=== PATIENT | female | born 1975 | race Caucasian/White ===

== ENCOUNTER 2023-06-07 07:53 | Outpatient (OUT) | payer BC, SELFPAY ==
[2023-06-07 09:03] LABS: Basophils Percent Auto 0.3 % (0.2-2.0); Eosinophils Absolute Auto 0.1 10^3/uL (0.0-0.7); Eosinophils Percent Auto 1.2 % (0.9-7.0); Estimated Average Glucose 117 mg/dL; Glycohemoglobin A1C 5.7 % (4.5-6.2); Hematocrit 39.1 % (36.0-48.0); Hemoglobin 12.9 g/dL (12.0-16.0); Immature Granulocytes Abs Auto 0.02 10^3/uL (0.00-0.03); Immature Granulocytes Pct Auto 0.3 % (0.0-0.5); Lymphocytes Absolute Auto 1.9 10^3/uL (1.2-3.8); Lymphocytes Percent Auto 31.5 % (20.5-60.0); Mean Corpuscular Hemoglobin 29.7 pg (26.7-34.0); Mean Corpuscular Volume 90.1 fL (81.0-99.0); Mean Platelet Volume 9.7 fL (9.5-13.5); Monocytes Absolute Auto 0.5 10^3/uL (0.3-0.8); Monocytes Percent Auto 8.1 % (1.7-12.0); Neutrophils Absolute Auto 3.5 10^3/uL (1.4-6.5); Neutrophils Percent Auto 58.6 % (43.0-75.0); Platelet Count 267 10^3/uL (150-450); Red Blood Count 4.34 10^6/uL (4.20-5.40); Red Cell Distribution Width 12.5 % (11.0-15.0); White Blood Count 5.9 10^3/uL (4.0-11.0)
[2023-06-07 09:26] LABS: Alanine Aminotransferase 32 U/L (14-59); Albumin Level 3.4 g/dL (3.4-5.0); Alkaline Phosphatase 75 U/L (46-116); Aspartate Amino Transferase 21 U/L (15-37); Bilirubin Direct 0.1 mg/dL (0.0-0.2); Bilirubin Total 0.3 mg/dL (0.2-1.0); Calcium 8.2 mg/dL (8.5-10.1); Chloride 106 mmol/L (98-107); Chol HDL Ratio 3.2; Cholesterol 196 mg/dL (<=200); Estimated GFR (African America >60 (>=60); Estimated GFR (Non-African Ame >60 (>=60); Free T3 2.36 pg/mL (2.18-3.98); Globulin 3.4 g/dL; Glucose 89 mg/dL (74-106); HDL Cholesterol 62 mg/dL (40-60); Sodium 142 mmol/L (136-145); Thyroid Stimulating Hormone 0.147 uIU/mL (0.358-3.740); Total Protein 6.8 g/dL (6.4-8.2); Triglycerides 163 mg/dL (<=150); VLDL CHOLESTEROL 32.6 mg/dL
[2023-06-07 09:51] LABS: Free T4 0.83 ng/dL (0.76-1.46)
== END 2023-06-07 07:54 | disposition home or self-care (01) ==
LOC: LAB 08:00
PROVIDERS: PCP Family Medicine; Visit Provider Family Medicine
DX: Z00.00 Encounter for general adult medical examination without abnormal findings (principal); E55.9 Vitamin D deficiency, unspecified; E03.9 Hypothyroidism, unspecified
CPT/HCPCS: 36415; 80048; 80061; 80076; 82306; 83036; 84439; 84443; 84481; 85025

== ENCOUNTER 2023-07-12 20:38 | Outpatient (REF) | payer BC, SELFPAY ==
--- OUTSIDE RECORDS SUMMARY | 2023-07-12 20:43 | XMS_ITS | CCD ---
Author Name Unknown Address [address] [place] [address] Organization [facility] Care Team Providers Care Head Greenskeeper Name Role Phone Unavailable, Family Physician Unavailable Un available Unavailable, Family Physician Unavailable Un available Diab, Kelsea Unavailable Unavailable [place], KEN Unavailable Unavailable [place], KEN Unavailable Unavailable NADERER, SRIDHAR ANTONIA Unavailable Unavailabl e ABEBA, NICHOLE Unavailable Unavailable MASSMELISSA RAFLUL Unavailable Unavailable NADERER, SRIDHAR ANTONIA Unavailable Unavailabl e NADERER, SRIDHAR ANTONIA Unavailable Unavailabl e NADERER, SRIDHAR ANTONIA Unavailable Unavailabl e NADERER, SRIDHAR ANTONIA Unavailable Unavailabl e NADERER, SRIDHAR ANTONIA Unavailable Unavailabl e NADERER, SRIDHAR ANTONIA Unavailable Unavailabl e NADERER, SRIDHAR ANTONIA Unavailable Unavailabl e NADERER, SRIDHAR ANTONIA Unavailable Unavailabl e NADERER, SRIDHAR ANTONIA Unavailable Unavailabl e NADERER, SRIDHAR ANTONIA Unavailable Unavailabl e NADERER, SRIDHAR ANTONIA Unavailable Unavailabl e NADERER, SRIDHAR ANTONIA Unavailable Unavailabl e NADERER, SRIDHAR ANTONIA Unavailable Unavailabl e NADERER, SRIDHAR ANTONIA Unavailable Unavailabl e NADERER, SRIDHAR ANTONIA Unavailable Unavailabl e NADERER, SRIDHAR ANTONIA Unavailable Unavailabl e NADERER, SRIDHAR ANTONIA Unavailable Unavailabl e NADERER, SRIDHAR ANTONIA Unavailable Unavailabl e NADERER, SRIDHAR ANTONIA Unavailable Unavailabl e NADERER, SRIDHAR ANTONIA Unavailable Unavailabl e NADERER, SRIDHAR ANTONIA Unavailable Unavailabl e NADERER, SRIDHAR ANTONIA Unavailable Unavailabl e NADERER, SRIDHAR ANTONIA Unavailable Unavailabl e NADERER, SRIDHAR ANTONIA Unavailable Unavailabl e NADERER, SRIDHAR ANTONIA Unavailable Unavailabl e NADERER, SRIDHAR ANTONIA Unavailable Unavailabl e NADERER, SRIDHAR ANTONIA Unavailable Unavailabl e NADERER, SRIDHAR ANTONIA Unavailable Unavailabl e NADERER, SRIDHAR ANTONIA Unavailable Unavailabl e NADERER, SRIDHAR ANTONIA Unavailable Unavailabl e NADERER, SRIDHAR ANTONIA Unavailable Unavailabl e NADERER, SRIDHAR ANTONIA Unavailable Unavailabl e NADERER, SRIDHAR ANTONIA Unavailable Unavailabl e NADERER, SRIDHAR ANTONIA Unavailable Unavailabl e NADERER, SRIDHAR ANTONIA Unavailable Unavailabl e NADERER, SRIDHAR ATNONIA Unavailable Unavailabl e NADERER, SRIDHAR ANTONIA Unavailable Unavailabl e NADERER, SRIDHAR ANTONIA Unavailable Unavailabl e NADERER, SRIDHAR ANTONIA Unavailable Unavailabl e NADERER, SRIDHAR ANTONIA Unavailable Unavailabl e NADERER, SRIDHAR ANTONIA Unavailable Unavailabl e NADERER, SRIDHAR ANTONIA Unavailable Unavailabl e NADERER, SRIDHAR ANTONIA Unavailable Unavailabl e NADERER, SRIDHAR ANTONIA Unavailable Unavailabl e NADERER, SRIDHAR ANTONIA Unavailable Unavailabl e NADERER, SRIDHAR ANTONIA Unavailable Unavailabl e [place], KEN Unavailable Unavailable EDIE, LORENZO Unavailable Unavailable NADERER, SRIDHAR ANTONIA Unavailable Unavailabl e EDIE, LORENZO Unavailable Unavailable NADERER, SRIDHAR ANTONIA Unavailable Unavailabl e EDIE, LORENZO Unavailable Unavailable NADERER, SRIDHAR ANTONIA Unavailable Unavailabl e EDIE, LORENZO Unavailable Unavailable NADERER, SRIDHAR ANTONIA Unavailable Unavailabl e EDIE, LORENZO Unavailable Unavailable NADERER, SRIDHAR ANTONIA Unavailable Unavailabl e EDIE, LORENZO Unavailable Unavailable NADERER, SRIDHAR ANTONIA Unavailable Unavailabl e Green, Domenic Unavailable Unavailable Green, Domenic Marko A Unavailable Unavailab Kenisha Gan Unavailable NADERER, DR SRIDHAR Choudhary Primary Care Unavailable JENIFER ONEIL Consulting Unavailable NADERER, DR SRIDHAR Choudhary Attending Unavailable NADERER, DR SRIDHAR Choudhary Admitting Unavailable NADERER, DR SRIDHAR Choudhary Consulting Unavailable NADERER, DR SRIDHAR Choudhary Primary Care Unavailable NADERER, DR SRIDHAR Choudhary Attending Unavailable NADERER, DR SRIDHAR Choudhary Admitting Unavailable ALEXX ., DR PINEDO Admitting Unavailable NADERER, DR SRIDHAR Choudhary Primary Care Unavailable ALEXX ., DR PINEDO Consulting Unavailable ALEXX ., DR PINEDO Attending Unavailable NADERER, DR SRIDHAR Choudhary Primary Care Unavailable NADERER, DR SRIDHAR Choudhary Consulting Unavailable NADERER, DR SRIDHAR Choudhary Attending Unavailable TERESITA, DR SRIDHAR Choudhary Admitting Unavailable NADFLORENTINO, DR SRIDHAR Choudhary Admitting Unavailable NADFLORENTINO, DR SRIDHAR Choudhary Primary Care Unavailable TERESITA, DR SRIDHAR Choudhary Consulting Unavailable TERESITA, DR SRIDHAR Choudhary Attending Unavailable ALEXX ., DR PINEDO Admitting Unavailable ALEXX ., DR PINEDO Consulting Unavailable TERESITA, DR SRIDHAR Choudhary Primary Care Unavailable ALEXX ., DR PINEDO Attending Unavailable All Starks Attending Unavailab le All Starks Admitting Unavailab le Sridhar Lo Primary Care Unavailable Allergies Allergy Classification Reported Allergen(s) Allergy Type Date of Onset Reaction(s) Facility (3 sources) cefdinir; Translations: [cefdinir] Drug Allergy 08-28-19 mood changes [facility] Repository (3 sources) Promethazine; Translations: [Phenergan] Drug Allergy [facility] Repository (2 sources) risperiDONE Drug Allergy [facility] Work Phone: (2 sources) Sulfamethoxazole / Trimethoprim; Translations: [Bactrim] Drug Allergy [facility] Repository (1 source) Ciprofloxacin Drug Allergy hives [facility] Other (2 sources) Prochlorperazine; Translations: [Compazine] Drug Allergy 03-01-20 17 dizziness [facility] Repository (1 source) Promethazine Drug Allergy nausea [facility] Other (1 source) Sulfamethoxazole / Trimethoprim Drug Allergy dizziness [facility] Other (1 source) Triamcinolone Drug Allergy anxiety [facility] Other (1 source) vortioxetine Drug Allergy nausea [facility] Other (1 source) Ciprofloxacin Drug Allergy [facility] Repository (1 source) Corticosteroids Drug allergy (disorder) 08-28-19 20 [facility] (1 source) risperiDONE Drug Allergy [facility] Repository (1 source) vortioxetine Drug Allergy 08-28-19 20 [facility] Repository Medications Current Medications Medication Drug Class(es) Dates Sig (Normalized) Sig (Original) Ascorbic Acid (2 sources) Vitamin C Vitamin C Active Vitamin C Not-Ta xi clonazePAM 0.5 mg oral table t (2 sources) Benzodiazepine clonazePAM 0.5 M G Oral for 30 Active take 0.5 tablet by m outh three times daily KlonoPIN 1 MG Oral Tablet TAKE 0.5 TABLE T 3 TIMES DAILY Refills: 0 Active famotidine 20 mg oral tablet (1 source) Histamine-2 Receptor Antagonist Famotidine 20 MG Ora l for 90 Active levothyroxine sodium 0.088 mg oral tablet (1 source) l-Thyroxine Levothyroxine So dium 88 MCG Oral for 90 Active nortriptyline 25 mg oral capsule (3 sources) Tricyclic Antidepressant Nortrip tyline HCl 25 MG Oral for 90 Active Pamelor 75 MG Or al Capsule Refills: 0 Active sertraline 25 mg oral tablet (1 source) Serotonin Reuptake Inhibitor Sertraline HCl 25 MG Oral for 30 Active Womens One Daily (1 source) Womens One Daily Active Completed/Discontinued Medications Medication Drug Class(es) Dates Sig (Normalized) Sig (Original) Cetirizine (1 source) Histamine-1 Receptor Antagonist ZyrTEC Allergy Not-Taking ergocalciferol 37373 unt oral capsule (2 sources) Provitamin D2 Compound Start: 09-22-2017 take 1 capsule by mouth every week at lunch Vitamin D (Ergocalciferol) 03412 UNIT Oral Capsule take 1 capsule by mouth every week ON MONDAY WITH LUNCH AND FULL GLASS OF WATER Quantity: 13 Refills: 0 Domenic Green Start : 22-Sep-2017 Active Vitamin D (Ergoc alciferol) 1.25 MG (80390 UT) Oral for 84 Active hydrOXYzine pamoate 25 mg oral capsule (1 source) Antihistamine hydrOXYzine Pamo ate 25 MG Oral Capsule Refills: 0 Active pantoprazole 40 mg delayed release oral tablet (1 source) Proton Pump Inhibitor take 1 tablet by mouth once daily Protonix 40 MG Oral Tablet Delayed Release TAKE 1 TABLET DAILY. Quantity: 90 Refills: 1 Active raNITIdine 150 mg oral tablet (1 source) Histamine-2 Receptor Antagonist Start: 08-10-19 18 take 1 tablet by mouth twice daily raNITIdine HCl - 150 MG Oral Tablet take 1 tablet by mouth twice a day Quantity: 60 Refills: 0 Domenic Green Start : 10-Aug-2017 Active Triamcinolone (1 source) Corticosteroid Start: 11-24-19 17 KENALOG - 10 mg October, 60 mg venlafaxine (1 source) Serotonin and Norepinephrine Reuptake Inhibitor Effexor Not-Taking Vitamin D (1 source) Vitamin D Not-Taking Problems Active Problems Problem Classification Problem Date Documented Date Episodic/Chronic Anxiety disorders (5 sources) Panic disorder; Translations: [Panic disorder [episodic paroxysmal anxiety]] Onset: 07-25-2017 Chronic Disorders of lipid metabolism (1 source) Hyperlipidemia, unspecified; Translations: [HYPERLIPIDEMIA UNSPECIFIED] Onset: 01-09-2022 Chronic Esophageal disorders (1 source) Gastroesophageal reflux disease; Translations: [GERD (gastroesophageal reflux disease)] Chronic Mood disorders (4 sources) Major depressive disorder, single episode, severe without psychotic features; Translations: [Major depressive disorder] Onset: 07-25-2017 Chronic Mood disorders (1 source) Mood disorders Onset: 12-06-2017 Nervous system congenital anomalies (1 source) Chiari malformation; Translations: [History of Arnold-Chiari syndrome] Chronic Nutritional deficiencies (2 sources) Vitamin D deficiency; Translations: [Vitamin D deficiency, unspecified] Onset: 01-09-2022 Chronic Other endocrine disorders (4 sources) Polycystic ovarian syndrome; Translations: [POLYCYSTIC OVARIAN SYNDROME] Onset: 07-06-2022 Chronic Other upper respiratory disease (1 source) Allergic rhinitis; Translations: [Allergic rhinitis, unspecified] Chronic Thyroid disorders (5 sources) Iodine-deficiency related diffuse (endemic) goiter; Translations: [Hypothyroidism, unspecified] Onset: 01-09-2022 Chronic Unclassified (1 source) 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() Onset: 01-22-2018 Unclassified (1 source) mdd recurrent severe / mdd recurrent severe() Onset: 11-21-2017 Unclassified (1 source) mdd recurrent severe,BRIAN, panic disorder / mdd recurrent severe,BRIAN, panic disorder() Onset: 01-15-2018 Unclassified (1 source) panic disorder / panic disorder() Onset: 01-22-2018 Past or Other Problems Problem Classification Problem Date Documented Da te Episodic/Chronic Conditions associated with dizziness or vertigo (1 source) Vertigo; Translations: [Vertigo] Episodic Immunizations and screening for infectious disease (2 sources) Contact with and (suspected) exposure to other viral communicable diseases; Translations: [Encounter for screening for human papillomavirus (HPV)] Onset: 07-01-2022 Episodic Malaise and fatigue (2 sources) Asthenia; Translations: [Fatigue] Episodic Other aftercare (4 sources) Other intermediate manager (current) drug therapy; Translations: [OTH [facility] CURRENT DRUG THERAPY] Onset: 04-13-2022 Episodic Other ear and sense organ disorders (1 source) Otalgia; Translations: [Right ear pain] Episodic Other gastrointestinal disorders (1 source) Swallowing painful; Translations: [Odynophagia] Episodic Other gastrointestinal disorders (1 source) Personal history of other diseases of the digestive system; Translations: [History of irritable bowel syndrome] Episodic Other lower respiratory disease (1 source) H/O: respiratory disease; Translations: [History of sinusitis] Episodic Other lower respiratory disease (1 source) Shortness of breath; Translations: [SHORTNESS OF BREATH] Onset: 05-01-2022 Episodic Other screening for suspected conditions (not mental disorders or infectious disease) (4 sources) Encounter for screening for malignant neoplasm of cervix; Translations: [ENC SCREENING MALIG NEOPLASM CERV] Onset: 06-29-2022 Episodic Screening and history of mental health and substance abuse codes (1 source) H/O: depression; Translations: [History of depression] Episodic Spondylosis; intervertebral disc disorders; other back problems (1 source) Low back pain; Translations: [Low back pain, unspecified back pain laterality, unspecified chronicity, with sciatica presence unspecified] Episodic Unclassified (1 source) MDD severe recurrent; Translations: [MDD severe recurrent] Onset: 01-22-2018 Unclassified (1 source) mdd recurrent severe,BRIAN, panic disorder; Translations: [mdd recurrent severe,BRIAN, panic disorder] Onset: 01-15-2018 Unclassified (1 source) mdd recurrent severe; Translations: [mdd recurrent severe] Onset: 11-21-2017 Unclassified (2 sources) Patient encounter status; Translations: [Screening for diabetes mellitus] Viral infection (1 source) COVID-19 NEGATED: Highlighted row has not occurred!Residual codes; unclassified (2 sources) Disease Episodic Results Test Name Value Interpretation Reference Range Facility DHEA SERUMon 07-09-2022 Dehydroepiandrosterone (DHEA) 145 ng/dL Normal 31-701 [facility] Comment on above: Result Comment: Age 1 - 5 years 0 - 67 6 - 7 years 0 - 110 8 - 10 years 0 - 185 11 - 12 years 0 - 201 13 - 14 years 0 - 318 15 - 16 years 39 - 481 17 - 19 years 40 - 491 >19 years 31 - 701 Performed By: #### C BC #### [facility] [address] [place], [place] [address] Dr. June Mayorga DHEA-SULFATEon 07-07-2022 DHEA-Sulfate 82.1 ug/dL Normal 41.2-243.7 [facility] Comment on above: Performed By: #### C BC #### [facility] [address] [place] [address] [address] June Mayorga FSHon 07-07-2022 FSH 6.4 mIU/mL Normal [facility] Comment on above: Result Comment: Adul t Female: Follicular phase 3.5 - 12.5 Ovulation phase 4.7 - 21.5 Luteal phase 1.7 - 7.7 Postmenopausal 25.8 - 134.8 Performed By: #### C BC #### [facility] [address] [place] [address] Dr. June Mayorga LUTEINIZING HORMONE (LH)on 0 07-07-2022 LH 7.4 mIU/mL Normal [facility] Comment on above: Result Comment: Adul t Female: Follicular phase 2.4 - 12.6 Ovulation phase 14.0 - 95.6 Luteal phase 1.0 - 11.4 Postmenopausal 7.7 - 58.5 Performed By: #### L BCL #### [facility] [address] [place] [address] Dr. June Mayorga PAP ACOG PANEL 2: 30 to 65on 07-07-2022 . . Normal [facility] Comment on above: Result Comment: Perf ormed at: BA Performed By: #### C BC #### [facility] [address] [place], [place] [id number] Dr. June Mayorga Age Gdln ACOG Testing 30-65 Normal [facility] Comment on above: Performed By: #### C BC #### [facility] [address] [place] [address] Dr. June Mayorga DIAGNOSIS: Comment Normal [facility] Comment on above: Result Comment: NEGA TIVE FOR INTRAEPITHELIAL LESION OR MALIGNANCY. Performed at: BA Performed By: #### C BC #### [facility] [address] [place] [address] Dr. June Mayorga HPV Aptima Negative Normal Negative [facility] Comment on above: Result Comment: This nucleic acid amplification test detects fourteen high-risk HPV types (16,18,31,33,35,39,45,51,52,56,58,59,66,68) without differentiation. Performed at: =G Performed By: #### C BC #### [facility] [address] [place] [address] Dr. June Mayorga HPV Genotype Reflex Comment Normal [facility] Comment on above: Result Comment: Crit eria not met, HPV Genotype not performed. Performed at: BA Performed By: #### C BC #### [facility] [address] [place] [address] Dr. June Mayorga Methodology: Comment Normal [facility] Comment on above: Result Comment: This liquid based ThinPrep(R) pap test was screened with the use of an image guided system. Performed at: WB Performed By: #### C BC #### [facility] [address] [place] [address] Dr. June Mayorga Note: Comment Normal [facility] Comment on above: Result Comment: The Pap smear is a screening test designed to aid in the detection of premalignant and malignant conditions of the uterine cervix. It is not a diagnostic procedure and should not be used as the sole means of detecting cervical cancer. Both false-positive and false-negative reports do occur. . Performed at: WB Performed By: #### C BC #### [facility] [address] [place] [address] Dr. June Mayorga Performed by: Comment Normal [facility] Comment on above: Result Comment: Julianne Rubio, Gameplay Engineer (ASCP) Performed at: BA Performed By: #### C BC #### [facility] [address] [place] [address] Dr. June Mayorga Specimen adequacy: Comment Normal [facility] Comment on above: Result Comment: Sati sfactory for evaluation. Endocervical and/or squamous metaplastic cells (endocervical component) are present. Performed at: BA Performed By: #### C BC #### [facility] [address] [place] [address] Dr. June Mayorga CBC AUTO DIFFon 07-06-2022 BASO # 0.0 103/ul Normal 0.0-0.1 [facility] Comment on above: Performed By: #### C BC #### [facility] [address] [place] [address] Dr. June Mayorga Basophils/100 WBC (Bld) 0.4 % Normal 0.2-2.0 [facility] Comment on above: Performed By: #### C BC #### [facility] [address] [place] [address] Dr. June Mayorga EO # 0.1 103/ul Normal 0.0-0.7 [facility] Comment on above: Performed By: #### C BC #### [facility] [address] [place] [address] Dr. June Mayorga Eosinophils/100 WBC (Bld) 1.5 % Normal 0.9-7.0 [facility] Comment on above: Performed By: #### C BC #### [facility] [address] [place] [address] Dr. June Mayorga Erythrocyte distribution width (RBC) [Ratio] 13.3 % Normal 11.0-15.0 [facility] Comment on above: Performed By: #### C BC #### [facility] [address] [place] [address] Dr. June Mayorga Hematocrit (Bld) [Volume fraction] 38.6 % Normal 36.0-48.0 [facility] Comment on above: Performed By: #### C BC #### [facility] [address] [place] [address] Dr. June Mayorga Hemoglobin (Bld) [Mass/Vol] 12.9 g/dL Normal 12.0-16.0 [facility] Comment on above: Performed By: #### C BC #### [facility] [address] [place] [address] Dr. June Mayorga IG # 0.02 10e3/ul Normal 0.00-0.03 [facility] Comment on above: Performed By: #### C BC #### [facility] [address] [place] [address] Dr. June Mayorga IG % 0.2 % Normal 0.0-0.5 [facility] Comment on above: Performed By: #### C BC #### [facility] [address] [place] [address] Dr. June Mayorga LYMPH # 3.0 103/ul Normal 1.2-3.8 [facility] Comment on above: Performed By: #### C BC #### [facility] [address] [place] [address] Dr. June Mayorga Lymphocytes/100 WBC (Bld) 37.3 % Normal 20.5-60.0 [facility] Comment on above: Performed By: #### C BC #### [facility] [address] [place] [address] Dr. June Mayorga MANUAL DIFF REQ NO Normal [facility] Comment on above: Performed By: #### C BC #### [facility] [address] [place] [address] Dr. June Mayorga MCH (RBC) [Entitic mass] 29.8 pg Normal 26.7-34.0 [facility] Comment on above: Performed By: #### C BC #### [facility] [address] [place] [address] Dr. June Mayorga MCHC (RBC) [Mass/Vol] 33.4 g/dL Normal 29.9-35.2 [facility] Comment on above: Performed By: #### C BC #### [facility] [address] [place] [address] Dr. June Mayorga MCV (RBC) [Entitic vol] 89.1 fL Normal 81.0-99.0 [facility] Comment on above: Performed By: #### C BC #### [facility] [address] [place] [address] Dr. June Mayorga MONO # 0.7 103/ul Normal 0.3-0.8 [facility] Comment on above: Performed By: #### C BC #### [facility] [address] [place] [address] Dr. June Mayorga Monocytes/100 WBC (Bld) 8.5 % Normal 1.7-12.0 [facility] Comment on above: Performed By: #### C BC #### [facility] [address] [place] [address] Dr. June Mayorga NEUT # 4.2 103/ul Normal 1.4-6.5 [facility] Comment on above: Performed By: #### C BC #### [facility] [address] [place] [address] Dr. June Mayorga Neutrophils/100 WBC (Bld) 52.1 % Normal 43.0-75.0 [facility] Comment on above: Performed By: #### C BC #### [facility] [address] [place] [address] Dr. June Mayorga Platelet mean volume (Bld) [Entitic vol] 9.2 fL Critically low 9.5-13.5 [facility] Comment on above: Performed By: #### C BC #### [facility] [address] [place] [address] Dr. June Mayorga PLT 257 103/ul Normal 150-450 [facility] Comment on above: Performed By: #### C BC #### [facility] [address] [place] [address] Dr. June Mayorga RBC 4.33 106/ul Normal 4.20-5.40 [facility] Comment on above: Performed By: #### C BC #### [facility] [address] [place] [address] Dr. June Mayorga WBC 8.1 103/ul Normal 4.0-11.0 [facility] Comment on above: Performed By: #### C BC #### [facility] [address] [place] [address] Dr. June Mayorga FREE T4on 07-06-2022 Free T4 [Mass/Vol] 0.84 ng/dL Normal 0.76-1.46 [facility] Comment on above: Performed By: #### F T4 #### [facility] [address] [place] [address] Dr. June Mayorga GLYCOHEMOGLOBIN A1Con 2022 ADA RECOMMENDATION SEE BELOW Normal [facility] Comment on above: Result Comment: ADA RECOMMENDED LIMIT 4.0 - 6.0 ADA THERAPEUTIC TARGET < 7.0 ACTION SUGGESTED > 7.0 Performed By: #### A 1C #### [facility] [address] [place] [address] Dr. June Mayorga Glucose [Mass/Vol] 105 mg/dL Normal [facility] Comment on above: Performed By: #### A 1C #### [facility] [address] [place] [address] Dr. June Mayorga HbA1c (Bld) [Mass fraction] 5.3 % Normal 4.5-6.2 [facility] Comment on above: Performed By: #### A 1C #### [facility] [address] [place] [address] Dr. June Mayorga TSHon 07-06-2022 TSH 0.631 uIU/mL Normal 0.358-3.74 0 [facility] Comment on above: Performed By: #### T SH #### [facility] [address] [place] [address] Dr. June Mayorga US THYROIDon 04-28-2022 US THYROID EXAMINATION: US THYR OID HISTORY: Diffuse endemic goiter COMPARISON: No relevant comparison available. TECHNIQUE: Sonographic images of the thyroid gland were obtained. FINDINGS: The right thyroid lobe is normal in size, contour and echotexture measuring 4.6 x 0.9 x 1.0 cm. No focal nodule The thyroid isthmus measures 2 mm, no focal nodule The left thyroid lobe is normal in size, contour and echotexture measuring 3.8 x 0.7 x 1.1 cm. No focal nodule IMPRESSION: Normal exam Electronically authenticated by: JENIFER ONEIL Date: 2022-04-28 19:27 Normal [facility] MAGNESIUMon 04-13-2022 Magnesium [Mass/Vol] 2.1 mg/dL Normal 1.8-2.4 [facility] Comment on above: Performed By: #### M G #### [facility] [address] [place] [address] Dr. uJne Mayorga COVID Quick Testingon 2021 Result Positive [employer] Other CBC AUTO DIFFon 01-05-2022 BASO # 0.0 103/ul Normal 0.0-0.1 [facility] Comment on above: Performed By: #### C BC #### [facility] [address] [place] [address] Dr. June Mayorga Basophils/100 WBC (Bld) 0.5 % Normal 0.2-2.0 [facility] Comment on above: Performed By: #### C BC #### [facility] [address] [place] [address] Dr. June Mayorga EO # 0.1 103/ul Normal 0.0-0.7 [facility] Comment on above: Performed By: #### C BC #### [facility] [address] [place] [address] Dr. June Mayorga Eosinophils/100 WBC (Bld) 1.6 % Normal 0.9-7.0 [facility] Comment on above: Performed By: #### C BC #### [facility] [address] [place] [address] Dr. June Mayorga Erythrocyte distribution width (RBC) [Ratio] 12.9 % Normal 11.0-15.0 [facility] Comment on above: Performed By: #### C BC #### [facility] [address] [place] [address] Dr. June Mayorga Hematocrit (Bld) [Volume fraction] 38.8 % Normal 36.0-48.0 [facility] Comment on above: Performed By: #### C BC #### [facility] [address] [place] [address] Dr. June Mayorga Hemoglobin (Bld) [Mass/Vol] 12.7 g/dL Normal 12.0-16.0 [facility] Comment on above: Performed By: #### C BC #### [facility] [address] [place] [address] Dr. June Mayorga IG # 0.01 10e3/ul Normal 0.00-0.03 [facility] Comment on above: Performed By: #### C BC #### [facility] [address] [place] [address] Dr. June Mayorga IG % 0.2 % Normal 0.0-0.5 [facility] Comment on above: Performed By: #### C BC #### [facility] [address] [place] [address] Dr. June Mayorga LYMPH # 2.3 103/ul Normal 1.2-3.8 [facility] Comment on above: Performed By: #### C BC #### [facility] [address] [place] [address] Dr. June Mayogra Lymphocytes/100 WBC (Bld) 36.6 % Normal 20.5-60.0 [facility] Comment on above: Performed By: #### C BC #### [facility] [address] [place] [address] Dr. June Mayorga MANUAL DIFF REQ NO Normal [facility] Comment on above: Performed By: #### C BC #### [facility] [address] [place] [address] Dr. June Mayorga MCH (RBC) [Entitic mass] 30.1 pg Normal 26.7-34.0 [facility] Comment on above: Performed By: #### C BC #### [facility] [address] [place] [address] Dr. June Mayorga MCHC (RBC) [Mass/Vol] 32.7 g/dL Normal 29.9-35.2 [facility] Comment on above: Performed By: #### C BC #### [facility] [address] [place] [address] Dr. June Mayorga MCV (RBC) [Entitic vol] 91.9 fL Normal 81.0-99.0 [facility] Comment on above: Performed By: #### C BC #### [facility] [address] [place] [address] Dr. June Mayorga MONO # 0.6 103/ul Normal 0.3-0.8 [facility] Comment on above: Performed By: #### C BC #### [facility] [address] [place] [address] Dr. June Mayorga Monocytes/100 WBC (Bld) 9.2 % Normal 1.7-12.0 [facility] Comment on above: Performed By: #### C BC #### [facility] [address] [place] [address] Dr. June Mayorga NEUT # 3.2 103/ul Normal 1.4-6.5 [facility] Comment on above: Performed By: #### C BC #### [facility] [address] [place] [address] Dr. June Mayorga Neutrophils/100 WBC (Bld) 51.9 % Normal 43.0-75.0 [facility] Comment on above: Performed By: #### C BC #### [facility] [address] [place] [address] Dr. June Mayorga Platelet mean volume (Bld) [Entitic vol] 10.2 fL Normal 9.5-13.5 [facility] Comment on above: Performed By: #### C BC #### [facility] [address] [place] [address] Dr. June Mayorga PLT 293 103/ul Normal 150-450 [facility] Comment on above: Performed By: #### C BC #### [facility] [address] [place] [address] Dr. June Mayorga RBC 4.22 106/ul Normal 4.20-5.40 [facility] Comment on above: Performed By: #### C BC #### [facility] [address] [place] [address] Dr. June Mayorga WBC 6.2 103/ul Normal 4.0-11.0 [facility] Comment on above: Performed By: #### C BC #### [facility] [address] [place], [place] [id number] Dr. June Mayorga FREE T3on 01-05-2022 FREE T3 2.79 pg/mlL Normal 2.18-3.98 [facility] Comment on above: Performed By: #### C BC #### [facility] [address] [place] [address] Dr. June Mayorga FREE T4on 01-05-2022 Free T4 [Mass/Vol] 0.94 ng/dL Normal 0.76-1.46 [facility] Comment on above: Performed By: #### C BC #### [facility] [address] [place] [address] Dr. June Mayorga GLYCOHEMOGLOBIN A1Con 2021 ADA RECOMMENDATION SEE BELOW Normal [facility] Comment on above: Result Comment: ADA RECOMMENDED LIMIT 4.0 - 6.0 ADA THERAPEUTIC TARGET < 7.0 ACTION SUGGESTED > 7.0 Performed By: #### A 1C #### [facility] [address] [place] [address] Dr. June Mayorga Glucose [Mass/Vol] 123 mg/dL Normal [facility] Comment on above: Performed By: #### A 1C #### [facility] [address] [place] [address] Dr. June Mayorga HbA1c (Bld) [Mass fraction] 5.9 % Normal 4.5-6.2 [facility] Comment on above: Performed By: #### A 1C #### [facility] [address] [place] [address] Dr. June Mayorga LIPID PROFILEon 01-05-2022 CHOL-HDL RATIO NORM SEE BELOW Normal [facility] Comment on above: Result Comment: 3.3 - 4.4 LOW RISK 4.4 - 7.1 AVERAGE RISK 7.1 - 11.0 MODERATE RISK >11.0 HIGH RISK Performed By: #### L IPID, TSH, BMP, FT3, LIVER #### [facility] [address] [place] [address] Dr. June Mayorga Cholesterol [Mass/Vol] 169 mg/dL Normal <=200 [facility] Comment on above: Performed By: #### L IPID, TSH, BMP, FT3, LIVER #### [facility] [address] [address] [address] June Mayorga Cholesterol in HDL [Mass/Vol] 44 mg/dL Normal 40-60 [facility] Comment on above: Performed By: #### L IPID, TSH, BMP, FT3, LIVER #### [facility] [address] [address] [address] June Mayorga Cholesterol in LDL [Mass/Vol] 89.6 mg/dL Normal [facility] Comment on above: Performed By: #### L IPID, TSH, BMP, FT3, LIVER #### [facility] [address] [address] [address] June Mayorga Cholesterol.total/Choles terol in HDL [Mass ratio] 3.8 {ratio} Normal [facility] Comment on above: Performed By: #### L IPID, TSH, BMP, FT3, LIVER #### [facility] [address] [address] [address] June Mayorga HDL NORMAL > or = 60 mg/dl - LO W CARDIOVASCULAR RISK <40 mg/dl - HIGH CARDIOVASCULAR RISK Normal [facility] Comment on above: Performed By: #### L IPID, TSH, BMP, FT3, LIVER #### [facility] [address] [address] [address] June Mayorga LDL CALC NORMAL SEE BELOW Normal [facility] Comment on above: Result Comment: <100 mg/dl OPTIMAL 100 - 129 mg/dl NEAR OR ABOVE OPTIMAL 130 - 159 mg/dl BORDERLINE HIGH 160 - 189 mg/dl HIGH >190 mg/dl VERY HIGH Performed By: #### L IPID, TSH, BMP, FT3, LIVER #### [facility] [address] [address] [address] June Mayorga Triglyceride [Mass/Vol] 177 mg/dL Critically high <=150 [facility] Comment on above: Performed By: #### L IPID, TSH, BMP, FT3, LIVER #### [facility] [address] [address] [address] June Mayorga VLDL CALC 35.4 mg/dL Normal [facility] Comment on above: Performed By: #### L IPID, TSH, BMP, FT3, LIVER #### [facility] [address] [place] [address] Dr. June Mayorga LIVER PROFILEon 01-05-2022 Albumin [Mass/Vol] 3.5 g/dL Normal 3.4-5.0 [facility] Comment on above: Performed By: #### C BC #### [facility] [address] [place] [address] Dr. June Mayorga Albumin/Globulin [Mass ratio] 1.1 {ratio} Normal [facility] Comment on above: Performed By: #### C BC #### [facility] [address] [place] [address] Dr. June Mayorga ALP [Catalytic activity/Vol] 71 U/L Normal 46-116 [facility] Comment on above: Performed By: #### C BC #### [facility] [address] [place] [address] Dr. June Mayorga ALT [Catalytic activity/Vol] 43 U/L Normal 14-59 [facility] Comment on above: Performed By: #### C BC #### [facility] [address] [place] [address] Dr. June Mayorga AST [Catalytic activity/Vol] 27 U/L Normal 15-37 [facility] Comment on above: Performed By: #### C BC #### [facility] [address] [place] [address] Dr. June Mayorga BILI, CONJUGATED 0.1 mg/dL Normal 0.0-0.2 [facility] Comment on above: Performed By: #### C BC #### [facility] [address] [place] [address] Dr. June Mayorga Bilirubin [Mass/Vol] 0.3 mg/dL Normal 0.2-1.0 [facility] Comment on above: Performed By: #### C BC #### [facility] [address] [place] [address] Dr. June Mayorga Globulin (S) [Mass/Vol] 3.3 g/dL Normal [facility] Comment on above: Performed By: #### C BC #### [facility] [address] [address] [address] June Mayorga Protein [Mass/Vol] 6.8 g/dL Normal 6.4-8.2 [facility] Comment on above: Performed By: #### C BC #### [facility] [address] [address] [address] June Mayorga PROF CHEM 8 (BAS METB)on Anion gap [Moles/Vol] 11.0 mmol/L Normal [facility] Comment on above: Performed By: #### L IPID, TSH, BMP, FT3, LIVER #### [facility] [address] [place] [address] Dr. June Mayorga Calcium [Mass/Vol] 8.6 mg/dL Normal 8.5-10.1 [facility] Comment on above: Performed By: #### L IPID, TSH, BMP, FT3, LIVER #### [facility] [address] [place] [address] Dr. June Mayorga Chloride [Moles/Vol] 108 mmol/L Critically high 98-107 [facility] Comment on above: Performed By: #### L IPID, TSH, BMP, FT3, LIVER #### [facility] [address] [place] [address] Dr. June Mayorga CO2 [Moles/Vol] 26.3 mmol/L Normal 21.0-32.0 [facility] Comment on above: Performed By: #### L IPID, TSH, BMP, FT3, LIVER #### [facility] [address] [place] [address] Dr. June Mayorga Creatinine [Mass/Vol] 0.90 mg/dL Normal 0.55-1.02 [facility] Comment on above: Performed By: #### L IPID, TSH, BMP, FT3, LIVER #### [facility] [address] [place] [address] Dr. June Mayorga EGFR-AF ALBANIAN >60 Normal >=60 [facility] Comment on above: Performed By: #### L IPID, TSH, BMP, FT3, LIVER #### [facility] [address] [place] [address] Dr. June Mayorga EGFR-NON AF ALBANIAN >60 Normal >=60 [facility] Comment on above: Performed By: #### L IPID, TSH, BMP, FT3, LIVER #### [facility] [address] [place] [address] Dr. June Mayorga Glucose [Mass/Vol] 97 mg/dL Normal 74-106 [facility] Comment on above: Performed By: #### L IPID, TSH, BMP, FT3, LIVER #### [facility] [address] [place] [address] Dr. June Mayorga Potassium [Moles/Vol] 4.3 mmol/L Normal 3.5-5.1 [facility] Comment on above: Performed By: #### L IPID, TSH, BMP, FT3, LIVER #### [facility] [address] [address] [address] June Mayorga Sodium [Moles/Vol] 141 mmol/L Normal 136-145 [facility] Comment on above: Performed By: #### L IPID, TSH, BMP, FT3, LIVER #### [facility] [address] [place] [address] Dr. June Mayorga Urea nitrogen [Mass/Vol] 15.0 mg/dL Normal 7.0-18.0 [facility] Comment on above: Performed By: #### L IPID, TSH, BMP, FT3, LIVER #### [facility] [address] [place] [address] Dr. June Mayorga Urea nitrogen/Creatinine [Mass ratio] 16.7 mg/mg Normal [facility] Comment on above: Performed By: #### L IPID, TSH, BMP, FT3, LIVER #### [facility] [address] [place] [address] Dr. June Mayorga TSHon 01-05-2022 TSH 0.118 uIU/mL Critically low 0.358-3.74 0 [facility] Comment on above: Performed By: #### L IPID, TSH, BMP, FT3, LIVER #### [facility] [address] [place], [place] [address] Dr. June Mayorga VITAMIN D 25 OHon 01-05-2022 VIT D 25-OH 39.7 ng/mL Normal [facility] Comment on above: Performed By: #### C BC #### [facility] [address] [address] [address] June Mayorga VIT D RANGES SEE BELOW Normal [facility] Comment on above: Result Comment: <20 ng/mL Vit D deficient 20 - <30 ng/mL Vit D insufficient 30 - 100 ng/mL Vit D sufficient >100 ng/mL Potential Toxicity Performed By: #### C BC #### [facility] [address] [address] [address] CERVICAL SP WO CONon CT CERVICAL SP WO CON STUDY:CT CERVICAL SP WO CON; 12/07/2017 7:34 pmINDICATION:PAIN.MANAN RISON:None. [facility]:Truman Magana:Contigu ous axial images of the cervical spine were obtained withoutintravenous contrast. Coronal and sagittal reformatted images wereobtained from the axial images.FINDINGS:The examination is limited secondary to patient motion. No evidenceof acute fracture or subluxation of the cervical spine. The vertebralbody heights are preserved. There is straightening of the normalcervical lordosis which may be secondary to patient positioning ormuscle spasm. There is limited evaluation of the soft tissues of thespinal canal. No evidence of spinal canal stenosis. No prevertebralsoft tissue edema.IMPRESSION:No evidence of acute fracture or subluxation of the cervical spine.Straightening of the normal cervical lordosis which may be secondaryto patient positioning or muscle spasm. Normal [facility] CT HEAD/BRAIN WO CONon 12-07 CT HEAD/BRAIN WO CON STUDY:CT HEAD/BRAIN WO CON; 12/07/2017 7:34 pmINDICATION:PAIN.MANAN RISON:NoneACCESSION NUMBER(S):[id number] [facility]:Truman Magana:Contigu ous axial images of the head were obtained without intravenouscontrast.FIN DINGS:BRAIN PARENCHYMA: The pineda white matter differentiation is preserved.No mass effect or midline shift.HEMORRHAGE: No evidence of acute intracranial hemorrhage.VENTRICLES AND EXTRA-AXIAL SPACES:The ventricles are within normallimits in size for brain volume. No evidence of abnormal extraaxialfluid collection.EXTRACRANIAL SOFT TISSUES:Within normal limits.PARANASAL SINUSES/MASTOIDS:The visualized paranasal sinuses andmastoid air cells are clear and well pneumatized.CALVARIUM:N o evidence of depressed calvarial fracture.OTHER FINDINGS:NoneIMPRESSION :No evidence of acute intracranial hemorrhage or mass effect Normal [facility] SHOULDER RT COMPLETE MIN 2 V WSon 12-07-2017 SHOULDER RT COMPLETE MIN 2 VWS STUDY:SHOULDER RT COMPLETE MIN 2 VWS; 12/07/2017 7:33 pmINDICATION:PAIN.MANAN RISON:None. [facility]IAN:Truman Jeong:There is no acute fracture or dislocation of the rightacromioclavicular joint or glenohumeral joint. The subacromial andglenohumeral joint spaces are maintained. There are mild degenerativechanges of the right acromioclavicular joint.IMPRESSION:No acute osseous abnormality of the right shoulder. Normal [facility] Mccleary Levelon 10-02-2017 Mccleary 0.4 mmol/L Low 0.6-1.2 [facility] CBC AND DIFFERENTIALon 09-22 % AUTOMATED IMMATURE GRAN 0.2 % Normal 0.0 - 0.9 [facility] Comment on above: Result Comment: Perc ent differential counts (%) should be interpreted in the context of the absolute cell counts (cells/L). Performed By: #### T HYDS ####[facility] [place] [address] % NEUTROPHIL 62.5 % Normal 40.0 - 80.0 [facility] Comment on above: Performed By: #### T HYDS ####[facility] [place] [address] Basophils/100 WBC Auto (Bld) 0.02 x10E9/L Normal 0.00 - 0.10 [facility] Comment on above: Performed By: #### T HYDS ####[facility] [place] [address] Basophils/100 WBC Auto (Bld) 0.2 % Normal 0.0 - 2.0 [facility] Comment on above: Performed By: #### T HYDS ####[facility] [place] [address] Eosinophils 0.08 10*3/uL Normal 0.00 - 0.70 [facility] Comment on above: Performed By: #### T HYDS ####[facility] [place] [address] Eosinophils/100 leukocytes 1.0 % Normal 0.0 - 6.0 [facility] Comment on above: Performed By: #### T HYDS ####[facility] [place] [address] Erythrocyte distribution width Auto Ratio (RBC) 12.7 % Normal 11.5 - 14.5 [facility] Comment on above: Performed By: #### T HYDS ####[facility] [place] [address] Erythrocytes (RBC) 4.15 x10E12/L Normal 4.00 - 5.20 [facility] Comment on above: Performed By: #### T HYDS ####[facility] [place] [address] Hematocrit (HCT) 39.1 % Normal 36.0 - 46.0 [facility] Comment on above: Performed By: #### T HYDS ####[facility] [place] [address] Hemoglobin mass conc (Bld) 12.7 g/dL Normal 12.0 - 16.0 [facility] Comment on above: Performed By: #### T HYDS ####[facility] [place] [address] Lymphocytes 2.33 10*3/uL Normal 1.20 - 4.80 [facility] Comment on above: Performed By: #### T HYDS ####[facility] [place] [address] Lymphocytes/100 leukocytes 28.6 % Normal 13.0 - 44.0 [facility] Comment on above: Performed By: #### T HYDS ####[facility] [place] [address] MCHC mass conc (RBC) 32.5 g/dL Normal 32.0 - 36.0 [facility] Comment on above: Performed By: #### T HYDS ####[facility] [place] [address] MCV 94 fL Normal 80 - 100 [facility] Comment on above: Performed By: #### T HYDS ####[facility] [place] [address] Monocytes 0.61 10*3/uL Normal 0.10 - 1.00 [facility] Comment on above: Performed By: #### T HYDS ####[facility] [place] [address] Monocytes/100 leukocytes 7.5 % Normal 2.0 - 10.0 [facility] Comment on above: Performed By: #### T HYDS ####[facility] [place] [address] Neutrophils 5.09 10*3/uL Normal 1.20 - 7.70 [facility] Comment on above: Performed By: #### T HYDS ####[facility] [place] [address] Nucleated erythrocytes 0.0 /100 WBC Normal 0.0-0.0 [facility] Comment on above: Performed By: #### T HYDS ####[facility] [place] [address] Platelets 293 10*3/uL Normal 150 - 450 [facility] Comment on above: Performed By: #### T HYDS ####[facility] [place] [address] WBC (Leukocytes) 8.2 10*3/uL Normal 4.4 - 11.3 [facility] [place] Comment on above: Performed By: #### T HYDS ####[facility] [place] [address] COMPREHENSIVE PANELon 2017 Alanine aminotransferase (ALT) 12 U/L Normal 7 - 45 [facility] Comment on above: Result Comment: [place] ents treated with Sulfasalazine may generate falsely decreased results for ALT. Performed By: #### C MP ####[facility] [place] [address] Albumin 4.5 g/dL Normal 3.4 - 5.0 [facility] Comment on above: Performed By: #### C MP ####[facility] [place] [address] Alkaline phosphatase (ALP) 75 U/L Normal 33 - 110 [facility] Comment on above: Performed By: #### C MP ####[facility] [place] [address] Anion gap 12 mmol/L Normal 10 - 20 [facility] Comment on above: Performed By: #### C MP ####[facility] [place] [address] Aspartate aminotransferase (AST) 15 U/L Normal 9 - 39 [facility] Comment on above: Performed By: #### C MP ####[facility] [place] [address] Bicarbonate (HCO3) 29 mmol/L Normal 21 - 32 [facility] Comment on above: Performed By: #### C MP ####[facility] [place] [address] Bilirubin (total) 0.3 mg/dL Normal 0.0 - 1.2 [facility] [place] Comment on above: Performed By: #### C MP ####[facility] [place] [address] Calcium 9.5 mg/dL Normal 8.6 - 10.6 [facility] Comment on above: Performed By: #### C MP ####[facility] [place] [address] Chloride 104 mmol/L Normal 98 - 107 [facility] Comment on above: Performed By: #### C MP ####[facility] [place] [address] Creatinine 0.67 mg/dL Normal 0.50 - 1.05 [facility] Comment on above: Performed By: #### C MP ####[facility] [place] [address] eGFR (non-black) mL/min/{1.73_m2} Normal >60 [facility] Comment on above: Performed By: #### C MP ####[facility] [place] [address] Result Comment: CALC ULATIONS OF ESTIMATED GFR ARE PERFORMED USING THE MDRD STUDY EQUATION FOR THE IDMS-TRACEABLE CREATININE METHODS. CLIN CHEM 2007;53:766-72 Glucose mass conc 109 mg/dL High 74 - 99 [facility] [place] Comment on above: Performed By: #### C MP ####[facility] [place] [address] Potassium molar conc 4.2 mmol/L Normal 3.5 - 5.3 [facility] Comment on above: Performed By: #### C MP ####[facility] [place] [address] Protein 6.8 g/dL Normal 6.4 - 8.2 [facility] Comment on above: Performed By: #### C MP ####[facility] [place] [address] Sodium 141 mmol/L Normal 136 - 145 [facility] Comment on above: Performed By: #### C MP ####[facility] [place] [address] Urea nitrogen 9 mg/dL Normal 6 - 23 [facility] Comment on above: Performed By: #### C MP ####[facility] [place] [address] CREATINE KINASEon 03--2018 Creatine kinase (CK) 50 U/L Normal 0 - 215 [facility] Comment on above: Performed By: #### C K ####[facility] [place] [address] FOLATE, SERUMon 09-22-2017 FOLATE, SERUM > 24.0 Normal >5.0 [facility] Comment on above: Result Comment: [place] ents receiving more than 5 mg/day of biotin may have interference in test results. A sample should be taken no sooner than eight hours after previous dose. Contact [phone] for additional information. Performed By: #### T HYDS ####[facility] [place] [address] HEMOGLOBIN A1Con 09-22-2017 Glucose mass conc 100 mg/dL Normal [facility] [place] Comment on above: Performed By: #### T HYDS ####[facility] [place] [address] Hemoglobin A1c/Hemoglobin.total mass fraction (Bld) 5.1 % Normal [facility] Comment on above: Result Comment: Diag nosis of Diabetes-Adults Non-Diabetic: < or = 5.6% Increased risk for developing diabetes: 5.7-6.4% Diagnostic of diabetes: > or = 6.5%. Monitoring of Diabetes Age (y) Therapeutic Goal (%) Adults: >18 <7.0 Pediatrics: 13-18 <7.5 7-12 <8.0 0- 6 7.5-8.5 [place] [employer]. Diabetes Care 33(S1), Jul 2009. Performed By: #### T HYDS ####[facility] [place] [address] LDL, DIRECTon 09-22-2017 LDL Cholesterol 84 mg/dL Normal 0 - 129 [facility] Comment on above: Result Comment: Elev ated levels of LDL cholesterol are recognized as a keyfactor in the development of atherosclerosis and CHD. Thedirect LDL cholesterol test can be used to assesscardiovascular risk and monitor therapy as a follow up toa lipid profile when triglycerides are significantly elevated. Performed By: #### L DLDI ####[facility] [place] [address] LIPID PANEL (CORONARY RISK 2 )on 09-22-2017 Cholesterol 170 mg/dL Normal 0 - 199 [facility] Comment on above: Result Comment: . AG E DESIRABLE BORDERLINE HIGH HIGH 0-19 Y 0 - 169 170 - 199 >/= 200 20-24 Y 0 - 189 190 - 224 >/= 225 >24 Y 0 - 199 200 - 239 >/= 240 All ranges are based on fasting samples. Specific therapeutic targets will vary based on patient-specific cardiac risk.. Pediatric guidelines reference:Pediatrics 2011, 128(S5). Adult guidelines reference: NCEP ATPIII Guidelines, SUHAIL 2001, 258:2486-97. Venipuncture immediately after or during the administration of Metamizole may lead to falsely low results. Testing should be performed immediately prior to Metamizole dosing. Performed By: #### L IPID ####[facility] [place] [address] Cholesterol in VLDL mass conc 22 mg/dL Normal 0 - 40 [facility] Comment on above: Performed By: #### L IPID ####[facility] [place] [address] Cholesterol to HDL Ratio 2.7 {ratio} Normal [facility] Comment on above: Result Comment: REF VALUESDESIRABLE < 3.4HIGH RISK > 5.0 Performed By: #### L IPID ####[facility] [place] [address] HDL Cholesterol 63.6 mg/dL Normal [facility] Comment on above: Result Comment: . AG E VERY LOW LOW NORMAL HIGH 0-19 Y < 35 < 40 40-45 ---- 20-24 Y ---- < 40 >45 ---- >24 Y ---- < 40 40-60 >60. Performed By: #### L IPID ####[facility] [place] [address] LDL Cholesterol 84 mg/dL Normal 0 - 99 [facility] Comment on above: Result Comment: . AMARJIT GARCIA AGE DESIRABLE OPTIMAL HIGH HIGH VERY HIGH 0-19 Y 0 - 109 --- 110-129 >/= 130 ---- 20-24 Y 0 - 119 --- 120-159 >/= 160 ---- >24 Y 0 - 99 100-129 130-159 160-189 >/=190. Performed By: #### L IPID ####[facility] [place] [address] Triglyceride 110 mg/dL Normal 0 - 149 [facility] Comment on above: Result Comment: . AG E DESIRABLE BORDERLINE HIGH HIGH VERY HIGH 0 D-90 D 19 - 174 ---- ---- ----91 D- 9 Y 0 - 74 75 - 99 >/= 100 ---- 10-19 Y 0 - 89 90 - 129 >/= 130 ---- 20-24 Y 0 - 114 115 - 149 >/= 150 ---- >24 Y 0 - 149 150 - 199 200- 499 >/= 500. Venipuncture immediately after or during the administration of Metamizole may lead to falsely low results. Testing should be performed immediately prior to Metamizole dosing. Performed By: #### L IPID ####[facility] [place] [address] MAGNESIUMon 09-22-2017 Magnesium 2.07 mg/dL Normal 1.60 - 2.40 [facility] Comment on above: Performed By: #### M G ####[facility] [place] [address] TRIIODOTHYRONINE,FREEon 09-01 TRIIODOTHYRONINE,FREE 3.2 pg/mL Normal 1.8 - 4.2 [facility] Comment on above: Performed By: #### T 3FRE ####[facility] [place] [address] TRIIODOTHYRONINE,FREE Canceled Normal [facility] Comment on above: Order Comment: TEST TRIIODOTHYRONINE,FREE WAS CANCELLED, 09/21/2017 22:43 DUPLICATE ORDER. Performed By: #### T 3FRE ####[facility] [place] [address] TSH WITH REFLEX TO FREE T4 I F ABNORMALon 09-22-2017 Thyroid stimulating hormone (TSH) 1.07 m[IU]/L Normal 0.44 - 3.98 [facility] Comment on above: Result Comment: TSH testing is performed using different testing methodology at [facility] than at other [facility]. Direct result comparisons should only be made within the same method.. Patients receiving more than 5 mg/day of biotin may have interference in test results. A sample should be taken no sooner than eight hours after previous dose. Contact [phone] for additional information. Performed By: #### T HYDS ####[facility] [place] [address] Thyroid stimulating hormone (TSH) Canceled Normal [facility] Comment on above: Order Comment: TEST TSH WITH REFLEX TO FREE T4 IF ABNORMAL WAS CANCELLED, 09/21/2017 22:44DUPLICATE ORDER. Result Comment: TSH testing is performed using different testing methodology at [facility] than at other [facility]. Direct result comparisons should only be made within the same method.. Patients receiving more than 5 mg/day of biotin may have interference in test results. A sample should be taken no sooner than eight hours after previous dose. Contact [phone] for additional information. Performed By: #### T HYDS ####[facility] [place] [address] UA MICROSCOPICon 09-22-2017 Erythrocytes (RBC) 38 /HPF Abnormal 0-5 [facility] Comment on above: Performed By: #### T HYDS ####[facility] [place] [address] SQUAMOUS EPITH. CELLS <1 Normal [facility] Comment on above: Performed By: #### T HYDS ####[facility] [place] [address] Urine, mucus presence in sediment 1+ /LPF Normal [facility] Comment on above: Performed By: #### T HYDS ####[facility] [place] [address] WBC (Leukocytes) 3 /HPF Normal 0-5 [facility] Comment on above: Performed By: #### T HYDS ####[facility] [place] [address] URINALYSISon 09-22-2017 Bilirubin (total) Negative Normal NEGATIVE [facility] [place] Comment on above: Performed By: #### T HYDS ####[facility] [place] [address] BLOOD LARGE (3+) Abnormal NEGATIVE [facility] Comment on above: Performed By: #### T HYDS ####[facility] [place] [address] Glucose mass conc Negative Normal NEGATIVE [facility] [place] Comment on above: Performed By: #### T HYDS ####[facility] [place] [address] pH of blood 6.0 [pH] Normal 5.0 - 8.0 [facility] Comment on above: Performed By: #### T HYDS ####[facility] [place] [address] Protein Negative Normal NEGATIVE [facility] Comment on above: Performed By: #### T HYDS ####[facility] [place] [address] Urine, appearance CLEAR Normal CLEAR [facility] [place] Comment on above: Performed By: #### T HYDS ####[facility] [place] [address] Urine, color STRAW Normal STRAW,YELL OW [facility] Comment on above: Performed By: #### T HYDS ####[facility] [place] [address] Urine, ketones presence Negative Normal NEGATIVE [facility] Comment on above: Performed By: #### T HYDS ####[facility] [place] [address] Urine, leukocyte esterase presence TRACE Abnormal NEGATIVE [facility] Comment on above: Performed By: #### T HYDS ####[facility] [place] [address] Urine, nitrite presence Negative Normal NEGATIVE [facility] Comment on above: Performed By: #### T HYDS ####[facility] [place] [address] Urine, specific gravity 1.009 Normal 1.00 5 - 1.035 [facility] Comment on above: Performed By: #### T HYDS ####[facility] [place] [address] Urine, urobilinogen <2.0 Normal 0.0 - 1.9 [facility] Comment on above: Performed By: #### T HYDS ####[facility] [place] [address] VITAMIN B12on 09-22-2017 Cobalamins (Vitamin B12) 996 pg/mL High 211 - 911 [facility] Comment on above: Performed By: #### V TB12 ####[facility] [place] [address] VITAMIN D, 25-HYDROXYon 09-01 VITAMIN D, 25-HYDROXY 18 ng/mL Abnormal [facility] Comment on above: Result Comment: .DEF ICIENCY: < 20 NG/MLINSUFFICIENCY: 20-29 NG/MLOPTIMUM LEVEL: 30-80 NG/MLPOSSIBLE TOXICITY: > 80 NG/MLTHIS ASSAY ACCURATELY QUANTIFIES THE SUM OFVITAMIN D3, 25-HYDROXY AND VIT D2,25-HYDROXY. Performed By: #### T HYDS ####[facility] [place] [address] Calprotectin, Fecalon 2017 Protein mass conc g/dL Normal <=50 [facility] Comment on above: Result Comment: INTE RPRETIVE INFORMATION: Calprotectin, Fecal 50 ug/g or less: Normal 51-120 ug/g: Borderline elevated, test should be re-evaluated in 4-6 weeks. 121 ug/g or greater: AbnormalPerformed by [facility],[address] [place] [id number] [employer], Edwin Owen MD - Lab. Director Clostridium difficile Amplif icationon 07-26-2017 Clostridium difficile Amplification ORDERED BY: MAKAYLA SOLANO: Stool COLLECTED: 07/26/17 17:03ANTIBIOTICS AT NATE.: RECEIVED : 07/26/17 17:03Clostridium difficile Amplification FINAL 07/27/17 12:31 Negative for Clostridia Difficile A/B Normal Range: Negative Normal [facility] Lipaseon 07-26-2017 Lipase enzyme act/vol 20 U/L Normal 13-60 [facility] OP Screen (Giardia/Cryptospo ridium)on 07-26-2017 OP Screen (Giardia/Cryptosporidium ) ORDERED BY: MAKAYLA SOLANO: Stool COLLECTED: 07/26/17 10:15ANTIBIOTICS AT NATE.: RECEIVED : 07/27/17 06:39Cryptosporidium Antigen EIA FINAL 07/27/17 13:23 Negative Normal Range: NegativeGiardia lamblia Antigen EIA FINAL 07/27/17 13:23 Negative Normal Range: Negative Normal [facility] XR ABDOMEN LIMITED (KUB)on 0 07-26-2017 XR ABDOMEN LIMITED (KUB) EXAMINATION: XR ABDOMEN LIMITED (KUB)CLINICAL HISTORY: abd pain/diarrhea . Abd pain xmonths and diarrheaCOMPARISONS: None available.FINDINGS: AP abdominal radiography was obtained. Bowel gas pattern is normal. The volume of formed stool in the colon is small. There are surgical briana at the cholecystectomy site in the right upper quadrant. There is a calcification in the left side of the pelvis. This calcification is probably a phlebolith. There are no comparison studies available for confirmation.CONCLUSION : NO BOWEL GAS PATTERN ABNORMALITY. PROBABLE PHLEBOLITH LEFT SIDE OF THE PELVIS. Interpreted by:LC Sandhuigned by:Leighann Rose MD07/26/18Final result Normal [facility] CBC With Platelet and Differ entialon 07-25-2017 Basophils Auto #/vol (Bld) 0.0 10*3/uL Normal 0.0-0.2 [facility] Basophils/100 WBC Auto (Bld) 0.4 % Normal [facility] Eosinophils Auto #/vol (Bld) 0.0 10*3/uL Normal 0.0-0.7 [facility] Eosinophils/100 WBC Auto (Bld) 0.4 % Normal [facility] Erythrocyte distribution width Auto Ratio (RBC) 12.2 % Normal 11.5-14.5 [facility] Hematocrit Auto Volume Fraction (Bld) 39.2 % Normal 37.0-47.0 [facility] Hemoglobin mass conc (Bld) 13.3 g/dL Normal 12.0-16.0 [facility] Lymphocytes Auto #/vol (Bld) 1.8 10*3/uL Normal 1.0-4.8 [facility] Lymphocytes/100 WBC Auto (Bld) 29.7 % Normal [facility] MCH Auto Entitic mass (RBC) 31.5 pg Critically high 27.0-31.3 [facility] MCHC Auto mass conc (RBC) 34.0 % Normal 33.0-37.0 [facility] MCV Auto Entitic volume (RBC) 92.6 fL Normal 82.0-100.0 [facility] Monocytes Auto #/vol (Bld) 0.5 10*3/uL Normal 0.2-0.8 [facility] Monocytes/100 WBC Auto (Bld) 7.8 % Normal [facility] Neutrophils Auto #/vol (Bld) 3.8 10*3/uL Normal 1.4-6.5 [facility] Neutrophils/100 WBC Auto (Bld) 61.7 % Normal [facility] Platelets Auto #/vol (Bld) 243 10*3/uL Normal 130-400 [facility] RBC Auto #/vol (Bld) 4.23 10*6/uL Normal 4.20-5.40 [facility] WBC Auto #/vol (Bld) 6.1 10*3/uL Normal 4.8-10.8 [facility] Comprehensive Metabolic Pane rosalinda 07-25-2017 Albumin mass conc 4.6 g/dL Normal 3.9-4.9 [facility] ALP enzyme act/vol 67 U/L Normal 40-130 [facility] ALT enzyme act/vol 14 U/L Normal 0-33 [facility] Anion gap 3 molar conc 16 mmol/L Critically high 7-13 [facility] AST enzyme act/vol 18 U/L Normal 0-35 [facility] Bilirubin mass conc 0.3 mg/dL Normal 0.0-1.2 [facility] Calcium mass conc 9.2 mg/dL Normal 8.6-10.2 [facility] Chloride molar conc 105 mmol/L Normal 98-107 [facility] CO2 molar conc 21 mmol/L Low 22-29 [facility] Creatinine mass conc 0.58 mg/dL Normal 0.50-0.90 [facility] GFR/1.73 sq M predicted among blacks MDRD vol rate/area (S/P/Bld) mL/min/{1.73_m2} Normal >60 [facility] Comment on above: Result Comment: >60 mL/min/1.73m2 EGFR, calc. for ages 18 and older using theMDRD formula (not corrected for weight), is valid for stablerenal function. GFR/1.73 sq M.predicted MDRD vol rate/area mL/min/{1.73_m2} Normal >60 [facility] Comment on above: Result Comment: >60 mL/min/1.73m2 EGFR, calc. for ages 18 and older using theMDRD formula (not corrected for weight), is valid for stablerenal function. Globulin Calculated mass conc (S) 2.2 g/dL Low 2.3-3.5 [facility] Glucose mass conc 80 mg/dL Normal 74-109 [facility] Potassium molar conc 4.3 mmol/L Normal 3.5-5.1 [facility] Protein mass conc 6.8 g/dL Normal 6.4-8.1 [facility] Sodium molar conc 142 mmol/L Normal 132-144 [facility] Urea nitrogen mass conc 9 mg/dL Normal 6-20 [facility] TSH w/out Reflexon 8 Thyrotropin Qn 0.830 uIU/mL Normal 0.270-4.20 [facility] VITAMIN Don 07-25-2017 VITAMIN D 32.4 ng/mL Normal 30.0-100.0 [facility] Comment on above: Result Comment: (30- 100 ng/mL) Optimum LevelThis assay accurately quantifies the sum of vitamin D3, 25-Hydroxy andvitamin D2, 25-Hyroxy. Vital Signs Date Time Vital Sign Value Performing Clinician Facility 04-05-2022 11:30-0400 Body height 162.56 cm Kenisha Molina Other [facility] Other 04-05-2022 11:30-0400 Body mass index (BMI) [Ratio] 27.46 kg/m2 Kenisha Molina Other [facility] Other 04-05-2022 11:30-0400 Body temperature 99.2 [degF] Kenisha Molina Other [facility] Other 04-05-2022 11:30-0400 Body weight 72.58 kg Kenisha Molina Other [facility] Other 04-05-2022 11:30-0400 Respiratory rate 18 /min Kenisha Molina Other [facility] Other 04-05-2022 11:30-0400 SaO2% (BldA) [Mass fraction] 97 % Kenisha Molina Other [facility] Other Encounters Encounter Date Encounter Type Care Provider Facility Start: 03-15-2023 ambulatory [place] [facility]ility:[facility] Start: 07-06-2022 End: 07-07-[address] SHAHIDA COFFEY . Facility:[facility] Start: 06-29-2022 End: 06-29-[address] SHAHIDA COFFEY . Facility:[facility] Start: 04-28-2022 End: 04-29-[address] SRIDHAR LO Facility:[facility] Start: 04-13-2022 End: 04-14-[address] SRIDHAR LO Facility:[facility] Start: 04-11-[address] SRIDHAR LO Facil ity:[facility] Start: 04-05-2022 End: 04-05-2022 ambulatory Kenisha Molina Other [facility] Other Start: 04-05-2022 Office outpatient visit 15 minutes Kenisha Molina [facility] Start: 01-05-2022 End: 01-06-[address] SRIDHAR LO Facility: Start: 01-30-2018 End: 01-31-2018 Patient encounter LORENZO Estrada [facility] Start: 01-22-2018 End: 01-23-2018 Patient encounter LORENZO Estrada [facility] Start: 01-15-2018 End: 01-16-2018 Patient encounter LORENZO Estrada [facility] Start: 12-27-2017 End: 12-28-2017 Patient encounter LORENZO Estrada [facility] Start: 12-19-2017 End: 12-20-2017 Patient encounter LORENZO Estrada [facility] Start: 12-07-2017 End: 12-07-2017 Emergency department patient visit Family Physician [facility] Facility:[facility] Start: 12-07-2017 Ambulatory Facility:[id number] Start: 12-06-2017 End: 12-07-2017 Patient encounter LORENZO Estrada [facility] Start: 11-21-2017 End: 11-22-2017 Patient encounter SRIDHAR LO [facility] Start: 11-14-2017 End: 11-15-2017 Patient encounter SR[facility]HAR LO [facility] [place] Start: 10-31-2017 End: 11-01-2017 [facility] Start: 10-24-2017 End: 10-25-2017 [facility] Start: 10-17-2017 End: 10-18-2017 [facility] Start: 10-12-2017 End: 10-13-2017 [facility] Start: 10-11-2017 End: 10-12-2017 [facility] Start: 10-10-2017 End: 10-11-2017 [facility] Start: 10-05-2017 End: 10-06-2017 Patient encounter SRIDHAR Estrada [facility] Start: 10-04-2017 End: 10-05-2017 Patient encounter SRIDHAR Estrada [facility] Start: 10-03-2017 End: 10-04-2017 Patient encounter SRIDHAR Estrada [facility] Start: 10-02-2017 End: 10-03-2017 Patient encounter SRIDHAR Estrada [facility] Start: 09-28-2017 End: 09-29-2017 Patient encounter SRIDHAR Estrada [facility] Start: 09-27-2017 End: 09-28-2017 Patient encounter SRIDHAR Estrada [facility] Start: 09-26-2017 End: 09-27-2017 [facility] Start: 09-25-2017 End: 09-26-2017 Patient encounter SRIDHAR Estrada [facility] Start: 09-21-2017 End: 09-22-2017 [facility] Start: 09-20-2017 End: 09-21-2017 [facility] Start: 09-19-2017 End: 09-20-2017 Patient encounter SRIDHAR Estrada [facility] Start: 09-18-2017 End: 09-19-2017 Patient encounter SRIDHAR Estrada [facility] Start: 09-14-2017 End: 09-15-2017 Patient encounter SRIDHAR Estrada [facility] Start: 09-13-2017 End: 09-14-2017 Patient encounter SRIDHAR Estrada [facility] Start: 09-12-2017 End: 09-13-2017 Patient encounter SRIDHAR Estrada [facility] Start: 09-07-2017 End: 09-08-2017 Patient encounter SRIDHAR Estrada [facility] Start: 09-06-2017 End: 09-07-2017 Patient encounter SRIDHAR Estrada [facility] Start: 09-05-2017 End: 09-06-2017 Patient encounter SRIDHAR Estrada [facility] Start: 09-04-2017 End: 09-05-[address] [facility] Start: 08-31-2017 End: 09-01-2017 [facility] Start: 08-30-2017 End: 08-31-2017 [facility] Start: 08-29-2017 End: 08-30-2017 [facility] Start: 08-28-2017 End: 08-29-2017 [facility] Start: 08-24-2017 End: 08-25-2017 [facility] Start: 08-23-2017 End: 08-24-2017 [facility] Start: 08-22-2017 End: 08-23-2017 [facility] Start: 08-21-2017 End: 08-22-2017 [facility] Start: 08-17-2017 End: 08-18-2017 [facility] Start: 08-16-2017 End: 08-17-2017 [facility] Start: 08-15-2017 End: 08-16-2017 [facility] Start: 08-14-2017 End: 08-15-2017 [facility] Start: 08-10-2017 Patient encounter procedure Domenic Green [facility] Work Phone: Start: 08-10-2017 End: 08-11-2017 [facility] [address] [facility] Start: 08-09-2017 End: 08-10-2017 [facility] Start: 08-08-2017 End: 08-09-2017 [facility] Start: 08-07-2017 End: 08-08-2017 Patient encounter SRIDHAR ANTONIA NADERER [facility] Start: 08-03-2017 End: 08-04-2017 Patient encounter SRIDHAR LO [facility] Start: 08-02-2017 End: 08-03-2017 Patient encounter [facility] Start: 07-31-2017 End: 08-01-2017 Patient encounter [facility] Start: 07-25-2017 End: 07-28-2017 [facility] Procedures Date Procedure Procedure Detail Performing Clinician Start: 10-17-2017 DISCHARGE PATIENT ALESSANDRO MAURO Start: 07-28-2017 INTENSIVE OUTPATIENT - [facility] KEN TIPTONAVANAN Start: 07-28-2017 DISCHARGE PATIENT ALESSANDRO MAURO Start: 07-27-2017 CALPROTECTIN STOOL DARLIN JI [place] Start: 07-26-2017 C DIFF TOXIN B BY RT PCR KEN MAURO Start: 07-26-2017 Radiologic exam abdo men 1 view KEN MAURO Start: 07-26-2017 LIPASE KEN CONNOR Start: 07-26-2017 MISCELLANEOUS NURSIN G CARE ORDER (SPECIFY) KEN [place] Start: 07-26-2017 O AND P SCREEN(GIARDIA/CRYPTOSPORIDIU M) #1 KEN MAURO Start: 07-26-2017 YERSINIA CULTURE, STOOL KEN MAURO Start: 07-26-2017 IP CONSULT TO HOSPITALIST KEN MAURO Start: 07-26-2017 EKG 12-LEAD EKN CONNOR Start: 07-25-2017 CBC WITH AUTO DIFFERENTIAL KEN MAURO Start: 07-25-2017 COMPREHENSIVE METABOLIC PANEL KEN MAURO Start: 07-25-2017 TSH WITHOUT REFLEX DARLIN MAURO Start: 07-25-2017 VITAMIN D 25 HYDROXY BA ZULMA MAURO Start: 07-25-2017 DIET GENERAL KEN CONNOR Start: 07-25-2017 FULL CODE KEN CONNOR Start: 07-25-2017 IP CONSULT TO HOSPITALIST KEN MAURO Start: 07-25-2017 IP CONSULT TO SOCIAL WORK KEN MAURO Start: 07-25-2017 MONITOR KEN CONNOR Start: 07-25-2017 NURSING COMMUNICATION B CAROLINE MAURO Start: 07-25-2017 UNRESTRICTED VISITAT ION STATUS KEN MAURO Start: 07-25-2017 VITAL SIGNS KEN CONNOR Start: 07-25-2017 PATIENT STATUS (DIRECT) KEN MAURO Appendectomy Domenic Green History of [place] Surgery Domenic Peter History of [place] py Of Uterus Domenic Green Screening colonoscopy Domenic sanchez Immunizations Immunization Date Immunization Notes Care Provider Jeannette suazo 06-06-2017 tetanus toxoid, reduced diphtheria toxoid, and acellular pertussis vaccine, adsorbed Kenisha Tracy Other [facility] Other Payers Date Payer Category Payer Self-pay 1975 Unknown [id number] 2.16.84 [id number] 1975 Unknown [id number] 2.16.84 [id number] 1973 Unknown [id number] 2.16.84 [id number] 1973 Unknown [id number] 2.16.84 [id number] 1973 Unknown [id number] 2.16.84 [id number] 1973 Unknown [id number] 2.16.84 [id number] 1961 [facility] [id number] 1961 Unknown [id number] Unknown [id number] 2.16.8 [id number] Social History Date Type Detail Facility Sex Assigned At Sex Assigned At [facility] Other NEGATED: Highlighted row - - [facility] Work Phone: Functional Status Date Assessment Result Facility NEGATED: Highlighted row Functional performance Functional status health issues are not documented Disease [facility] Work Phone: Mental Status Date Assessment Result Facility NEGATED: Highlighted row Cognitive function [Interpretation] Cognitive status health issues are not documented Disease [facility] Work Phone: Evaluation note 04-05-2022 Note Date & Type Note Facility 04-05-2022 Evaluation note Encounter Date Diagnosis Assessment Notes Apr, Contact with and (suspected) exposure to other viral communicable diseases (ICD-10 - Z20.828) Apr, COVID-19 (ICD-10 - U07.1) Discharge Instructions for COVID-19 (Suspected or Confirmed ) material was printed Offer plenty of fluids and rest. Take Tylenol or Motrin as needed for aches pains or fevers. You must quarantine for 5 days after the onset of your symptoms of COVID. Follow-up with your family physician if no improvement in 2 to 3 days. [facility] Other History general Narrative - Reported Note Date & Type Note Facility History general Narrative - Reported Type Medical History Anxiety and depression Medical History IBS (irritable bowel syndrome) Surgical History laparoscopy Surgical History eyes Surgical History cholecystectomy Surgical History wisdom teeth Surgical History appendectomy Surgical History colonoscopy Hospitalization History see above [facility] Other Summary Purpose Family History No Family History Records Found Mother Name Dates Details Family history of depression (V17.0, Z81.8) Status:Active FHx: diabetes mellitus(V18.0 , Z83.3) Status:Active Family history of Hypertensi on, benign(401.1, I10) Status:Active Father Name Dates Details Family history of depression (V17.0, Z81.8) Status:Active Family history of Anxiety(30 0.00, F41.9) Status:Active Advance Directives No Advanced Directives Records FoundNo Advanced Directives Records FoundNo Advanced Directives Records FoundNo Advanced Directives Records FoundNo Advanced Directives Records FoundNo Advanced Directives Records Found Additional Source Comments INFORMATION SOURCE (unrecogn ized section and content) DATE CREATED AUTHOR 12/19/2017 [facility] DATE CREATED AUTHOR AUTHOR'S ORGANIZ ATION 12/21/2017 [facility] DATE CREATED AUTHOR AUTHOR'S ORGANIZ ATION 01/23/2018 [facility] DATE CREATED AUTHOR AUTHOR'S ORGANIZ ATION 02/01/2018 [facility] DATE CREATED AUTHOR AUTHOR'S ORGANIZ ATION 11/02/2022 [facility] DATE CREATED AUTHOR AUTHOR'S ORGANIZ ATION 07/01/2023 [facility] REASON FOR VISIT (unrecogniz ed section and content) [facility], POS. AT HOME TEST , H/A, B/A, FATIGUE X3 DAYS FOR RECORDS PERTAINING TO PATIENTS WHO ARE OR HAVE BEEN ENROLLED IN A CHEMICAL DEPENDENCY/SUBSTANCEABUSE PROGRAM, SOME INFORMATION MAY BE OMITTED. This clinical summary was aggregated from multiple sources. Caution should be exercised in using it in the provision of clinical care. This summary normalizes information from multiple sources, and as a consequence, information in this document may materially change the coding, format and clinical context of patient data. In addition, data may be omitted in some cases. CLINICAL DECISIONS SHOULD BE BASED ON THE PRIMARY CLINICAL RECORDS. [facility]. provides no warranty or guarantee of the accuracy or completeness of information in this document.
[2023-07-17 17:10] LABS: Age Gdln ACOG Testing Note (.); HPV Aptima Negative (Negative); IGP, Aptima HPV, rfx 16/18,45 Note (.)
== END 2023-07-12 20:39 | disposition home or self-care (01) ==
LOC: LAB 20:38
PROVIDERS: PCP Family Medicine; Visit Provider Obstetrics & Gynecology
DX: Z01.419 Encounter for gynecological examination (general) (routine) without abnormal findings (principal)
CPT/HCPCS: 87624; G0145

== ENCOUNTER 2023-11-08 09:58 | Outpatient (OUT) | payer BC, SELFPAY ==
--- NOTE | 2023-11-08 10:01 | MM_ITS ---
Patient Name: MELBA BERRY MR#: [id number] : 1975 Exam Date: 11/08/2023 Ordering Doctor: DR Didier Pretty . RADIOLOGY REPORT PROCEDURE: MM TOMOSYNTHESIS SCREENING BI COMPARISON: MG MAMM SCREEN 3D JANEY CAD, 08/03/2021. MAMMO POST BIOPSY LEFT, 09/02/2019. INDICATIONS: screening Calculator Name NCI Breast Cancer Risk Assessment Tool 5 Year Breast Cancer Risk 1.00% Lifetime Breast Cancer Risk 9.60% Personal Breast Cancer No Personal Ovarian Cancer No Treatments None Family Cancers Grandmother-maternal with breast cancer at age ~55; Grandfather-maternal with bladder cancer at age ~70. LOCATION: [facility] BREAST COMPOSITION: The breasts are heterogeneously dense,which may obscure small masses. FINDINGS: DIAGNOSTIC CATEGORY 0--INCOMPLETE: NEED ADDITIONAL IMAGING EVALUATION. Scattered benign-appearing calcifications are present. Scattered benign-appearing lymph nodes are present. RIGHT BREAST: No significant suspicious finding. New 1.9 cm partially circumscribed nodule identified in the upper-outer quadrant, mid breast. Spot imaging and ultrasound follow-up is required LEFT BREAST: No significant suspicious finding. RECOMMENDATIONS: ADDITIONAL MAMMOGRAPHIC VIEWS REQUIRED: RIGHT BREAST - spot compression ULTRASOUND: RIGHT BREAST PLEASE NOTE: A NORMAL MAMMOGRAM DOES NOT EXCLUDE THE POSSIBILITY OF BREAST CANCER. A CLINICALLY SUSPICIOUS PALPABLE LUMP SHOULD BE BIOPSIED. Dictated by: Dom Vazquez MD on 11/08/2023 at 13:32 Approved by: Dom Vazquez MD on 11/08/2023 at 13:34
--- OUTSIDE RECORDS SUMMARY | 2023-11-08 10:19 | XMS_ITS | CCD ---
Author Organization [facility] Care Team Providers Care Blood Bank Technician Name Role Phone Unavailable, Family Physician Unavailable Un available Unavailable, Family Physician Unavailable Un available Diab, Kelsea Unavailable Unavailable [place], KEN Unavailable Unavailable [place], KEN Unavailable Unavailable NADERER, SRIDHAR ANTONIA Unavailable Unavailabl e ABEBA NICHOLE Unavailable Unavailable MASSRANDALL TORRES Unavailable Unavailable NADERER, SRIDHAR ANTONIA Unavailable Unavailabl [...] Unavailable Green, Domenic Marko A Unavailable Unavailab le Tracy, Kenisha Unavailable NADERER, DR SRIDHAR Choudhary Primary Care [...] Choudhary Admitting Unavailable NADERER, DR SRIDHAR Choudhary Admitting Unavailable NADERER, DR SRIDHAR Choudhary Primary Care Unavailable NADFLORENTINO, DR SRIDHAR Choudhary Consulting Unavailable TERESITA, DR SRIDHAR Choudhary Attending Unavailable ALEXX ., DR PINEDO Admitting Unavailable ALEXX ., DR PINEDO Consulting Unavailable TERESITA, DR SRIDHAR Choudhary Primary Care Unavailable ALEXX ., DR PINEDO Attending Unavailable SHAHIDA COFFEY Attending Unavailable SRIDHAR LO Attending Unavailable All Starks Attending Unavailab All Tamayo Admitting Unavailab le Sridhar Lo Primary Care Unavailable Allergies Allergy Classification Reported Allergen(s) Allergy Type Date of Onset Reaction(s) Facility (4 sources) cefdinir; Translations: [cefdinir] Drug Allergy 08-28-19 mood changes [facility] Repository (3 sources) Promethazine; Translations: [Phenergan] Drug Allergy [facility] Repository (2 sources) risperiDONE Drug Allergy [facility] Work Phone: (2 sources) Sulfamethoxazole / Trimethoprim; Translations: [Bactrim] Drug Allergy [facility] Repository (1 source) Ciprofloxacin Drug Allergy hives [facility] Other (2 sources) Prochlorperazine; Translations: [Compazine] Drug Allergy 03-01-20 17 dizziness [facility] Repository (1 source) Promethazine Drug Allergy nausea [facility] Other (1 source) Sulfamethoxazole / Trimethoprim Drug Allergy dizziness [facility] Other (1 source) Triamcinolone Drug Allergy anxiety [facility] Other (1 source) vortioxetine Drug Allergy nausea [facility] Other (1 source) Ciprofloxacin Drug Allergy [facility] Repository (1 source) Corticosteroids Drug allergy (disorder) 08-28-19 20 [facility] Repository (1 source) risperiDONE Drug Allergy [facility] Repository (1 source) vortioxetine Drug Allergy 08-28-19 20 [facility] Repository (1 source) Ciprofloxacin Drug Allergy 04-05-20 [facility] Repository (1 source) Prochlorperazine Drug Allergy 04-05-20 [facility] Repository (1 source) Promethazine Drug Allergy 04-05-20 [facility] Repository (1 source) risperiDONE Drug Allergy 04-05-20 [facility] Repository (1 source) Sulfamethoxazole Drug Allergy 04-05-20 [facility] Repository (1 source) Triamcinolone Drug Allergy 04-05-20 [facility] Repository (1 source) Trimethoprim Drug Allergy 04-05-20 [facility] Repository (1 source) vortioxetine Drug Allergy 04-05-20 [facility] Repository Medications Current Medications Medication Drug Class(es) [...] Histamine-1 Receptor Antagonist ZyrTEC Allergy Not-Taking ergocalciferol 23348 unt oral capsule (2 sources) Provitamin D2 Compound Start: 09-22-2017 take 1 capsule by mouth every week at lunch Vitamin D (Ergocalciferol) 83580 UNIT Oral Capsule take 1 capsule by mouth every week ON MONDAY WITH LUNCH AND FULL GLASS OF WATER Quantity: 13 Refills: 0 Domenic Green Start : 22-Sep-2017 Active Vitamin D (Ergoc alciferol) 1.25 MG (83404 UT) Oral for 84 Active hydrOXYzine pamoate [...] [Fatigue] Episodic Other aftercare (4 sources) 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 June Mayorga DHEA-SULFATEon 07-07-2022 DHEA-Sulfate 82.1 ug/dL Normal 41.2-243.7 [facility] Comment on above: Performed By: #### C BC #### [facility] [address] [address] [address] June Mayorga FSHon 07-07-2022 FSH 6.4 mIU/mL Normal [facility] Comment on above: Result Comment: Adul t Female: Follicular phase 3.5 - 12.5 Ovulation phase 4.7 - 21.5 Luteal phase 1.7 - 7.7 Postmenopausal 25.8 - 134.8 Performed By: #### C BC #### [facility] [address] [address] [address] June Mayorga LUTEINIZING HORMONE (LH)on 0 07-07-2022 LH 7.4 mIU/mL Normal [facility] Comment on above: Result Comment: Adul t Female: Follicular phase 2.4 - 12.6 Ovulation phase 14.0 - 95.6 Luteal phase 1.0 - 11.4 Postmenopausal 7.7 - 58.5 Performed By: #### L [facility] #### [facility] [address] [address] [address] June Mayorga PAP ACOG PANEL 2: 30 to 65on 07-07-2022 . . Normal [facility] Comment on above: Result Comment: Perf ormed at: BA Performed By: #### C BC #### [facility] [address] [address] [address] June Mayorga Age Gdln ACOG Testing 30-65 Normal [facility] Comment on above: Performed By: #### C BC #### [facility] [address] [address] [address] June aMyorga DIAGNOSIS: Comment Normal [facility] Comment on above: Result Comment: NEGA TIVE FOR INTRAEPITHELIAL LESION OR MALIGNANCY. Performed at: BA Performed By: #### C BC #### [facility] [address] [place] [address] Dr. June Mayorga HPV Aptima Negative Normal Negative [facility] Comment on above: Result Comment: This nucleic acid amplification test detects fourteen high-risk HPV types (16,18,31,33,35,39,45,51,52,56,58,59,66,68) without differentiation. Performed at: =G Performed By: #### C BC #### [facility] [address] [place] [address] Dr. June Mayorga HPV Genotype Reflex Comment Normal [facility] Comment on above: Result Comment: Crit eria not met, HPV Genotype not performed. Performed at: BA Performed By: #### C BC #### [facility] [address] [place] [address] Dr. June Mayorga Methodology: Comment Normal [facility] Comment on above: Result Comment: This liquid based ThinPrep(R) pap test was screened with the use of an image guided system. Performed at: WB Performed By: #### C BC #### [facility] [address] [place] [address] Dr. June Mayorga Note: Comment Normal [facility] Comment on above: Result Comment: The Pap smear is a screening test designed to aid in the detection of premalignant and malignant conditions of the uterine cervix. It is not a diagnostic procedure and should not be used as the sole means of detecting cervical cancer. Both false-positive and false-negative reports do occur. . Performed at: WB Performed By: #### C BC #### [facility] [address] [place] [address] Dr. June Mayorga Performed by: Comment Normal [facility] Comment on above: Result Comment: Julianne Rubio, Core Piler (ASCP) Performed at: BA Performed By: #### C BC #### [facility] [address] [place] [address] Dr. June Mayorga Specimen adequacy: Comment Normal [facility] Comment on above: Result Comment: Sati sfactory for evaluation. Endocervical and/or squamous metaplastic cells (endocervical component) are present. Performed at: BA Performed By: #### C BC #### [facility] [address] [place] [address] Dr. June Mayorga CBC AUTO DIFFon 07-06-2022 BASO # 0.0 103/ul Normal 0.0-0.1 [facility] Comment on above: Performed By: #### C BC #### [facility] [address] [place] [address] Dr. June Mayorga Basophils/100 WBC (Bld) 0.4 % Normal 0.2-2.0 [facility] Comment on above: Performed By: #### C BC #### [facility] [address] [place] [address] Dr. June Mayorga EO # 0.1 103/ul Normal 0.0-0.7 [facility] Comment on above: Performed By: #### C BC #### [facility] [address] [place] [address] Dr. June Mayorga Eosinophils/100 WBC (Bld) 1.5 % Normal 0.9-7.0 [facility] Comment on above: Performed By: #### C BC #### [facility] [address] [place] [address] Dr. June Mayorga Erythrocyte distribution width (RBC) [Ratio] 13.3 % Normal 11.0-15.0 [facility] Comment on above: Performed By: #### C BC #### [facility] [address] [place] [address] Dr. June Mayorga Hematocrit (Bld) [Volume fraction] 38.6 % Normal 36.0-48.0 [facility] Comment on above: Performed By: #### C BC #### [facility] [address] [place] [address] Dr. June Mayorga Hemoglobin (Bld) [Mass/Vol] 12.9 g/dL Normal 12.0-16.0 [facility] Comment on above: Performed By: #### C BC #### [facility] [address] [place] [address] Dr. June Mayorga IG # 0.02 10e3/ul Normal 0.00-0.03 [facility] Comment on above: Performed By: #### C BC #### [facility] [address] [place] [address] Dr. June Mayorga IG % 0.2 % Normal 0.0-0.5 [facility] Comment on above: Performed By: #### C BC #### [facility] [address] [place] [address] Dr. June Mayorga LYMPH # 3.0 103/ul Normal 1.2-3.8 [facility] Comment on above: Performed By: #### C BC #### [facility] [address] [place] [address] Dr. June Mayorga Lymphocytes/100 WBC (Bld) 37.3 % Normal 20.5-60.0 [facility] Comment on above: Performed By: #### C BC #### [facility] [address] [place] [address] Dr. June Mayorga MANUAL DIFF REQ NO Normal [facility] Comment on above: Performed By: #### C BC #### [facility] [address] [place] [address] Dr. June Mayorga MCH (RBC) [Entitic mass] 29.8 pg Normal 26.7-34.0 [facility] Comment on above: Performed By: #### C BC #### [facility] [address] [address] [address] June Mayorga MCHC (RBC) [Mass/Vol] 33.4 g/dL Normal 29.9-35.2 [facility] Comment on above: Performed By: #### C BC #### [facility] [address] [address] [address] June Mayorga MCV (RBC) [Entitic vol] 89.1 fL Normal 81.0-99.0 [facility] Comment on above: Performed By: #### C BC #### [facility] [address] [place] [address] Dr. June Mayorga MONO # 0.7 103/ul Normal 0.3-0.8 [facility] Comment on above: Performed By: #### C BC #### [facility] [address] [place] [address] Dr. June Mayorga Monocytes/100 WBC (Bld) 8.5 % Normal 1.7-12.0 [facility] Comment on above: Performed By: #### C BC #### [facility] [address] [place] [address] Dr. June Mayorga NEUT # 4.2 103/ul Normal 1.4-6.5 [facility] Comment on above: Performed By: #### C BC #### [facility] [address] [place] [address] Dr. June Mayorga Neutrophils/100 WBC (Bld) 52.1 % Normal 43.0-75.0 [facility] Comment on above: Performed By: #### C BC #### [facility] [address] [address] [address] June Mayorga Platelet mean volume (Bld) [Entitic vol] 9.2 fL Critically low 9.5-13.5 [facility] Comment on above: Performed By: #### C BC #### [facility] [address] [place] [address] Dr. June Mayorga PLT 257 103/ul Normal 150-450 [facility] Comment on above: Performed By: #### C BC #### [facility] [address] [place] [address] Dr. June Mayorga RBC 4.33 106/ul Normal 4.20-5.40 [facility] Comment on above: Performed By: #### C BC #### [facility] [address] [place] [address] Dr. June Mayorga WBC 8.1 103/ul Normal 4.0-11.0 [facility] Comment on above: Performed By: #### C BC #### [facility] [address] [place] [address] Dr. June Mayorga FREE T4on 07-06-2022 Free T4 [Mass/Vol] 0.84 ng/dL Normal 0.76-1.46 [facility] Comment on above: Performed By: #### F T4 #### [facility] [address] [place] [address] Dr. June Mayorga GLYCOHEMOGLOBIN A1Con 2022 ADA RECOMMENDATION SEE BELOW Normal [facility] Comment on above: Result Comment: ADA RECOMMENDED LIMIT 4.0 - 6.0 ADA THERAPEUTIC TARGET < 7.0 ACTION SUGGESTED > 7.0 Performed By: #### A 1C #### [facility] [address] [place] [address] Dr. June Mayorga Glucose [Mass/Vol] 105 mg/dL Normal [facility] Comment on above: Performed By: #### A 1C #### [facility] [address] [place] [address] Dr. June Mayorga HbA1c (Bld) [Mass fraction] 5.3 % Normal 4.5-6.2 [facility] Comment on above: Performed By: #### A 1C #### [facility] [address] [place] [address] Dr. June Mayorga TSHon 07-06-2022 TSH 0.631 uIU/mL Normal 0.358-3.74 0 [facility] Comment on above: Performed By: #### T SH #### [facility] [address] [place] [address] Dr. June Mayorga US THYROIDon 04-28-2022 US [...] by: JENIFER ONEIL Date: 2022-04-28 19:27 Normal [facility] MAGNESIUMon 04-13-2022 Magnesium [Mass/Vol] 2.1 mg/dL Normal 1.8-2.4 [facility] Comment on above: Performed By: #### M G #### [facility] [address] [place] [address] Dr. June Mayorga COVID Quick Testingon 2021 Result Positive [facility] Other CBC AUTO DIFFon 01-05-2022 BASO # 0.0 103/ul Normal 0.0-0.1 [facility] Comment on above: Performed By: #### C BC #### [facility] [address] [place] [address] Dr. June Mayorga Basophils/100 WBC (Bld) 0.5 % Normal 0.2-2.0 [facility] Comment on above: Performed By: #### C BC #### [facility] [address] [place] [address] Dr. June Mayorga EO # 0.1 103/ul Normal 0.0-0.7 [facility] Comment on above: Performed By: #### C BC #### [facility] [address] [place] [address] Dr. June Mayorga Eosinophils/100 WBC (Bld) 1.6 % Normal 0.9-7.0 [facility] Comment on above: Performed By: #### C BC #### [facility] [address] [place] [address] Dr. June Mayorga Erythrocyte distribution width (RBC) [Ratio] 12.9 % Normal 11.0-15.0 [facility] Comment on above: Performed By: #### C BC #### [facility] [address] [place] [address] Dr. June Mayorga Hematocrit (Bld) [Volume fraction] 38.8 % Normal 36.0-48.0 [facility] Comment on above: Performed By: #### C BC #### [facility] [address] [place] [address] Dr. June Mayorga Hemoglobin (Bld) [Mass/Vol] 12.7 g/dL Normal 12.0-16.0 [facility] Comment on above: Performed By: #### C BC #### [facility] [address] [place] [address] Dr. June Mayorga IG # 0.01 10e3/ul Normal 0.00-0.03 [facility] Comment on above: Performed By: #### C BC #### [facility] [address] [place] [address] Dr. June Mayorga IG % 0.2 % Normal 0.0-0.5 [facility] Comment on above: Performed By: #### C BC #### [facility] [address] [place] [address] Dr. June Mayorga LYMPH # 2.3 103/ul Normal 1.2-3.8 [facility] Comment on above: Performed By: #### C BC #### [facility] [address] [place] [address] Dr. June Mayorga Lymphocytes/100 WBC (Bld) 36.6 % Normal 20.5-60.0 [facility] Comment on above: Performed By: #### C BC #### [facility] [address] [place] [address] Dr. June Mayorga MANUAL DIFF REQ NO Normal [facility] Comment on above: Performed By: #### C BC #### [facility] [address] [place] [address] Dr. June Mayorga MCH (RBC) [Entitic mass] 30.1 pg Normal 26.7-34.0 [facility] Comment on above: Performed By: #### C BC #### [facility] [address] [place] [address] Dr. June Mayorga MCHC (RBC) [Mass/Vol] 32.7 g/dL Normal 29.9-35.2 [facility] Comment on above: Performed By: #### C BC #### [facility] [address] [place] [address] Dr. June Mayorga MCV (RBC) [Entitic vol] 91.9 fL Normal 81.0-99.0 [facility] Comment on above: Performed By: #### C BC #### [facility] [address] [place] [address] Dr. June Mayorga MONO # 0.6 103/ul Normal 0.3-0.8 [facility] Comment on above: Performed By: #### C BC #### [facility] [address] [place] [address] Dr. June Mayorga Monocytes/100 WBC (Bld) 9.2 % Normal 1.7-12.0 [facility] Comment on above: Performed By: #### C BC #### [facility] [address] [place] [address] Dr. June Mayorga NEUT # 3.2 103/ul Normal 1.4-6.5 [facility] Comment on above: Performed By: #### C BC #### [facility] [address] [place] [address] Dr. June Mayorga Neutrophils/100 WBC (Bld) 51.9 % Normal 43.0-75.0 [facility] Comment on above: Performed By: #### C BC #### [facility] [address] [place] [address] Dr. June Mayorga Platelet mean volume (Bld) [Entitic vol] 10.2 fL Normal 9.5-13.5 [facility] Comment on above: Performed By: #### C BC #### [facility] [address] [place] [address] Dr. June Mayorga PLT 293 103/ul Normal 150-450 [facility] Comment on above: Performed By: #### C BC #### [facility] [address] [place] [address] Dr. June Mayorga RBC 4.22 106/ul Normal 4.20-5.40 [facility] Comment on above: Performed By: #### C BC #### [facility] [address] [address] [address] June Mayorga WBC 6.2 103/ul Normal 4.0-11.0 [facility] Comment on above: Performed By: #### C BC #### [facility] [address] [place] [address] Dr. June Mayorga FREE T3on 01-05-2022 FREE T3 2.79 pg/mlL Normal 2.18-3.98 [facility] Comment on above: Performed By: #### C BC #### [facility] [address] [place] [address] Dr. June Mayorga FREE T4on 01-05-2022 Free T4 [Mass/Vol] 0.94 ng/dL Normal 0.76-1.46 [facility] Comment on above: Performed By: #### C BC #### [facility] [address] [place] [address] Dr. June Mayorga GLYCOHEMOGLOBIN A1Con 2021 ADA RECOMMENDATION SEE BELOW Normal [facility] Comment on above: Result Comment: ADA RECOMMENDED LIMIT 4.0 - 6.0 ADA THERAPEUTIC TARGET < 7.0 ACTION SUGGESTED > 7.0 Performed By: #### A 1C #### [facility] [address] [place] [address] Dr. June Mayorga Glucose [Mass/Vol] 123 mg/dL Normal [facility] Comment on above: Performed By: #### A 1C #### [facility] [address] [place] [address] Dr. June Mayorga HbA1c (Bld) [Mass fraction] 5.9 % Normal 4.5-6.2 [facility] Comment on above: Performed By: #### A 1C #### [facility] [address] [address] [address] June Mayorga LIPID PROFILEon 01-05-2022 CHOL-HDL RATIO NORM SEE BELOW Normal [facility] Comment on above: Result Comment: 3.3 - 4.4 LOW RISK 4.4 - 7.1 AVERAGE RISK 7.1 - 11.0 MODERATE RISK >11.0 HIGH RISK Performed By: #### L IPID, TSH, BMP, FT3, LIVER #### [facility] [address] [address] [address] June Mayorga Cholesterol [Mass/Vol] 169 mg/dL Normal <=200 [facility] Comment on above: Performed By: #### L IPID, TSH, BMP, FT3, LIVER #### [facility] [address] [address] [address] June Mayorga Cholesterol in HDL [Mass/Vol] 44 mg/dL Normal 40-60 [facility] Comment on above: Performed By: #### L IPID, TSH, BMP, FT3, LIVER #### [facility] [address] [place] [address] Dr. June Mayorga Cholesterol in LDL [Mass/Vol] 89.6 mg/dL Normal [facility] Comment on above: Performed By: #### L IPID, TSH, BMP, FT3, LIVER #### [facility] [address] [place] [address] Dr. June Mayorga Cholesterol.total/Choles terol in HDL [Mass ratio] 3.8 {ratio} Normal [facility] Comment on above: Performed By: #### L IPID, TSH, BMP, FT3, LIVER #### [facility] [address] [address] [address] June Mayorga HDL NORMAL > or = 60 mg/dl - LO W CARDIOVASCULAR RISK <40 mg/dl - HIGH CARDIOVASCULAR RISK Normal [facility] Comment on above: Performed By: #### L IPID, TSH, BMP, FT3, LIVER #### [facility] [address] [address] [address] June Mayorga LDL CALC NORMAL SEE BELOW Normal [facility] Comment on above: Result Comment: <100 mg/dl OPTIMAL 100 - 129 mg/dl NEAR OR ABOVE OPTIMAL 130 - 159 mg/dl BORDERLINE HIGH 160 - 189 mg/dl HIGH >190 mg/dl VERY HIGH Performed By: #### L IPID, TSH, BMP, FT3, LIVER #### [facility] [address] [place] [address] Dr. June Mayorga Triglyceride [Mass/Vol] 177 mg/dL Critically high <=150 [facility] Comment on above: Performed By: #### L IPID, TSH, BMP, FT3, LIVER #### [facility] [address] [place] [address] Dr. June Mayorga VLDL CALC 35.4 mg/dL Normal [facility] Comment on above: Performed By: #### L IPID, TSH, BMP, FT3, LIVER #### [facility] [address] [place] [address] Dr. June Mayorga LIVER PROFILEon 01-05-2022 Albumin [Mass/Vol] 3.5 g/dL Normal 3.4-5.0 [facility] Comment on above: Performed By: #### C BC #### [facility] [address] [place] [address] Dr. June Mayorga Albumin/Globulin [Mass ratio] 1.1 {ratio} Normal [facility] Comment on above: Performed By: #### C BC #### [facility] [address] [place] [address] Dr. June Mayorga ALP [Catalytic activity/Vol] 71 U/L Normal 46-116 [facility] Comment on above: Performed By: #### C BC #### [facility] [address] [place] [address] Dr. June Mayorga ALT [Catalytic activity/Vol] 43 U/L Normal 14-59 [facility] Comment on above: Performed By: #### C BC #### [facility] [address] [place] [address] Dr. June Mayorga AST [Catalytic activity/Vol] 27 U/L Normal 15-37 [facility] Comment on above: Performed By: #### C BC #### [facility] [address] [address] [address] June Mayorga BILI, CONJUGATED 0.1 mg/dL Normal 0.0-0.2 [facility] Comment on above: Performed By: #### C BC #### [facility] [address] [place] [address] Dr. June Mayorga Bilirubin [Mass/Vol] 0.3 mg/dL Normal 0.2-1.0 [facility] Comment on above: Performed By: #### C BC #### [facility] [address] [place] [address] Dr. June Mayorga Globulin (S) [Mass/Vol] 3.3 g/dL Normal [facility] Comment on above: Performed By: #### C BC #### [facility] [address] [place] [address] Dr. June Mayorga Protein [Mass/Vol] 6.8 g/dL Normal 6.4-8.2 [facility] Comment on above: Performed By: #### C BC #### [facility] [address] [place] [address] Dr. June Mayorga PROF CHEM 8 (BAS METB)on Anion gap [Moles/Vol] 11.0 mmol/L Normal [facility] Comment on above: Performed By: #### L IPID, TSH, BMP, FT3, LIVER #### [facility] [address] [place] [address] Dr. June Mayorga Calcium [Mass/Vol] 8.6 mg/dL Normal 8.5-10.1 [facility] Comment on above: Performed By: #### L IPID, TSH, BMP, FT3, LIVER #### [facility] [address] [place] [address] Dr. June Mayorga Chloride [Moles/Vol] 108 mmol/L Critically high 98-107 [facility] Comment on above: Performed By: #### L IPID, TSH, BMP, FT3, LIVER #### [facility] [address] [place] [address] Dr. June Mayorga CO2 [Moles/Vol] 26.3 mmol/L Normal 21.0-32.0 [facility] Comment on above: Performed By: #### L IPID, TSH, BMP, FT3, LIVER #### [facility] [address] [place] [address] Dr. June Mayorga Creatinine [Mass/Vol] 0.90 mg/dL Normal 0.55-1.02 [facility] Comment on above: Performed By: #### L IPID, TSH, BMP, FT3, LIVER #### [facility] [address] [place] [address] Dr. June Mayorga EGFR-AF MACEDONIAN >60 Normal >=60 [facility] Comment on above: Performed By: #### L IPID, TSH, BMP, FT3, LIVER #### [facility] [address] [place] [address] Dr. June Mayorga EGFR-NON AF MACEDONIAN >60 Normal >=60 [facility] Comment on above: Performed By: #### L IPID, TSH, BMP, FT3, LIVER #### [facility] [address] [place] [address] Dr. June Mayorga Glucose [Mass/Vol] 97 mg/dL Normal 74-106 [facility] Comment on above: Performed By: #### L IPID, TSH, BMP, FT3, LIVER #### [facility] [address] [place] [address] Dr. June Mayorga Potassium [Moles/Vol] 4.3 mmol/L Normal 3.5-5.1 [facility] Comment on above: Performed By: #### L IPID, TSH, BMP, FT3, LIVER #### [facility] [address] [place] [address] Dr. June Mayorga Sodium [Moles/Vol] 141 mmol/L Normal 136-145 [facility] Comment on above: Performed By: #### L IPID, TSH, BMP, FT3, LIVER #### [facility] [address] [place] [address] Dr. June Mayorga Urea nitrogen [Mass/Vol] 15.0 mg/dL Normal 7.0-18.0 [facility] Comment on above: Performed By: #### L IPID, TSH, BMP, FT3, LIVER #### [facility] [address] [address] [address] June Mayorga Urea nitrogen/Creatinine [Mass ratio] 16.7 mg/mg Normal [facility] Comment on above: Performed By: #### L IPID, TSH, BMP, FT3, LIVER #### [facility] [address] [address] [address] June Mayorga TSHon 01-05-2022 TSH 0.118 uIU/mL Critically low 0.358-3.74 0 [facility] Comment on above: Performed By: #### L IPID, TSH, BMP, FT3, LIVER #### [facility] [address] [place] [address] Dr. June Mayorga VITAMIN D 25 OHon 01-05-2022 VIT D 25-OH 39.7 ng/mL Normal [facility] Comment on above: Performed By: #### C BC #### [facility] [address] [place] [address] Dr. June Mayorga VIT D RANGES SEE BELOW Normal [facility] Comment on above: Result Comment: <20 ng/mL Vit D deficient 20 - <30 ng/mL Vit D insufficient 30 - 100 ng/mL Vit D sufficient >100 ng/mL Potential Toxicity Performed By: #### C BC #### [facility] [address] [place] [address] CERVICAL SP WO CONon 06-0 CT CERVICAL SP WO CON STUDY:CT CERVICAL SP WO CON; 12/07/2017 7:34 pmINDICATION:PAIN.MANAN RISON:None. IORDERING CLINICIAN:Truman BrewerTECHNIREBEKAH:Jereu ouadair axial images of the cervical spine were [...] secondaryto patient positioning or muscle spasm. Normal [facility] CT HEAD/BRAIN WO CONon 12-07 CT HEAD/BRAIN WO CON STUDY:CT HEAD/BRAIN WO CON; 12/07/2017 7:34 pmINDICATION:PAIN.MANAN RISON:NoneACCESSION NUMBER(S):[id number] [facility]:Truman Magana:Contigu ous axial images of [...] acute intracranial hemorrhage or mass effect Normal [facility] SHOULDER RT COMPLETE MIN 2 V WSon 12-07-2017 SHOULDER RT COMPLETE MIN 2 VWS STUDY:SHOULDER RT COMPLETE MIN 2 VWS; 12/07/2017 7:33 pmINDICATION:PAIN.MANAN RISON:None. [facility] CLINICIAN:Truman Jeong:There is no acute fracture or dislocation of the rightacromioclavicular joint or glenohumeral joint. The subacromial andglenohumeral joint spaces are maintained. There are mild degenerativechanges of the right acromioclavicular joint.IMPRESSION:No acute osseous abnormality of the right shoulder. Normal [facility] Atco Levelon 10-02-2017 Atco 0.4 mmol/L Low 0.6-1.2 [facility] CBC AND DIFFERENTIALon 03-23 -2018 % AUTOMATED IMMATURE GRAN 0.2 % Normal 0.0 - 0.9 [facility] Comment on above: Result Comment: Perc ent differential counts (%) should be interpreted in the context of the absolute cell counts (cells/L). Performed By: #### T HYDS ####[facility] [place] [address] % NEUTROPHIL 62.5 % Normal 40.0 - 80.0 [facility] Comment on above: Performed By: #### T HYDS ####[facility] [place] [address] Basophils/100 WBC Auto (Bld) 0.02 x10E9/L Normal 0.00 - 0.10 [facility] Comment on above: Performed By: #### T HYDS ####[facility] [place] [address] Basophils/100 WBC Auto (Bld) 0.2 % Normal 0.0 - 2.0 [facility] Comment on above: Performed By: #### T HYDS ####[facility] [place] [address] Eosinophils 0.08 10*3/uL Normal 0.00 - 0.70 [facility] Comment on above: Performed By: #### T HYDS ####[facility] [place] [address] Eosinophils/100 leukocytes 1.0 % Normal 0.0 - 6.0 [facility] Comment on above: Performed By: #### T HYDS ####[facility] [place] [address] Erythrocyte distribution width Auto Ratio (RBC) 12.7 % Normal 11.5 - 14.5 [facility] Comment on above: Performed By: #### T HYDS ####[facility] [place] [address] Erythrocytes (RBC) 4.15 x10E12/L Normal 4.00 - 5.20 [facility] Comment on above: Performed By: #### T HYDS ####[facility] [place] [address] Hematocrit (HCT) 39.1 % Normal 36.0 - 46.0 [facility] Comment on above: Performed By: #### T HYDS ####[facility] [place] [address] Hemoglobin mass conc (Bld) 12.7 g/dL Normal 12.0 - 16.0 [facility] Comment on above: Performed By: #### T HYDS ####[facility] [place] [address] Lymphocytes 2.33 10*3/uL Normal 1.20 - 4.80 [facility] Comment on above: Performed By: #### T HYDS ####[address] [id number] [place] [address] Lymphocytes/100 leukocytes 28.6 % Normal 13.0 - 44.0 [facility] Comment on above: Performed By: #### T HYDS ####[id number] [place] [address] MCHC mass conc (RBC) 32.5 g/dL Normal 32.0 - 36.0 [facility] Comment on above: Performed By: #### T HYDS ####[facility] [place] [address] MCV 94 fL Normal 80 - 100 [facility] Comment on above: Performed By: #### T HYDS ####[facility] [place] [address] Monocytes 0.61 10*3/uL Normal 0.10 - 1.00 [facility] Comment on above: Performed By: #### T HYDS ####[facility] [place] [address] Monocytes/100 leukocytes 7.5 % Normal 2.0 - 10.0 [facility] Comment on above: Performed By: #### T HYDS ####[facility] [place] [address] Neutrophils 5.09 10*3/uL Normal 1.20 - 7.70 [facility] Comment on above: Performed By: #### T HYDS ####[facility] [place] [address] Nucleated erythrocytes 0.0 /100 WBC Normal 0.0-0.0 [facility] Comment on above: Performed By: #### T HYDS ####[facility] [place] [address] Platelets 293 10*3/uL Normal 150 - 450 [facility] Comment on above: Performed By: #### T HYDS ####[facility] [place] [address] WBC (Leukocytes) 8.2 10*3/uL Normal 4.4 - 11.3 [facility] Comment on above: Performed By: #### T HYDS ####[facility] [place] [address] COMPREHENSIVE PANELon 2017 Alanine aminotransferase (ALT) 12 U/L Normal 7 - 45 [facility] Comment on above: Result Comment: [place] ents treated with Sulfasalazine may generate falsely decreased results for ALT. Performed By: #### C MP ####[facility] [place] [address] Albumin 4.5 g/dL Normal 3.4 - 5.0 [facility] Comment on above: Performed By: #### C MP ####[facility] [place] [address] Alkaline phosphatase (ALP) 75 U/L Normal 33 - 110 [facility] Comment on above: Performed By: #### C MP ####[facility] [place] [address] Anion gap 12 mmol/L Normal 10 - 20 [facility] Comment on above: Performed By: #### C MP ####[facility] [place] [address] Aspartate aminotransferase (AST) 15 U/L Normal 9 - 39 [facility] Comment on above: Performed By: #### C MP ####[facility] [place] [address] Bicarbonate (HCO3) 29 mmol/L Normal 21 - 32 [facility] Comment on above: Performed By: #### C MP ####[facility] [place] [address] Bilirubin (total) 0.3 mg/dL Normal 0.0 - 1.2 [facility] Comment on above: Performed By: #### C MP ####[facility] [place] [address] Calcium 9.5 mg/dL Normal 8.6 - 10.6 [facility] Comment on above: Performed By: #### C MP ####[facility] [place] [address] Chloride 104 mmol/L Normal 98 - 107 [facility] Comment on above: Performed By: #### C MP ####[facility] [place] [address] Creatinine 0.67 mg/dL Normal 0.50 - 1.05 [facility] Comment on above: Performed By: #### C MP ####[facility] [place] [address] eGFR (non-black) mL/min/{1.73_m2} Normal >60 [facility] Comment on above: Performed By: #### C MP ####[facility] [place] [address] Result Comment: CALC ULATIONS OF ESTIMATED GFR ARE PERFORMED USING THE MDRD STUDY EQUATION FOR THE IDMS-TRACEABLE CREATININE METHODS. CLIN CHEM 2007;53:766-72 Glucose mass conc 109 mg/dL High 74 - 99 [facility] Comment on above: Performed By: #### C MP ####[facility] [place] [address] Potassium molar conc 4.2 mmol/L Normal 3.5 - 5.3 [facility] Comment on above: Performed By: #### C MP ####[facility] [place] [address] Protein 6.8 g/dL Normal 6.4 - 8.2 [facility] Comment on above: Performed By: #### C MP ####[facility] [place] [address] Sodium 141 mmol/L Normal 136 - 145 [facility] Comment on above: Performed By: #### C MP ####[facility] [place] [address] Urea nitrogen 9 mg/dL Normal 6 - 23 [facility] Comment on above: Performed By: #### C MP ####[facility] [place] [address] CREATINE KINASEon 09-22-2017 Creatine kinase (CK) 50 U/L Normal 0 - 215 [facility] Comment on above: Performed By: #### C K ####[facility] [place] [address] FOLATE, SERUMon 09-22-2017 FOLATE, SERUM > 24.0 Normal >5.0 [facility] Comment on above: Result Comment: [place] ents receiving more than 5 mg/day of biotin may have interference in test results. A sample should be taken no sooner than eight hours after previous dose. Contact [phone] for additional information. Performed By: #### T HYDS ####[facility] [place] [address] HEMOGLOBIN A1Con 09-22-2017 Glucose mass conc 100 mg/dL Normal [facility] Comment on above: Performed By: #### T HYDS ####[facility] [place] [address] Hemoglobin A1c/Hemoglobin.total mass fraction (Bld) 5.1 % Normal [facility] Comment on above: Result Comment: Diag nosis of Diabetes-Adults Non-Diabetic: < or = 5.6% Increased risk for developing diabetes: 5.7-6.4% Diagnostic of diabetes: > or = 6.5%. Monitoring of Diabetes Age (y) Therapeutic Goal (%) Adults: >18 <7.0 Pediatrics: 13-18 <7.5 7-12 <8.0 0- 6 7.5-8.5 [employer]. Diabetes Care 33(S1), Jul 2009. Performed By: #### T HYDS ####[facility] [place] [address] LDL, DIRECTon 09-22-2017 LDL Cholesterol 84 mg/dL Normal 0 - 129 [facility] Comment on above: Result Comment: Elev ated levels of LDL cholesterol are recognized as a keyfactor in the development of atherosclerosis and CHD. Thedirect LDL cholesterol test can be used to assesscardiovascular risk and monitor therapy as a follow up toa lipid profile when triglycerides are significantly elevated. Performed By: #### L DLDI ####[facility] [place] [address] LIPID PANEL (CORONARY RISK 2 )on 09-22-2017 Cholesterol 170 mg/dL Normal 0 - 199 [facility] Comment on above: Result Comment: . AG [...] Metamizole dosing. Performed By: #### L IPID ####[facility] [place] [address] Cholesterol in VLDL mass conc 22 mg/dL Normal 0 - 40 [facility] Comment on above: Performed By: #### L IPID ####[facility] [place] [address] Cholesterol to HDL Ratio 2.7 {ratio} Normal [facility] Comment on above: Result Comment: REF VALUESDESIRABLE < 3.4HIGH RISK > 5.0 Performed By: #### L IPID ####[facility] [place] [address] HDL Cholesterol 63.6 mg/dL Normal [facility] Comment on above: Result Comment: . AG E VERY LOW LOW NORMAL HIGH 0-19 Y < 35 < 40 40-45 ---- 20-24 Y ---- < 40 >45 ---- >24 Y ---- < 40 40-60 >60. Performed By: #### L IPID ####[facility] [place] [address] LDL Cholesterol 84 mg/dL Normal 0 - 99 [facility] Comment on above: Result Comment: . NE JOSE ALBERTO GARCIA AGE DESIRABLE OPTIMAL HIGH HIGH VERY HIGH 0-19 Y 0 - 109 --- 110-129 >/= 130 ---- 20-24 Y 0 - 119 --- 120-159 >/= 160 ---- >24 Y 0 - 99 100-129 130-159 160-189 >/=190. Performed By: #### L IPID ####[facility] [place] [address] Triglyceride 110 mg/dL Normal 0 - 149 [facility] Comment on above: Result Comment: . AG [...] Metamizole dosing. Performed By: #### L IPID ####[facility] [place] [address] MAGNESIUMon 09-22-2017 Magnesium 2.07 mg/dL Normal 1.60 - 2.40 [facility] Comment on above: Performed By: #### M G ####[facility] [place] [address] TRIIODOTHYRONINE,FREEon 09-01 TRIIODOTHYRONINE,FREE 3.2 pg/mL Normal 1.8 - 4.2 [facility] Comment on above: Performed By: #### T 3FRE ####[facility] [place] [address] TRIIODOTHYRONINE,FREE Canceled Normal [facility] Comment on above: Order Comment: TEST TRIIODOTHYRONINE,FREE WAS CANCELLED, 09/21/2017 22:43 DUPLICATE ORDER. Performed By: #### T 3FRE ####[facility] [place] [address] TSH WITH REFLEX TO FREE T4 I F ABNORMALon 09-22-2017 Thyroid stimulating hormone (TSH) 1.07 m[IU]/L Normal 0.44 - 3.98 [facility] Comment on above: Result Comment: TSH testing is performed using different testing methodology at [facility] than at other [facility]. Direct result comparisons should only be made within the same method.. Patients receiving more than 5 mg/day of biotin may have interference in test results. A sample should be taken no sooner than eight hours after previous dose. Contact [phone] for additional information. Performed By: #### T HYDS ####[facility] [place] [address] Thyroid stimulating hormone (TSH) Canceled Normal [facility] Comment on above: Order Comment: TEST TSH WITH REFLEX TO FREE T4 IF ABNORMAL WAS CANCELLED, 09/21/2017 22:44DUPLICATE ORDER. Result Comment: TSH testing is performed using different testing methodology at [facility] than at [facility]. Direct result comparisons should only be made within the same method.. Patients receiving more than 5 mg/day of biotin may have interference in test results. A sample should be taken no sooner than eight hours after previous dose. Contact [phone] for additional information. Performed By: #### T HYDS ####[facility] [place] [address] UA MICROSCOPICon 09-22-2017 Erythrocytes (RBC) 38 /HPF Abnormal 0-5 [facility] Comment on above: Performed By: #### T HYDS ####[facility] [place] [address] SQUAMOUS EPITH. CELLS <1 Normal [facility] Comment on above: Performed By: #### T HYDS ####[facility] [place] [address] Urine, mucus presence in sediment 1+ /LPF Normal [facility] Comment on above: Performed By: #### T HYDS ####[facility] [place] [address] WBC (Leukocytes) 3 /HPF Normal 0-5 [facility] Comment on above: Performed By: #### T HYDS ####[facility] [place] [address] URINALYSISon 09-22-2017 Bilirubin (total) Negative Normal NEGATIVE [facility] Comment on above: Performed By: #### T HYDS ####[facility] [place] [address] BLOOD LARGE (3+) Abnormal NEGATIVE [facility] Comment on above: Performed By: #### T HYDS ####[facility] [place] [address] Glucose mass conc Negative Normal NEGATIVE [facility] Comment on above: Performed By: #### T HYDS ####[facility] [place] [address] pH of blood 6.0 [pH] Normal 5.0 - 8.0 [facility] Comment on above: Performed By: #### T HYDS ####[facility] [place] [address] Protein Negative Normal NEGATIVE [facility] Comment on above: Performed By: #### T HYDS ####[facility] [place] [address] Urine, appearance CLEAR Normal CLEAR [facility] Comment on above: Performed By: #### T HYDS ####[facility] [place] [address] Urine, color STRAW Normal STRAW,YELL OW [facility] Comment on above: Performed By: #### T HYDS ####[facility] [place] [address] Urine, ketones presence Negative Normal NEGATIVE [facility] Comment on above: Performed By: #### T HYDS ####[facility] [place] [address] Urine, leukocyte esterase presence TRACE Abnormal NEGATIVE [facility] Comment on above: Performed By: #### T HYDS ####[facility] [place] [address] Urine, nitrite presence Negative Normal NEGATIVE [facility] Comment on above: Performed By: #### T HYDS ####[facility] [place] [address] Urine, specific gravity 1.009 Normal 1.00 5 - 1.035 [facility] Comment on above: Performed By: #### T HYDS ####[facility] [place] [address] Urine, urobilinogen <2.0 Normal 0.0 - 1.9 [facility] Comment on above: Performed By: #### T HYDS ####[facility] [place] [address] VITAMIN B12on 09-22-2017 Cobalamins (Vitamin B12) 996 pg/mL High 211 - 911 [facility] Comment on above: Performed By: #### V TB12 ####[facility] [place] [address] VITAMIN D, 25-HYDROXYon 09-01 VITAMIN D, 25-HYDROXY 18 ng/mL Abnormal [facility] Comment on above: Result Comment: .DEF ICIENCY: < 20 NG/MLINSUFFICIENCY: 20-29 NG/MLOPTIMUM LEVEL: 30-80 NG/MLPOSSIBLE TOXICITY: > 80 NG/MLTHIS ASSAY ACCURATELY QUANTIFIES THE SUM OFVITAMIN D3, 25-HYDROXY AND VIT D2,25-HYDROXY. Performed By: #### T HYDS ####[facility] [place] [address] Calprotectin, Fecalon 2017 Protein mass conc g/dL Normal <=50 [facility] Comment on above: Result Comment: INTE RPRETIVE INFORMATION: Calprotectin, Fecal 50 ug/g or less: Normal 51-120 ug/g: Borderline elevated, test should be re-evaluated in 4-6 weeks. 121 ug/g or greater: AbnormalPerformed by [employer],[address] [place] [id number] [email or web address], Edwin Owen MD - Lab. Director Clostridium difficile Amplif icationon 07-26-2017 Clostridium difficile Amplification ORDERED BY: MAKAYLA SOLANO: Stool COLLECTED: 07/26/17 17:03ANTIBIOTICS AT NATE.: RECEIVED : 07/26/17 17:03Clostridium difficile Amplification FINAL 07/27/17 12:31 Negative for Clostridia Difficile A/B Normal Range: Negative Normal [facility] Lipaseon 07-26-2017 Lipase enzyme act/vol 20 U/L Normal 13-60 [facility] OP Screen (Giardia/Cryptospo ridium)on 07-26-2017 OP Screen (Giardia/Cryptosporidium ) ORDERED BY: MAKAYLA SOLANO: Stool COLLECTED: 07/26/17 10:15ANTIBIOTICS AT NATE.: RECEIVED : 07/27/17 06:39Cryptosporidium Antigen EIA FINAL 07/27/17 13:23 Negative Normal Range: NegativeGiardia lamblia Antigen EIA FINAL 07/27/17 13:23 Negative Normal Range: Negative Normal [facility] XR ABDOMEN LIMITED (KUB)on 0 07-26-2017 XR [...] THE PELVIS. Interpreted by:LC Sandhuigned by:Leighann Rose MD07/26/17inal result Normal [facility] CBC With Platelet and Differ ent[place]on 07-25-2017 Basophils Auto #/vol (Bld) 0.0 10*3/uL Normal 0.0-0.2 [facility] Basophils/100 WBC Auto (Bld) 0.4 % Normal [facility] Eosinophils Auto #/vol (Bld) 0.0 10*3/uL Normal 0.0-0.7 [facility] Eosinophils/100 WBC Auto (Bld) 0.4 % Normal [facility] Erythrocyte distribution width Auto Ratio (RBC) 12.2 % Normal 11.5-14.5 [facility] Hematocrit Auto Volume Fraction (Bld) 39.2 % Normal 37.0-47.0 [facility] Hemoglobin mass conc (Bld) 13.3 g/dL Normal 12.0-16.0 [facility] Lymphocytes Auto #/vol (Bld) 1.8 10*3/uL Normal 1.0-4.8 [facility] Lymphocytes/100 WBC Auto (Bld) 29.7 % Normal [facility] MCH Auto Entitic mass (RBC) 31.5 pg Critically high 27.0-31.3 [facility] MCHC Auto mass conc (RBC) 34.0 % Normal 33.0-37.0 [facility] MCV Auto Entitic volume (RBC) 92.6 fL Normal 82.0-100.0 [facility] Monocytes Auto #/vol (Bld) 0.5 10*3/uL Normal 0.2-0.8 [facility] Monocytes/100 WBC Auto (Bld) 7.8 % Normal [facility] Neutrophils Auto #/vol (Bld) 3.8 10*3/uL Normal 1.4-6.5 [facility] Neutrophils/100 WBC Auto (Bld) 61.7 % Normal [facility] Platelets Auto #/vol (Bld) 243 10*3/uL Normal 130-400 [facility] RBC Auto #/vol (Bld) 4.23 10*6/uL Normal 4.20-5.40 [facility] WBC Auto #/vol (Bld) 6.1 10*3/uL Normal 4.8-10.8 [facility] Comprehensive Metabolic Pane rosalinda 07-25-2017 Albumin mass conc 4.6 g/dL Normal 3.9-4.9 [facility] ALP enzyme act/vol 67 U/L Normal 40-130 [facility] ALT enzyme act/vol 14 U/L Normal 0-33 [facility] Anion gap 3 molar conc 16 mmol/L Critically high 7-13 [facility] AST enzyme act/vol 18 U/L Normal 0-35 [facility] Bilirubin mass conc 0.3 mg/dL Normal 0.0-1.2 [facility] Calcium mass conc 9.2 mg/dL Normal 8.6-10.2 [facility] Chloride molar conc 105 mmol/L Normal 98-107 [facility] CO2 molar conc 21 mmol/L Low 22-29 [facility] Creatinine mass conc 0.58 mg/dL Normal 0.50-0.90 [facility] GFR/1.73 sq M predicted among blacks MDRD vol rate/area (S/P/Bld) mL/min/{1.73_m2} Normal >60 [facility] Comment on above: Result Comment: >60 mL/min/1.73m2 EGFR, calc. for ages 18 and older using theMDRD formula (not corrected for weight), is valid for stablerenal function. GFR/1.73 sq M.predicted MDRD vol rate/area mL/min/{1.73_m2} Normal >60 [facility] Comment on above: Result Comment: >60 mL/min/1.73m2 EGFR, calc. for ages 18 and older using theMDRD formula (not corrected for weight), is valid for stablerenal function. Globulin Calculated mass conc (S) 2.2 g/dL Low 2.3-3.5 [facility] Glucose mass conc 80 mg/dL Normal 74-109 [facility] Potassium molar conc 4.3 mmol/L Normal 3.5-5.1 [facility] Protein mass conc 6.8 g/dL Normal 6.4-8.1 [facility] Sodium molar conc 142 mmol/L Normal 132-144 [facility] Urea nitrogen mass conc 9 mg/dL Normal 6-20 [facility] TSH w/out Reflexon 8 Thyrotropin Qn 0.830 uIU/mL Normal 0.270-4.20 [facility] VITAMIN Don 07-25-2017 VITAMIN D 32.4 ng/mL Normal 30.0-100.0 [facility] Comment on above: Result Comment: (30- 100 ng/mL) Optimum LevelThis assay accurately quantifies the sum of vitamin D3, 25-Hydroxy andvitamin D2, 25-Hyroxy. Vital Signs Date Time Vital Sign Value Performing Clinician Facility 04-05-2022 11:30-0400 Body height 162.56 cm Kenisha Camaramond Other [facility] Other 04-05-2022 11:30-0400 Body mass index (BMI) [Ratio] 27.46 kg/m2 Kenisha Tracy Other [facility] Other 04-05-2022 11:30-0400 Body temperature 99.2 [degF] Kenisha Tracy Other [facility] Other 04-05-2022 11:30-0400 Body weight 72.58 kg Kenisha Tracy Other [facility] Other 04-05-2022 11:30-0400 Respiratory rate 18 /min Kenisha Camaramond Other [facility] Other 04-05-2022 11:30-0400 SaO2% (BldA) [Mass fraction] 97 % Kenisha Tracy Other [facility] Other Encounters Encounter Date Encounter Type Care Provider Facility Start: 09-26-2023 End: 09-26-2023 ambulatory SRIDHAR NADERER Not Available Start: 08-24-2023 ambulatory [place] acility:[facility] Start: 07-12-2023 End: 07-12-2023 ambulatory SHAHIDA COFFEY Not Available Start: 07-06-2022 End: 07-07-[address] SHAHIDA COFFEY . Facility:[facility] Start: 06-29-2022 End: 06-29-[address] SHAHIDA COFFEY . Facility:[facility] Start: 04-28-2022 End: 04-29-[address] SRIDHAR LO Facility:[facility] Start: 04-13-2022 End: 04-14-[address] SRIDHAR LO Facility:[facility] Start: 04-11-[address] SRIDHAR LO [facility] ity:[facility] Start: 04-05-2022 End: 04-05-2022 ambulatory Kenisha Molina Other [facility] Other Start: 04-05-2022 Office outpatient visit 15 minutes Kenisha Molina [facility] Start: 01-05-2022 End: 01-06-[address] SRIDHAR LO Facility: Start: 01-30-2018 End: 01-31-2018 Patient encounter LORENZORebecca IRIZARRY [facility] Start: 01-22-2018 End: 01-23-2018 [facility]: 01-15-2018 End: 01-16-2018 [facility] Start: 12-27-2017 End: 12-28-2017 Patient [facility] Start: 12-19-2017 End: 12-20-2017 Patient [facility] Start: 12-07-2017 End: 12-07-2017 Emergency department patient visit Family Physician Unavailable Facility:[facility] Start: 12-07-2017 Ambulatory Facility:[id number] Start: 12-06-2017 End: 12-07-2017 Patient encounter [facility] Start: 11-21-2017 End: 11-22-2017 Patient encounter SRIDHAR LO [facility] Start: 11-14-2017 End: 11-15-2017 Patient encounter SRIDHAR Estrada [facility] Start: 10-31-2017 End: 11-01-2017 Patient encounter SRIDHAR Estrada [facility] Start: 10-24-2017 End: 10-25-2017 Patient encounter SRIDHAR Estrada [facility] Start: 10-17-2017 End: 10-18-2017 Patient encounter SRIDHAR Estrada [facility] Start: 10-12-2017 End: 10-13-2017 Patient encounter SRIDHAR Estrada [facility] Start: 10-11-2017 End: 10-12-2017 Patient encounter SRIDHAR Estrada [facility] Start: 10-10-2017 End: 10-11-2017 Patient encounter SRIDHAR Estrada [facility] Start: 10-05-2017 End: 10-06-2017 Patient encounter SRIDHAR Estrada [facility] Start: 10-04-2017 End: 10-05-2017 [facility] Start: 10-03-2017 End: 10-04-2017 Patient encounter SRIDHAR Estrada [facility] Start: 10-02-2017 End: 10-03-2017 Patient encounter SRIDHAR Estrada [facility] Start: 09-28-2017 End: 09-29-2017 Patient encounter SRIDHAR Estrada [facility] Start: 09-27-2017 End: 09-28-2017 Patient encounter SRIDHAR Estrada [facility] Start: 09-26-2017 End: 09-27-2017 Patient encounter SRIDHAR Estrada [facility] Start: 09-25-2017 End: 09-26-2017 Patient encounter SRIDHAR Estrada [facility] Start: 09-21-2017 End: 09-22-2017 Patient encounter SRIDHAR Estrada [facility] Start: 09-20-2017 End: 09-21-2017 Patient encounter SRIDHAR Estrada [facility] Start: 09-19-2017 End: 09-20-2017 Patient encounter SRIDHAR Estrada [facility] Start: 09-18-2017 End: 09-19-2017 Patient encounter SRIDHAR Estrada [facility] Start: 09-14-2017 End: 09-15-2017 [facility] Start: 09-13-2017 End: 09-14-2017 Patient encounter SRIDHAR Estrada [facility] Start: 09-12-2017 End: 09-13-2017 Patient encounter SRIDHAR Estrada [facility] Start: 09-07-2017 End: 09-08-2017 [facility] Start: 09-06-2017 End: 09-07-2017 [facility] Start: 09-05-2017 End: 09-06-2017 [facility] Start: 09-04-2017 End: 09-05-2017 Patient encounter SRIDHAR Estrada [facility] Start: 08-31-2017 End: 09-01-2017 [facility] Start: 08-30-2017 End: 08-31-2017 [facility] Start: 08-29-2017 End: 08-30-2017 [facility] Start: 08-28-2017 End: 08-29-2017 Patient encounter SRIDHAR Estrada [facility] Start: 08-24-2017 End: 08-25-2017 [facility] Start: 08-23-2017 End: 08-24-2017 [facility] Start: 08-22-2017 End: 08-23-2017 Patient encounter SRIDHAR Estrada [facility] Start: 08-21-2017 End: 08-22-2017 Patient encounter SRIDHAR Estrada [facility] Start: 08-17-2017 End: 08-18-2017 Patient encounter SRIDHAR Estrada [facility] Start: 08-16-2017 End: 08-17-2017 [facility]: 08-15-2017 End: 08-16-2017 Patient encounter SRIDHAR KNIGHT [facility] Start: 08-14-2017 End: 08-15-2017 Patient encounter SRIDHAR KNIGHT [facility] Start: 08-10-2017 Patient encounter procedure Domenic Green [facility] Work Phone: Start: 08-10-2017 End: 08-11-2017 [facility] Start: 08-09-2017 End: 08-10-2017 Patient encounter SRIDHAR KNIGHT [facility] Start: 08-08-2017 End: 08-09-2017 [facility] Start: 08-07-2017 End: 08-08-2017 [facility] Start: 08-03-2017 End: 08-04-2017 Patient encounter SRIDHAR KNIGHT [facility] Start: 08-02-2017 End: 08-03-2017 [facility] Start: 07-31-2017 End: 08-01-2017 [facility] Start: 07-25-2017 End: 07-28-2017 Evaluation and management of inpatient [facility] Procedures Date Procedure Procedure Detail Performing Clinician Start: 10-17-2017 DISCHARGE PATIENT ALESSANDRO TIPTONAVANAN Start: 07-28-2017 INTENSIVE OUTPATIENT - PRASANTHI KENROCÍO MAURO Start: 07-28-2017 DISCHARGE PATIENT ALESSANDRO MAURO Start: 07-27-2017 CALPROTECTIN STOOL DARLIN ROCÍO MAURO Start: 07-26-2017 C DIFF TOXIN B BY RT PCR KEN MAURO Start: 07-26-2017 Radiologic exam abdo men 1 view KEN MAURO Start: 07-26-2017 LIPASE KEN CONNOR Start: 07-26-2017 MISCELLANEOUS NURSIN G CARE ORDER (SPECIFY) KEN MAURO Start: 07-26-2017 O AND P SCREEN(GIARDIA/CRYPTOSPORIDIU M) #1 KEN MAURO Start: 07-26-2017 YERSINIA CULTURE, STOOL KEN MAURO Start: 07-26-2017 IP CONSULT TO HOSPITALIST KEN MAURO Start: 07-26-2017 EKG 12-LEAD KEN CONNOR Start: 07-25-2017 CBC WITH AUTO DIFFERENTIAL [...] Green History of [place] er Surgery Domenic Green History of [place] py Of Uterus Domenic Green Screening colonoscopy Domenic sanchez Immunizations Immunization Date Immunization Notes Care Provider Jeannette suazo 06-06-2017 tetanus toxoid, reduced diphtheria toxoid, and acellular pertussis vaccine, adsorbed Kenisha Molina Other [facility] Other Payers Date Payer Category Payer Self-pay 1975 Unknown [id number] .. [id number] 1975 Unknown [id number] [id number] [id number] 1973 Unknown [id number] [id number]. [id number] 1973 Unknown [id number] 2.16.84 [id number] 1973 Unknown [id number] 2.16.84 [id number] 1973 Unknown [id number] 2.16.84 [id number] 1973 Unknown [id number] 2.16.84 [id number] 1973 Unknown [id number] 2.16.84 [id number] 1961 [facility] [id number] 1961 Unknown [id number] Unknown [id number] 2.16.8 [id number] Social History Date Type Detail Facility Sex Assigned At Sex Assigned At [facility] Other NEGATED: Highlighted row - - [facility] Work Phone: Functional Status Date Assessment Result Facility NEGATED: Highlighted row Functional performance Functional status health issues are not documented Disease [facility] Work Phone: Mental Status Date Assessment Result Facility NEGATED: Highlighted row Cognitive function [Interpretation] Cognitive status health issues are not documented Disease [facility] Work Phone: Evaluation note 04-05-2022 Note Date [...] no improvement in 2 to 3 days. [facility] Other History general Narrative - Reported Note Date & Type Note Facility History general Narrative - Reported Type Medical History Anxiety and depression Medical History IBS (irritable bowel syndrome) Surgical History laparoscopy Surgical History eyes Surgical History cholecystectomy Surgical History wisdom teeth Surgical History appendectomy Surgical History colonoscopy Hospitalization History see above [facility] Other Summary Purpose Family History No Family [...] section and content) DATE CREATED AUTHOR 12/19/2017 [facility] DATE CREATED AUTHOR AUTHOR'S ORGANIZ ATION 12/21/2017 [facility] DATE CREATED AUTHOR AUTHOR'S ORGANIZ ATION 01/23/2018 [facility] DATE CREATED AUTHOR AUTHOR'S ORGANIZ ATION 02/01/2018 [facility] DATE CREATED AUTHOR AUTHOR'S ORGANIZ ATION [facility] DATE CREATED AUTHOR AUTHOR'S ORGANIZ ATION 09/27/2023 [facility] EPIC DATE CREATED AUTHOR AUTHOR'S ORGANIZ ATION 10/05/2023 [facility] REASON FOR VISIT (unrecogniz ed section and [...] BE BASED ON THE PRIMARY CLINICAL RECORDS. [employer] [facility]. provides no warranty or guarantee of the accuracy or completeness of information in this document.
== END 2023-11-08 09:59 | disposition home or self-care (01) ==
LOC: MAMMO 09:58
PROVIDERS: PCP Family Medicine; Visit Provider Obstetrics & Gynecology
DX: Z12.31 Encounter for screening mammogram for malignant neoplasm of breast (principal); Z80.3 Family history of malignant neoplasm of breast; Z80.52 Family history of malignant neoplasm of bladder; N63.11 Unspecified lump in the right breast, upper outer quadrant
CPT/HCPCS: 77063; 77067

== ENCOUNTER 2023-12-27 12:42 | Outpatient (OUT) | payer BC, SELFPAY ==
--- NOTE | 2023-12-27 | US_ITS ---
Patient Name: MELBA BERRY MR#: [id number] : 1975 Exam Date: 12/27/2023 Ordering Doctor: DR Didier Pretty . RADIOLOGY REPORT PROCEDURE: MM TOMOSYNTHESIS DIAGNOSTIC RT, 12/27/2023, 12:52 US BREAST RT LIMITED, 12/27/2023, 13:04 COMPARISON: MM TOMOSYNTHESIS SCREENING BI, 11/08/2023. INDICATIONS: ABNORMAL MAMMOGRAM R92.8 Calculator Name NCI Breast Cancer Risk Assessment Tool 5 Year Breast Cancer Risk 1.00% Lifetime Breast Cancer Risk 9.60% Personal Breast Cancer No Personal Ovarian Cancer No Treatments None Family Cancers Grandmother-maternal with breast cancer at age ~55; Grandfather-maternal with bladder cancer at age ~70. LOCATION: [facility] BREAST COMPOSITION: The breasts are heterogeneously dense,which may obscure small masses. FINDINGS: DIAGNOSTIC CATEGORY 3--PROBABLY BENIGN FINDING. THE FOLLOWING FINDING(S) HAS A HIGH PROBABILITY OF A BENIGN ETIOLOGY: Spot imaging demonstrates a persistent 2.0 x 1.4 x 1.5 cm nodule in the anterior right breast. Ultrasound demonstrates 2 lesions. Retroareolar is a 1.7 x 0.8 x 1.6 cm area of anechoic echogenicity with increased acoustic through transmission, simple cyst. Adjacent to the anechoic lesion is a dumbbell-shaped cystic lesion with low-level internal echoes measuring 1.2 x 0.7 x 0.6 cm. This lesion is indeterminate. A complex cyst is favored. Short interval follow-up with repeat ultrasound in 6 months to ensure stability is recommended RECOMMENDATIONS: SHORT TERM FOLLOW-UP ULTRASOUND RIGHT BREAST IN 6 MONTHS. PLEASE NOTE: A NORMAL MAMMOGRAM DOES NOT EXCLUDE THE POSSIBILITY OF BREAST CANCER. A CLINICALLY SUSPICIOUS PALPABLE LUMP SHOULD BE BIOPSIED. Dictated by: Dom Vazquez MD on 12/27/2023 at 13:17 Approved by: Dom Vazquez MD on 12/27/2023 at 13:22
--- OUTSIDE RECORDS SUMMARY | 2023-12-27 13:00 | XMS_ITS | CCD ---
Author Organization [facility] Inform ion [facility] Care Team Providers Care Distribution Dispatcher Name Role Phone Unavailable, Family Physician Unavailable Un available Unavailable, Family Physician Unavailable Un available Diab, Kelsea Unavailable Unavailable [place], KEN Unavailable Unavailable [place], KEN Unavailable Unavailable NADERER, SRIDHAR ANTONIA Unavailable Unavailabl e ABEBA NICHOLE Unavailable Unavailable MASSMELISSA RAFLUL Unavailable Unavailable [...] Unavailable Green, Domenic Marko A Unavailable Unavailab meagan Molina Kenisha Unavailable NADERER, DR SRIDHAR Choudhary Primary Care Unavailable [place], JENIFER Consulting Unavailable NADERER, DR SRIDHAR Choudhary Attending [...] Unavailable NADERER, DR SRIDHAR Choudhary Admitting Unavailable NADFLORENTINO, DR SRIDHAR Choudhary Primary Care Unavailable TERESITA, DR SRIDHAR Choudhary Consulting Unavailable TERESITA, DR SRIDHAR Choudhary Attending Unavailable ALEXX ., DR PINEDO Admitting Unavailable ALEXX ., DR PINEDO Consulting Unavailable TERESITA, DR SRIDHAR Choudhary Primary Care Unavailable ALEXX ., DR PINEDO Attending Unavailable SHAHIDA COFFEY Attending Unavailable SRIDHAR LO Attending Unavailable All Starks Attending Unavailab le All Starks Admitting Unavailab le Sridhar Lo Primary Care Unavailable Allergies Allergy Classification Reported Allergen(s) Allergy Type Date of Onset Reaction(s) Facility (4 sources) cefdinir; Translations: [cefdinir] Drug Allergy 08-28-19 mood changes [facility] Repository (3 sources) Promethazine; Translations: [Phenergan] Drug Allergy [facility] Repository (2 sources) risperiDONE Drug Allergy [facility] Work Phone: (2 sources) Sulfamethoxazole / Trimethoprim; Translations: [Bactrim] Drug Allergy [facility] Repository (1 source) Ciprofloxacin Drug Allergy hives [facility] Other (2 sources) Prochlorperazine; Translations: [Compazine] Drug Allergy 03-01-20 17 dizziness [facility] Repository (1 source) Promethazine Drug Allergy nausea [facility] Other (1 source) Sulfamethoxazole / Trimethoprim Drug Allergy dizziness [facility] Other (1 source) Triamcinolone Drug Allergy anxiety [facility] Other (1 source) vortioxetine Drug Allergy nausea [facility] Other (1 source) Ciprofloxacin Drug Allergy [facility] Repository (1 source) Corticosteroids Drug allergy (disorder) 08-28-19 20 [facility] Repository (1 source) risperiDONE Drug Allergy [facility] Repository (1 source) vortioxetine Drug Allergy 08-28-19 20 [facility] Repository (1 source) Ciprofloxacin Drug Allergy 04-05-20 [facility] Repository (1 source) Prochlorperazine Drug Allergy 04-05-20 [facility] Repository (1 source) Promethazine Drug Allergy 04-05-20 [facility] Repository (1 source) risperiDONE Drug Allergy 04-05-20 [facility] Repository (1 source) Sulfamethoxazole Drug Allergy 04-05-20 [facility] Repository (1 source) Triamcinolone Drug Allergy 04-05-20 [facility] Repository (1 source) Trimethoprim Drug Allergy 04-05-20 [facility] Repository (1 source) vortioxetine Drug Allergy 04-05-20 [facility] Repository Medications Current Medications Medication Drug Class(es) [...] Histamine-1 Receptor Antagonist ZyrTEC Allergy Not-Taking ergocalciferol 41758 unt oral capsule (2 sources) Provitamin D2 Compound Start: 09-22-2017 take 1 capsule by mouth every week at lunch Vitamin D (Ergocalciferol) 09136 UNIT Oral Capsule take 1 capsule by mouth every week ON MONDAY WITH LUNCH AND FULL GLASS OF WATER Quantity: 13 Refills: 0 Domenic Green Start : 22-Sep-2017 Active Vitamin D (Ergoc alciferol) 1.25 MG (88458 UT) Oral for 84 Active hydrOXYzine pamoate [...] [Fatigue] Episodic Other aftercare (4 sources) Other correction (current) drug therapy; Translations: [OTH FDC CURRENT DRUG THERAPY] Onset: 04-13-2022 Episodic Other [...] 07-09-2022 Dehydroepiandrosterone (DHEA) 145 ng/dL Normal 31-701 [facility] Comment on above: Result Comment: Age [...] 89 Performed By: #### C BC #### [facility] [address] [address] [address] June Mayorga DHEA-SULFATEon 07-07-2022 DHEA-Sulfate 82.1 ug/dL Normal 41.2-243.7 [facility] Comment on above: Performed By: #### C BC #### [facility] [address] [address] [address] June Mayorga FSHon 07-07-2022 FSH 6.4 mIU/mL Normal [facility] Comment on above: Result Comment: Adul t Female: Follicular phase 3.5 - 12.5 Ovulation phase 4.7 - 21.5 Luteal phase 1.7 - 7.7 Postmenopausal 25.8 - 134.8 Performed By: #### C BC #### [facility] [address] [address] [address] June Mayorga LUTEINIZING HORMONE (LH)on 0 07-07-2022 LH 7.4 mIU/mL Normal [facility] Comment on above: Result Comment: Adul t Female: Follicular phase 2.4 - 12.6 Ovulation phase 14.0 - 95.6 Luteal phase 1.0 - 11.4 Postmenopausal 7.7 - 58.5 Performed By: #### L BCL #### [facility] [address] [address] [address] June Mayorga PAP ACOG PANEL 2: 30 to 63on 07-07-2022 . . Normal [facility] Comment on above: Result Comment: Perf ormed at: BA Performed By: #### C BC #### [facility] [address] [address] [address] June Mayorga Age Gdln ACOG Testing - Normal [facility] Comment on above: Performed By: #### C BC #### [facility] [address] [place] [address] Dr. June Mayorga DIAGNOSIS: Comment [facility] Comment on above: Result Comment: NEGA TIVE FOR INTRAEPITHELIAL LESION OR MALIGNANCY. Performed at: BA Performed By: #### C BC #### [facility] [address] [place] [address] Dr. June Mayorga HPV Aptima Negative Normal [facility] Comment on above: Result Comment: This nucleic acid amplification test detects fourteen high-risk HPV types (16,18,31,33,35,39,45,51,52,56,58,59,66,68) without differentiation. Performed at: =G Performed By: #### C BC #### [facility] [address] [place] [address] Dr. June Mayorga HPV Genotype Reflex Comment Normal [facility] Comment on above: Result Comment: Crit eria not met, HPV Genotype not performed. Performed at: BA Performed By: #### C BC #### [facility] [address] [place] [address] Dr. June Mayorga Methodology: Comment [facility] Comment on above: Result Comment: This liquid based ThinPrep(R) pap test was screened with the use of an image guided system. Performed at: WB Performed By: #### C BC #### [facility] [address] [place] [address] Dr. June Mayorga Note: Comment Normal [facility] Comment on above: Result Comment: The [...] WB Performed By: #### C BC #### [facility] [address] [place] [address] Dr. June Mayorga Performed by: Comment Normal [facility] Comment on above: Result Comment: Julianne Rubio, Youth Agent (ASCP) Performed at: BA Performed By: #### C BC #### [facility] [address] [place] [address] Dr. June Mayorga Specimen adequacy: Comment Normal [facility] Comment on above: Result Comment: Sati sfactory for evaluation. Endocervical and/or squamous metaplastic cells (endocervical component) are present. Performed at: BA Performed By: #### C BC #### [facility] [address] [place] [address] Dr. June Mayorga CBC AUTO DIFFon 07-06-2022 BASO # 0.0 103/ul Normal 0.0-0.1 [facility] Comment on above: Performed By: #### C BC #### [facility] [address] [place] [address] Dr. June Mayorga Basophils/100 WBC (Bld) 0.4 % Normal 0.2-2.0 [facility] Comment on above: Performed By: #### C BC #### [facility] [address] [place] [address] Dr. June Mayorga EO # 0.1 103/ul Normal 0.0-0.7 [facility] Comment on above: Performed By: #### C BC #### [facility] [address] [place] [address] Dr. June Mayorga Eosinophils/100 WBC (Bld) 1.5 % Normal 0.9-7.0 [facility] Comment on above: Performed By: #### C BC #### [facility] [address] [place] [address] Dr. June Mayorga Erythrocyte distribution width (RBC) [Ratio] 13.3 % Normal 11.0-15.0 [facility] Comment on above: Performed By: #### C BC #### [facility] [address] [place] [address] Dr. June Mayorga Hematocrit (Bld) [Volume fraction] 38.6 % Normal 36.0-48.0 [facility] Comment on above: Performed By: #### C BC #### [facility] [address] [place] [address] Dr. June Mayorga Hemoglobin (Bld) [Mass/Vol] 12.9 g/dL Normal 12.0-16.0 [facility] Comment on above: Performed By: #### C BC #### [facility] [address] [place] [address] Dr. June Mayorga IG # 0.02 10e3/ul Normal 0.00-0.03 [facility] Comment on above: Performed By: #### C BC #### [facility] [address] [place] [address] Dr. June Mayorga IG % 0.2 % Normal 0.0-0.5 [facility] Comment on above: Performed By: #### C BC #### [facility] [address] [place] [address] Dr. June Mayorga LYMPH # 3.0 103/ul Normal 1.2-3.8 [facility] Comment on above: Performed By: #### C BC #### [facility] [address] [place] [address] Dr. June Mayorga Lymphocytes/100 WBC (Bld) 37.3 % Normal 20.5-60.0 [facility] Comment on above: Performed By: #### C BC #### [facility] [address] [place] [address] Dr. June Mayorga MANUAL DIFF REQ NO Normal [facility] Comment on above: Performed By: #### C BC #### [facility] [address] [place] [address] Dr. June Mayorga MCH (RBC) [Entitic mass] 29.8 pg Normal 26.7-34.0 [facility] Comment on above: Performed By: #### C BC #### [facility] [address] [place] [address] Dr. June Mayorga MCHC (RBC) [Mass/Vol] 33.4 g/dL Normal 29.9-35.2 [facility] Comment on above: Performed By: #### C BC #### [facility] [address] [place] [address] Dr. June Mayorga MCV (RBC) [Entitic vol] 89.1 fL Normal 81.0-99.0 [facility] Comment on above: Performed By: #### C BC #### [facility] [address] [place] [address] Dr. June Mayorga MONO # 0.7 103/ul Normal 0.3-0.8 [facility] Comment on above: Performed By: #### C BC #### [facility] [address] [place] [address] Dr. June Mayorga Monocytes/100 WBC (Bld) 8.5 % Normal 1.7-12.0 [facility] Comment on above: Performed By: #### C BC #### [facility] [address] [place] [address] Dr. June Mayorga NEUT # 4.2 103/ul Normal 1.4-6.5 [facility] Comment on above: Performed By: #### C BC #### [facility] [address] [place] [address] Dr. June Mayorga Neutrophils/100 WBC (Bld) 52.1 % Normal 43.0-75.0 [facility] Comment on above: Performed By: #### C BC #### [facility] [address] [place] [address] Dr. June Mayorga Platelet mean volume (Bld) [Entitic vol] 9.2 fL Critically low 9.5-13.5 [facility] Comment on above: Performed By: #### C BC #### [facility] [address] [place] [address] Dr. June Mayorga PLT 257 103/ul Normal 150-450 [facility] Comment on above: Performed By: #### C BC #### [facility] [address] [place] [address] Dr. June Mayorga RBC 4.33 106/ul Normal 4.20-5.40 [facility] Comment on above: Performed By: #### C BC #### [facility] [address] [place] [address] Dr. June Mayorga WBC 8.1 103/ul Normal 4.0-11.0 [facility] Comment on above: Performed By: #### C BC #### [facility] [address] [place] [address] Dr. June Mayorga FREE T4on 07-06-2022 Free T4 [Mass/Vol] 0.84 ng/dL Normal 0.76-1.46 [facility] Comment on above: Performed By: #### F T4 #### [facility] [address] [place] [address] Dr. June Mayorga GLYCOHEMOGLOBIN A1Con 2022 ADA RECOMMENDATION SEE BELOW Normal [facility] Comment on above: Result Comment: ADA RECOMMENDED LIMIT 4.0 - 6.0 ADA THERAPEUTIC TARGET < 7.0 ACTION SUGGESTED > 7.0 Performed By: #### A 1C #### [facility] [address] [place] [address] Dr. June Mayorga Glucose [Mass/Vol] 105 mg/dL Normal [facility] Comment on above: Performed By: #### A 1C #### [facility] [address] [place] [address] Dr. June Mayorga HbA1c (Bld) [Mass fraction] 5.3 % Normal 4.5-6.2 [facility] Comment on above: Performed By: #### A 1C #### [facility] [address] [place] [address] Dr. June Mayorga TSHon 07-06-2022 TSH 0.631 uIU/mL Normal 0.358-3.74 0 [facility] Comment on above: Performed By: #### T SH #### [facility] [address] [place] [address] Dr. June Mayorga US THYROIDon 04-28-2022 US [...] JENIFER ONEIL Date: 2022-04-28 19:27 Normal [facility] MAGNESIUMon 04-13-2022 Magnesium [Mass/Vol] 2.1 mg/dL Normal 1.8-2.4 [facility] Comment on above: Performed By: #### M G #### [facility] [address] [place] [address] Dr. June Mayorga COVID Quick Testingon 2021 Result Positive [facility] Other CBC AUTO DIFFon 01-05-2022 BASO # 0.0 103/ul Normal 0.0-0.1 [facility] Comment on above: Performed By: #### C BC #### [facility] [address] [place] [address] Dr. June Mayorga Basophils/100 WBC (Bld) 0.5 % Normal 0.2-2.0 [facility] Comment on above: Performed By: #### C BC #### [facility] [address] [place] [address] Dr. June Mayorga EO # 0.1 103/ul Normal 0.0-0.7 [facility] Comment on above: Performed By: #### C BC #### [facility] [address] [place] [address] Dr. June Mayorga Eosinophils/100 WBC (Bld) 1.6 % Normal 0.9-7.0 [facility] Comment on above: Performed By: #### C BC #### [facility] [address] [place] [address] Dr. June Mayorga Erythrocyte distribution width (RBC) [Ratio] 12.9 % Normal 11.0-15.0 [facility] Comment on above: Performed By: #### C BC #### [facility] [address] [place] [address] Dr. June Mayorga Hematocrit (Bld) [Volume fraction] 38.8 % Normal 36.0-48.0 [facility] Comment on above: Performed By: #### C BC #### [facility] [address] [place] [address] Dr. June Mayorga Hemoglobin (Bld) [Mass/Vol] 12.7 g/dL Normal 12.0-16.0 [facility] Comment on above: Performed By: #### C BC #### [facility] [address] [place] [address] Dr. June Mayorga IG # 0.01 10e3/ul Normal 0.00-0.03 [facility] Comment on above: Performed By: #### C BC #### [facility] [address] [place] [address] Dr. June Mayorga IG % 0.2 % Normal 0.0-0.5 [facility] Comment on above: Performed By: #### C BC #### [facility] [address] [place] [address] Dr. June Mayorga LYMPH # 2.3 103/ul Normal 1.2-3.8 [facility] Comment on above: Performed By: #### C BC #### [facility] [address] [place] [address] Dr. June Mayorga Lymphocytes/100 WBC (Bld) 36.6 % Normal 20.5-60.0 [facility] Comment on above: Performed By: #### C BC #### [facility] [address] [place] [address] Dr. June Mayorga MANUAL DIFF REQ NO Normal [facility] Comment on above: Performed By: #### C BC #### [facility] [address] [place] [address] Dr. June Mayorga MCH (RBC) [Entitic mass] 30.1 pg Normal 26.7-34.0 [facility] Comment on above: Performed By: #### C BC #### [facility] [address] [place] [address] Dr. June Mayorga MCHC (RBC) [Mass/Vol] 32.7 g/dL Normal 29.9-35.2 [facility] Comment on above: Performed By: #### C BC #### [facility] [address] [place] [address] Dr. June Mayorga MCV (RBC) [Entitic vol] 91.9 fL Normal 81.0-99.0 [facility] Comment on above: Performed By: #### C BC #### [facility] [address] [place] [address] Dr. June Mayorga MONO # 0.6 103/ul Normal 0.3-0.8 [facility] Comment on above: Performed By: #### C BC #### [facility] [address] [place] [address] Dr. June Mayorga Monocytes/100 WBC (Bld) 9.2 % Normal 1.7-12.0 [facility] Comment on above: Performed By: #### C BC #### [facility] [address] [place] [address] Dr. June Mayorga NEUT # 3.2 103/ul Normal 1.4-6.5 [facility] Comment on above: Performed By: #### C BC #### [facility] [address] [place] [address] Dr. June Mayorga Neutrophils/100 WBC (Bld) 51.9 % Normal 43.0-75.0 [facility] Comment on above: Performed By: #### C BC #### [facility] [address] [place] [address] Dr. June Mayorga Platelet mean volume (Bld) [Entitic vol] 10.2 fL Normal 9.5-13.5 [facility] Comment on above: Performed By: #### C BC #### [facility] [address] [place] [address] Dr. June Mayorga PLT 293 103/ul Normal 150-450 [facility] Comment on above: Performed By: #### C BC #### [facility] [address] [place] [address] Dr. June Mayorga RBC 4.22 106/ul Normal 4.20-5.40 [facility] Comment on above: Performed By: #### C BC #### [facility] [address] [place] [address] Dr. June Mayorga WBC 6.2 103/ul Normal 4.0-11.0 [facility] Comment on above: Performed By: #### C BC #### [facility] [address] [place] [address] Dr. June Mayorga FREE T3on 01-05-2022 FREE T3 2.79 pg/mlL Normal 2.18-3.98 [facility] Comment on above: Performed By: #### C BC #### [facility] [address] [place] [address] Dr. June Mayorga FREE T4on 01-05-2022 Free T4 [Mass/Vol] 0.94 ng/dL Normal 0.76-1.46 [facility] Comment on above: Performed By: #### C BC #### [facility] [address] [place] [address] Dr. June Mayorga GLYCOHEMOGLOBIN A1Con 2021 ADA RECOMMENDATION SEE BELOW Normal [facility] Comment on above: Result Comment: ADA RECOMMENDED LIMIT 4.0 - 6.0 ADA THERAPEUTIC TARGET < 7.0 ACTION SUGGESTED > 7.0 Performed By: #### A 1C #### [facility] [address] [place] [address] Dr. June Mayorga Glucose [Mass/Vol] 123 mg/dL Normal [facility] Comment on above: Performed By: #### A 1C #### [facility] [address] [place] [address] Dr. June Mayorga HbA1c (Bld) [Mass fraction] 5.9 % Normal 4.5-6.2 [facility] Comment on above: Performed By: #### A 1C #### [facility] [address] [address] [address] June Mayorga LIPID PROFILEon 01-05-2022 CHOL-HDL RATIO NORM SEE BELOW Normal [facility] Comment on above: Result Comment: 3.3 - 4.4 LOW RISK 4.4 - 7.1 AVERAGE RISK 7.1 - 11.0 MODERATE RISK >11.0 HIGH RISK Performed By: #### L IPID, TSH, BMP, FT3, LIVER #### [facility] [address] [address] [address] June Mayorga Cholesterol [Mass/Vol] 169 mg/dL Normal <=200 [facility] Comment on above: Performed By: #### L IPID, TSH, BMP, FT3, LIVER #### [facility] [address] [place] [address] Dr. June Mayorga Cholesterol in HDL [Mass/Vol] 44 mg/dL Normal 40-60 [facility] Comment on above: Performed By: #### L IPID, TSH, BMP, FT3, LIVER #### [facility] [address] [address] [address] June Mayorga Cholesterol in LDL [Mass/Vol] 89.6 mg/dL Normal [facility] Comment on above: Performed By: #### L IPID, TSH, BMP, FT3, LIVER #### [facility] [address] [address] [address] June Mayorga Cholesterol.total/Choles terol in HDL [Mass ratio] 3.8 {ratio} Normal [facility] Comment on above: Performed By: #### L IPID, TSH, BMP, FT3, LIVER #### [facility] [address] [address] [address] June Mayorga HDL NORMAL > or = 60 mg/dl - LO W CARDIOVASCULAR RISK <40 mg/dl - HIGH CARDIOVASCULAR RISK Normal [facility] Comment on above: Performed By: #### L IPID, TSH, BMP, FT3, LIVER #### [facility] [address] [address] [address] June Mayorga LDL CALC NORMAL SEE BELOW Normal [facility] Comment on above: Result Comment: <100 mg/dl OPTIMAL 100 - 129 mg/dl NEAR OR ABOVE OPTIMAL 130 - 159 mg/dl BORDERLINE HIGH 160 - 189 mg/dl HIGH >190 mg/dl VERY HIGH Performed By: #### L IPID, TSH, BMP, FT3, LIVER #### [facility] [address] [address] [address] June Mayorga Triglyceride [Mass/Vol] 177 mg/dL Critically high <=150 [facility] Comment on above: Performed By: #### L IPID, TSH, BMP, FT3, LIVER #### [facility] Laboratory [address] [address] [address] June Mayorga VLDL CALC 35.4 mg/dL Normal [facility] Comment on above: Performed By: #### L IPID, TSH, BMP, FT3, LIVER #### [facility] [address] [place] [address] Dr. June Mayorga LIVER PROFILEon 01-05-2022 Albumin [Mass/Vol] 3.5 g/dL Normal 3.4-5.0 [facility] Comment on above: Performed By: #### C BC #### [facility] [address] [address] [address] June Mayorga Albumin/Globulin [Mass ratio] 1.1 {ratio} Normal [facility] Comment on above: Performed By: #### C BC #### [facility] [address] [place] [address] Dr. June Mayorga ALP [Catalytic activity/Vol] 71 U/L Normal 46-116 [facility] Comment on above: Performed By: #### C BC #### [facility] [address] [place] [address] Dr. June Mayorga ALT [Catalytic activity/Vol] 43 U/L Normal 14-59 [facility] Comment on above: Performed By: #### C BC #### [facility] [address] [place] [address] Dr. June Mayorga AST [Catalytic activity/Vol] 27 U/L Normal 15-37 [facility] Comment on above: Performed By: #### C BC #### [facility] [address] [address] [address] June Mayorga BILI, CONJUGATED 0.1 mg/dL Normal 0.0-0.2 [facility] Comment on above: Performed By: #### C BC #### [facility] [address] [address] [address] June Mayorga Bilirubin [Mass/Vol] 0.3 mg/dL Normal 0.2-1.0 [facility] Comment on above: Performed By: #### C BC #### [facility] [address] [address] [address] June Mayorga Globulin (S) [Mass/Vol] 3.3 g/dL Normal [facility] Comment on above: Performed By: #### C BC #### [facility] [address] [place] [address] Dr. June Mayorga Protein [Mass/Vol] 6.8 g/dL Normal 6.4-8.2 [facility] Comment on above: Performed By: #### C BC #### [facility] [address] [place] [address] Dr. June Mayorga PROF CHEM 8 (BAS METB)on Anion gap [Moles/Vol] 11.0 mmol/L Normal [facility] Comment on above: Performed By: #### L IPID, TSH, BMP, FT3, LIVER #### [facility] [address] [place] [address] Dr. June Mayorga Calcium [Mass/Vol] 8.6 mg/dL Normal 8.5-10.1 [facility] Comment on above: Performed By: #### L IPID, TSH, BMP, FT3, LIVER #### [facility] [address] [place] [address] Dr. June Mayorga Chloride [Moles/Vol] 108 mmol/L Critically high 98-107 [facility] Comment on above: Performed By: #### L IPID, TSH, BMP, FT3, LIVER #### [facility] [address] [place] [address] Dr. June Mayorga CO2 [Moles/Vol] 26.3 mmol/L Normal 21.0-32.0 [facility] Comment on above: Performed By: #### L IPID, TSH, BMP, FT3, LIVER #### [facility] [address] [address] [address] June Mayorga Creatinine [Mass/Vol] 0.90 mg/dL Normal 0.55-1.02 [facility] Comment on above: Performed By: #### L IPID, TSH, BMP, FT3, LIVER #### [facility] [address] [place] [address] Dr. June Mayorga EGFR-AF SAUDI ARABIAN >60 Normal >=60 [facility] Comment on above: Performed By: #### L IPID, TSH, BMP, FT3, LIVER #### [facility] [address] [place] [address] Dr. June Mayorga EGFR-NON AF SAUDI ARABIAN >60 Normal >=60 [facility] Comment on above: Performed By: #### L IPID, TSH, BMP, FT3, LIVER #### [facility] [address] [place] [address] Dr. June Mayorga Glucose [Mass/Vol] 97 mg/dL Normal 74-106 [facility] Comment on above: Performed By: #### L IPID, TSH, BMP, FT3, LIVER #### [facility] [address] [place] [address] Dr. June Mayorga Potassium [Moles/Vol] 4.3 mmol/L Normal 3.5-5.1 [facility] Comment on above: Performed By: #### L IPID, TSH, BMP, FT3, LIVER #### [facility] [address] [place] [address] Dr. June Mayorga Sodium [Moles/Vol] 141 mmol/L Normal 136-145 [facility] Comment on above: Performed By: #### L IPID, TSH, BMP, FT3, LIVER #### [facility] [address] [place] [address] Dr. June Mayorga Urea nitrogen [Mass/Vol] 15.0 mg/dL Normal 7.0-18.0 [facility] Comment on above: Performed By: #### L IPID, TSH, BMP, FT3, LIVER #### [facility] [address] [place] [address] Dr. June Mayorga Urea nitrogen/Creatinine [Mass ratio] 16.7 mg/mg Normal [facility] Comment on above: Performed By: #### L IPID, TSH, BMP, FT3, LIVER #### [facility] [address] [place] [address] Dr. June Mayorga TSHon 01-05-2022 TSH 0.118 uIU/mL Critically low 0.358-3.74 0 [facility] Comment on above: Performed By: #### L IPID, TSH, BMP, FT3, LIVER #### [facility] [address] [place] [address] Dr. June Mayorga VITAMIN D 25 OHon 01-05-2022 VIT D 25-OH 39.7 ng/mL Normal [facility] Comment on above: Performed By: #### C BC #### [facility] [address] [place] [address] Dr. June Mayorga VIT D RANGES SEE BELOW Normal [facility] Comment on above: Result Comment: <20 ng/mL Vit D deficient 20 - <30 ng/mL Vit D insufficient 30 - 100 ng/mL Vit D sufficient >100 ng/mL Potential Toxicity Performed By: #### C BC #### [facility] [address] [place] [address] CERVICAL SP WO CONon -0 CT CERVICAL SP WO CON STUDY:CT CERVICAL SP WO CON; 12/07/2017 7:34 pmINDICATION:PAIN.MANAN RISON:None. IORDERING CLINICIAN:Truman Magana:Contigu ous axial images of the [...] secondaryto patient positioning or muscle spasm. Normal [facility] CT HEAD/BRAIN WO CONon 12-07 CT HEAD/BRAIN WO CON STUDY:CT HEAD/BRAIN WO CON; 12/07/2017 7:34 pmINDICATION:PAIN.MANAN RISON:NoneACCESSION NUMBER(S):[id number] IORDERING CLINICIAN:Truman Magana:Contigu ous axial images of the [...] acute intracranial hemorrhage or mass effect Normal [facility] SHOULDER RT COMPLETE MIN 2 V WSon 12-07-2017 SHOULDER RT COMPLETE MIN 2 VWS STUDY:SHOULDER RT COMPLETE MIN 2 VWS; 12/07/2017 7:33 pmINDICATION:PAIN.MANAN RISON:None. [facility]:Truman Jeong:There is no acute fracture or dislocation of the rightacromioclavicular joint or glenohumeral joint. The subacromial andglenohumeral joint spaces are maintained. There are mild degenerativechanges of the right acromioclavicular joint.IMPRESSION:No acute osseous abnormality of the right shoulder. Normal [facility] [place] Levelon 10-02-2017 [place] 0.4 mmol/L Low 0.6-1.2 [facility] CBC AND DIFFERENTIALon 09-22 % AUTOMATED IMMATURE GRAN 0.2 % Normal 0.0 - 0.9 [facility] Comment on above: Result Comment: Perc ent differential counts (%) should be interpreted in the context of the absolute cell counts (cells/L). Performed By: #### T HYDS ####[facility] [place] [address] % NEUTROPHIL 62.5 % Normal 40.0 - 80.0 [facility] Comment on above: Performed By: #### T HYDS ####[facility] [place] [address] Basophils/100 WBC Auto (Bld) 0.02 x10E9/L Normal 0.00 - 0.10 [facility] Comment on above: Performed By: #### T HYDS ####[facility] [place] [address] Basophils/100 WBC Auto (Bld) 0.2 % Normal 0.0 - 2.0 [facility] Comment on above: Performed By: #### T HYDS ####[facility] [place] [address] Eosinophils 0.08 10*3/uL Normal 0.00 - 0.70 [facility] Comment on above: Performed By: #### T HYDS ####[facility] [place] [address] Eosinophils/100 leukocytes 1.0 % Normal 0.0 - 6.0 [facility] Comment on above: Performed By: #### T HYDS ####[facility] [place] [address] Erythrocyte distribution width Auto Ratio (RBC) 12.7 % Normal 11.5 - 14.5 [facility] Comment on above: Performed By: #### T HYDS ####[facility] [place] [address] Erythrocytes (RBC) 4.15 x10E12/L Normal 4.00 - 5.20 [facility] Comment on above: Performed By: #### T HYDS ####[facility] [place] [address] Hematocrit (HCT) 39.1 % Normal 36.0 - 46.0 [facility] Comment on above: Performed By: #### T HYDS ####[facility] [place] [address] Hemoglobin mass conc (Bld) 12.7 g/dL Normal 12.0 - 16.0 [facility] Comment on above: Performed By: #### T HYDS ####[facility] [place] [address] Lymphocytes 2.33 10*3/uL Normal 1.20 - 4.80 [facility] Comment on above: Performed By: #### T HYDS ####[facility] [place] [address] Lymphocytes/100 leukocytes 28.6 % Normal 13.0 - 44.0 [facility] Comment on above: Performed By: #### T HYDS ####[facility] [place] [address] MCHC mass conc (RBC) 32.5 g/dL Normal 32.0 - 36.0 [facility] Comment on above: Performed By: #### T HYDS ####[facility] [place] [address] MCV 94 fL Normal 80 - 100 [facility] Comment on above: Performed By: #### T HYDS ####[facility] [place] [address] Monocytes 0.61 10*3/uL Normal 0.10 - 1.00 [facility] Comment on above: Performed By: #### T HYDS ####[facility] [place] [address] Monocytes/100 leukocytes 7.5 % Normal 2.0 - 10.0 [facility] Comment on above: Performed By: #### T HYDS ####[facility] [place] [address] Neutrophils 5.09 10*3/uL Normal 1.20 - 7.70 [facility] Comment on above: Performed By: #### T HYDS ####[facility] [place] [address] Nucleated erythrocytes 0.0 /100 WBC Normal 0.0-0.0 [facility] Comment on above: Performed By: #### T HYDS ####[facility] [place] [address] Platelets 293 10*3/uL Normal 150 - 450 [facility] Comment on above: Performed By: #### T HYDS ####[facility] [place] [address] WBC (Leukocytes) 8.2 10*3/uL Normal 4.4 - 11.3 [facility] Comment on above: Performed By: #### T HYDS ####[facility] [place] [address] COMPREHENSIVE PANELon 2017 Alanine aminotransferase (ALT) 12 U/L Normal 7 - 45 [facility] Comment on above: Result Comment: [place] ents treated with Sulfasalazine may generate falsely decreased results for ALT. Performed By: #### C MP ####[facility] [place] [address] Albumin 4.5 g/dL Normal 3.4 - 5.0 [facility] Comment on above: Performed By: #### C MP ####[facility] [place] [address] Alkaline phosphatase (ALP) 75 U/L Normal 33 - 110 [facility] Comment on above: Performed By: #### C MP ####[facility] [place] [address] Anion gap 12 mmol/L Normal 10 - 20 [facility] Comment on above: Performed By: #### C MP ####[facility] [place] [address] Aspartate aminotransferase (AST) 15 U/L Normal 9 - 39 [facility] Comment on above: Performed By: #### C MP ####[facility] [place] [address] Bicarbonate (HCO3) 29 mmol/L Normal 21 - 32 [facility] Comment on above: Performed By: #### C MP ####[facility] [place] [address] Bilirubin (total) 0.3 mg/dL Normal 0.0 - 1.2 [facility] Comment on above: Performed By: #### C MP ####[facility] [place] [address] Calcium 9.5 mg/dL Normal 8.6 - 10.6 [facility] Comment on above: Performed By: #### C MP ####[facility] [place] [address] Chloride 104 mmol/L Normal 98 - 107 [facility] Comment on above: Performed By: #### C MP ####[facility] [place] [address] Creatinine 0.67 mg/dL Normal 0.50 - 1.05 [facility] Comment on above: Performed By: #### C MP ####[facility] [place] [address] eGFR (non-black) mL/min/{1.73_m2} Normal >60 [facility] Comment on above: Performed By: #### C MP ####[facility] [place] [address] Result Comment: CALC ULATIONS OF ESTIMATED GFR ARE PERFORMED USING THE MDRD STUDY EQUATION FOR THE IDMS-TRACEABLE CREATININE METHODS. CLIN CHEM 2007;53:766-72 Glucose mass conc 109 mg/dL High 74 - 99 [facility] Comment on above: Performed By: #### C MP ####[facility] [place] [address] Potassium molar conc 4.2 mmol/L Normal 3.5 - 5.3 [facility] Comment on above: Performed By: #### C MP ####[facility] [place] [address] Protein 6.8 g/dL Normal 6.4 - 8.2 [facility] Comment on above: Performed By: #### C MP ####[facility] [place] [address] Sodium 141 mmol/L Normal 136 - 145 [facility] Comment on above: Performed By: #### C MP ####[facility] [place] [address] Urea nitrogen 9 mg/dL Normal 6 - 23 [facility] Comment on above: Performed By: #### C MP ####[facility] [place] [address] CREATINE KINASEon 09-22-2017 Creatine kinase (CK) 50 U/L Normal 0 - 215 [facility] Comment on above: Performed By: #### C K ####[facility] [place] [address] FOLATE, SERUMon 09-22-2017 FOLATE, SERUM > 24.0 Normal >5.0 [facility] Comment on above: Result Comment: [place] ents receiving more than 5 mg/day of biotin may have interference in test results. A sample should be taken no sooner than eight hours after previous dose. Contact [phone] for additional information. Performed By: #### T HYDS ####[facility] [place] [address] HEMOGLOBIN A1Con 09-22-2017 Glucose mass conc 100 mg/dL Normal [facility] Comment on above: Performed By: #### T HYDS ####[facility] [place] [address] Hemoglobin A1c/Hemoglobin.total mass fraction (Bld) 5.1 % Normal [facility] Comment on above: Result Comment: Diag nosis of Diabetes-Adults Non-Diabetic: < or = 5.6% Increased risk for developing diabetes: 5.7-6.4% Diagnostic of diabetes: > or = 6.5%. Monitoring of Diabetes Age (y) Therapeutic Goal (%) Adults: >18 <7.0 Pediatrics: 13-18 <7.5 7-12 <8.0 0- 6 7.5-8.5 [place] [employer]. Diabetes Care 33(S1), Jul 2009. Performed By: #### T HYDS ####[facility] [place] [address] LDL, DIRECTon 09-22-2017 LDL Cholesterol 84 mg/dL Normal 0 - 129 [facility] Comment on above: Result Comment: Elev ated levels of LDL cholesterol are recognized as a keyfactor in the development of atherosclerosis and CHD. Thedirect LDL cholesterol test can be used to assesscardiovascular risk and monitor therapy as a follow up toa lipid profile when triglycerides are significantly elevated. Performed By: #### L DLDI ####[facility] [place] [address] LIPID PANEL (CORONARY RISK 2 )on 09-22-2017 Cholesterol 170 mg/dL Normal 0 - 199 [facility] Comment on above: Result Comment: . AG [...] Metamizole dosing. Performed By: #### L IPID ####[facility] [place] [address] Cholesterol in VLDL mass conc 22 mg/dL Normal 0 - 40 [facility] Comment on above: Performed By: #### L IPID ####[facility] [place] [address] Cholesterol to HDL Ratio 2.7 {ratio} Normal [facility] Comment on above: Result Comment: REF VALUESDESIRABLE < 3.4HIGH RISK > 5.0 Performed By: #### L IPID ####[facility] [place] [address] HDL Cholesterol 63.6 mg/dL Normal [facility] Comment on above: Result Comment: . AG E VERY LOW LOW NORMAL HIGH 0-19 Y < 35 < 40 40-45 ---- 20-24 Y ---- < 40 >45 ---- >24 Y ---- < 40 40-60 >60. Performed By: #### L IPID ####[facility] [place] [address] LDL Cholesterol 84 mg/dL Normal 0 - 99 [facility] Comment on above: Result Comment: . AMARJIT GARCIA AGE DESIRABLE OPTIMAL HIGH HIGH VERY HIGH 0-19 Y 0 - 109 --- 110-129 >/= 130 ---- 20-24 Y 0 - 119 --- 120-159 >/= 160 ---- >24 Y 0 - 99 100-129 130-159 160-189 >/=190. Performed By: #### L IPID ####[facility] [place] [address] Triglyceride 110 mg/dL Normal 0 - 149 [facility] Comment on above: Result Comment: . AG [...] Metamizole dosing. Performed By: #### L IPID ####[facility] [place] [address] MAGNESIUMon 09-22-2017 Magnesium 2.07 mg/dL Normal 1.60 - 2.40 [facility] Comment on above: Performed By: #### M G ####[facility] [place] [address] TRIIODOTHYRONINE,FREEon 09-01 TRIIODOTHYRONINE,FREE 3.2 pg/mL Normal 1.8 - 4.2 [facility] Comment on above: Performed By: #### T 3FRE ####[facility] [place] [address] TRIIODOTHYRONINE,FREE Canceled Normal [facility] Comment on above: Order Comment: TEST TRIIODOTHYRONINE,FREE WAS CANCELLED, 09/21/2017 22:43 DUPLICATE ORDER. Performed By: #### T 3FRE ####[facility] [place] [address] TSH WITH REFLEX TO FREE T4 I F ABNORMALon 09-22-2017 Thyroid stimulating hormone (TSH) 1.07 m[IU]/L Normal 0.44 - 3.98 [facility] Comment on above: Result Comment: TSH testing is performed using different testing methodology at [facility] than at [facility]. Direct result comparisons should only be made within the same method.. Patients receiving more than 5 mg/day of biotin may have interference in test results. A sample should be taken no sooner than eight hours after previous dose. Contact [phone] for additional information. Performed By: #### T HYDS ####[facility] [place] [address] Thyroid stimulating hormone (TSH) Canceled Normal [facility] Comment on above: Order Comment: TEST TSH WITH REFLEX TO FREE T4 IF ABNORMAL WAS CANCELLED, 09/21/2017 22:44DUPLICATE ORDER. Result Comment: TSH testing is performed using different testing methodology at [facility] than at [facility]. Direct result comparisons should only be made within the same method.. Patients receiving more than 5 mg/day of biotin may have interference in test results. A sample should be taken no sooner than eight hours after previous dose. Contact [phone] for additional information. Performed By: #### T HYDS ####[facility] [place] [address] UA MICROSCOPICon 09-22-2017 Erythrocytes (RBC) 38 /HPF Abnormal 0-5 [facility] Comment on above: Performed By: #### T HYDS ####[facility] [place] [address] SQUAMOUS EPITH. CELLS <1 Normal [facility] Comment on above: Performed By: #### T HYDS ####[facility] [place] [address] Urine, mucus presence in sediment 1+ /LPF Normal [facility] Comment on above: Performed By: #### T HYDS ####[facility] [place] [address] WBC (Leukocytes) 3 /HPF Normal 0-5 [facility] Comment on above: Performed By: #### T HYDS ####[facility] [place] [address] URINALYSISon 09-22-2017 Bilirubin (total) Negative Normal NEGATIVE [facility] Comment on above: Performed By: #### T HYDS ####[facility] [place] [address] BLOOD LARGE (3+) Abnormal NEGATIVE [facility] Comment on above: Performed By: #### T HYDS ####[facility] [place] [address] Glucose mass conc Negative Normal NEGATIVE [facility] Comment on above: Performed By: #### T HYDS ####[facility] [place] [address] pH of blood 6.0 [pH] Normal 5.0 - 8.0 [facility] Comment on above: Performed By: #### T HYDS ####[facility] [place] [address] Protein Negative Normal NEGATIVE [facility] Comment on above: Performed By: #### T HYDS ####[facility] [place] [address] Urine, appearance CLEAR Normal CLEAR [facility] Comment on above: Performed By: #### T HYDS ####[facility] [place] [address] Urine, color STRAW Normal STRAW,YELL OW [facility] Comment on above: Performed By: #### T HYDS ####[facility] [place] [address] Urine, ketones presence Negative Normal NEGATIVE [facility] Comment on above: Performed By: #### T HYDS ####[facility] [place] [address] Urine, leukocyte esterase presence TRACE Abnormal NEGATIVE [facility] Comment on above: Performed By: #### T HYDS ####[facility] [place] [address] Urine, nitrite presence Negative Normal NEGATIVE [facility] Comment on above: Performed By: #### T HYDS ####[facility] [place] [address] Urine, specific gravity 1.009 Normal 1.00 5 - 1.035 [facility] Comment on above: Performed By: #### T HYDS ####[facility] [place] [address] Urine, urobilinogen <2.0 Normal 0.0 - 1.9 [facility] Comment on above: Performed By: #### T HYDS ####[facility] [place] [address] VITAMIN B12on 09-22-2017 Cobalamins (Vitamin B12) 996 pg/mL High 211 - 911 [facility] Comment on above: Performed By: #### V TB12 ####[facility] [place] [address] VITAMIN D, 25-HYDROXYon 09-01 VITAMIN D, 25-HYDROXY 18 ng/mL Abnormal [facility] Comment on above: Result Comment: .DEF ICIENCY: < 20 NG/MLINSUFFICIENCY: 20-29 NG/MLOPTIMUM LEVEL: 30-80 NG/MLPOSSIBLE TOXICITY: > 80 NG/MLTHIS ASSAY ACCURATELY QUANTIFIES THE SUM OFVITAMIN D3, 25-HYDROXY AND VIT D2,25-HYDROXY. Performed By: #### T HYDS ####[facility] [place] [address] Calprotectin, Fecalon 2017 Protein mass conc g/dL Normal <=50 [facility] Comment on above: Result Comment: INTE RPRETIVE INFORMATION: Calprotectin, Fecal 50 ug/g or less: Normal 51-120 ug/g: Borderline elevated, test should be re-evaluated in 4-6 weeks. 121 ug/g or greater: AbnormalPerformed by ice,[address] [place] [id number] [employer], Edwin Owen MD - Lab. Director Clostridium difficile Amplif icationon 07-26-2017 Clostridium difficile Amplification ORDERED BY: MAKAYLA SOLANO: Stool COLLECTED: 07/26/17 17:03ANTIBIOTICS AT NATE.: RECEIVED : 07/26/17 17:03Clostridium difficile Amplification FINAL 07/27/17 12:31 Negative for Clostridia Difficile A/B Normal Range: Negative Normal [facility] Lipaseon 07-26-2017 Lipase enzyme act/vol 20 U/L Normal 13-60 [facility] OP Screen (Giardia/Cryptospo ridium)on 07-26-2017 OP Screen (Giardia/Cryptosporidium ) ORDERED BY: MAKAYLA SOLANO: Stool COLLECTED: 07/26/17 10:15ANTIBIOTICS AT NATE.: RECEIVED : 07/27/17 06:39Cryptosporidium Antigen EIA FINAL 07/27/17 13:23 Negative Normal Range: NegativeGiardia lamblia Antigen EIA FINAL 07/27/17 13:23 Negative Normal Range: Negative Normal [facility] XR ABDOMEN LIMITED (KUB)on 0 07-26-2017 XR [...] THE PELVIS. Interpreted by:LC Sandhuigned by:Leighann Rose MD07/26/inal result Normal [facility] CBC With Platelet and Differ entialon 07-25-2017 Basophils Auto #/vol (Bld) 0.0 10*3/uL Normal 0.0-0.2 [facility] Basophils/100 WBC Auto (Bld) 0.4 % Normal [facility] Eosinophils Auto #/vol (Bld) 0.0 10*3/uL Normal 0.0-0.7 [facility] Eosinophils/100 WBC Auto (Bld) 0.4 % Normal [facility] Erythrocyte distribution width Auto Ratio (RBC) 12.2 % Normal 11.5-14.5 [facility] Hematocrit Auto Volume Fraction (Bld) 39.2 % Normal 37.0-47.0 [facility] Hemoglobin mass conc (Bld) 13.3 g/dL Normal 12.0-16.0 [facility] Lymphocytes Auto #/vol (Bld) 1.8 10*3/uL Normal 1.0-4.8 [facility] Lymphocytes/100 WBC Auto (Bld) 29.7 % Normal [facility] MCH Auto Entitic mass (RBC) 31.5 pg Critically high 27.0-31.3 [facility] MCHC Auto mass conc (RBC) 34.0 % Normal 33.0-37.0 [facility] MCV Auto Entitic volume (RBC) 92.6 fL Normal 82.0-100.0 [facility] Monocytes Auto #/vol (Bld) 0.5 10*3/uL Normal 0.2-0.8 [facility] Monocytes/100 WBC Auto (Bld) 7.8 % Normal [facility] Neutrophils Auto #/vol (Bld) 3.8 10*3/uL Normal 1.4-6.5 [facility] Neutrophils/100 WBC Auto (Bld) 61.7 % Normal [facility] Platelets Auto #/vol (Bld) 243 10*3/uL Normal 130-400 [facility] RBC Auto #/vol (Bld) 4.23 10*6/uL Normal 4.20-5.40 [facility] WBC Auto #/vol (Bld) 6.1 10*3/uL Normal 4.8-10.8 [facility] Comprehensive Metabolic Pane rosalinda 07-25-2017 Albumin mass conc 4.6 g/dL Normal 3.9-4.9 [facility] ALP enzyme act/vol 67 U/L Normal 40-130 [facility] ALT enzyme act/vol 14 U/L Normal 0-33 [facility] Anion gap 3 molar conc 16 mmol/L Critically high 7-13 [facility] AST enzyme act/vol 18 U/L Normal 0-35 [facility] Bilirubin mass conc 0.3 mg/dL Normal 0.0-1.2 [facility] Calcium mass conc 9.2 mg/dL Normal 8.6-10.2 [facility] Chloride molar conc 105 mmol/L Normal 98-107 [facility] CO2 molar conc 21 mmol/L Low 22-29 [facility] Creatinine mass conc 0.58 mg/dL Normal 0.50-0.90 [facility] GFR/1.73 sq M predicted among blacks MDRD vol rate/area (S/P/Bld) mL/min/{1.73_m2} Normal >60 [facility] Comment on above: Result Comment: >60 mL/min/1.73m2 EGFR, calc. for ages 18 and older using theMDRD formula (not corrected for weight), is valid for stablerenal function. GFR/1.73 sq M.predicted MDRD vol rate/area mL/min/{1.73_m2} Normal >60 [facility] Comment on above: Result Comment: >60 mL/min/1.73m2 EGFR, calc. for ages 18 and older using theMDRD formula (not corrected for weight), is valid for stablerenal function. Globulin Calculated mass conc (S) 2.2 g/dL Low 2.3-3.5 [facility] Glucose mass conc 80 mg/dL Normal 74-109 [facility] Potassium molar conc 4.3 mmol/L Normal 3.5-5.1 [facility] Protein mass conc 6.8 g/dL Normal 6.4-8.1 [facility] Sodium molar conc 142 mmol/L Normal 132-144 [facility] Urea nitrogen mass conc 9 mg/dL Normal 6-[address] [facility] TSH w/out Reflexon 8 Thyrotropin Qn 0.830 uIU/mL Normal 0.270-4.20 [facility] VITAMIN Don 07-25-2017 VITAMIN D 32.4 ng/mL Normal 30.0-100.0 [facility] Comment on above: Result Comment: (30- 100 ng/mL) Optimum LevelThis assay accurately quantifies the sum of vitamin D3, 25-Hydroxy andvitamin D2, 25-Hyroxy. Vital Signs Date Time Vital Sign Value Performing Clinician Facility 04-05-2022 11:30-0400 Body height 162.56 cm Kenisha Molina Other [facility] Other 04-05-2022 11:30-0400 Body mass index (BMI) [Ratio] 27.46 kg/m2 Kenisha Molina Other [facility] Other 04-05-2022 11:30-0400 Body temperature 99.2 [degF] Kenisha Tracy Other [facility] Other 04-05-2022 11:30-0400 Body weight 72.58 kg Kenisha Molina Other [facility] Other 04-05-2022 11:30-0400 Respiratory rate 18 /min Kenisha Tracy Other [facility] Other 04-05-2022 11:30-0400 SaO2% (BldA) [Mass fraction] 97 % Kenisha Molina Other [facility] Other Encounters Encounter Date Encounter Type Care Provider Facility Start: 12-05-2023 ambulatory [place] acility:[facility] Start: 09-26-2023 End: 09-26-2023 ambulatory SRIDHAR LO Not Available Start: 07-12-2023 End: 07-12-2023 ambulatory SHAHIDA COFFEY Not Available Start: 07-06-2022 End: 07-07-[address] SHAHIDA COFFEY . Facility:[facility] Start: 06-29-2022 End: 06-29-[address] SHAHIDA COFFEY . Facility:[facility] Start: 04-28-2022 End: 04-29-[address] SRIDHAR LO Facility:[facility] Start: 04-13-2022 End: 04-14-[address] SRIDHAR LO Facility:[facility] Start: 04-11-[address] SRIDHAR LO Facil ity:[facility] Start: 04-05-2022 End: 04-05-2022 ambulatory Kenisha Molina Other [facility] Other Start: 04-05-2022 Office outpatient visit 15 minutes Kenisha Molina [facility] Start: 01-05-2022 End: 01-06-[address] SRIDHAR LO Facility: Start: 01-30-2018 End: 01-31-2018 [facility] Start: 01-22-2018 End: 01-23-2018 Patient [facility] Start: 01-15-2018 End: 01-16-2018 [facility] Start: 12-27-2017 End: 12-28-2017 Patient [facility] Start: 12-19-2017 End: 12-20-2017 Patient [facility] Start: 12-07-2017 End: 12-07-2017 Emergency department patient visit Family Physician Unavailable Facility:[facility] Start: 12-07-2017 Ambulatory Facility:[id number] Start: 12-06-2017 End: 12-07-2017 Patient [facility] Start: 11-21-2017 End: 11-22-2017 Patient encounter SRIDHAR Estrada [facility] Start: 11-14-2017 End: 11-15-2017 Patient encounter SRIDHAR Estrada [facility] Start: 10-31-2017 End: 11-01-2017 Patient encounter SRIDHAR Estrada [facility] Start: 10-24-2017 End: 10-25-2017 Patient encounter SRIDHAR Estrada [facility] Start: 10-17-2017 End: 10-18-2017 Patient encounter SRIDHAR Estrada [facility] Start: 10-12-2017 End: 10-13-2017 Patient encounter SRIDHAR Estrada [facility] Start: 10-11-2017 End: 10-12-2017 Patient encounter SRIDHAR Estrada [facility] Start: 10-10-2017 End: 10-11-2017 [facility] Start: 10-05-2017 End: 10-06-2017 Patient encounter SRIDHAR Estrada [facility] Start: 10-04-2017 End: 10-05-2017 [facility] Start: 10-03-2017 End: 10-04-2017 Patient encounter SRIDHAR Estrada [facility] Start: 10-02-2017 End: 10-03-2017 Patient encounter SRIDHAR Estrada [facility] Start: 09-28-2017 End: 09-29-2017 Patient encounter SRIDHAR Estrada [facility] Start: 09-27-2017 End: 09-28-2017 Patient encounter SRIDHAR Estrada [facility] Start: 09-26-2017 End: 09-27-2017 Patient encounter SRIDHAR Estrada [facility] Start: 09-25-2017 End: 09-26-2017 Patient encounter SRIDHAR Estrada [facility] Start: 09-21-2017 End: 09-22-2017 Patient encounter SRIDHAR Estrada [facility] Start: 09-20-2017 End: 09-21-2017 Patient encounter SRIDHAR Estrada [facility] Start: 09-19-2017 End: 09-20-2017 Patient encounter SRIDHAR [facility] Start: 09-18-2017 End: 09-19-2017 Patient encounter SRIDHAR Estrada [facility] Start: 09-14-2017 End: 09-15-2017 Patient encounter SRIDHAR Estrada [facility] Start: 09-13-2017 End: 09-14-2017 Patient encounter SRIDHAR Estrada [facility] Start: 09-12-2017 End: 09-13-2017 Patient encounter SRIDHAR Estrada [facility] Start: 09-07-2017 End: 09-08-2017 Patient encounter SRIDHAR Estrada [facility] Start: 09-06-2017 End: 09-07-2017 Patient encounter SRIDHAR Estrada [facility] Start: 09-05-2017 End: 09-06-2017 Patient encounter SRIDHAR Estrada [facility] Start: 09-04-2017 End: 09-05-2017 Patient encounter SRIDHAR Estrada [facility] Start: 08-31-2017 End: 09-01-2017 [facility] Start: 08-30-2017 End: 08-31-2017 Patient encounter SRIDHAR Estrada [facility] Start: 08-29-2017 End: 08-30-2017 [facility] Start: 08-28-2017 End: 08-29-2017 Patient encounter SRIDHAR Estrada [facility] Start: 08-24-2017 End: 08-25-2017 Patient encounter SRIDHAR Estraad [facility] Start: 08-23-2017 End: 08-24-2017 Patient encounter SRIDHAR Estrada [facility] Start: 08-22-2017 End: 08-23-2017 Patient encounter SRIDHAR [facility] Start: 08-21-2017 End: 08-22-2017 Patient encounter SRIDHAR Estrada [facility] Start: 08-17-2017 End: 08-18-2017 Patient encounter SRIDHAR Estrada [facility] Start: 08-16-2017 End: 08-17-2017 Patient encounter SRIDHAR LO [facility] Start: 08-15-2017 End: 08-16-2017 Patient encounter SRIDHAR LO [facility] Start: 08-14-2017 End: 08-15-2017 Patient encounter SRIDHAR LO [facility] Start: 08-10-2017 Patient encounter procedure Domenic Green [facility] Work Phone: Start: 08-10-2017 End: 08-11-2017 Patient encounter SRIDHAR LO [facility] Start: 08-09-2017 End: 08-10-2017 [facility] Start: 08-08-2017 End: 08-09-2017 [facility] Start: 08-07-2017 End: 08-08-2017 Patient encounter SRIDHAR KNIGHT [facility] Start: 08-03-2017 End: 08-04-2017 Patient encounter SRIDHAR KNIGHT [facility] Start: 08-02-2017 End: 08-03-2017 [facility] Start: 07-31-2017 End: 08-01-2017 Patient encounter SRIDHAR LO [facility] Start: 07-25-2017 End: 07-28-2017 Evaluation and management of inpatient [facility] Procedures Date Procedure Procedure Detail Performing Clinician Start: 10-17-2017 DISCHARGE PATIENT ALESSANDRO AGUSTINNAN Start: 07-28-2017 INTENSIVE OUTPATIENT - I [place] Start: 07-28-2017 DISCHARGE PATIENT ALESSANDRO MAURO Start: [...] acellular pertussis vaccine, adsorbed Kenisha Molina Other [facility] Other Payers Date Payer Category Payer Self-pay 1975 Unknown [id number] .16.84 [id number] 1973 Unknown [id number] .16.84 [id number] 1973 Unknown [id number] .16.84 [id number] 1973 Unknown [id number] 2.16.84 [id number] 1973 Unknown [id number] 2.16.84 [id number] 1973 Unknown [id number] 2.16.84 [id number] 1973 Unknown [id number] 2.16.84 [id number] 1973 Unknown [id number] 2.16.84 [id number] 1961 [facility] [id number] 1961 Unknown [id number] Unknown [id number] 2.16.8 [id number] Social History Date Type Detail Facility Sex Assigned At Sex Assigned At [facility] Other NEGATED: Highlighted row - - [facility] Work Phone: Functional Status Date Assessment Result Facility NEGATED: Highlighted row Functional performance Functional status health issues are not documented Disease [facility] Work Phone: Mental Status Date Assessment Result Facility NEGATED: Highlighted row Cognitive function [Interpretation] Cognitive status health issues are not documented Disease [facility] Work Phone: Evaluation note [...] no improvement in 2 to 3 days. [facility] Other History general Narrative - Reported Note Date & Type Note Facility History general Narrative - Reported Type Medical History Anxiety and depression Medical History IBS (irritable bowel syndrome) Surgical History laparoscopy Surgical History eyes Surgical History cholecystectomy Surgical History wisdom teeth Surgical History appendectomy Surgical History colonoscopy Hospitalization History see above [facility] Other Summary Purpose Family History No Family [...] section and content) DATE CREATED AUTHOR 12/19/2017 [facility] DATE CREATED AUTHOR AUTHOR'S ORGANIZ ATION 12/21/2017 [facility] DATE CREATED AUTHOR AUTHOR'S ORGANIZ ATION 01/23/2018 [facility] DATE CREATED AUTHOR AUTHOR'S ORGANIZ ATION 02/01/2018 [facility] DATE CREATED AUTHOR AUTHOR'S ORGANIZ ATION 11/02/2022 [facility] DATE CREATED AUTHOR AUTHOR'S ORGANIZ ATION 09/27/2023 [facility] EPIC DATE CREATED AUTHOR AUTHOR'S ORGANIZ ATION 12/06/2023 [facility] REASON FOR VISIT (unrecogniz ed section and [...] BE BASED ON THE PRIMARY CLINICAL RECORDS. [facility] [employer] [facility]. provides no warranty or guarantee of the accuracy or completeness of information in this document.
== END 2023-12-27 12:43 | disposition home or self-care (01) ==
LOC: MAMMO 12:42
PROVIDERS: PCP Family Medicine; Visit Provider Obstetrics & Gynecology
DX: R92.8 Other abnormal and inconclusive findings on diagnostic imaging of breast (principal); Z80.3 Family history of malignant neoplasm of breast; Z80.52 Family history of malignant neoplasm of bladder
CPT/HCPCS: 76642; 77065; G0279

== ENCOUNTER 2024-06-14 07:54 | Outpatient (OUT) | payer BC, SELFPAY ==
--- NOTE | 2024-06-14 07:58 | US_ITS ---
Patient Name: MELBA BERRY MR#: [id number] : 1975 Exam Date: 06/14/2024 Ordering Doctor: DR Didier Pretty . RADIOLOGY REPORT PROCEDURE: US BREAST RT LIMITED COMPARISON: US BREAST RT LIMITED, 12/27/2023. INDICATIONS: Complex cyst of right breast TECHNIQUE: Breast ultrasound was performed, with evaluation focusing only on specific areas of concern. FINDINGS: DIAGNOSTIC CATEGORY 2--BENIGN FINDING. NO CHANGE FROM COMPARISON. Ultrasound of the right breast demonstrates 2 stable cystic lesions and anechoic area measuring 1.8 x 1.9 x 1.0 cm and a 2nd cystic lesion with low-level echoes measuring 0.8 x 1.0 x 0 6 cm. In light of the stability, benign cysts are favored, no further evaluation is required RECOMMENDATIONS: ROUTINE MAMMOGRAM AND CLINICAL EVALUATION IN 12 MONTHS. PLEASE NOTE: A NORMAL ULTRASOUND EXAMINATION DOES NOT EXCLUDE THE POSSIBILITY OF BREAST CANCER. A CLINICALLY SUSPICIOUS PALPABLE LUMP SHOULD BE BIOPSIED. Dictated by: Dom Vazquez MD on 06/14/2024 at 09:01 Approved by: Dom Vazquez MD on 06/14/2024 at 09:02
--- OUTSIDE RECORDS SUMMARY | 2024-06-14 07:58 | XMS_ITS | CCD ---
Author Organization [facility] Care Team Providers Care Marketing Campaign Analyst Name Role Phone Unavailable, Family Physician Unavailable Un available Unavailable, Family Physician Unavailable Un available Diab, Kelsea Unavailable Unavailable [place], KEN Unavailable Unavailable [place], KEN Unavailable Unavailable NADERER, SRIDHAR ANTONIA Unavailable Unavailabl e ABEBA, NICHOLE Unavailable Unavailable MASSRANDALL TORRES Unavailable Unavailable [...] NADERER, DR SRIDHAR Choudhary Primary Care Unavailable KENNEDY, JENIFER Consulting Unavailable NADERER, DR SRIDHAR Choudhary [...] NADERER, DR SRIDHAR Choudhary Primary Care Unavailable NADEREGilberto, DR SRIDHAR Choudhary Consulting Unavailable NADEREGilberto, DR SRIDHAR Choudhary Attending Unavailable ALEXX ., DR PINEDO Admitting Unavailable ALEXX ., DR PINEDO Consulting Unavailable NADFLORENTINO, DR SRIDHAR Choudhary Primary Care Unavailable ALEXX ., DR PINEDO Attending Unavailable Sridhar Lo MD Primary Care Provider [phone] SHAHIDA PRETTY Attending Unavailable NADERER, SRIDHAR Attending Unavailable NADERER, SRIDHAR Attending Unavailable NADEREGilberto, SRIDHAR Attending Unavailable Tereza, All Attending Unavailab le All Starks Admitting Unavailab le Sridhar Lo Primary Care Unavailable Allergies Allergy Classification Reported Allergen(s) Allergy Type Date of Onset Reaction(s) Facility (4 sources) cefdinir; Translations: [cefdinir] Drug Allergy 08-28-19 mood changes [facility] Repository (3 sources) Promethazine; Translations: [Phenergan] Drug Allergy [facility] Repository (2 sources) risperiDONE Drug Allergy [facility] Work Phone: (2 sources) Sulfamethoxazole / Trimethoprim; Translations: [Bactrim] Drug Allergy [facility] Repository (8 sources) Ciprofloxacin Drug Allergy 07-25-19 20 hives [facility] Other (2 sources) Prochlorperazine; Translations: [Compazine] Drug Allergy 03-01-20 17 dizziness [facility] Repository (8 sources) Promethazine Drug Allergy 07-25-19 18 nausea [facility] Other (8 sources) Sulfamethoxazole / Trimethoprim Drug Allergy 07-25-19 18 Itching [facility] Other (1 source) Triamcinolone Drug Allergy anxiety [facility] Other (1 source) vortioxetine Drug Allergy nausea [facility] Other (1 source) Ciprofloxacin Drug Allergy [facility] Repository (1 source) Corticosteroids Drug allergy (disorder) 08-28-19 [facility] Repository (1 source) risperiDONE Drug Allergy [facility] Repository (1 source) vortioxetine Drug Allergy 08-28-19 [facility] Repository (7 sources) Cefuroxime Drug Allergy 07-25-19 [facility] Healthcare Work Phone: (7 sources) Prochlorperazine Drug Allergy 05-07-20 [facility] Healthcare (7 sources) risperiDONE Drug Allergy 07-25-19 [facility] (7 sources) vortioxetine Drug Allergy 02-09-20 [facility] (1 source) Ciprofloxacin Drug Allergy 04-05-20 [facility] Repository (1 source) Prochlorperazine Drug Allergy 04-05-20 [facility] Repository (1 source) Promethazine Drug Allergy 04-05-20 [facility] Repository (1 source) risperiDONE Drug Allergy 04-05-20 [facility] Repository (1 source) Sulfamethoxazole Drug Allergy 04-05-20 [facility] Repository (1 source) Triamcinolone Drug Allergy 04-05-20 [facility] Repository (1 source) Trimethoprim Drug Allergy 04-05-20 [facility] Repository (1 source) vortioxetine Drug Allergy 04-05-20 [facility] Repository Medications Current Medications Medication Drug Class(es) Dates Sig (Normalized) Sig (Original) Ascorbic Acid (2 sources) Vitamin C Vitamin C Active Vitamin C Theresa- xi cholecalciferol 1.25 mg oral capsule (7 sources) Vitamin D Start: 03-14-2024 take 1 capsule by mouth every week cholecalciferol (Vitamin D-3) 1.25 MG (05125 UT) capsule Indications: Vitamin D deficiency, unspecified , Vitamin D deficiency TAKE 1 CAPSULE BY MOUTH ONE TIME PER WEEK ON SUNDAYS 12 capsule 3 03/14/2024 Active clonazePAM 0.5 mg oral tablet (9 sources) Benzodiazepine take 1 tablet by mouth in the morning, then take 1 tablet by mouth in the evening, then take 1 tablet by mouth at bedtime clonazePAM (KlonoPIN) 0.5 MG tablet Take 0.5 mg by mouth in the morning and 0.5 mg in the evening and 0.5 mg before bedtime. Active take 0.5 tablet by m outh three times daily KlonoPIN 1 MG Oral Tablet TAKE 0.5 TABLE T 3 TIMES DAILY Refills: 0 Active doxycycline hyclate 100 mg oral tablet (1 source) Tetracycline-class Drug Start: 05-01-2024 End: 05-11-2024 doxycycline (Vibra-Tabs) 100 MG tablet Indications: Acute non-recurrent pansinusitis Take 1 tablet (100 mg) by mouth in the morning and 1 tablet (100 mg) before bedtime. Do all this for 10 days. Take with a full glass of water and do not lie down for at least 30 minutes after.. 20 tablet 05/01/2024 05/11/2024 Active famotidine 20 mg oral tablet (8 sources) Histamine-2 Receptor Antagonist Start: 02-02-2024 take 2 tablets by mouth twice daily famotidine (Pepcid) 20 MG tablet Indications: Chronic superficial gastritis without bleeding , Atrophic gastritis TAKE 2 TABLETS BY MOUTH TWICE A DAY 360 tablet 3 02/02/2024 Active Famotidine 20 MG Oral for 90 Active levothyroxine sodium 0.088 mg oral tablet (8 sources) l-Thyroxine Start: 07-04-2023 take 1 tablet by mouth once daily levothyroxine (Synthroid, Levoxyl) 88 MCG tablet Indications: Hypothyroidism, unspecified (CMS/HCC) , Hypothyroidism (CMS/HCC) TAKE 1 TABLET BY MOUTH EVERY DAY 90 tablet 3 07/04/2023 Active Levothyroxine So dium 88 MCG Oral for 90 Active methylPREDNISolone (3 sources) Corticosteroid Start: 04-30-2024 End: 05-07-2024 methylPREDNISolone (Medrol Dospak) 4 MG tablets Indications: Acute non-recurrent pansinusitis Follow schedule on package instructions 21 tablet 04/30/2024 05/07/2024 Active Multiple Vitamins-Minerals (Womens One Daily) tablet (7 sources) Multiple Vitamins-Minerals (Womens One Daily) tablet Active nortriptyline 50 mg oral capsule (10 sources) Tricyclic Antidepressant take 1 capsule by mouth at bedtime nortriptyline (Pamelor) 50 MG capsule Take 50 mg by mouth at bedtime Active Nortriptyline HC l 25 MG Oral for 90 Active Pamelor 75 MG Or al Capsule Refills: 0 Active sertraline 100 mg oral tablet (15 sources) Serotonin Reuptake Inhibitor take 1 tablet by mouth at bedtime sertraline (Zoloft) 100 MG tablet Take 100 mg by mouth at bedtime Active take 1 tablet by mouth once tiesha y sertraline (Zoloft) 25 MG tablet Take 25 mg by mouth Daily Active Womens One Daily (1 source) Womens One Daily Active Completed/Discontinued Medications Medication Drug Class(es) Dates Sig (Normalized) Sig (Original) Cetirizine (1 source) Histamine-1 Receptor Antagonist ZyrTEC Allergy Not-Taking ergocalciferol 35744 unt oral capsule (2 sources) Provitamin D2 Compound Start: 09-22-2017 take 1 capsule by mouth every week at lunch Vitamin D (Ergocalciferol) 19610 UNIT Oral Capsule take 1 capsule by mouth every week ON MONDAY WITH LUNCH AND FULL GLASS OF WATER Quantity: 13 Refills: 0 Domenic Green Start : 22-Sep-2017 Active Vitamin D (Ergoc alciferol) 1.25 MG (89615 UT) Oral for 84 Active hydrOXYzine pamoate 25 mg oral capsule (1 source) Antihistamine hydrOXYzine Pamo ate 25 MG Oral Capsule Refills: 0 Active levoFLOXacin 750 mg oral tablet (3 sources) Quinolone Antimicrobial Start: 04-30-20 24 End: 05-07-20 24 take 1 tablet by mouth once daily levoFLOXacin (Levaquin) 750 MG tablet Indications: Acute non-recurrent pansinusitis Take 1 tablet (750 mg) by mouth Daily for 7 days 7 tablet 04/30/2024 05/01/2024 Discontinued pantoprazole 40 mg delayed release oral tablet [...] Start: 11-24-19 17 KENALOG - 10 mg 24 Oct, 2016 60 mg venlafaxine (1 source) Serotonin and Norepinephrine Reuptake Inhibitor Effexor Not-Taking Vitamin D (1 source) Vitamin D Not-Ta xi Problems Active Problems Problem Classification Problem Date Documented Date Episodic/Chronic Anxiety disorders (12 sources) Panic disorder; Translations: [Panic disorder [episodic paroxysmal anxiety]] Onset: 07-25-2017 09-26-2023 Chronic Disorders of lipid metabolism (8 sources) Hyperlipidemia, unspecified; Translations: [Dyslipidemia] Onset: 01-09-2022 09-26-2023 Chronic Esophageal disorders (1 source) Gastroesophageal reflux disease; Translations: [GERD (gastroesophageal reflux disease)] Chronic Gastritis and duodenitis (7 sources) Chronic superficial gastritis; Translations: [Chronic superficial gastritis without bleeding] Onset: 09-26-2023 09-26-2023 Chronic Menstrual disorders (7 sources) Dysmenorrhea; Translations: [Dysmenorrhea, unspecified] Onset: 09-26-2023 09-26-2023 Chronic Mood disorders (11 sources) Major depressive disorder, single episode, severe without psychotic features; Translations: [Major depressive disorder] Onset: 07-25-2017 09-26-2023 Chronic Mood disorders (1 source) Mood disorders Onset: 12-06-2017 Nervous system congenital anomalies (1 source) Chiari malformation; Translations: [History of Arnold-Chiari syndrome] Chronic Nutritional deficiencies (9 sources) Vitamin D deficiency; Translations: [Vitamin D deficiency, unspecified] Onset: 01-09-2022 09-26-2023 Chronic Other endocrine disorders (4 sources) Polycystic ovarian syndrome; Translations: [POLYCYSTIC OVARIAN SYNDROME] Onset: 07-06-2022 Chronic Other nervous system disorders (7 sources) Chiari malformation type I; Translations: [Compression of brain] Onset: 09-26-2023 09-26-2023 Chronic Other upper respiratory disease (1 source) Allergic rhinitis; Translations: [Allergic rhinitis, unspecified] Chronic Other upper respiratory disease (7 sources) Allergic rhinitis due to pollen; Translations: [Allergic rhinitis due to pollen] Onset: 09-26-2023 09-26-2023 Chronic Other upper respiratory infections (6 sources) Acute pansinusitis; Translations: [Acute pansinusitis, unspecified] Onset: 04-30-2024 04-30-2024 Episodic Thyroid disorders (20 sources) Iodine-deficiency related diffuse (endemic) goiter; Translations: [Hypothyroidism, unspecified] Onset: 01-09-2022 Resolved: 09-26-2023 Chronic Unclassified (1 source) 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() Onset: 01-22-2018 Unclassified (1 source) mdd recurrent severe / mdd recurrent severe() Onset: 11-21-2017 Unclassified (1 source) mdd recurrent severe,BRIAN, panic disorder / mdd recurrent severe,BRIAN, panic disorder() Onset: 01-15-2018 Unclassified (1 source) panic disorder / panic disorder() Onset: 01-22-2018 Past or Other Problems Problem Classification Problem Date Documented Da te Episodic/Chronic Abdominal pain (7 sources) Pain in female pelvis; Translations: [Pelvic and perineal pain] Onset: 09-26-2023 09-26-2023 Episodic Conditions associated with dizziness or vertigo (1 source) Vertigo; Translations: [Vertigo] Episodic Diabetes mellitus without complication (7 sources) Prediabetes; Translations: [Prediabetes] Onset: 09-26-2023 09-26-2023 Episodic Immunizations and screening for infectious disease (2 sources) Contact with and (suspected) exposure to other viral communicable diseases; Translations: [Encounter for screening for human papillomavirus (HPV)] Onset: 07-01-2022 Episodic Malaise and fatigue (2 sources) Asthenia; Translations: [Fatigue] Episodic Other aftercare (4 sources) Other chcf (current) drug therapy; Translations: [OTH CORRECTION CURRENT DRUG THERAPY] Onset: 04-13-2022 Episodic Other [...] Spondylosis; intervertebral disc disorders; other back problems (8 sources) Low back pain; Translations: [Chronic neck pain] Onset: 09-26-2023 09-26-2023 Episodic Unclassified (1 source) MDD severe recurrent; [...] 07-09-2022 Dehydroepiandrosterone (DHEA) 145 ng/dL Normal 31-701 [facility] Comment on above: Result Comment: Age 1 [...] 701 Performed By: #### C BC #### [facility] [address] [address] [address] June Mayorga DHEA-SULFATEon 07-07-2022 DHEA-Sulfate 82.1 ug/dL Normal 41.2-243.7 [facility] Comment on above: Performed By: #### C BC #### [facility] [address] [address] [address] June Mayorga FSHon 07-07-2022 FSH 6.4 mIU/mL Normal [facility] Comment on above: Result Comment: Adul t Female: Follicular phase 3.5 - 12.5 Ovulation phase 4.7 - 21.5 Luteal phase 1.7 - 7.7 Postmenopausal 25.8 - 134.8 Performed By: #### C BC #### [facility] [address] [address] [address] June Mayorga LUTEINIZING HORMONE (LH)on 0 1-05-2023 LH 7.4 mIU/mL Normal [facility] Comment on above: Result Comment: Adul t Female: Follicular phase 2.4 - 12.6 Ovulation phase 14.0 - 95.6 Luteal phase 1.0 - 11.4 Postmenopausal 7.7 - 58.5 Performed By: #### L [facility] #### [facility] [address] [address] [address] June Mayorga PAP ACOG PANEL 2: 30 to 65on 07-07-2022 . . Normal [facility] Comment on above: Result Comment: Perf ormed at: BA Performed By: #### C BC #### [facility] [address] [address] [address] June Mayorga Age Gdln ACOG Testing 30-65 [facility] Comment on above: Performed By: #### C BC #### [facility] [address] [address] [address] June Mayorga DIAGNOSIS: Comment Normal [facility] Comment on above: Result Comment: NEGA TIVE FOR INTRAEPITHELIAL LESION OR MALIGNANCY. Performed at: BA Performed By: #### C BC #### [facility] [address] [address] [address] June Mayorga HPV Aptima Negative Normal Negative [facility] Comment on above: Result Comment: This nucleic acid amplification test detects fourteen high-risk HPV types (16,18,31,33,35,39,45,51,52,56,58,59,66,68) without differentiation. Performed at: =G Performed By: #### C BC #### [facility] [address] [address] [address] June Mayorga HPV Genotype Reflex Comment Normal [facility] Comment on above: Result Comment: Crit eria not met, HPV Genotype not performed. Performed at: BA Performed By: #### C BC #### [facility] [address] [address] [address] June Mayorga Methodology: Comment Normal [facility] Comment on above: Result Comment: This liquid based ThinPrep(R) pap test was screened with the use of an image guided system. Performed at: WB Performed By: #### C BC #### [facility] [address] [place] [address] Dr. June Mayorga Note: Comment Normal [facility] Comment on above: Result Comment: The Pap smear is a screening test designed to aid in the detection of premalignant and malignant conditions of the uterine cervix. It is not a diagnostic procedure and should not be used as the sole means of detecting cervical cancer. Both false-positive and false-negative reports do occur. . Performed at: WB Performed By: #### C BC #### [facility] [address] [place] [address] Dr. June Mayorga Performed by: Comment Normal [facility] Comment on above: Result Comment: Julianne Rubio, Framing Mechanic (ASCP) Performed at: BA Performed By: #### C BC #### [facility] [address] [place] [address] Dr. June Mayorga Specimen adequacy: Comment Normal [facility] Comment on above: Result Comment: Sati sfactory for evaluation. Endocervical and/or squamous metaplastic cells (endocervical component) are present. Performed at: BA Performed By: #### C BC #### [facility] [address] [place] [address] Dr. June Mayorga CBC AUTO DIFFon 07-06-2022 BASO # 0.0 103/ul Normal 0.0-0.1 [facility] Comment on above: Performed By: #### C BC #### [facility] [address] [place] [address] Dr. June Mayorga Basophils/100 WBC (Bld) 0.4 % Normal 0.2-2.0 [facility] Comment on above: Performed By: #### C BC #### [facility] [address] [place] [address] Dr. June Mayorga EO # 0.1 103/ul Normal 0.0-0.7 [facility] Comment on above: Performed By: #### C BC #### [facility] [address] [place] [address] Dr. June Mayorga Eosinophils/100 WBC (Bld) 1.5 % Normal 0.9-7.0 [facility] Comment on above: Performed By: #### C BC #### [facility] [address] [place] [address] Dr. June Mayorga Erythrocyte distribution width (RBC) [Ratio] 13.3 % Normal 11.0-15.0 [facility] Comment on above: Performed By: #### C BC #### [facility] [address] [place] [address] Dr. June Mayorga Hematocrit (Bld) [Volume fraction] 38.6 % Normal 36.0-48.0 [facility] Comment on above: Performed By: #### C BC #### [facility] [address] [place] [address] Dr. June Mayorga Hemoglobin (Bld) [Mass/Vol] 12.9 g/dL Normal 12.0-16.0 [facility] Comment on above: Performed By: #### C BC #### [facility] [address] [place] [address] Dr. June Mayorga IG # 0.02 10e3/ul Normal 0.00-0.03 [facility] Comment on above: Performed By: #### C BC #### [facility] [address] [place] [address] Dr. June Mayorga IG % 0.2 % Normal 0.0-0.5 [facility] Comment on above: Performed By: #### C BC #### [facility] [address] [place] [address] Dr. June Mayorga LYMPH # 3.0 103/ul Normal 1.2-3.8 [facility] Comment on above: Performed By: #### C BC #### [facility] [address] [place] [address] Dr. June Mayorga Lymphocytes/100 WBC (Bld) 37.3 % Normal 20.5-60.0 [facility] Comment on above: Performed By: #### C BC #### [facility] [address] [place] [address] Dr. June Mayorga MANUAL DIFF REQ NO Normal [facility] Comment on above: Performed By: #### C BC #### [facility] [address] [place] [address] Dr. June Mayorga MCH (RBC) [Entitic mass] 29.8 pg Normal 26.7-34.0 [facility] Comment on above: Performed By: #### C BC #### [facility] [address] [place] [address] Dr. June Mayorga MCHC (RBC) [Mass/Vol] 33.4 g/dL Normal 29.9-35.2 [facility] Comment on above: Performed By: #### C BC #### [facility] [address] [place] [address] Dr. June Mayorga MCV (RBC) [Entitic vol] 89.1 fL Normal 81.0-99.0 [facility] Comment on above: Performed By: #### C BC #### [facility] [address] [place] [address] Dr. June Mayorga MONO # 0.7 103/ul Normal 0.3-0.8 [facility] Comment on above: Performed By: #### C BC #### [facility] [address] [place] [address] Dr. June Mayorga Monocytes/100 WBC (Bld) 8.5 % Normal 1.7-12.0 [facility] Comment on above: Performed By: #### C BC #### [facility] [address] [place] [address] Dr. June Mayorga NEUT # 4.2 103/ul Normal 1.4-6.5 [facility] Comment on above: Performed By: #### C BC #### [facility] [address] [place] [address] Dr. June Mayorga Neutrophils/100 WBC (Bld) 52.1 % Normal 43.0-75.0 [facility] Comment on above: Performed By: #### C BC #### [facility] [address] [place] [address] Dr. June Mayorga Platelet mean volume (Bld) [Entitic vol] 9.2 fL Critically low 9.5-13.5 [facility] Comment on above: Performed By: #### C BC #### [facility] [address] [place] [address] Dr. June Mayorga PLT 257 103/ul Normal 150-450 [facility] Comment on above: Performed By: #### C BC #### [facility] [address] [place] [address] Dr. June Mayorga RBC 4.33 106/ul Normal 4.20-5.40 [facility] Comment on above: Performed By: #### C BC #### [facility] [address] [place] [address] Dr. June Mayorga WBC 8.1 103/ul Normal 4.0-11.0 [facility] Comment on above: Performed By: #### C BC #### [facility] [address] [place] [address] Dr. June Mayorga FREE T4on 07-06-2022 Free T4 [Mass/Vol] 0.84 ng/dL Normal 0.76-1.46 [facility] Comment on above: Performed By: #### F T4 #### [facility] [address] [place] [address] Dr. June Mayorga GLYCOHEMOGLOBIN A1Con 2022 ADA RECOMMENDATION SEE BELOW Normal [facility] Comment on above: Result Comment: ADA RECOMMENDED LIMIT 4.0 - 6.0 ADA THERAPEUTIC TARGET < 7.0 ACTION SUGGESTED > 7.0 Performed By: #### A 1C #### [facility] [address] [place] [address] Dr. June Mayorga Glucose [Mass/Vol] 105 mg/dL Normal [facility] Comment on above: Performed By: #### A 1C #### [facility] [address] [place] [address] Dr. June Mayorga HbA1c (Bld) [Mass fraction] 5.3 % Normal 4.5-6.2 [facility] Comment on above: Performed By: #### A 1C #### [facility] [address] [place] [address] Dr. June Mayorga TSHon 07-06-2022 TSH 0.631 uIU/mL Normal 0.358-3.74 0 [facility] Comment on above: Performed By: #### T SH #### [facility] [address] [place] [address] Dr. June Mayorga US THYROIDon 04-28-2022 US [...] JENIFER ONEIL Date: 2022-04-28 19:27 Normal [facility] MAGNESIUMon 04-13-2022 Magnesium [Mass/Vol] 2.1 mg/dL Normal 1.8-2.4 [facility] Comment on above: Performed By: #### M G #### [facility] [address] [place] [address] Dr. June Mayorga COVID Quick Testingon 2021 Result Positive [facility] Other CBC AUTO DIFFon 01-05-2022 BASO # 0.0 103/ul Normal 0.0-0.1 [facility] Comment on above: Performed By: #### C BC #### [facility] [address] [place] [address] Dr. June Mayorga Basophils/100 WBC (Bld) 0.5 % Normal 0.2-2.0 [facility] Comment on above: Performed By: #### C BC #### [facility] [address] [place] [address] Dr. June Mayorga EO # 0.1 103/ul Normal 0.0-0.7 [facility] Comment on above: Performed By: #### C BC #### [facility] [address] [place] [address] Dr. June Mayorga Eosinophils/100 WBC (Bld) 1.6 % Normal 0.9-7.0 [facility] Comment on above: Performed By: #### C BC #### [facility] [address] [place] [address] Dr. June Mayorga Erythrocyte distribution width (RBC) [Ratio] 12.9 % Normal 11.0-15.0 [facility] Comment on above: Performed By: #### C BC #### [facility] [address] [place] [address] Dr. June Mayorga Hematocrit (Bld) [Volume fraction] 38.8 % Normal 36.0-48.0 [facility] Comment on above: Performed By: #### C BC #### [facility] [address] [place] [address] Dr. June Mayorga Hemoglobin (Bld) [Mass/Vol] 12.7 g/dL Normal 12.0-16.0 [facility] Comment on above: Performed By: #### C BC #### [facility] [address] [place] [address] Dr. June Mayorga IG # 0.01 10e3/ul Normal 0.00-0.03 [facility] Comment on above: Performed By: #### C BC #### [facility] [address] [place] [address] Dr. June Mayorga IG % 0.2 % Normal 0.0-0.5 [facility] Comment on above: Performed By: #### C BC #### [facility] [address] [place] [address] Dr. June Mayorga LYMPH # 2.3 103/ul Normal 1.2-3.8 [facility] Comment on above: Performed By: #### C BC #### [facility] [address] [place] [address] Dr. June Mayorga Lymphocytes/100 WBC (Bld) 36.6 % Normal 20.5-60.0 [facility] Comment on above: Performed By: #### C BC #### [facility] Laboratory [address] [place] [address] Dr. June Mayorga MANUAL DIFF REQ NO Normal [facility] Comment on above: Performed By: #### C BC #### [facility] [address] [place] [address] Dr. June Mayorga MCH (RBC) [Entitic mass] 30.1 pg Normal 26.7-34.0 [facility] Comment on above: Performed By: #### C BC #### [facility] [address] [place] [address] Dr. June Mayorga MCHC (RBC) [Mass/Vol] 32.7 g/dL Normal 29.9-35.2 [facility] Comment on above: Performed By: #### C BC #### [facility] [address] [place] [address] Dr. June Mayorga MCV (RBC) [Entitic vol] 91.9 fL Normal 81.0-99.0 [facility] Comment on above: Performed By: #### C BC #### [facility] [address] [place] [address] Dr. June Mayorga MONO # 0.6 103/ul Normal 0.3-0.8 [facility] Comment on above: Performed By: #### C BC #### [facility] [address] [place] [address] Dr. June Mayorga Monocytes/100 WBC (Bld) 9.2 % Normal 1.7-12.0 [facility] Comment on above: Performed By: #### C BC #### [facility] [address] [place] [address] Dr. June Mayorga NEUT # 3.2 103/ul Normal 1.4-6.5 [facility] Comment on above: Performed By: #### C BC #### [facility] [address] [place] [address] Dr. June Mayorga Neutrophils/100 WBC (Bld) 51.9 % Normal 43.0-75.0 [facility] Comment on above: Performed By: #### C BC #### [facility] [address] [place] [address] Dr. June Mayorga Platelet mean volume (Bld) [Entitic vol] 10.2 fL Normal 9.5-13.5 [facility] Comment on above: Performed By: #### C BC #### [facility] [address] [place] [address] Dr. June Mayorga PLT 293 103/ul Normal 150-450 [facility] Comment on above: Performed By: #### C BC #### [facility] [address] [place] [address] Dr. June Mayorga RBC 4.22 106/ul Normal 4.20-5.40 [facility] Comment on above: Performed By: #### C BC #### [facility] [address] [place] [address] Dr. June Mayorga WBC 6.2 103/ul Normal 4.0-11.0 [facility] Comment on above: Performed By: #### C BC #### [facility] [address] [place] [address] Dr. June Mayorga FREE T3on 01-05-2022 FREE T3 2.79 pg/mlL Normal 2.18-3.98 [facility] Comment on above: Performed By: #### C BC #### [facility] [address] [place] [address] Dr. June Mayorga FREE T4on 01-05-2022 Free T4 [Mass/Vol] 0.94 ng/dL Normal 0.76-1.46 [facility] Comment on above: Performed By: #### C BC #### [facility] [address] [place] [address] Dr. June Mayorga GLYCOHEMOGLOBIN A1Con 2021 ADA RECOMMENDATION SEE BELOW Normal [facility] Comment on above: Result Comment: ADA RECOMMENDED LIMIT 4.0 - 6.0 ADA THERAPEUTIC TARGET < 7.0 ACTION SUGGESTED > 7.0 Performed By: #### A 1C #### [facility] [address] [place] [address] Dr. June Mayorga Glucose [Mass/Vol] 123 mg/dL Normal [facility] Comment on above: Performed By: #### A 1C #### [facility] [address] [address] [address] June Mayorga HbA1c (Bld) [Mass fraction] 5.9 % Normal 4.5-6.2 [facility] Comment on above: Performed By: #### A 1C #### [facility] [address] [place] [address] Dr. June Mayorga LIPID PROFILEon 01-05-2022 CHOL-HDL RATIO NORM SEE BELOW Normal [facility] Comment on above: Result Comment: 3.3 - 4.4 LOW RISK 4.4 - 7.1 AVERAGE RISK 7.1 - 11.0 MODERATE RISK >11.0 HIGH RISK Performed By: #### L IPID, TSH, BMP, FT3, LIVER #### [facility] [address] [place] [address] Dr. June Mayorga Cholesterol [Mass/Vol] 169 mg/dL Normal <=200 [facility] Comment on above: Performed By: #### L IPID, TSH, BMP, FT3, LIVER #### [facility] [address] [place] [address] Dr. June Mayorga Cholesterol in HDL [Mass/Vol] 44 mg/dL Normal 40-60 [facility] Comment on above: Performed By: #### L IPID, TSH, BMP, FT3, LIVER #### [facility] [address] [place] [address] Dr. June Mayorga Cholesterol in LDL [Mass/Vol] 89.6 mg/dL Normal [facility] Comment on above: Performed By: #### L IPID, TSH, BMP, FT3, LIVER #### [facility] [address] [place] [address] Dr. June Mayorga Cholesterol.total/Choles terol in HDL [Mass ratio] 3.8 {ratio} Normal [facility] Comment on above: Performed By: #### L IPID, TSH, BMP, FT3, LIVER #### [facility] [address] [place] [address] Dr. June Mayorga HDL NORMAL > or = 60 mg/dl - LO W CARDIOVASCULAR RISK <40 mg/dl - HIGH CARDIOVASCULAR RISK Normal [facility] Comment on above: Performed By: #### L IPID, TSH, BMP, FT3, LIVER #### [facility] [address] [address] [address] June Mayorga LDL CALC NORMAL SEE BELOW Normal [facility] Comment on above: Result Comment: <100 mg/dl OPTIMAL 100 - 129 mg/dl NEAR OR ABOVE OPTIMAL 130 - 159 mg/dl BORDERLINE HIGH 160 - 189 mg/dl HIGH >190 mg/dl VERY HIGH Performed By: #### L IPID, TSH, BMP, FT3, LIVER #### [facility] [address] [place] [address] Dr. June Mayorga Triglyceride [Mass/Vol] 177 mg/dL Critically high <=150 [facility] Comment on above: Performed By: #### L IPID, TSH, BMP, FT3, LIVER #### [facility] [address] [place] [address] Dr. June Mayorga VLDL CALC 35.4 mg/dL Normal [facility] Comment on above: Performed By: #### L IPID, TSH, BMP, FT3, LIVER #### [facility] [address] [place] [address] Dr. June Mayorga LIVER PROFILEon 01-05-2022 Albumin [Mass/Vol] 3.5 g/dL Normal 3.4-5.0 [facility] Comment on above: Performed By: #### C BC #### [facility] [address] [place] [address] Dr. June Mayorga Albumin/Globulin [Mass ratio] 1.1 {ratio} Normal [facility] Comment on above: Performed By: #### C BC #### [facility] [address] [place] [address] Dr. June Mayorga ALP [Catalytic activity/Vol] 71 U/L Normal 46-116 [facility] Comment on above: Performed By: #### C BC #### [facility] [address] [place] [address] Dr. June Mayorga ALT [Catalytic activity/Vol] 43 U/L Normal 14-59 [facility] Comment on above: Performed By: #### C BC #### [facility] [address] [address] [address] June Mayorga AST [Catalytic activity/Vol] 27 U/L Normal 15-37 [facility] Comment on above: Performed By: #### C BC #### [facility] [address] [place] [address] Dr. June Mayorga BILI, CONJUGATED 0.1 mg/dL Normal 0.0-0.2 [facility] Comment on above: Performed By: #### C BC #### [facility] [address] [place] [address] Dr. June Mayorga Bilirubin [Mass/Vol] 0.3 mg/dL Normal 0.2-1.0 [facility] Comment on above: Performed By: #### C BC #### [facility] [address] [place] [address] Dr. June Mayorga Globulin (S) [Mass/Vol] 3.3 g/dL Normal [facility] Comment on above: Performed By: #### C BC #### [facility] [address] [place] [address] Dr. June Mayorga Protein [Mass/Vol] 6.8 g/dL Normal 6.4-8.2 [facility] Comment on above: Performed By: #### C BC #### [facility] [address] [place] [address] Dr. June Mayorga PROF CHEM 8 (BAS METB)on Anion gap [Moles/Vol] 11.0 mmol/L Normal [facility] Comment on above: Performed By: #### L IPID, TSH, BMP, FT3, LIVER #### [facility] [address] [place] [address] Dr. June Mayorga Calcium [Mass/Vol] 8.6 mg/dL Normal 8.5-10.1 [facility] Comment on above: Performed By: #### L IPID, TSH, BMP, FT3, LIVER #### [facility] [address] [place] [address] Dr. June Mayorga Chloride [Moles/Vol] 108 mmol/L Critically high 98-107 [facility] Comment on above: Performed By: #### L IPID, TSH, BMP, FT3, LIVER #### [facility] [address] [place] [address] Dr. June Mayorga CO2 [Moles/Vol] 26.3 mmol/L Normal 21.0-32.0 [facility] Comment on above: Performed By: #### L IPID, TSH, BMP, FT3, LIVER #### [facility] [address] [place] [address] Dr. June Mayorga Creatinine [Mass/Vol] 0.90 mg/dL Normal 0.55-1.02 [facility] Comment on above: Performed By: #### L IPID, TSH, BMP, FT3, LIVER #### [facility] [address] [place] [address] Dr. June Mayorga EGFR-AF BAHAMIAN >60 Normal >=60 [facility] Comment on above: Performed By: #### L IPID, TSH, BMP, FT3, LIVER #### [facility] [address] [place] [address] Dr. June Mayorga EGFR-NON AF BAHAMIAN >60 Normal >=60 [facility] Comment on above: Performed By: #### L IPID, TSH, BMP, FT3, LIVER #### [facility] [address] [place] [address] Dr. June Mayorga Glucose [Mass/Vol] 97 mg/dL Normal 74-106 [facility] Comment on above: Performed By: #### L IPID, TSH, BMP, FT3, LIVER #### [facility] [address] [place] [address] Dr. June Mayorga Potassium [Moles/Vol] 4.3 mmol/L Normal 3.5-5.1 [facility] Comment on above: Performed By: #### L IPID, TSH, BMP, FT3, LIVER #### [facility] [address] [place] [address] Dr. June Mayorga Sodium [Moles/Vol] 141 mmol/L Normal 136-145 [facility] Comment on above: Performed By: #### L IPID, TSH, BMP, FT3, LIVER #### [facility] [address] [place] [address] Dr. June Mayorga Urea nitrogen [Mass/Vol] 15.0 mg/dL Normal 7.0-18.0 [facility] Comment on above: Performed By: #### L IPID, TSH, BMP, FT3, LIVER #### [facility] [address] [place] [address] Dr. June Mayorga Urea nitrogen/Creatinine [Mass ratio] 16.7 mg/mg Normal [facility] Comment on above: Performed By: #### L IPID, TSH, BMP, FT3, LIVER #### [facility] [address] [place] [address] Dr. June Mayorga TSHon 01-05-2022 TSH 0.118 uIU/mL Critically low 0.358-3.74 0 [facility] Comment on above: Performed By: #### L IPID, TSH, BMP, FT3, LIVER #### [facility] [address] [place] [address] Dr. June Mayorga VITAMIN D 25 OHon 01-05-2022 VIT D 25-OH 39.7 ng/mL Normal [facility] Comment on above: Performed By: #### C BC #### [facility] [address] [place] [address] Dr. June Mayorga VIT D RANGES SEE BELOW Normal [facility] Comment on above: Result Comment: <20 ng/mL Vit D deficient 20 - <30 ng/mL Vit D insufficient 30 - 100 ng/mL Vit D sufficient >100 ng/mL Potential Toxicity Performed By: #### C BC #### [facility] [address] [place] [address] CERVICAL SP WO CONon 06-0 CT CERVICAL SP WO CON STUDY:CT CERVICAL SP WO CON; 12/07/2017 7:34 pmINDICATION:PAIN.MANAN RISON:None. IORDERING CLINICIAN:Truman BrewerTECHNIQUE:Contigu ous axial images of the cervical spine [...] secondaryto patient positioning or muscle spasm. Normal [facility] CT HEAD/BRAIN WO CONon 12-07 CT HEAD/BRAIN WO CON STUDY:CT HEAD/BRAIN WO CON; 12/07/2017 7:34 pmINDICATION:PAIN.MANAN RISON:NoneACCESSION NUMBER(S):[id number] BENNY CLINICIAN:Truman KamQUE:Contigu ous axial images of the head were [...] acute intracranial hemorrhage or mass effect Normal [facility] SHOULDER RT COMPLETE MIN 2 V WSon 12-07-2017 SHOULDER RT COMPLETE MIN 2 VWS STUDY:SHOULDER RT COMPLETE MIN 2 VWS; 12/07/2017 7:33 pmINDICATION:PAIN.MANAN RISON:None. BENNY CLINICIAN:Truman Jeong:There is no acute fracture or dislocation of the rightacromioclavicular joint or glenohumeral joint. The subacromial andglenohumeral joint spaces are maintained. There are mild degenerativechanges of the right acromioclavicular joint.IMPRESSION:No acute osseous abnormality of the right shoulder. Normal [facility] [place] Levelon 10-02-2017 [place] 0.4 mmol/L Low 0.6-1.2 [facility] CBC AND DIFFERENTIALon 09-22 % AUTOMATED IMMATURE GRAN 0.2 % Normal 0.0 - 0.9 [facility] Comment on above: Result Comment: Perc ent differential counts (%) should be interpreted in the context of the absolute cell counts (cells/L). Performed By: #### T HYDS ####[facility] [place] [address] % NEUTROPHIL 62.5 % Normal 40.0 - 80.0 [facility] Comment on above: Performed By: #### T HYDS ####[facility] [place] [address] Basophils/100 WBC Auto (Bld) 0.02 x10E9/L Normal 0.00 - 0.10 [facility] Comment on above: Performed By: #### T HYDS ####[facility] [place] [address] Basophils/100 WBC Auto (Bld) 0.2 % Normal 0.0 - 2.0 [facility] Comment on above: Performed By: #### T HYDS ####[facility] [place] [address] Eosinophils 0.08 10*3/uL Normal 0.00 - 0.70 [facility] Comment on above: Performed By: #### T HYDS ####[facility] [place] [address] Eosinophils/100 leukocytes 1.0 % Normal 0.0 - 6.0 [facility] Comment on above: Performed By: #### T HYDS ####[facility] [place] [address] Erythrocyte distribution width Auto Ratio (RBC) 12.7 % Normal 11.5 - 14.5 [facility] Comment on above: Performed By: #### T HYDS ####[facility] [place] [address] Erythrocytes (RBC) 4.15 x10E12/L Normal 4.00 - 5.20 [facility] Comment on above: Performed By: #### T HYDS ####[facility] [place] [address] Hematocrit (HCT) 39.1 % Normal 36.0 - 46.0 [facility] Comment on above: Performed By: #### T HYDS ####[facility] [place] [address] Hemoglobin mass conc (Bld) 12.7 g/dL Normal 12.0 - 16.0 [facility] Comment on above: Performed By: #### T HYDS ####[facility] [place] [address] Lymphocytes 2.33 10*3/uL Normal 1.20 - 4.80 [facility] Comment on above: Performed By: #### T HYDS ####[facility] [place] [address] Lymphocytes/100 leukocytes 28.6 % Normal 13.0 - 44.0 [facility] Comment on above: Performed By: #### T HYDS ####[facility] [place] [address] MCHC mass conc (RBC) 32.5 g/dL Normal 32.0 - 36.0 [facility] Comment on above: Performed By: #### T HYDS ####[facility] [place] [address] MCV 94 fL Normal 80 - 100 [facility] Comment on above: Performed By: #### T HYDS ####[facility] [place] [address] Monocytes 0.61 10*3/uL Normal 0.10 - 1.00 [facility] Comment on above: Performed By: #### T HYDS ####[facility] [place] [address] Monocytes/100 leukocytes 7.5 % Normal 2.0 - 10.0 [facility] Comment on above: Performed By: #### T HYDS ####[facility] [place] [address] Neutrophils 5.09 10*3/uL Normal 1.20 - 7.70 [facility] Comment on above: Performed By: #### T HYDS ####[facility] [place] [address] Nucleated erythrocytes 0.0 /100 WBC Normal 0.0-0.0 [facility] Comment on above: Performed By: #### T HYDS ####[facility] [place] [address] Platelets 293 10*3/uL Normal 150 - 450 [facility] Comment on above: Performed By: #### T HYDS ####[facility] [place] [address] WBC (Leukocytes) 8.2 10*3/uL Normal 4.4 - 11.3 [facility] Comment on above: Performed By: #### T HYDS ####[facility] [place] [address] COMPREHENSIVE PANELon 2017 Alanine aminotransferase (ALT) 12 U/L Normal 7 - 45 [facility] Comment on above: Result Comment: [place] ents treated with Sulfasalazine may generate falsely decreased results for ALT. Performed By: #### C MP ####[facility] [place] [address] Albumin 4.5 g/dL Normal 3.4 - 5.0 [facility] Comment on above: Performed By: #### C MP ####[facility] [place] [address] Alkaline phosphatase (ALP) 75 U/L Normal 33 - 110 [facility] Comment on above: Performed By: #### C MP ####[facility] [place] [address] Anion gap 12 mmol/L Normal 10 - 20 [facility] Comment on above: Performed By: #### C MP ####[facility] [place] [address] Aspartate aminotransferase (AST) 15 U/L Normal 9 - 39 [facility] Comment on above: Performed By: #### C MP ####[facility] [place] [address] Bicarbonate (HCO3) 29 mmol/L Normal 21 - 32 [facility] Comment on above: Performed By: #### C MP ####[facility] [place] [address] Bilirubin (total) 0.3 mg/dL Normal 0.0 - 1.2 [facility] Comment on above: Performed By: #### C MP ####[facility] [place] [address] Calcium 9.5 mg/dL Normal 8.6 - 10.6 [facility] Comment on above: Performed By: #### C MP ####[facility] [place] [address] Chloride 104 mmol/L Normal 98 - 107 [facility] Comment on above: Performed By: #### C MP ####[facility] [place] [address] Creatinine 0.67 mg/dL Normal 0.50 - 1.05 [facility] Comment on above: Performed By: #### C MP ####[facility] [place] [address] eGFR (non-black) mL/min/{1.73_m2} Normal >60 [facility] Comment on above: Performed By: #### C MP ####[facility] [place] [address] Result Comment: CALC ULATIONS OF ESTIMATED GFR ARE PERFORMED USING THE MDRD STUDY EQUATION FOR THE IDMS-TRACEABLE CREATININE METHODS. CLIN CHEM 2007;53:766-72 Glucose mass conc 109 mg/dL High 74 - 99 [facility] Comment on above: Performed By: #### C MP ####[facility] [place] [address] Potassium molar conc 4.2 mmol/L Normal 3.5 - 5.3 [facility] [place] Comment on above: Performed By: #### C MP ####[facility] [place] [address] Protein 6.8 g/dL Normal 6.4 - 8.2 [facility] Comment on above: Performed By: #### C MP ####[facility] [place] [address] Sodium 141 mmol/L Normal 136 - 145 [facility] Comment on above: Performed By: #### C MP ####[facility] [place] [address] Urea nitrogen 9 mg/dL Normal 6 - 23 [facility] Comment on above: Performed By: #### C MP ####[facility] [place] [address] CREATINE KINASEon 09-22-2017 Creatine kinase (CK) 50 U/L Normal 0 - 215 [facility] [place] Comment on above: Performed By: #### C K ####[facility] [place] [address] FOLATE, SERUMon 09-22-2017 FOLATE, SERUM > 24.0 Normal >5.0 [facility] Comment on above: Result Comment: [place] ents receiving more than 5 mg/day of biotin may have interference in test results. A sample should be taken no sooner than eight hours after previous dose. Contact [phone] for additional information. Performed By: #### T HYDS ####[facility] [place] [address] HEMOGLOBIN A1Con 09-22-2017 Glucose mass conc 100 mg/dL Normal [facility] Comment on above: Performed By: #### T HYDS ####[facility] [place] [address] Hemoglobin A1c/Hemoglobin.total mass fraction (Bld) 5.1 % Normal [facility] Comment on above: Result Comment: Diag nosis of Diabetes-Adults Non-Diabetic: < or = 5.6% Increased risk for developing diabetes: 5.7-6.4% Diagnostic of diabetes: > or = 6.5%. Monitoring of Diabetes Age (y) Therapeutic Goal (%) Adults: >18 <7.0 Pediatrics: 13-18 <7.5 7-12 <8.0 0- 6 7.5-8.5 [employer]. Diabetes Care 33(S1), Jul 2009. Performed By: #### T HYDS ####[facility] [place] [address] LDL, DIRECTon 09-22-2017 LDL Cholesterol 84 mg/dL Normal 0 - 129 [facility] Comment on above: Result Comment: Elev ated levels of LDL cholesterol are recognized as a keyfactor in the development of atherosclerosis and CHD. Thedirect LDL cholesterol test can be used to assesscardiovascular risk and monitor therapy as a follow up toa lipid profile when triglycerides are significantly elevated. Performed By: #### L DLDI ####[facility] [place] [address] LIPID PANEL (CORONARY RISK 2 )on 09-22-2017 Cholesterol 170 mg/dL Normal 0 - 199 [facility] Comment on above: Result Comment: [...] Metamizole dosing. Performed By: #### L IPID ####[facility] [place] [address] Cholesterol in VLDL mass conc 22 mg/dL Normal 0 - 40 [facility] Comment on above: Performed By: #### L IPID ####[facility] [place] [address] Cholesterol to HDL Ratio 2.7 {ratio} Normal [facility] Comment on above: Result Comment: REF VALUESDESIRABLE < 3.4HIGH RISK > 5.0 Performed By: #### L IPID ####[facility] [place] [address] HDL Cholesterol 63.6 mg/dL Normal [facility] Comment on above: Result Comment: . AG E VERY LOW LOW NORMAL HIGH 0-19 Y < 35 < 40 40-45 ---- 20-24 Y ---- < 40 >45 ---- >24 Y ---- < 40 40-60 >60. Performed By: #### L IPID ####[facility] [place] [address] LDL Cholesterol 84 mg/dL Normal 0 - 99 [facility] Comment on above: Result Comment: . NE JOSE ALBERTO DURAND AGE DESIRABLE OPTIMAL HIGH HIGH VERY HIGH 0-19 Y 0 - 109 --- 110-129 >/= 130 ---- 20-24 Y 0 - 119 --- 120-159 >/= 160 ---- >24 Y 0 - 99 100-129 130-159 160-189 >/=190. Performed By: #### L IPID ####[facility] [place] [address] Triglyceride 110 mg/dL Normal 0 - 149 [facility] Comment on above: Result Comment: [...] Metamizole dosing. Performed By: #### L IPID ####[facility] [place] [address] MAGNESIUMon 09-22-2017 Magnesium 2.07 mg/dL Normal 1.60 - 2.40 [facility] Comment on above: Performed By: #### M G ####[facility] [place] [address] TRIIODOTHYRONINE,FREEon 09-01 TRIIODOTHYRONINE,FREE 3.2 pg/mL Normal 1.8 - 4.2 [facility] Comment on above: Performed By: #### T 3FRE ####[facility] [place] [address] TRIIODOTHYRONINE,FREE Canceled Normal [facility] Comment on above: Order Comment: TEST TRIIODOTHYRONINE,FREE WAS CANCELLED, 09/21/2017 22:43 DUPLICATE ORDER. Performed By: #### T 3FRE ####[facility] [place] [address] TSH WITH REFLEX TO FREE T4 I F ABNORMALon 09-22-2017 Thyroid stimulating hormone (TSH) 1.07 m[IU]/L Normal 0.44 - 3.98 [facility] Comment on above: Result Comment: TSH testing is performed using different testing methodology at [facility] than at other [facility]. Direct result comparisons should only be made within the same method.. Patients receiving more than 5 mg/day of biotin may have interference in test results. A sample should be taken no sooner than eight hours after previous dose. Contact [phone] for additional information. Performed By: #### T HYDS ####[facility] [place] [address] Thyroid stimulating hormone (TSH) Canceled Normal [facility] Comment on above: Order Comment: TEST TSH WITH REFLEX TO FREE T4 IF ABNORMAL WAS CANCELLED, 09/21/2017 22:44DUPLICATE ORDER. Result Comment: TSH testing is performed using different testing methodology at [facility] than at other [facility]. Direct result comparisons should only be made within the same method.. Patients receiving more than 5 mg/day of biotin may have interference in test results. A sample should be taken no sooner than eight hours after previous dose. Contact [phone] for additional information. Performed By: #### T HYDS ####[facility] [place] [address] UA MICROSCOPICon 09-22-2017 Erythrocytes (RBC) 38 /HPF Abnormal 0-5 [facility] Comment on above: Performed By: #### T HYDS ####[facility] [place] [address] SQUAMOUS EPITH. CELLS <1 Normal [facility] Comment on above: Performed By: #### T HYDS ####[facility] [place] [address] Urine, mucus presence in sediment 1+ /LPF Normal [facility] Comment on above: Performed By: #### T HYDS ####[facility] [place] [address] WBC (Leukocytes) 3 /HPF Normal 0-5 [facility] Comment on above: Performed By: #### T HYDS ####[facility] [place] [address] URINALYSISon 09-22-2017 Bilirubin (total) Negative Normal NEGATIVE [facility] Comment on above: Performed By: #### T HYDS ####[facility] [place] [address] BLOOD LARGE (3+) Abnormal NEGATIVE [facility] Comment on above: Performed By: #### T HYDS ####[facility] [place] [address] Glucose mass conc Negative Normal NEGATIVE [facility] Comment on above: Performed By: #### T HYDS ####[facility] [place] [address] pH of blood 6.0 [pH] Normal 5.0 - 8.0 [facility] Comment on above: Performed By: #### T HYDS ####[facility] [place] [address] Protein Negative Normal NEGATIVE [facility] Comment on above: Performed By: #### T HYDS ####[facility] [place] [address] Urine, appearance CLEAR Normal CLEAR [facility] Comment on above: Performed By: #### T HYDS ####[facility] [place] [address] Urine, color STRAW Normal STRAW,YELL OW [facility] Comment on above: Performed By: #### T HYDS ####[facility] [place] [address] Urine, ketones presence Negative Normal NEGATIVE [facility] Comment on above: Performed By: #### T HYDS ####[facility] [place] [address] Urine, leukocyte esterase presence TRACE Abnormal NEGATIVE [facility] Comment on above: Performed By: #### T HYDS ####[facility] [place] [address] Urine, nitrite presence Negative Normal NEGATIVE [facility] Comment on above: Performed By: #### T HYDS ####[facility] [place] [address] Urine, specific gravity 1.009 Normal 1.00 5 - 1.035 [facility] Comment on above: Performed By: #### T HYDS ####[facility] [place] [address] Urine, urobilinogen <2.0 Normal 0.0 - 1.9 [facility] Comment on above: Performed By: #### T HYDS ####[facility] [place] [address] VITAMIN B12on 09-22-2017 Cobalamins (Vitamin B12) 996 pg/mL High 211 - 911 [facility] Comment on above: Performed By: #### V TB12 ####[facility] [place] [address] VITAMIN D, 25-HYDROXYon 09-01 VITAMIN D, 25-HYDROXY 18 ng/mL Abnormal [facility] Comment on above: Result Comment: .DEF ICIENCY: < 20 NG/MLINSUFFICIENCY: 20-29 NG/MLOPTIMUM LEVEL: 30-80 NG/MLPOSSIBLE TOXICITY: > 80 NG/MLTHIS ASSAY ACCURATELY QUANTIFIES THE SUM OFVITAMIN D3, 25-HYDROXY AND VIT D2,25-HYDROXY. Performed By: #### T HYDS ####[facility] [place] [address] Calprotectin, Fecalon 2017 Protein mass conc g/dL Normal <=50 [facility] Comment on above: Result Comment: INTE RPRETIVE INFORMATION: Calprotectin, Fecal 50 ug/g or less: Normal 51-120 ug/g: Borderline elevated, test should be re-evaluated in 4-6 weeks. 121 ug/g or greater: AbnormalPerformed by [facility],[address] [place] [id number] [email or web address], Edwin Owen MD - Lab. Director Clostridium difficile Amplif icationon 07-26-2017 Clostridium difficile Amplification ORDERED BY: MAKAYLA SOLANO: Stool COLLECTED: 07/26/17 17:03ANTIBIOTICS AT NATE.: RECEIVED : 07/26/17 17:03Clostridium difficile Amplification FINAL 07/27/17 12:31 Negative for Clostridia Difficile A/B Normal Range: Negative Normal [facility] Lipaseon 07-26-2017 Lipase enzyme act/vol 20 U/L Normal 13-60 [facility] OP Screen (Giardia/Cryptospo ridium)on 07-26-2017 OP Screen (Giardia/Cryptosporidium ) ORDERED BY: MAKAYLA SOLANO: Stool COLLECTED: 07/26/17 10:15ANTIBIOTICS AT NATE.: RECEIVED : 07/27/17 06:39Cryptosporidium Antigen EIA FINAL 07/27/17 13:23 Negative Normal Range: NegativeGiardia lamblia Antigen EIA FINAL 07/27/17 13:23 Negative Normal Range: Negative Normal [facility] XR ABDOMEN LIMITED (KUB)on 0 [...] by:LC Sandhuigned by:Leighann Rose MD07/26/17inal result Normal [facility] CBC With Platelet and Differ entialon 07-25-2017 Basophils Auto #/vol (Bld) 0.0 10*3/uL Normal 0.0-0.2 [facility] Basophils/100 WBC Auto (Bld) 0.4 % Normal [facility] Eosinophils Auto #/vol (Bld) 0.0 10*3/uL Normal 0.0-0.7 [facility] Eosinophils/100 WBC Auto (Bld) 0.4 % Normal [facility] Erythrocyte distribution width Auto Ratio (RBC) 12.2 % Normal 11.5-14.5 [facility] Hematocrit Auto Volume Fraction (Bld) 39.2 % Normal 37.0-47.0 [facility] Hemoglobin mass conc (Bld) 13.3 g/dL Normal 12.0-16.0 [facility] Lymphocytes Auto #/vol (Bld) 1.8 10*3/uL Normal 1.0-4.8 [facility] Lymphocytes/100 WBC Auto (Bld) 29.7 % Normal [facility] MCH Auto Entitic mass (RBC) 31.5 pg Critically high 27.0-31.3 [facility] MCHC Auto mass conc (RBC) 34.0 % Normal 33.0-37.0 [facility] MCV Auto Entitic volume (RBC) 92.6 fL Normal 82.0-100.0 [facility] Monocytes Auto #/vol (Bld) 0.5 10*3/uL Normal 0.2-0.8 [facility] Monocytes/100 WBC Auto (Bld) 7.8 % Normal [facility] Neutrophils Auto #/vol (Bld) 3.8 10*3/uL Normal 1.4-6.5 [facility] Neutrophils/100 WBC Auto (Bld) 61.7 % Normal [facility] Platelets Auto #/vol (Bld) 243 10*3/uL Normal 130-400 [facility] RBC Auto #/vol (Bld) 4.23 10*6/uL Normal 4.20-5.40 [facility] WBC Auto #/vol (Bld) 6.1 10*3/uL Normal 4.8-10.8 [facility] Comprehensive Metabolic Pane rosalinda 07-25-2017 Albumin mass conc 4.6 g/dL Normal 3.9-4.9 [facility] ALP enzyme act/vol 67 U/L Normal 40-130 [facility] ALT enzyme act/vol 14 U/L Normal 0-33 [facility] Anion gap 3 molar conc 16 mmol/L Critically high 7-13 [facility] AST enzyme act/vol 18 U/L Normal 0-35 [facility] Bilirubin mass conc 0.3 mg/dL Normal 0.0-1.2 [facility] Calcium mass conc 9.2 mg/dL Normal 8.6-10.2 [facility] Chloride molar conc 105 mmol/L Normal 98-107 [facility] CO2 molar conc 21 mmol/L Low 22-29 [facility] Creatinine mass conc 0.58 mg/dL Normal 0.50-0.90 [facility] GFR/1.73 sq M predicted among blacks MDRD vol rate/area (S/P/Bld) mL/min/{1.73_m2} Normal >60 [facility] Comment on above: Result Comment: >60 mL/min/1.73m2 EGFR, calc. for ages 18 and older using theMDRD formula (not corrected for weight), is valid for stablerenal function. GFR/1.73 sq M.predicted MDRD vol rate/area mL/min/{1.73_m2} Normal >60 [facility] Comment on above: Result Comment: >60 mL/min/1.73m2 EGFR, calc. for ages 18 and older using theMDRD formula (not corrected for weight), is valid for stablerenal function. Globulin Calculated mass conc (S) 2.2 g/dL Low 2.3-3.5 [facility] Glucose mass conc 80 mg/dL Normal 74-109 [facility] Potassium molar conc 4.3 mmol/L Normal 3.5-5.1 [facility] Protein mass conc 6.8 g/dL Normal 6.4-8.1 [facility] Sodium molar conc 142 mmol/L Normal 132-144 [facility] Urea nitrogen mass conc 9 mg/dL Normal 6-20 [facility] TSH w/out Reflexon 8 Thyrotropin Qn 0.830 uIU/mL Normal 0.270-4.20 [facility] VITAMIN Don 07-25-2017 VITAMIN D 32.4 ng/mL Normal 30.0-100.0 [facility] Comment on above: Result Comment: (30- 100 ng/mL) Optimum LevelThis assay accurately quantifies the sum of vitamin D3, 25-Hydroxy andvitamin D2, 25-Hyroxy. Vital Signs Date Time Vital Sign Value Performing Clinician Facility 04-30-2024 14:04-0400 Body height 162.6 cm Sridhar Lo MD Work Phone: [facility] 04-30-2024 14:04-0400 Body mass index (BMI) [Ratio] 24.2 kg/m2 Sridhar Lo MD Work Phone: [facility] 04-30-2024 14:04-0400 Body temperature 97.5 [degF] Sridhar Lo MD Work Phone: [facility] 04-30-2024 14:04-0400 Body weight 63.96 kg Sridhar Lo MD Work Phone: [facility] 04-30-2024 14:04-0400 Diastolic blood pressure 70 mm[Hg] Sridhar Lo MD Work Phone: [facility] 04-30-2024 14:04-0400 Heart rate 93 /min Sridhar Lo MD Work Phone: [facility] 04-30-2024 14:04-0400 Respiratory rate 22 /min Sridhar Lo MD Work Phone: [facility] 04-30-2024 14:04-0400 SaO2% (BldA) [Mass fraction] 97 % Sridhar Lo MD Work Phone: [facility] 04-30-2024 14:04-0400 Systolic blood pressure 124 mm[Hg] Sridhar Lo MD Work Phone: [facility] 03-20-2024 10:11-0400 Body height 162.6 cm Sridhar Lo MD Work Phone: [facility] 03-20-2024 10:11-0400 Body mass index (BMI) [Ratio] 23.69 kg/m2 Sridhar Lo MD Work Phone: [facility] 03-20-2024 10:11-0400 Body temperature 97.5 [degF] Sridhar Lo MD Work Phone: [facility] 03-20-2024 10:11-0400 Body weight 62.6 kg Sridhar Lo MD Work Phone: [facility] 03-20-2024 10:11-0400 Diastolic blood pressure 66 mm[Hg] Sridhar Lo MD Work Phone: [facility] 03-20-2024 10:11-0400 Heart rate 102 /min Sridhar Lo MD Work Phone: [facility] 03-20-2024 10:11-0400 Respiratory rate 20 /min Sridhar Lo MD Work Phone: [facility] 03-20-2024 10:11-0400 SaO2% (BldA) [Mass fraction] 98 % Sridhar Lo MD Work Phone: [facility] 03-20-2024 10:11-0400 Systolic blood pressure 128 mm[Hg] Sridhar Lo MD Work Phone: [facility] 04-05-2022 11:30-0400 Body height 162.56 cm Kenisha Molina Other [facility] Other 04-05-2022 11:30-0400 Body mass index (BMI) [Ratio] 27.46 kg/m2 Kenisha Molina Other [facility] Other 04-05-2022 11:30-0400 Body temperature 99.2 [degF] Kenisha Molina Other [facility] Other 04-05-2022 11:30-0400 Body weight 72.58 kg Kenisha Molina Other [facility] Other 04-05-2022 11:30-0400 Respiratory rate 18 /min Kenisha Molina Other [facility] Other 04-05-2022 11:30-0400 SaO2% (BldA) [Mass fraction] 97 % Kenisha Molina Other [facility] Other Encounters Encounter Date Encounter Type Care Provider Facility Start: 06-03-2024 ambulatory [place] acility:[facility] Start: 05-01-2024 End: 05-01-2024 Orders Only Sridhar Lo MD Work Phone: [facility] Comment on above: Acute non-recurrent pansinusitis (Primary Dx) Start: 04-30-2024 End: 04-30-2024 Bamboo flowsheet Sridhar Lo MD Work Phone: [facility] Start: 04-30-2024 End: 04-30-2024 Bamboo flowsheet Sridhar Lo MD Work Phone: [facility] Start: 04-30-2024 End: 04-30-2024 Office outpatient visit 15 minutes Sridhar Lo MD Work Phone: [facility] Comment on above: Acute non-recurrent pansinusitis (Primary Dx) Start: 04-30-2024 End: 04-30-2024 ambulatory SRIDHAR LO Not Available Start: 03-20-2024 End: 03-20-2024 Bamboo flowsheet Sridhar Lo MD Work Phone: [facility] Start: 03-20-2024 End: 03-20-2024 Bamboo flowsheet Sridhar Lo MD Work Phone: [facility] Start: 03-20-2024 End: 03-20-2024 ambulatory SRIDHAR LO Not Available Start: 03-20-2024 End: 03-20-2024 Patient encounter procedure Sridhar Lo MD Work Phone: [facility] Start: 03-20-2024 End: 03-20-2024 Periodic preventive med est patient 40-64yrs Sridhar Lo MD Work Phone: [facility] Comment on above: Annual physical exam (Primary Dx); Adult hypothyroidism (CMS/HCC) Start: 09-26-2023 End: 09-26-2023 ambulatory SRIDHAR LO Not Available Start: 07-12-2023 End: 07-12-2023 ambulatory SHAHIDA PRETTY Not Available Start: 07-06-2022 End: 07-07-[address] SHAHIDA PRETTY . Facility:[facility] Start: 06-29-2022 End: 06-29-[address] SHAHIDA PRETTY . Facility:[facility] Start: 04-28-2022 End: 04-29-[address] SRIDHAR LO Facility:[facility] Start: 04-13-2022 End: 04-14-[address] SRIDHAR LO Facility:[facility] Start: 04-11-[address] SRIDHAR LO [facility] ity:[facility] Start: 04-05-2022 End: 04-05-2022 ambulatory Kenisha Molina Other [facility] Other Start: 04-05-2022 Office outpatient vi sit 15 minutes Kenisha Molina [facility] Start: 01-05-2022 End: 01-06-[address] SRIDHAR LO Facility:[facility] Start: 01-30-2018 End: 01-31-2018 Patient encounter [facility] Start: 01-22-2018 End: 01-23-2018 Patient encounter [facility] Start: 01-15-2018 End: 01-16-2018 Patient encounter [facility] Start: 12-27-2017 End: 12-28-2017 Patient encounter [facility] Start: 12-19-2017 End: 12-20-2017 Patient encounter [facility] Start: 12-07-2017 End: 12-07-2017 Emergency department patient visit [facility] Facility:[facility] Start: 12-07-2017 Ambulatory Facility:[id number] Start: 12-06-2017 End: 12-07-2017 Patient encounter [facility] Start: 11-21-2017 End: 11-22-2017 Patient encounter SRIDHAR [facility] Start: 11-14-2017 End: 11-15-2017 Patient encounter SRIDHAR LO [facility] Start: 10-31-2017 End: 11-01-2017 [facility] Start: 10-24-2017 End: 10-25-2017 [facility] Start: 10-17-2017 End: 10-18-2017 Patient encounter SRIDHAR [facility] Start: 10-12-2017 End: 10-13-2017 Patient [facility] Start: 10-11-2017 End: 10-12-2017 Patient encounter [facility] Start: 10-10-2017 End: 10-11-2017 Patient encounter SRIDHAR [facility] Start: 10-05-2017 End: 10-06-2017 Patient encounter SRIDHAR E[facility] Start: 10-04-2017 End: 10-05-2017 Patient encounter SRIDHAR Estr[facility] Start: 10-03-2017 End: 10-04-2017 Patient encounter SRIDHAR Estrada [facility] Start: 10-02-2017 End: 10-03-2017 Patient encounter SRIDHAR Estr[facility] Start: 09-28-2017 End: 09-29-2017 Patient encounter SRIDHAR Estrada [facility] Start: 09-27-2017 End: 09-28-2017 Patient encounter SRIDHAR Estrada [facility] Start: 09-26-2017 End: 09-27-2017 Patient encounter SRIDHAR Estrada [facility] Start: 09-25-2017 End: 09-26-2017 Patient encounter SRIDHAR Estrada [facility] Start: 09-21-2017 End: 09-22-2017 Patient encounter SRIDHAR Estr[facility] Start: 09-20-2017 End: 09-21-2017 [facility] Start: 09-19-2017 End: 09-20-2017 Patient encounter SRIDHAR Estr[facility] Start: 09-18-2017 End: 09-19-2017 Patient [facility] Start: 09-14-2017 End: 09-15-2017 Patient encounter SRIDHAR Estrada [facility] Start: 09-13-2017 End: 09-14-2017 Patient encounter SRIDHAR Estrada [facility] Start: 09-12-2017 End: 09-13-2017 Patient encounter SRIDHAR Estrada [facility] Start: 09-07-2017 End: 09-08-2017 Patient encounter SRIDHAR Estrada [facility] Start: 09-06-2017 End: 09-07-2017 Patient encounter SRIDHAR Estrada [facility] Start: 09-05-2017 End: 09-06-2017 Patient encounter SRIDHAR Estrada [facility] Start: 09-04-2017 End: 09-05-2017 Patient encounter SRIDHAR Estrada [facility] Start: 08-31-2017 End: 09-01-2017 Patient encounter SRIDHAR Estrada [facility] Start: 08-30-2017 End: 08-31-2017 Patient encounter SRIDHAR Estrada [facility] Start: 08-29-2017 End: 08-30-2017 [facility] Start: 08-28-2017 End: 08-29-2017 Patient encounter SRIDHAR Estrada [facility] Start: 08-24-2017 End: 08-25-2017 Patient encounter SRIDHAR [facility] Start: 08-23-2017 End: 08-24-2017 Patient [facility] Start: 08-22-2017 End: 08-23-2017 Patient encounter [facility] Start: 08-21-2017 End: 08-22-2017 Patient encounter [facility] Start: 08-17-2017 End: 08-18-2017 Patient encounter [facility] Start: 08-16-2017 End: 08-17-2017 Patient encounter [facility] Start: 08-15-2017 End: 08-16-2017 Patient encounter [facility] Start: 08-14-2017 End: 08-15-2017 Patient encounter [facility] Start: 08-10-2017 Patient encounter procedure Domenic Green [facility] Work Phone: Start: 08-10-2017 End: 08-11-2017 Patient encounter SRIDHAR Estrada [facility] Start: 08-09-2017 End: 08-10-2017 Patient encounter [facility] Start: 08-08-2017 End: 08-09-2017 Patient encounter SRIDHAR Estrada [facility] Start: 08-07-2017 End: 08-08-2017 Patient encounter SRIDHAR Estrada [facility] Start: 08-03-2017 End: 08-04-2017 Patient encounter [facility] Start: 08-02-2017 End: 08-03-2017 Patient encounter [facility] Start: 07-31-2017 End: 08-01-2017 Patient encounter SRIDHAR LO [facility] Start: 07-25-2017 End: 07-28-2017 Evaluation and management of inpatient KEN MAURO [facility] Procedures Date Procedure Procedure Detail Performing Clinician Start: 12-27-2023 Mammography Sridhar gayle MD Work Phone: Start: 11-08-2023 Mammography Sridhar gayle MD Work Phone: Start: 10-04-2021 Colonoscopy Sridhar gayle MD Work Phone: Start: 10-17-2017 DISCHARGE PATIENT ALESSANDRO MAURO Start: 07-28-2017 INTENSIVE OUTPATIENT - I KEN TIPTONAVANAN Start: 07-28-2017 DISCHARGE PATIENT ALESSANDRO MAURO Start: 07-27-2017 CALPROTECTIN STOOL DARLIN JI [place] Start: 07-26-2017 C DIFF TOXIN B BY RT PCR KEN NJ Start: 07-26-2017 Radiologic exam abdo men 1 view KENROCÍO MAURO Start: 07-26-2017 LIPASE KEN CONNOR Start: 07-26-2017 MISCELLANEOUS NURSIN G CARE ORDER (SPECIFY) KEN MAURO Start: 07-26-2017 O AND P SCREEN(GIARDIA/CRYPTOSPORID IUM) #1 KENOLIVIA TIPTONNJ Start: 07-26-2017 YERSINIA CULTURE, STOOL KEN MAURO Start: 07-26-2017 IP CONSULT TO HOSPITALIST KEN MAURO Start: 07-26-2017 EKG 12-LEAD KEN CONNOR Start: 07-25-2017 CBC WITH AUTO DIFFERENTIAL KEN MAURO Start: 07-25-2017 COMPREHENSIVE METABO LIC PANEL KEN MAURO Start: 07-25-2017 TSH WITHOUT [...] Uterus Domenic Green Screening colonoscopy Domenic sanchez Plan of Treatment Date Care Activity Detail Author Start: 10-05-2031 Screening for malign ant neoplasm of colon [facility] Start: 12-26-2024 Screening for malign ant neoplasm of breast Mammogram [facility] Start: 11-07-2024 Screening for malign ant neoplasm of breast Mammogram [facility] Start: 09-18-2024 End: 09-18-2024 Patient encounter procedure 09/18/2024 8:15 AM EDT Office Visit [facility] [address] [place] [phone] Sridhar Lo MD [address] [place] [phone] [facility] Start: 07-22-2024 End: 07-22-2024 Patient encounter procedure 07/22/2024 8:30 AM EST Office Visit [facility] [address] [place] [phone] Shahida Pretty, DO [address] [place] [place] [address] [facility] Start: 04-30-2024 End: 04-30-2024 Patient encounter procedure 04/30/2024 2:00 PM EDT Office Visit [facility] [address] [place] [phone] Sridhar Lo MD [address] [place] [phone] Arrived [facility] Comment on above: Arrived Start: 03-20-2024 End: 03-20-2025 Basic metabolic 1998 panel - Serum or Plasma Basic metabolic panel Lab Routine Annual physical exam Expected: 03/20/2024 (Approximate), Expires: 03/20/2025 [facility] Comment on above: Expected: 03/20/2024 (Approximate), Expires: 03/20/2025 Start: 03-20-2024 End: 03-20-2025 CBC W Auto Differential panel - Blood CBC and differential Lab Routine Annual physical exam Expected: 03/20/2024 (Approximate), Expires: 03/20/2025 [facility] Comment on above: Expected: 03/20/2024 (Approximate), Expires: 03/20/2025 Start: 03-20-2024 End: 03-20-2025 Hemoglobin A1c/Hemoglobin.total in Blood Hemoglobin A1c Lab Routine Annual physical exam Expected: 03/20/2024 (Approximate), Expires: 03/20/2025 [facility] Work Phone: Comment on above: Expected: 03/20/2024 (Approximate), Expires: 03/20/2025 Start: 03-20-2024 End: 03-20-2025 Hepatic function 2000 panel - Serum or Plasma Hepatic function panel Lab Routine Annual physical exam Expected: 03/20/2024 (Approximate), Expires: 03/20/2025 [facility] Comment on above: Expected: 03/20/2024 (Approximate), Expires: 03/20/2025 Start: 03-20-2024 End: 03-20-2025 Lipid 1996 panel - Serum or Plasma Lipid panel Lab Routine Annual physical exam Expected: 03/20/2024 (Approximate), Expires: 03/20/2025 [facility] Comment on above: Expected: 03/20/2024 (Approximate), Expires: 03/20/2025 Start: 03-20-2024 End: 03-20-2025 Thyrotropin [Units/volume] in Serum or Plasma TSH Lab Routine Annual physical exam Expected: 03/20/2024 (Approximate), Expires: 03/20/2025 [facility] Comment on above: Expected: 03/20/2024 (Approximate), Expires: 03/20/2025 Start: 03-20-2024 End: 03-20-2025 Thyroxine (T4) free [Mass/volume] in Serum or Plasma T4, free Lab Routine Adult hypothyroidism (CMS/HCC) Expected: 03/20/2024 (Approximate), Expires: 03/20/2025 [facility] Comment on above: Expected: 03/20/2024 (Approximate), Expires: 03/20/2025 Start: 03-20-2024 End: 03-20-2025 Triiodothyronine (T3) Free [Mass/volume] in Serum or Plasma T3, free Lab Routine Adult hypothyroidism (CMS/HCC) Expected: 03/20/2024 (Approximate), Expires: 03/20/2025 [facility] Comment on above: Expected: 03/20/2024 (Approximate), Expires: 03/20/2025 Start: 03-03-2024 Influenza vaccination Influenza Vacc ine (#1) [facility] Start: 09-24-2003 Screening for malign ant neoplasm of cervix [facility] Start: 1994 Screening for malign ant neoplasm of cervix Pap Smear [facility] Start: 1973 Screening for malign ant neoplasm of colon [facility] Immunizations Immunization Date Immunization Notes Care Provider Jeannette suazo 06-06-2017 tetanus toxoid, reduced diphtheria toxoid, and acellular pertussis vaccine, adsorbed Kenisha Tracy Other [facility] Other Payers Date Payer Category Payer Self-pay 2022 [facility] [id number] 2022 Unknown BCBS BCBS xxxxxx [id number] 2022-Present [phone] [address] [place] [address] [id number] 1973 Unknown [id number] [id number]. 593 1973 Unknown [id number] 2.16.840.1.478615.3.579.2. 593 1973 Unknown [id number] 2.16.840.1.349127.3.579.2. 593 1973 Unknown [id number] 2.16.840.1.483480.3.579.2. 593 1973 Unknown [id number] 2.16.840.1.366688.3.579.2. 593 1973 Unknown [id number] 2.16.840.1.420168.3.579.2. 593 1973 Unknown [id number] 2.16.840.1.648943.3.579.2. 1259 1973 Unknown [id number] 2.16.840.1.904364.3.579.2. 1259 1973 Unknown [id number] 2.16.840.1.228316.3.579.2. 1259 1973 Unknown [id number] 2.16.840.1.633711.3.579.2. 1259 1959 Blue Cross Blue Shield [id number] 1959 Unknown [id number] Unknown [id number] [id number]. 531 Social History Date Type Detail Facility Start: 09-26-2023 End: 03-20-2024 Sex Assigned At [facility] Start: 06-21-2023 Tobacco smoking stat [facility] Never smoked tobacco [facility] Start: 06-21-2023 Tobacco use and exposure Smoke less tobacco non-user [facility] Start: 09-26-2023 End: 03-20-2024 Alcoholic beverage intake Lifetime non-drinker (finding) [facility] Start: 09-26-2023 End: 03-20-2024 History of Social function [facility] How often do you nee d to have someone help you when you read instructions, pamphlets, or other written material from your doctor or pharmacy [SILS] Never [facility] Do you belong to any clubs or organizations such as gnosticism groups, unions, fraternal or athletic groups, or school groups? No [facility] Are you now , , , , never or living with a partner? [facility] How often to you hav e a drink containing alcohol? Never [facility] Do you feel stress - tense, restless, nervous, or anxious, or unable to sleep at night because your mind is troubled all the time - these days [OSQ] Not at all [facility] (I/We) worried wheth er (my/our) food would run out before (I/we) got money to buy more. Never true [facility] Start: 06-21-2023 Education 13 [facility] Start: 06-21-2023 Alcohol Comment caffeine: none [facility] Start: 1975 Sex assigned at Not on file [facility] NEGATED: Highlighted row - - [facility] Work Phone: Functional Status Date Assessment Result Facility NEGATED: Highlighted row Functional performance Functional status health issues are not documented Disease [facility] Work Phone: Mental Status Date Assessment Result Facility NEGATED: Highlighted row Cognitive function [Interpretation] Cognitive status health issues are not documented Disease [facility] Work Phone: History of Present illness Narrative 04-30-2024 Sridhar Lo MD - 04/30/2024 2:46 PM EDTMhayley Lo MD - 04/30/2024 2:00 PM EDT Note Date & Type Note Facility 04-30-2024 History of Presen t illness Narrative Associated Problem(s): Acute non-recurrent pansinusitis Take antibiotics for 7 days. Use prednisone for inflammation. Use sudafed or other decongestants as needed. Use Robitussin or Robitussin-DM for cough. Can use afrin for congestion but no longer than 3 days. Can use Mucinex to bring up phlegm. Use Motrin or Tylenol as needed for fever, aches, or pains. Increase fluid intake and rest. Should improve over next 5-7 days and if no better or worse call for re-evaluation. Images from the original note were not included. Subjective Patient ID: Chhaya Cerna is a 48 y.o. female who presents for Sore Throat and Earache (Bilateral ear pain). C/o cough, congestion, and rhinorrhea x 1 week. Afebrile. Severe fatigue and no energy. Mild cough dry and nonproductive. Denies chest tightness or SOB. GUIDRY and sinus pressure in forehead and cheeks along with postnasal drip. Ears plugged and popping. Sore throat and pain to swallow. Throat feels swollen. Mild nausea. Denies recent sick contacts. Using OTC medication and mild relief. No improvement in symptoms since onset. Review of Systems Respiratory: Negative for cough, shortness of breath and wheezing. Cardiovascular: Negative for chest pain and palpitations. Gastrointestinal: Negative for abdominal pain, diarrhea, nausea and vomiting. Genitourinary: Negative for dysuria. Objective Physical Exam Constitutional: General: She is not in acute distress. Appearance: Normal appearance. HENT: Head: Normocephalic. Right Ear: Tympanic membrane normal. Left Ear: Tympanic membrane normal. Eyes: Extraocular Movements: Extraocular movements intact. Pupils: Pupils are equal, round, and reactive to light. Cardiovascular: Rate and Rhythm: Normal rate and regular rhythm. Heart sounds: No murmur heard. No friction rub. No gallop. Pulmonary: Effort: Pulmonary effort is normal. Breath sounds: Normal breath sounds. No wheezing, rhonchi or rales. Abdominal: General: Bowel sounds are normal. There is no distension. Palpations: Abdomen is soft. Tenderness: There is no abdominal tenderness. There is no guarding or rebound. Musculoskeletal: Cervical back: Neck supple. Right lower leg: No edema. Left lower leg: No edema. Neurological: Mental Status: She is alert. Assessment/Plan Problem List Items Addressed This Visit Acute non-recurrent pansinusitis - Primary Take antibiotics for 7 days. Use prednisone for inflammation. Use sudafed or other decongestants as needed. Use Robitussin or Robitussin-DM for cough. Can use afrin for congestion but no longer than 3 days. Can use Mucinex to bring up phlegm. Use Motrin or Tylenol as needed for fever, aches, or pains. Increase fluid intake and rest. Should improve over next 5-7 days and if no better or worse call for re-evaluation. Relevant Medications levoFLOXacin (Levaquin) 750 MG tablet methylPREDNISolone (Medrol Dospak) 4 MG tablets documented in this encounter [facility] History of Present illness Narrative 03-20-2024 Sridhar Lo MD - 03/20/2024 10:40 AM EDTMhayley Lo MD - 03/20/2024 10:00 AM EDT Note Date & Type Note Facility 03-20-2024 History of Presen t illness Narrative Associated Problem(s): Annual physical exam Due for labs. Discussed proper diet and regular aerobic exercise. Need aerobic exercise 5-6 days a week for 30 minutes at a time. Smaller portions and limit total calories. Colonoscopy every 10 years. Tetanus every 10 years. Advised not to smoke. Discussed daily Aspirin therapy. Images from the original note were not included. Subjective Patient ID: Chhaya Cerna is a 48 y.o. female who presents for Annual Exam (wellness). Presents for annual PE. Patient feels well this am. Weight down 16 pounds in past year. Active and exercises several days a week. Tries to watch diet and eat healthy. Increased fruits and vegetables. Smaller portions and limits snacking. Tries to limit total daily calories. Due for labs. Colonoscopy normal in 2021. Follows with research worker [facility] for mammogram. Review of Systems Respiratory: Negative for cough, shortness of breath and wheezing. Cardiovascular: Negative for chest pain and palpitations. Gastrointestinal: Negative for abdominal pain, diarrhea, nausea and vomiting. Genitourinary: Negative for dysuria. Objective Physical Exam Constitutional: General: She is not in acute distress. Appearance: Normal appearance. HENT: Head: Normocephalic. Right Ear: Tympanic membrane normal. Left Ear: Tympanic membrane normal. Eyes: Extraocular Movements: Extraocular movements intact. Pupils: Pupils are equal, round, and reactive to light. Cardiovascular: Rate and Rhythm: Normal rate and regular rhythm. Heart sounds: No murmur heard. No friction rub. No gallop. Pulmonary: Effort: Pulmonary effort is normal. Breath sounds: Normal breath sounds. No wheezing, rhonchi or rales. Abdominal: General: Bowel sounds are normal. There is no distension. Palpations: Abdomen is soft. Tenderness: There is no abdominal tenderness. There is no guarding or rebound. Musculoskeletal: General: No swelling or tenderness. Cervical back: Neck supple. Right lower leg: No edema. Left lower leg: No edema. Skin: Findings: No erythema or rash. Neurological: General: No focal deficit present. Mental Status: She is alert and oriented to person, place, and time. Cranial Nerves: No cranial nerve deficit. Motor: No weakness. Gait: Gait normal. Assessment/Plan Problem List Items Addressed This Visit Adult hypothyroidism (CMS/HCC) Relevant Orders T4, free T3, free Annual physical exam - Primary Due for labs. Discussed proper diet and regular aerobic exercise. Need aerobic exercise 5-6 days a week for 30 minutes at a time. Smaller portions and limit total calories. Colonoscopy every 10 years. Tetanus every 10 years. Advised not to smoke. Discussed daily Aspirin therapy. Relevant Orders Hemoglobin A1c Basic metabolic panel CBC and differential Hepatic function panel Lipid panel TSH documented in this encounter [facility] Evaluation note 04-05-2022 Note Date & Type [...] no improvement in 2 to 3 days. [facility] Other Evaluation note Note Date & Type Note Facility Evaluation note Diagnosis Chronic superficial gastritis without bleeding- Primary Adult hypothyroidism (CMS/HCC) Unspecified hypothyroidism Seasonal allergic rhinitis due to pollen MDD (major depressive disorder), recurrent episode, mild (HCC) (CMS/HCC) BRIAN (generalized anxiety disorder) (CMS/HCC) Generalized anxiety disorder Annual physical exam- Primary Routine general medical examination at a health care facility Adult hypothyroidism (CMS/HCC) Unspecified hypothyroidism Acute non-recurrent pansinusitis- Primary documented in this encounter [facility] Evaluation note Note Date & Type Note Facility Evaluation note Diagnosis Chronic superficial gastritis without bleeding- Primary Adult hypothyroidism (CMS/HCC) Unspecified hypothyroidism Seasonal allergic rhinitis due to pollen MDD (major depressive disorder), recurrent episode, mild (HCC) (CMS/HCC) BRIAN (generalized anxiety disorder) (CMS/HCC) Generalized anxiety disorder Annual physical exam- Primary Routine general medical examination at a health care facility Adult hypothyroidism (CMS/HCC) Unspecified hypothyroidism Acute non-recurrent pansinusitis- Primary Acute non-recurrent pansinusitis- Primary documented in this encounter [facility] Evaluation note Note Date & Type Note Facility Evaluation note Diagnosis Annual physical exam- Primary Routine general medical examination at a health care facility Adult hypothyroidism (CMS/HCC) Unspecified hypothyroidism documented in this encounter [facility] History general Narrative - Reported Note Date & Type Note Facility History general Narrative - Reported Type Medical History Anxiety and depression Medical History IBS (irritable bowel syndrome) Surgical History laparoscopy Surgical History eyes Surgical History cholecystectomy Surgical History wisdom teeth Surgical History appendectomy Surgical History colonoscopy Hospitalization History see above [facility] Other Summary Purpose Family History No Family [...] section and content) DATE CREATED AUTHOR 12/19/2017 [facility] DATE CREATED AUTHOR AUTHOR'S ORGANIZ ATION 12/21/2017 [facility] DATE CREATED AUTHOR AUTHOR'S ORGANIZ ATION 01/23/2018 [facility] DATE CREATED AUTHOR AUTHOR'S ORGANIZ ATION 02/01/2018 [facility] DATE CREATED AUTHOR AUTHOR'S ORGANIZ ATION 11/02/2022 [facility] DATE CREATED AUTHOR AUTHOR'S ORGANIZ ATION 05/02/[address] [facility] EPIC DATE CREATED AUTHOR AUTHOR'S ORGANIZ ATION 06/13/[address] [facility] REASON FOR VISIT (unrecogniz ed section and content) Reason Comments Sore Throat Earache Bilateral ear pain Reason Comments Annual Exam wellness Care Teams (unrecognized sec tion and content) Marketing Campaign Analyst Relationship Specialty Start Date End Date Sridhar Lo MD [address] [place] [id number] PCP - General Family Medicine 09/26/23 Marketing Campaign Analyst Relationship Specialty Start Date End Date Sridhar Lo MD [address] [place] [id number] PCP - General Family Medicine 09/26/23 Marketing Campaign Analyst Relationship Specialty Start Date End Date Sridhar Lo MD [address] [place] [phone] PCP - General Family Medicine 09/26/23 Marketing Campaign Analyst Relationship Specialty Start Date End Date Sridhar Lo MD [address] [place] [phone] PCP - General [facility] 09/26/23 Marketing Campaign Analyst Relationship Specialty Start Date End Date Sridhar Lo MD [address] [place] [phone] PCP - General Family [facility] 09/26/23 FOR RECORDS PERTAINING TO PATIENTS WHO ARE [...] BE BASED ON THE PRIMARY CLINICAL RECORDS. [facility] [employer] [facility]. provides no warranty or guarantee of the accuracy or completeness of information in this document.
== END 2024-06-14 07:55 | disposition home or self-care (01) ==
LOC: US 07:54
PROVIDERS: PCP Family Medicine; Visit Provider Obstetrics & Gynecology
DX: N60.01 Solitary cyst of right breast (principal)
CPT/HCPCS: 76642

== ENCOUNTER 2024-07-25 17:32 | Emergency (ER) | payer BC, SELFPAY ==
[2024-07-25 17:45] VITALS: BP 113/83; PULSE 100; TEMP 37.6; O2SAT 97; BMI 24.9
--- OUTSIDE RECORDS SUMMARY | 2024-07-25 18:10 | XMS_ITS | CCD ---
Author Organization [facility] Care Team Providers Care Edi Programmer Name Role Phone Unavailable, Family Physician Unavailable Un available Unavailable, Family Physician Unavailable Un available Diab, Kelsea Unavailable Unavailable [place], KEN Unavailable Unavailable [place], KEN Unavailable Unavailable NADERER, SRIDHAR ANTONIA Unavailable Unavailabl e ABEBA, NICHOLE Unavailable Unavailable MASSRANDALL TORRES Unavailable Unavailable NADERER, SRIDHAR ANTONIA Unavailable Unavailabl e NADERER, SRIDHAR ANTONIA Unavailable Unavailabl e NADERER, SRIDHAR ANTONIA Unavailable Unavailabl e NADERER, SRIDHAR ANTONAI Unavailable Unavailabl e NADERER, SRIDHAR ANTONIA Unavailable [...] NADERER, DR SRIDHAR Choudhary Primary Care Unavailable ZUNI, JENIFER Consulting Unavailable NADERER, DR SRIDHAR Choudhary Attending Unavailable NADERER, DR SRIDHAR Choudhary Admitting Unavailable NADERER, DR SRDIHAR Choudhary Consulting Unavailable NADERER, DR SRIDHAR Choudhary [...] Unavailable Sridhar Lo MD Primary Care Provider [phone] SHAHIDA PRETTY Attending Unavailable NADERER, SRIDHAR Attending Unavailable NADERER, SRIDHAR Attending Unavailable NADEREGilberto, SRIDHAR Attending Unavailable Tereza, All Attending Unavailab le All Starks Admitting Unavailab le Sridhar Lo Primary Care Unavailable Allergies Allergy Classification Reported Allergen(s) Allergy Type Date of Onset Reaction(s) Facility (4 sources) cefdinir; Translations: [cefdinir] Drug Allergy 08-28-19 mood changes [facility] Repository (3 sources) Promethazine; Translations: [Phenergan] Drug Allergy [facility] Repository (2 sources) risperiDONE Drug Allergy [facility] Work Phone: (2 sources) Sulfamethoxazole / Trimethoprim; Translations: [Bactrim] Drug Allergy [facility] Repository (8 sources) Ciprofloxacin Drug Allergy 07-25-19 20 hives [employer] Other (2 sources) Prochlorperazine; Translations: [Compazine] Drug Allergy 03-01-20 17 dizziness [facility] Repository (8 sources) Promethazine Drug Allergy 07-25-19 18 nausea [employer] Other (8 sources) Sulfamethoxazole / Trimethoprim Drug Allergy 07-25-19 18 Itching [employer] Other (1 source) Triamcinolone Drug Allergy anxiety [employer] Other (1 source) vortioxetine Drug Allergy nausea [employer] Other (1 source) Ciprofloxacin Drug Allergy [facility] Repository (1 source) Corticosteroids Drug allergy (disorder) 08-28-19 [facility] Repository (1 source) risperiDONE Drug Allergy [facility] (1 source) vortioxetine Drug Allergy 08-28-19 [facility]ository (7 sources) Cefuroxime Drug Allergy 07-25-19 [facility] Work Phone: (7 sources) Prochlorperazine Drug Allergy 05-07-20 [facility] (7 sources) risperiDONE Drug Allergy 07-25-19 [facility] (7 sources) vortioxetine Drug Allergy 02-09-20 [facility] (1 source) Ciprofloxacin Drug Allergy 04-05-20 [facility] Repository (1 source) Prochlorperazine Drug Allergy 04-05-20 [facility] Repository (1 source) Promethazine Drug Allergy 04-05-20 [facility] Repository (1 source) risperiDONE Drug Allergy 04-05-20 [facility] Repository (1 source) Sulfamethoxazole Drug Allergy 04-05-20 [facility] Repository (1 source) Triamcinolone Drug Allergy 04-05-20 [facility] Repository (1 source) Trimethoprim Drug Allergy 04-05-20 [facility] Repository (1 source) vortioxetine Drug Allergy 04-05-20 [facility] Repository Medications Current Medications Medication Drug Class(es) Dates Sig (Normalized) Sig (Original) Ascorbic Acid (2 sources) Vitamin C Vitamin C Active Vitamin C Theresa- xi cholecalciferol 1.25 mg oral capsule (7 sources) Vitamin D Start: 03-14-2024 take 1 capsule by mouth every week cholecalciferol (Vitamin D-3) 1.25 MG (11249 UT) capsule Indications: Vitamin D deficiency, unspecified [...] Histamine-1 Receptor Antagonist ZyrTEC Allergy Not-Taking ergocalciferol 69550 unt oral capsule (2 sources) Provitamin D2 Compound Start: 09-22-2017 take 1 capsule by mouth every week at lunch Vitamin D (Ergocalciferol) 18725 UNIT Oral Capsule take 1 capsule by mouth every week ON MONDAY WITH LUNCH AND FULL GLASS OF WATER Quantity: 13 Refills: 0 Domenic Green Start : 22-Sep-2017 Active Vitamin D (Ergoc alciferol) 1.25 MG (52799 UT) Oral for 84 Active hydrOXYzine pamoate [...] Other correction (current) drug therapy; Translations: [OTH PRISON CURRENT DRUG THERAPY] Onset: 04-13-2022 Episodic Other [...] 07-09-2022 Dehydroepiandrosterone (DHEA) 145 ng/dL Normal 31-701 [facility] Comment on above: Result Comment: [...] 701 Performed By: #### C BC #### [facility] [address] [address] [address] June Mayorga DHEA-SULFATEon 07-07-2022 DHEA-Sulfate 82.1 ug/dL Normal 41.2-243.7 [facility] Comment on above: Performed By: #### C BC #### [facility] [address] [address] [address] June Mayorga FSHon 07-07-2022 FSH 6.4 mIU/mL Normal [facility] Comment on above: Result Comment: Adul t Female: Follicular phase 3.5 - 12.5 Ovulation phase 4.7 - 21.5 Luteal phase 1.7 - 7.7 Postmenopausal 25.8 - 134.8 Performed By: #### C BC #### [facility] [address] [address] [address] June Mayorga LUTEINIZING HORMONE (LH)on 0 1-05-2023 LH 7.4 mIU/mL Normal [facility] Comment on above: Result Comment: Adul t Female: Follicular phase 2.4 - 12.6 Ovulation phase 14.0 - 95.6 Luteal phase 1.0 - 11.4 Postmenopausal 7.7 - 58.5 Performed By: #### L [facility] #### [facility] [address] [address] [address] June Mayorga PAP ACOG PANEL 2: 30 to 65on 07-07-2022 . . Normal [facility] Comment on above: Result Comment: Perf ormed at: BA Performed By: #### C BC #### [facility] [address] [address] [address] June Mayorga Age Gdln ACOG Testing 30-65 [facility] Comment on above: Performed By: #### C BC #### [facility] [address] [address] [address] June Mayorga DIAGNOSIS: Comment Normal [facility] Comment on above: Result Comment: NEGA TIVE FOR INTRAEPITHELIAL LESION OR MALIGNANCY. Performed at: BA Performed By: #### C BC #### [facility] [address] [address] [address] June Mayorga HPV Aptima Negative Normal Negative [facility] Comment on above: Result Comment: This nucleic acid amplification test detects fourteen high-risk HPV types (16,18,31,33,35,39,45,51,52,56,58,59,66,68) without differentiation. Performed at: =G Performed By: #### C BC #### [facility] [address] [address] [address] June Mayorga HPV Genotype Reflex Comment Normal [facility] Comment on above: Result Comment: Crit eria not met, HPV Genotype not performed. Performed at: BA Performed By: #### C BC #### [facility] [address] [address] [address] June Mayorga Methodology: Comment Normal [facility] Comment on above: Result Comment: This liquid based ThinPrep(R) pap test was screened with the use of an image guided system. Performed at: WB Performed By: #### C BC #### [facility] [address] [place] [address] Dr. June Mayorga Note: Comment Normal [facility] Comment on above: Result Comment: [...] WB Performed By: #### C BC #### [facility] [address] [place] [address] Dr. June Mayorga Performed by: Comment Normal [facility] Comment on above: Result Comment: Julianne Rubio, [employer] ([employer]) Performed at: BA Performed By: #### C BC #### [facility] [address] [place] [address] Dr. June Mayorga Specimen adequacy: Comment Normal [facility] Comment on above: Result Comment: Sati sfactory for evaluation. Endocervical and/or squamous metaplastic cells (endocervical component) are present. Performed at: BA Performed By: #### C BC #### [facility] [address] [place] [address] Dr. June Mayorga CBC AUTO DIFFon 07-06-2022 BASO # 0.0 103/ul Normal 0.0-0.1 [facility] Comment on above: Performed By: #### C BC #### [facility] [address] [place] [address] Dr. June Mayorga Basophils/100 WBC (Bld) 0.4 % Normal 0.2-2.0 [facility] Comment on above: Performed By: #### C BC #### [facility] [address] [place] [address] Dr. June Myaorga EO # 0.1 103/ul Normal 0.0-0.7 [facility] Comment on above: Performed By: #### C BC #### [facility] [address] [place] [address] Dr. June Mayorga Eosinophils/100 WBC (Bld) 1.5 % Normal 0.9-7.0 [facility] Comment on above: Performed By: #### C BC #### [facility] [address] [place] [address] Dr. June Mayorga Erythrocyte distribution width (RBC) [Ratio] 13.3 % Normal 11.0-15.0 [facility] Comment on above: Performed By: #### C BC #### [facility] [address] [place] [address] Dr. June Mayorga Hematocrit (Bld) [Volume fraction] 38.6 % Normal 36.0-48.0 [facility] Comment on above: Performed By: #### C BC #### [facility] [address] [place] [address] Dr. June Mayorga Hemoglobin (Bld) [Mass/Vol] 12.9 g/dL Normal 12.0-16.0 [facility] Comment on above: Performed By: #### C BC #### [facility] [address] [place] [address] Dr. June Mayorga IG # 0.02 10e3/ul Normal 0.00-0.03 [facility] Comment on above: Performed By: #### C BC #### [facility] [address] [place] [address] Dr. June Mayorga IG % 0.2 % Normal 0.0-0.5 [facility] Comment on above: Performed By: #### C BC #### [facility] [address] [place] [address] Dr. June Mayorga LYMPH # 3.0 103/ul Normal 1.2-3.8 [facility] Comment on above: Performed By: #### C BC #### [facility] [address] [place] [address] Dr. June Mayorga Lymphocytes/100 WBC (Bld) 37.3 % Normal 20.5-60.0 [facility] Comment on above: Performed By: #### C BC #### [facility] [address] [place] [address] Dr. June Mayorga MANUAL DIFF REQ NO Normal [facility] Comment on above: Performed By: #### C BC #### [facility] [address] [place] [address] Dr. June Mayorga MCH (RBC) [Entitic mass] 29.8 pg Normal 26.7-34.0 [facility] Comment on above: Performed By: #### C BC #### [facility] [address] [place] [address] Dr. June Mayorga MCHC (RBC) [Mass/Vol] 33.4 g/dL Normal 29.9-35.2 [facility] Comment on above: Performed By: #### C BC #### [facility] [address] [place] [address] Dr. June Mayorga MCV (RBC) [Entitic vol] 89.1 fL Normal 81.0-99.0 [facility] Comment on above: Performed By: #### C BC #### [facility] [address] [place] [address] Dr. June Mayorga MONO # 0.7 103/ul Normal 0.3-0.8 [facility] Comment on above: Performed By: #### C BC #### [facility] [address] [place] [address] Dr. June Mayorga Monocytes/100 WBC (Bld) 8.5 % Normal 1.7-12.0 [facility] Comment on above: Performed By: #### C BC #### [facility] [address] [place] [address] Dr. June Mayorga NEUT # 4.2 103/ul Normal 1.4-6.5 [facility] Comment on above: Performed By: #### C BC #### [facility] [address] [place] [address] Dr. June Mayorga Neutrophils/100 WBC (Bld) 52.1 % Normal 43.0-75.0 [facility] Comment on above: Performed By: #### C BC #### [facility] [address] [place] [address] Dr. June Mayorga Platelet mean volume (Bld) [Entitic vol] 9.2 fL Critically low 9.5-13.5 [facility] Comment on above: Performed By: #### C BC #### [facility] [address] [place] [address] Dr. June Mayorga PLT 257 103/ul Normal 150-450 [facility] Comment on above: Performed By: #### C BC #### [facility] [address] [place] [address] Dr. June Mayorga RBC 4.33 106/ul Normal 4.20-5.40 [facility] Comment on above: Performed By: #### C BC #### [facility] [address] [place] [address] Dr. June Mayorga WBC 8.1 103/ul Normal 4.0-11.0 [facility] Comment on above: Performed By: #### C BC #### [facility] [address] [place] [address] Dr. June Mayorga FREE T4on 07-06-2022 Free T4 [Mass/Vol] 0.84 ng/dL Normal 0.76-1.46 [facility] Comment on above: Performed By: #### F T4 #### [facility] [address] [place] [address] Dr. June Mayorga GLYCOHEMOGLOBIN A1Con 2022 ADA RECOMMENDATION SEE BELOW Normal [facility] Comment on above: Result Comment: ADA RECOMMENDED LIMIT 4.0 - 6.0 ADA THERAPEUTIC TARGET < 7.0 ACTION SUGGESTED > 7.0 Performed By: #### A 1C #### [facility] [address] [place] [address] Dr. June Mayorga Glucose [Mass/Vol] 105 mg/dL Normal [facility] Comment on above: Performed By: #### A 1C #### [facility] [address] [place] [address] Dr. June Mayorga HbA1c (Bld) [Mass fraction] 5.3 % Normal 4.5-6.2 [facility] Comment on above: Performed By: #### A 1C #### [facility] [address] [place] [address] Dr. June Mayorga TSHon 07-06-2022 TSH 0.631 uIU/mL Normal 0.358-3.74 0 [facility] Comment on above: Performed By: #### T SH #### [facility] [address] [place] [address] Dr. June Mayorga US THYROIDon 04-28-2022 US [...] JENIFER ONEIL Date: 2022-04-28 19:27 Normal [facility] MAGNESIUMon 04-13-2022 Magnesium [Mass/Vol] 2.1 mg/dL Normal 1.8-2.4 [facility] Comment on above: Performed By: #### M G #### [facility] [address] [place] [address] Dr. June Mayorga COVID Quick Testingon 2021 Result Positive [employer] Other CBC AUTO DIFFon 01-05-2022 BASO # 0.0 103/ul Normal 0.0-0.1 [facility] Comment on above: Performed By: #### C BC #### [facility] [address] [place] [address] Dr. June Mayorga Basophils/100 WBC (Bld) 0.5 % Normal 0.2-2.0 [facility] Comment on above: Performed By: #### C BC #### [facility] [address] [place] [address] Dr. June Mayorga EO # 0.1 103/ul Normal 0.0-0.7 [facility] Comment on above: Performed By: #### C BC #### [facility] [address] [place] [address] Dr. June Mayorga Eosinophils/100 WBC (Bld) 1.6 % Normal 0.9-7.0 [facility] Comment on above: Performed By: #### C BC #### [facility] [address] [place] [address] Dr. June Mayorga Erythrocyte distribution width (RBC) [Ratio] 12.9 % Normal 11.0-15.0 [facility] Comment on above: Performed By: #### C BC #### [facility] [address] [place] [address] Dr. June Mayorga Hematocrit (Bld) [Volume fraction] 38.8 % Normal 36.0-48.0 [facility] Comment on above: Performed By: #### C BC #### [facility] [address] [place] [address] Dr. June Mayorga Hemoglobin (Bld) [Mass/Vol] 12.7 g/dL Normal 12.0-16.0 [facility] Comment on above: Performed By: #### C BC #### [facility] [address] [place] [address] Dr. June Mayorga IG # 0.01 10e3/ul Normal 0.00-0.03 [facility] Comment on above: Performed By: #### C BC #### [facility] [address] [place] [address] Dr. June Mayorga IG % 0.2 % Normal 0.0-0.5 [facility] Comment on above: Performed By: #### C BC #### [facility] [address] [place] [address] Dr. June Mayorga LYMPH # 2.3 103/ul Normal 1.2-3.8 [facility] Comment on above: Performed By: #### C BC #### [facility] [address] [place] [address] Dr. June Mayorga Lymphocytes/100 WBC (Bld) 36.6 % Normal 20.5-60.0 [facility] Comment on above: Performed By: #### C BC #### [facility] [address] [place] [address] Dr. June Mayorga MANUAL DIFF REQ NO Normal [facility] Comment on above: Performed By: #### C BC #### [facility] [address] [place] [address] Dr. June Mayorga MCH (RBC) [Entitic mass] 30.1 pg Normal 26.7-34.0 [facility] Comment on above: Performed By: #### C BC #### [facility] [address] [place] [address] Dr. June Mayorga MCHC (RBC) [Mass/Vol] 32.7 g/dL Normal 29.9-35.2 [facility] Comment on above: Performed By: #### C BC #### [facility] [address] [place] [address] Dr. June Mayorga MCV (RBC) [Entitic vol] 91.9 fL Normal 81.0-99.0 [facility] Comment on above: Performed By: #### C BC #### [facility] [address] [place] [address] Dr. June Mayorga MONO # 0.6 103/ul Normal 0.3-0.8 [facility] Comment on above: Performed By: #### C BC #### [facility] [address] [place] [address] Dr. June Mayorga Monocytes/100 WBC (Bld) 9.2 % Normal 1.7-12.0 [facility] Comment on above: Performed By: #### C BC #### [facility] [address] [place] [address] Dr. June Mayorga NEUT # 3.2 103/ul Normal 1.4-6.5 [facility] Comment on above: Performed By: #### C BC #### [facility] [address] [place] [address] Dr. June Mayorga Neutrophils/100 WBC (Bld) 51.9 % Normal 43.0-75.0 [facility] Comment on above: Performed By: #### C BC #### [facility] [address] [place] [address] Dr. June Mayorga Platelet mean volume (Bld) [Entitic vol] 10.2 fL Normal 9.5-13.5 [facility] Comment on above: Performed By: #### C BC #### [facility] [address] [place] [address] Dr. June Mayorga PLT 293 103/ul Normal 150-450 [facility] Comment on above: Performed By: #### C BC #### [facility] [address] [place] [address] Dr. June Mayorga RBC 4.22 106/ul Normal 4.20-5.40 [facility] Comment on above: Performed By: #### C BC #### [facility] [address] [place] [address] Dr. June Mayorga WBC 6.2 103/ul Normal 4.0-11.0 [facility] Comment on above: Performed By: #### C BC #### [facility] [address] [place] [address] Dr. June Mayorga FREE T3on 01-05-2022 FREE T3 2.79 pg/mlL Normal 2.18-3.98 [facility] Comment on above: Performed By: #### C BC #### [facility] [address] [place] [address] Dr. June Mayorga FREE T4on 01-05-2022 Free T4 [Mass/Vol] 0.94 ng/dL Normal 0.76-1.46 [facility] Comment on above: Performed By: #### C BC #### [facility] [address] [place] [address] Dr. June Mayorga GLYCOHEMOGLOBIN A1Con 2021 ADA RECOMMENDATION SEE BELOW Normal [facility] Comment on above: Result Comment: ADA RECOMMENDED LIMIT 4.0 - 6.0 ADA THERAPEUTIC TARGET < 7.0 ACTION SUGGESTED > 7.0 Performed By: #### A 1C #### [facility] [address] [place] [address] Dr. June Mayorga Glucose [Mass/Vol] 123 mg/dL Normal [facility] Comment on above: Performed By: #### A 1C #### [facility] [address] [address] [address] June Mayorga HbA1c (Bld) [Mass fraction] 5.9 % Normal 4.5-6.2 [facility] Comment on above: Performed By: #### A 1C #### [facility] [address] [place] [address] Dr. June Mayorga LIPID PROFILEon 01-05-2022 CHOL-HDL RATIO NORM SEE BELOW Normal [facility] Comment on above: Result Comment: 3.3 - 4.4 LOW RISK 4.4 - 7.1 AVERAGE RISK 7.1 - 11.0 MODERATE RISK >11.0 HIGH RISK Performed By: #### L IPID, TSH, BMP, FT3, LIVER #### [facility] [address] [place] [address] Dr. June Mayorga Cholesterol [Mass/Vol] 169 mg/dL Normal <=200 [facility] Comment on above: Performed By: #### L IPID, TSH, BMP, FT3, LIVER #### [facility] [address] [place] [address] Dr. June Mayorga Cholesterol in HDL [Mass/Vol] 44 mg/dL Normal 40-60 [facility] Comment on above: Performed By: #### L IPID, TSH, BMP, FT3, LIVER #### [facility] [address] [place] [address] Dr. June Mayorga Cholesterol in LDL [Mass/Vol] 89.6 mg/dL Normal [facility] Comment on above: Performed By: #### L IPID, TSH, BMP, FT3, LIVER #### [facility] [address] [place] [address] Dr. June Mayorga Cholesterol.total/Choles terol in HDL [Mass ratio] 3.8 {ratio} Normal [facility] Comment on above: Performed By: #### L IPID, TSH, BMP, FT3, LIVER #### [facility] [address] [place] [address] Dr. June Mayorga HDL NORMAL > or = 60 mg/dl - LO W CARDIOVASCULAR RISK <40 mg/dl - HIGH CARDIOVASCULAR RISK Normal [facility] Comment on above: Performed By: #### L IPID, TSH, BMP, FT3, LIVER #### [facility] [address] [address] [address] June Mayorga LDL CALC NORMAL SEE BELOW Normal [facility] Comment on above: Result Comment: <100 mg/dl OPTIMAL 100 - 129 mg/dl NEAR OR ABOVE OPTIMAL 130 - 159 mg/dl BORDERLINE HIGH 160 - 189 mg/dl HIGH >190 mg/dl VERY HIGH Performed By: #### L IPID, TSH, BMP, FT3, LIVER #### [facility] [address] [place] [address] Dr. June Mayorga Triglyceride [Mass/Vol] 177 mg/dL Critically high <=150 [facility] Comment on above: Performed By: #### L IPID, TSH, BMP, FT3, LIVER #### [facility] [address] [place] [address] Dr. June Mayorga VLDL CALC 35.4 mg/dL Normal [facility] Comment on above: Performed By: #### L IPID, TSH, BMP, FT3, LIVER #### [facility] [address] [place] [address] Dr. June Mayorga LIVER PROFILEon 01-05-2022 Albumin [Mass/Vol] 3.5 g/dL Normal 3.4-5.0 [facility] Comment on above: Performed By: #### C BC #### [facility] [address] [place] [address] Dr. June Mayorga Albumin/Globulin [Mass ratio] 1.1 {ratio} Normal [facility] Comment on above: Performed By: #### C BC #### [facility] [address] [place] [address] Dr. June Mayorga ALP [Catalytic activity/Vol] 71 U/L Normal 46-116 [facility] Comment on above: Performed By: #### C BC #### [facility] [address] [place] [address] Dr. June Mayorga ALT [Catalytic activity/Vol] 43 U/L Normal 14-59 [facility] Comment on above: Performed By: #### C BC #### [facility] [address] [address] [address] June Mayorga AST [Catalytic activity/Vol] 27 U/L Normal 15-37 [facility] Comment on above: Performed By: #### C BC #### [facility] [address] [place] [address] Dr. June Mayorga BILI, CONJUGATED 0.1 mg/dL Normal 0.0-0.2 [facility] Comment on above: Performed By: #### C BC #### [facility] [address] [place] [address] Dr. June Mayorga Bilirubin [Mass/Vol] 0.3 mg/dL Normal 0.2-1.0 [facility] Comment on above: Performed By: #### C BC #### [facility] [address] [place] [address] Dr. June Mayorga Globulin (S) [Mass/Vol] 3.3 g/dL Normal [facility] Comment on above: Performed By: #### C BC #### [facility] [address] [place] [address] Dr. June Mayorga Protein [Mass/Vol] 6.8 g/dL Normal 6.4-8.2 [facility] Comment on above: Performed By: #### C BC #### [facility] [address] [place] [address] Dr. June Mayorga PROF CHEM 8 (BAS METB)on Anion gap [Moles/Vol] 11.0 mmol/L Normal [facility] Comment on above: Performed By: #### L IPID, TSH, BMP, FT3, LIVER #### [facility] [address] [place] [address] Dr. June Mayorga Calcium [Mass/Vol] 8.6 mg/dL Normal 8.5-10.1 [facility] Comment on above: Performed By: #### L IPID, TSH, BMP, FT3, LIVER #### [facility] [address] [place] [address] Dr. June Mayorga Chloride [Moles/Vol] 108 mmol/L Critically high 98-107 [facility] Comment on above: Performed By: #### L IPID, TSH, BMP, FT3, LIVER #### [facility] [address] [place] [address] Dr. June Mayorga CO2 [Moles/Vol] 26.3 mmol/L Normal 21.0-32.0 [facility] Comment on above: Performed By: #### L IPID, TSH, BMP, FT3, LIVER #### [facility] [address] [place] [address] Dr. June Mayorga Creatinine [Mass/Vol] 0.90 mg/dL Normal 0.55-1.02 [facility] Comment on above: Performed By: #### L IPID, TSH, BMP, FT3, LIVER #### [facility] [address] [place] [address] Dr. June Mayorga EGFR-AF TUVALUAN >60 Normal >=60 [facility] Comment on above: Performed By: #### L IPID, TSH, BMP, FT3, LIVER #### [facility] [address] [place] [address] Dr. June Mayorga EGFR-NON AF TUVALUAN >60 Normal >=60 [facility] Comment on above: Performed By: #### L IPID, TSH, BMP, FT3, LIVER #### [facility] [address] [place] [address] Dr. June Mayorga Glucose [Mass/Vol] 97 mg/dL Normal 74-106 [facility] Comment on above: Performed By: #### L IPID, TSH, BMP, FT3, LIVER #### [facility] [address] [place] [address] Dr. June Mayorga Potassium [Moles/Vol] 4.3 mmol/L Normal 3.5-5.1 [facility] Comment on above: Performed By: #### L IPID, TSH, BMP, FT3, LIVER #### [facility] [address] [place] [address] Dr. June Mayorga Sodium [Moles/Vol] 141 mmol/L Normal 136-145 [facility] Comment on above: Performed By: #### L IPID, TSH, BMP, FT3, LIVER #### [facility] [address] [place] [address] Dr. June Mayorga Urea nitrogen [Mass/Vol] 15.0 mg/dL Normal 7.0-18.0 [facility] Comment on above: Performed By: #### L IPID, TSH, BMP, FT3, LIVER #### [facility] [address] [place] [address] Dr. June Mayorga Urea nitrogen/Creatinine [Mass ratio] 16.7 mg/mg Normal [facility] Comment on above: Performed By: #### L IPID, TSH, BMP, FT3, LIVER #### [facility] [address] [place] [address] Dr. June Mayorga TSHon 01-05-2022 TSH 0.118 uIU/mL Critically low 0.358-3.74 0 [facility] Comment on above: Performed By: #### L IPID, TSH, BMP, FT3, LIVER #### [facility] [address] [place] [address] Dr. June Mayorga VITAMIN D 25 OHon 01-05-2022 VIT D 25-OH 39.7 ng/mL Normal [facility] Comment on above: Performed By: #### C BC #### [facility] [address] [place] [address] Dr. June Mayorga VIT D RANGES SEE BELOW Normal [facility] Comment on above: Result Comment: <20 ng/mL Vit D deficient 20 - <30 ng/mL Vit D insufficient 30 - 100 ng/mL Vit D sufficient >100 ng/mL Potential Toxicity Performed By: #### C BC #### [facility] [address] [place] [address] CERVICAL SP WO [...] secondaryto patient positioning or muscle spasm. Normal [facility] CT HEAD/BRAIN WO CONon 12-07 CT HEAD/BRAIN WO CON STUDY:CT HEAD/BRAIN WO CON; 12/07/2017 7:34 pmINDICATION:PAIN.MANAN RISON:NoneACCESSION NUMBER(S):[id number] BENNY CLINICIAN:Truman KamQUE:Contigu ous axial images of [...] acute intracranial hemorrhage or mass effect Normal [facility] SHOULDER RT COMPLETE MIN 2 V [...] osseous abnormality of the right shoulder. Normal [facility] [place] Levelon 10-02-2017 [place] 0.4 mmol/L Low 0.6-1.2 [facility] CBC AND DIFFERENTIALon 09-22 % AUTOMATED IMMATURE GRAN 0.2 % Normal 0.0 - 0.9 [facility] Comment on above: Result Comment: Perc ent differential counts (%) should be interpreted in the context of the absolute cell counts (cells/L). Performed By: #### T HYDS ####[facility] [place] [address] % NEUTROPHIL 62.5 % Normal 40.0 - 80.0 [facility] Comment on above: Performed By: #### T HYDS ####[facility] [place] [address] Basophils/100 WBC Auto (Bld) 0.02 x10E9/L Normal 0.00 - 0.10 [facility] Comment on above: Performed By: #### T HYDS ####[facility] [place] [address] Basophils/100 WBC Auto (Bld) 0.2 % Normal 0.0 - 2.0 [facility] Comment on above: Performed By: #### T HYDS ####[facility] [place] [address] Eosinophils 0.08 10*3/uL Normal 0.00 - 0.70 [facility] Comment on above: Performed By: #### T HYDS ####[facility] [place] [address] Eosinophils/100 leukocytes 1.0 % Normal 0.0 - 6.0 [facility] Comment on above: Performed By: #### T HYDS ####[facility] [place] [address] Erythrocyte distribution width Auto Ratio (RBC) 12.7 % Normal 11.5 - 14.5 [facility] Comment on above: Performed By: #### T HYDS ####[facility] [place] [address] Erythrocytes (RBC) 4.15 x10E12/L Normal 4.00 - 5.20 [facility] Comment on above: Performed By: #### T HYDS ####[facility] [place] [address] Hematocrit (HCT) 39.1 % Normal 36.0 - 46.0 [facility] Comment on above: Performed By: #### T HYDS ####[facility] [place] [address] Hemoglobin mass conc (Bld) 12.7 g/dL Normal 12.0 - 16.0 [facility] Comment on above: Performed By: #### T HYDS ####[facility] [place] [address] Lymphocytes 2.33 10*3/uL Normal 1.20 - 4.80 [facility] Comment on above: Performed By: #### T HYDS ####[facility] [place] [address] Lymphocytes/100 leukocytes 28.6 % Normal 13.0 - 44.0 [facility] Comment on above: Performed By: #### T HYDS ####[facility] [place] [address] MCHC mass conc (RBC) 32.5 g/dL Normal 32.0 - 36.0 [facility] Comment on above: Performed By: #### T HYDS ####[facility] [place] [address] MCV 94 fL Normal 80 - 100 [facility] Comment on above: Performed By: #### T HYDS ####[facility] [place] [address] Monocytes 0.61 10*3/uL Normal 0.10 - 1.00 [facility] Comment on above: Performed By: #### T HYDS ####[facility] [place] [address] Monocytes/100 leukocytes 7.5 % Normal 2.0 - 10.0 [facility] Comment on above: Performed By: #### T HYDS ####[facility] [place] [address] Neutrophils 5.09 10*3/uL Normal 1.20 - 7.70 [facility] Comment on above: Performed By: #### T HYDS ####[facility] [place] [address] Nucleated erythrocytes 0.0 /100 WBC Normal 0.0-0.0 [facility] Comment on above: Performed By: #### T HYDS ####[facility] [place] [address] Platelets 293 10*3/uL Normal 150 - 450 [facility] Comment on above: Performed By: #### T HYDS ####[facility] [place] [address] WBC (Leukocytes) 8.2 10*3/uL Normal 4.4 - 11.3 [facility] Comment on above: Performed By: #### T HYDS ####[facility] [place] [address] COMPREHENSIVE PANELon 2017 Alanine aminotransferase (ALT) 12 U/L Normal 7 - 45 [facility] Comment on above: Result Comment: [place] ents treated with Sulfasalazine may generate falsely decreased results for ALT. Performed By: #### C MP ####[facility] [place] [address] Albumin 4.5 g/dL Normal 3.4 - 5.0 [facility] Comment on above: Performed By: #### C MP ####[facility] [place] [address] Alkaline phosphatase (ALP) 75 U/L Normal 33 - 110 [facility] Comment on above: Performed By: #### C MP ####[facility] [place] [address] Anion gap 12 mmol/L Normal 10 - 20 [facility] Comment on above: Performed By: #### C MP ####[facility] [place] [address] Aspartate aminotransferase (AST) 15 U/L Normal 9 - 39 [facility] Comment on above: Performed By: #### C MP ####[facility] [place] [address] Bicarbonate (HCO3) 29 mmol/L Normal 21 - 32 [facility] Comment on above: Performed By: #### C MP ####[facility] [place] [address] Bilirubin (total) 0.3 mg/dL Normal 0.0 - 1.2 [facility] Comment on above: Performed By: #### C MP ####[facility] [place] [address] Calcium 9.5 mg/dL Normal 8.6 - 10.6 [facility] Comment on above: Performed By: #### C MP ####[facility] [place] [address] Chloride 104 mmol/L Normal 98 - 107 [facility] Comment on above: Performed By: #### C MP ####[facility] [place] [address] Creatinine 0.67 mg/dL Normal 0.50 - 1.05 [facility] Comment on above: Performed By: #### C MP ####[facility] [place] [address] eGFR (non-black) mL/min/{1.73_m2} Normal >60 [facility] Comment on above: Performed By: #### C MP ####[facility] [place] [address] Result Comment: CALC ULATIONS OF ESTIMATED GFR ARE PERFORMED USING THE MDRD STUDY EQUATION FOR THE IDMS-TRACEABLE CREATININE METHODS. CLIN CHEM 2007;53:766-72 Glucose mass conc 109 mg/dL High 74 - 99 [facility] Comment on above: Performed By: #### C MP ####[facility] [place] [address] Potassium molar conc 4.2 mmol/L Normal 3.5 - 5.3 [facility] Comment on above: Performed By: #### C MP ####[facility] [place] [address] Protein 6.8 g/dL Normal 6.4 - 8.2 [facility] Comment on above: Performed By: #### C MP ####[facility] [place] [address] Sodium 141 mmol/L Normal 136 - 145 [facility] Comment on above: Performed By: #### C MP ####[facility] [place] [address] Urea nitrogen 9 mg/dL Normal 6 - 23 [facility] [place] Comment on above: Performed By: #### C MP ####[facility] [place] [address] CREATINE KINASEon 09-22-2017 Creatine kinase (CK) 50 U/L Normal 0 - 215 [facility] Comment on above: Performed By: #### C K ####[facility] [place] [address] FOLATE, SERUMon 09-22-2017 FOLATE, SERUM > 24.0 Normal >5.0 [facility] [place] Comment on above: Result Comment: [place] ents receiving more than 5 mg/day of biotin may have interference in test results. A sample should be taken no sooner than eight hours after previous dose. Contact [phone] for additional information. Performed By: #### T HYDS ####[facility] [place] [address] HEMOGLOBIN A1Con 09-22-2017 Glucose mass conc 100 mg/dL Normal [facility] Comment on above: Performed By: #### T HYDS ####[facility] [place] [address] Hemoglobin A1c/Hemoglobin.total mass fraction (Bld) 5.1 % Normal [facility] Comment on above: Result Comment: Diag nosis of Diabetes-Adults Non-Diabetic: < or = 5.6% Increased risk for developing diabetes: 5.7-6.4% Diagnostic of diabetes: > or = 6.5%. Monitoring of Diabetes Age (y) Therapeutic Goal (%) Adults: >18 <7.0 Pediatrics: 13-18 <7.5 7-12 <8.0 0- 6 7.5-8.5 [place] [employer]. Diabetes Care 33(S1), Jul 2009. Performed By: #### T HYDS ####[facility] [place] [address] LDL, DIRECTon 09-22-2017 LDL Cholesterol 84 mg/dL Normal 0 - 129 [facility] Comment on above: Result Comment: Elev ated levels of LDL cholesterol are recognized as a keyfactor in the development of atherosclerosis and CHD. Thedirect LDL cholesterol test can be used to assesscardiovascular risk and monitor therapy as a follow up toa lipid profile when triglycerides are significantly elevated. Performed By: #### L DLDI ####[facility] [place] [address] LIPID PANEL (CORONARY RISK 2 )on 09-22-2017 Cholesterol 170 mg/dL Normal 0 - 199 [facility] Comment on above: Result Comment: . AG [...] #### L IPID ####[facility] [place] [address] Cholesterol in VLDL mass conc 22 mg/dL Normal 0 - 40 [facility] Comment on above: Performed By: #### L IPID ####[facility] [place] [address] Cholesterol to HDL Ratio 2.7 {ratio} Normal [facility] Comment on above: Result Comment: REF VALUESDESIRABLE < 3.4HIGH RISK > 5.0 Performed By: #### L IPID ####[facility] [place] [address] HDL Cholesterol 63.6 mg/dL Normal [facility] Comment on above: Result Comment: . AG E VERY LOW LOW NORMAL HIGH 0-19 Y < 35 < 40 40-45 ---- 20-24 Y ---- < 40 >45 ---- >24 Y ---- < 40 40-60 >60. Performed By: #### L IPID ####[facility] [place] [address] LDL Cholesterol 84 mg/dL Normal 0 - 99 [facility] Comment on above: Result Comment: . NE JOSE ALBERTO DURAND AGE DESIRABLE OPTIMAL HIGH HIGH VERY HIGH 0-19 Y 0 - 109 --- 110-129 >/= 130 ---- 20-24 Y 0 - 119 --- 120-159 >/= 160 ---- >24 Y 0 - 99 100-129 130-159 160-189 >/=190. Performed By: #### L IPID ####[facility] [place] [address] Triglyceride 110 mg/dL Normal 0 - 149 [facility] Comment on above: Result Comment: . AG [...] #### L IPID ####[facility] [place] [address] MAGNESIUMon 09-22-2017 Magnesium 2.07 mg/dL Normal 1.60 - 2.40 [facility] Comment on above: Performed By: #### M G ####[facility] [place] [address] TRIIODOTHYRONINE,FREEon 09-01 TRIIODOTHYRONINE,FREE 3.2 pg/mL Normal 1.8 - 4.2 [facility] Comment on above: Performed By: #### T 3FRE ####[facility] [place] [address] TRIIODOTHYRONINE,FREE Canceled Normal [facility] Comment on above: Order Comment: TEST TRIIODOTHYRONINE,FREE WAS CANCELLED, 09/21/2017 22:43 DUPLICATE ORDER. Performed By: #### T 3FRE ####[facility] [place] [address] TSH WITH REFLEX TO FREE T4 I F ABNORMALon 09-22-2017 Thyroid stimulating hormone (TSH) 1.07 m[IU]/L Normal 0.44 - 3.98 [facility] Comment on above: Result Comment: TSH testing is performed using different testing methodology at [facility] than at other [facility]. Direct result comparisons should only be made within the same method.. Patients receiving more than 5 mg/day of biotin may have interference in test results. A sample should be taken no sooner than eight hours after previous dose. Contact [phone] for additional information. Performed By: #### T HYDS ####[facility] [place] [address] Thyroid stimulating hormone (TSH) Canceled Normal [facility] Comment on above: Order Comment: TEST TSH WITH REFLEX TO FREE T4 IF ABNORMAL WAS CANCELLED, 09/21/2017 22:44DUPLICATE ORDER. Result Comment: TSH testing is performed using different testing methodology at [facility] than at other [facility]. Direct result comparisons should only be made within the same method.. Patients receiving more than 5 mg/day of biotin may have interference in test results. A sample should be taken no sooner than eight hours after previous dose. Contact [phone] for additional information. Performed By: #### T HYDS ####[facility] [place] [address] UA MICROSCOPICon 09-22-2017 Erythrocytes (RBC) 38 /HPF Abnormal 0-5 [facility] Comment on above: Performed By: #### T HYDS ####[facility] [place] [address] SQUAMOUS EPITH. CELLS <1 Normal [facility] Comment on above: Performed By: #### T HYDS ####[facility] [place] [address] Urine, mucus presence in sediment 1+ /LPF Normal [facility] Comment on above: Performed By: #### T HYDS ####[facility] [place] [address] WBC (Leukocytes) 3 /HPF Normal 0-5 [facility] Comment on above: Performed By: #### T HYDS ####[facility] [place] [address] URINALYSISon 09-22-2017 Bilirubin (total) Negative Normal NEGATIVE [facility] Comment on above: Performed By: #### T HYDS ####[facility] [place] [address] BLOOD LARGE (3+) Abnormal NEGATIVE [facility] Comment on above: Performed By: #### T HYDS ####[facility] [place] [address] Glucose mass conc Negative Normal NEGATIVE [facility] Comment on above: Performed By: #### T HYDS ####[facility] [place] [address] pH of blood 6.0 [pH] Normal 5.0 - 8.0 [facility] Comment on above: Performed By: #### T HYDS ####[facility] [place] [address] Protein Negative Normal NEGATIVE [facility] Comment on above: Performed By: #### T HYDS ####[facility] [place] [address] Urine, appearance CLEAR Normal CLEAR [facility] Comment on above: Performed By: #### T HYDS ####[facility] [place] [address] Urine, color STRAW Normal STRAW,YELL OW [facility] Comment on above: Performed By: #### T HYDS ####[facility] [place] [address] Urine, ketones presence Negative Normal NEGATIVE [facility] Comment on above: Performed By: #### T HYDS ####[facility] [place] [address] Urine, leukocyte esterase presence TRACE Abnormal NEGATIVE [facility] Comment on above: Performed By: #### T HYDS ####[facility] [place] [address] Urine, nitrite presence Negative Normal NEGATIVE [facility] Comment on above: Performed By: #### T HYDS ####[facility] [place] [address] Urine, specific gravity 1.009 Normal 1.00 5 - 1.035 [facility] Comment on above: Performed By: #### T HYDS ####[facility] [place] [address] Urine, urobilinogen <2.0 Normal 0.0 - 1.9 [facility] Comment on above: Performed By: #### T HYDS ####[facility] [place] [address] VITAMIN B12on 09-22-2017 Cobalamins (Vitamin B12) 996 pg/mL High 211 - 911 [facility] Comment on above: Performed By: #### V TB12 ####[facility] [place] [address] VITAMIN D, 25-HYDROXYon 09-01 VITAMIN D, 25-HYDROXY 18 ng/mL Abnormal [facility] Comment on above: Result Comment: .DEF ICIENCY: < 20 NG/MLINSUFFICIENCY: 20-29 NG/MLOPTIMUM LEVEL: 30-80 NG/MLPOSSIBLE TOXICITY: > 80 NG/MLTHIS ASSAY ACCURATELY QUANTIFIES THE SUM OFVITAMIN D3, 25-HYDROXY AND VIT D2,25-HYDROXY. Performed By: #### T HYDS ####[facility] [place] [address] Calprotectin, Fecalon 2017 Protein mass conc g/dL Normal <=50 [facility] Comment on above: Result Comment: INTE RPRETIVE INFORMATION: Calprotectin, Fecal 50 ug/g or less: Normal 51-120 ug/g: Borderline elevated, test should be re-evaluated in 4-6 weeks. 121 ug/g or greater: AbnormalPerformed by [facility],[address] [place] [id number] [employer] Edwin Owen MD - Lab. Director Clostridium difficile Amplif icationon 07-26-2017 Clostridium difficile Amplification ORDERED BY: MAKAYLA SOLANO: Stool COLLECTED: 07/26/17 17:03ANTIBIOTICS AT NATE.: RECEIVED : 07/26/17 17:03Clostridium difficile Amplification FINAL 07/27/17 12:31 Negative for Clostridia Difficile A/B Normal Range: Negative Normal [facility] Lipaseon 07-26-2017 Lipase enzyme act/vol 20 U/L Normal 13-60 [facility] OP Screen (Giardia/Cryptospo ridium)on 07-26-2017 OP Screen (Giardia/Cryptosporidium ) ORDERED BY: MAKAYLA SOLANO: Stool COLLECTED: 07/26/17 10:15ANTIBIOTICS AT NATE.: RECEIVED : 07/27/17 06:39Cryptosporidium Antigen EIA FINAL 07/27/17 13:23 Negative Normal Range: NegativeGiardia lamblia Antigen EIA FINAL 07/27/17 13:23 Negative Normal Range: Negative Normal [facility] XR ABDOMEN LIMITED (KUB)on 0 07-26-2017 XR [...] by:LC Sandhuigned by:Leighann Rose MD07/26/17inal result Normal [facility] CBC With Platelet and Differ entialon 07-25-2017 Basophils Auto #/vol (Bld) 0.0 10*3/uL Normal 0.0-0.2 [facility] Basophils/100 WBC Auto (Bld) 0.4 % Normal [facility] Eosinophils Auto #/vol (Bld) 0.0 10*3/uL Normal 0.0-0.7 [facility] Eosinophils/100 WBC Auto (Bld) 0.4 % Normal [facility] Erythrocyte distribution width Auto Ratio (RBC) 12.2 % Normal 11.5-14.5 [facility] Hematocrit Auto Volume Fraction (Bld) 39.2 % Normal 37.0-47.0 [facility] Hemoglobin mass conc (Bld) 13.3 g/dL Normal 12.0-16.0 [facility] Lymphocytes Auto #/vol (Bld) 1.8 10*3/uL Normal 1.0-4.8 [facility] Lymphocytes/100 WBC Auto (Bld) 29.7 % Normal [facility] MCH Auto Entitic mass (RBC) 31.5 pg Critically high 27.0-31.3 [facility] MCHC Auto mass conc (RBC) 34.0 % Normal 33.0-37.0 [facility] MCV Auto Entitic volume (RBC) 92.6 fL Normal 82.0-100.0 [facility] Monocytes Auto #/vol (Bld) 0.5 10*3/uL Normal 0.2-0.8 [facility] Monocytes/100 WBC Auto (Bld) 7.8 % Normal [facility] Neutrophils Auto #/vol (Bld) 3.8 10*3/uL Normal 1.4-6.5 [facility] Neutrophils/100 WBC Auto (Bld) 61.7 % Normal [facility] Platelets Auto #/vol (Bld) 243 10*3/uL Normal 130-400 [facility] RBC Auto #/vol (Bld) 4.23 10*6/uL Normal 4.20-5.40 [facility] WBC Auto #/vol (Bld) 6.1 10*3/uL Normal 4.8-10.8 [facility] Comprehensive Metabolic Pane rosalinda 07-25-2017 Albumin mass conc 4.6 g/dL Normal 3.9-4.9 [facility] ALP enzyme act/vol 67 U/L Normal 40-130 [facility] ALT enzyme act/vol 14 U/L Normal 0-33 [facility] Anion gap 3 molar conc 16 mmol/L Critically high 7-13 [facility] AST enzyme act/vol 18 U/L Normal 0-35 [facility] Bilirubin mass conc 0.3 mg/dL Normal 0.0-1.2 [facility] Calcium mass conc 9.2 mg/dL Normal 8.6-10.2 [facility] Chloride molar conc 105 mmol/L Normal 98-107 [facility] CO2 molar conc 21 mmol/L Low 22-29 [facility] Creatinine mass conc 0.58 mg/dL Normal 0.50-0.90 [facility] GFR/1.73 sq M predicted among blacks MDRD vol rate/area (S/P/Bld) mL/min/{1.73_m2} Normal >60 [facility] Comment on above: Result Comment: >60 mL/min/1.73m2 EGFR, calc. for ages 18 and older using theMDRD formula (not corrected for weight), is valid for stablerenal function. GFR/1.73 sq M.predicted MDRD vol rate/area mL/min/{1.73_m2} Normal >60 [facility] Comment on above: Result Comment: >60 mL/min/1.73m2 EGFR, calc. for ages 18 and older using theMDRD formula (not corrected for weight), is valid for stablerenal function. Globulin Calculated mass conc (S) 2.2 g/dL Low 2.3-3.5 [facility] Glucose mass conc 80 mg/dL Normal 74-109 [facility] Potassium molar conc 4.3 mmol/L Normal 3.5-5.1 [facility] Protein mass conc 6.8 g/dL Normal 6.4-8.1 [facility] Sodium molar conc 142 mmol/L Normal 132-144 [facility] Urea nitrogen mass conc 9 mg/dL Normal 6-20 [facility] [place] TSH w/out Reflexon 8 Thyrotropin Qn 0.830 uIU/mL Normal 0.270-4.20 [facility] VITAMIN Don 07-25-2017 VITAMIN D 32.4 ng/mL Normal 30.0-100.0 [facility] Comment on above: Result Comment: (30- 100 ng/mL) Optimum LevelThis assay accurately quantifies the sum of vitamin D3, 25-Hydroxy andvitamin D2, 25-Hyroxy. Vital Signs Date Time Vital Sign Value Performing Clinician Facility 04-30-2024 14:04-0400 Body height 162.6 cm Sridhar Lo MD Work Phone: [facility] 04-30-2024 14:04-0400 Body mass index (BMI) [Ratio] 24.2 kg/m2 Sridhar Lo MD Work Phone: [facility] 04-30-2024 14:04-0400 Body temperature 97.5 [degF] Sridhar Lo MD Work Phone: [facility] 04-30-2024 14:04-0400 Body weight 63.96 kg Sridhar Lo MD Work Phone: [facility] 04-30-2024 14:04-0400 Diastolic blood pressure 70 mm[Hg] Sridhar Lo MD Work Phone: [facility] 04-30-2024 14:04-0400 Heart rate 93 /min Sridhar Lo MD Work Phone: [facility] 04-30-2024 14:04-0400 Respiratory rate 22 /min Sridhar Lo MD Work Phone: [facility] 04-30-2024 14:04-0400 SaO2% (BldA) [Mass fraction] 97 % Sridhar Lo MD Work Phone: [facility] 04-30-2024 14:04-0400 Systolic blood pressure 124 mm[Hg] Sridhar Lo MD Work Phone: [facility] 03-20-2024 10:11-0400 Body height 162.6 cm Sridhar Lo MD Work Phone: [facility] 03-20-2024 10:11-0400 Body mass index (BMI) [Ratio] 23.69 kg/m2 Sridhar Lo MD Work Phone: [facility] 03-20-2024 10:11-0400 Body temperature 97.5 [degF] Sridhar Lo MD Work Phone: [facility] 03-20-2024 10:11-0400 Body weight 62.6 kg Sridhar Lo MD Work Phone: [facility] 03-20-2024 10:11-0400 Diastolic blood pressure 66 mm[Hg] Sridhar Lo MD Work Phone: [facility] 03-20-2024 10:11-0400 Heart rate 102 /min Sridhar Lo MD Work Phone: [facility] 03-20-2024 10:11-0400 Respiratory rate 20 /min Sridhar Lo MD Work Phone: [facility] 03-20-2024 10:11-0400 SaO2% (BldA) [Mass fraction] 98 % Sridhar Lo MD Work Phone: [facility] 03-20-2024 10:11-0400 Systolic blood pressure 128 mm[Hg] Sridhar Lo MD Work Phone: [facility] 04-05-2022 11:30-0400 Body height 162.56 cm Kenisha Molina Other [employer] Other 04-05-2022 11:30-0400 Body mass index (BMI) [Ratio] 27.46 kg/m2 Kenisha Molina Other [employer] Other 04-05-2022 11:30-0400 Body temperature 99.2 [degF] Kenisha Molina Other [employer] Other 04-05-2022 11:30-0400 Body weight 72.58 kg Kenisha Molina Other [employer] Other 04-05-2022 11:30-0400 Respiratory rate 18 /min Kenisha Molina Other [employer] Other 04-05-2022 11:30-0400 SaO2% (BldA) [Mass fraction] 97 % Kenisha Molina Other [employer] Other Encounters Encounter Date Encounter Type Care Provider Facility Start: 07-11-2024 ambulatory [place] acility:[facility] Start: 05-01-2024 End: 05-01-2024 Orders Only Sridhar [...] Facility:H1 Start: 04-11-[address] SRIDHAR LO [facility] ity:H1 Start: 04-05-2022 End: 04-05-2022 ambulatory Kenisha Molina Other [employer] Other Start: 04-05-2022 Office outpatient vi sit 15 minutes Kenisha Molina [facility] Start: 01-05-2022 [...] 12-19-2017 End: 12-20-2017 Patient encounter [facility] Start: 12-07-2017 End: 12-07-2017 Emergency department patient visit [facility] Facility:[facility] Start: 12-07-2017 Ambulatory Facility:[id number] Start: 12-06-2017 End: 12-07-2017 Patient encounter [facility] Start: 11-21-2017 End: 11-22-2017 Patient encounter SRIDHAR [facility] Start: 11-14-2017 End: 11-15-2017 Patient encounter SRIDHAR LO [facility] Start: 10-31-2017 End: 11-01-2017 [facility] Start: 10-24-2017 End: 10-25-2017 [facility] Start: 10-17-2017 End: 10-18-2017 Patient encounter SRIDHAR [facility] Start: 10-12-2017 End: 10-13-2017 [facility] Start: 10-11-2017 End: 10-12-2017 Patient encounter [facility] Start: 10-10-2017 End: 10-11-2017 Patient encounter SRIDHAR [facility] Start: 10-05-2017 End: 10-06-2017 Patient encounter SRIDHAR [facility] Start: 10-04-2017 End: 10-05-2017 Patient encounter SRIDHAR [facility] Start: 10-03-2017 End: 10-04-2017 Patient encounter SRIDHAR Estr[facility] Start: 10-02-2017 End: 10-03-2017 Patient encounter SRIDHAR Estrada [facility] Start: 09-28-2017 End: 09-29-2017 Patient encounter SRIDHAR Estr[facility] Start: 09-27-2017 End: 09-28-2017 Patient encounter SRIDHAR Estrada [facility] Start: 09-26-2017 End: 09-27-2017 Patient encounter SRIDHAR [facility] Start: 09-25-2017 End: 09-26-2017 Patient encounter SRIDHAR [facility] Start: 09-21-2017 End: 09-22-2017 Patient encounter SRIDHAR [facility] Start: 09-20-2017 End: 09-21-2017 [facility] Start: 09-19-2017 End: 09-20-2017 Patient encounter SRIDHAR [facility] Start: 09-18-2017 End: 09-19-2017 [facility] Start: 09-14-2017 End: 09-15-2017 Patient encounter SRIDHAR [facility] Start: 09-13-2017 End: 09-14-2017 Patient encounter SRIDHAR [facility] Start: 09-12-2017 End: 09-13-2017 Patient encounter SRIDHAR [facility] Start: 09-07-2017 End: 09-08-2017 Patient encounter SRIDHAR [facility] Start: 09-06-2017 End: 09-07-2017 Patient encounter SRIDHAR [facility] Start: 09-05-2017 End: 09-06-2017 Patient encounter SRIDHAR [facility] Start: 09-04-2017 End: 09-05-2017 Patient encounter SRIDHAR [facility] Start: 08-31-2017 End: 09-01-2017 Patient encounter SRIDHAR [facility] Start: 08-30-2017 End: 08-31-2017 Patient encounter SRIDHAR [facility] Start: 08-29-2017 End: 08-30-2017 [facility] Start: 08-28-2017 End: 08-29-2017 Patient encounter SRIDHAR [facility] Start: 08-24-2017 End: 08-25-2017 Patient encounter SRIDHAR [facility] Start: 08-23-2017 End: 08-24-2017 [facility] Start: 08-22-2017 End: 08-23-2017 [facility] Start: 08-21-2017 End: 08-22-2017 [facility] Start: 08-17-2017 End: 08-18-2017 [facility] Start: 08-16-2017 End: 08-17-2017 [facility] Start: 08-15-2017 End: 08-16-2017 [facility] Start: 08-14-2017 End: 08-15-2017 [facility] Start: 08-10-2017 Patient encounter procedure Domenic Green [facility] Work Phone: Start: 08-10-2017 End: 08-11-2017 Patient encounter SRIDHAR [facility] Start: 08-09-2017 End: 08-10-2017 [facility] Start: 08-08-2017 End: 08-09-2017 Patient encounter SRIDHAR [facility] Start: 08-07-2017 End: 08-08-2017 Patient encounter SRIDHAR [facility]str[facility] Start: 08-03-2017 End: 08-04-2017 [facility] Start: 08-02-2017 End: 08-03-2017 [facility] Start: 07-31-2017 End: 08-01-2017 Patient encounter SRIDHAR LO [facility] Start: 07-25-2017 End: 07-28-2017 Evaluation and management of inpatient KEN MAURO [facility] Procedures Date Procedure Procedure Detail Performing Clinician Start: 12-27-2023 Mammography Sridhar gayle MD Work Phone: Start: 11-08-2023 Mammography Sridhar gayle MD Work Phone: Start: 10-04-2021 Colonoscopy Sridhar gayle MD Work Phone: Start: 10-17-2017 DISCHARGE PATIENT ALESSANDRO MAURO Start: 07-28-2017 INTENSIVE OUTPATIENT - I KEN TIPTONAVANAN Start: 07-28-2017 DISCHARGE PATIENT ALESSANDOR MAURO Start: 07-27-2017 CALPROTECTIN STOOL DARLIN JI [...] Screening for malign ant neoplasm of colon [facility] Start: 12-26-2024 Screening for malign ant neoplasm of breast Mammogram [facility] Start: 11-07-2024 Screening for malign ant neoplasm of breast Mammogram [facility] Start: 09-18-2024 End: 09-18-2024 Patient encounter procedure 09/18/2024 8:15 AM EDT Office Visit [facility] [address] [place] [phone] Sridhar Lo MD [address] [place] [phone] [facility] Start: 07-22-2024 End: 07-22-2024 Patient encounter procedure 07/22/2024 8:30 AM EST Office Visit [facility] [address] [place] [phone] Shahida Pretty, DO [address] [place] [address] [facility] Start: 04-30-2024 End: 04-30-2024 Patient encounter procedure 04/30/2024 2:00 PM EDT Office Visit [facility] [address] [place] [phone] Sridhar Lo MD [address] [place] [phone] Arrived [facility] Comment on above: Arrived Start: 03-20-2024 End: 03-20-2025 Basic metabolic 1998 panel - Serum or Plasma Basic metabolic panel Lab Routine Annual physical exam Expected: 03/20/2024 (Approximate), Expires: 03/20/2025 [facility] Comment on above: Expected: 03/20/2024 (Approximate), Expires: 03/20/2025 Start: 03-20-2024 End: 03-20-2025 CBC W Auto Differential panel - Blood CBC and differential Lab Routine Annual physical exam Expected: 03/20/2024 (Approximate), Expires: 03/20/2025 [facility] Comment on above: Expected: 03/20/2024 (Approximate), Expires: 03/20/2025 Start: 03-20-2024 End: 03-20-2025 Hemoglobin A1c/Hemoglobin.total in Blood Hemoglobin A1c Lab Routine Annual physical exam Expected: 03/20/2024 (Approximate), Expires: 03/20/2025 [facility] Work Phone: Comment on above: Expected: 03/20/2024 (Approximate), Expires: 03/20/2025 Start: 03-20-2024 End: 03-20-2025 Hepatic function 2000 panel - Serum or Plasma Hepatic function panel Lab Routine Annual physical exam Expected: 03/20/2024 (Approximate), Expires: 03/20/2025 [facility] Comment on above: Expected: 03/20/2024 (Approximate), Expires: 03/20/2025 Start: 03-20-2024 End: 03-20-2025 Lipid 1996 panel - Serum or Plasma Lipid panel Lab Routine Annual physical exam Expected: 03/20/2024 (Approximate), Expires: 03/20/2025 [facility] Comment on above: Expected: 03/20/2024 (Approximate), Expires: 03/20/2025 Start: 03-20-2024 End: 03-20-2025 Thyrotropin [Units/volume] in Serum or Plasma TSH Lab Routine Annual physical exam Expected: 03/20/2024 (Approximate), Expires: 03/20/2025 [facility] Comment on above: Expected: 03/20/2024 (Approximate), Expires: 03/20/2025 Start: 03-20-2024 End: 03-20-2025 Thyroxine (T4) free [Mass/volume] in Serum or Plasma T4, free Lab Routine Adult hypothyroidism (CMS/HCC) Expected: 03/20/2024 (Approximate), Expires: 03/20/2025 [facility] Comment on above: Expected: 03/20/2024 (Approximate), Expires: 03/20/2025 Start: 03-20-2024 End: 03-20-2025 Triiodothyronine (T3) Free [Mass/volume] in Serum or Plasma T3, free Lab Routine Adult hypothyroidism (CMS/HCC) Expected: 03/20/2024 (Approximate), Expires: 03/20/2025 [facility] Comment on above: Expected: 03/20/2024 (Approximate), Expires: 03/20/2025 Start: 03-03-2024 Influenza vaccination Influenza Vacc ine (#1) [facility] Start: 09-24-2003 Screening for malign ant neoplasm of cervix [facility] Start: 1994 Screening for malign ant neoplasm of cervix Pap Smear [facility] Start: 1973 Screening for malign ant neoplasm of colon [facility] Immunizations Immunization Date Immunization Notes Care Provider Jeannette suazo 06-06-2017 tetanus toxoid, reduced diphtheria toxoid, and acellular pertussis vaccine, adsorbed Kenisha Tracy Other [employer] Other Payers Date Payer Category Payer Self-pay 2022 [facility] er [id number] 2022 Unknown BCBS BCBS [id number] [id number] 2022-Present [phone] [address] [place] [address] [id number] 1973 Unknown [id number]. 593 1973 Unknown [id number]. 593 1973 Unknown [id number] [id number]. 593 1973 Unknown [id number] [id number]. 593 1973 Unknown [id number] [id number]. 593 1973 Unknown [id number] [id number]. 593 1973 Unknown [id number] [id number]. 1259 1973 Unknown [id number] [id number]. 1259 1973 Unknown [id number] [id number]. 1259 1973 Unknown [id number] [id number]. 1259 1959 Blue Cross Blue Shield [id number] 1959 Unknown [id number] Unknown [id number] 531 Social History Date Type Detail Facility Start: 09-26-2023 End: 03-20-2024 Sex Assigned At [facility] Start: 06-21-2023 Tobacco smoking stat [facility] Never smoked tobacco [facility] Start: 06-21-2023 [...] to any clubs or organizations such as jew groups, unions, fraternal or athletic groups, or [...] [facility] NEGATED: Highlighted row - - [facility] Work Phone: Functional Status Date Assessment Result Facility NEGATED: Highlighted row Functional performance Functional status health issues are not documented Disease [facility] Work Phone: Mental Status Date Assessment Result Facility NEGATED: Highlighted row Cognitive function [Interpretation] Cognitive status health issues are not documented Disease [facility] Work Phone: History of [...] labs. Colonoscopy normal in 2021. Follows with identity management consultant for mammogram. Review of Systems Respiratory: Negative [...] Lipid panel TSH documented in this encounter [facility] Evaluation note 04-05-2022 Note Date & [...] no improvement in 2 to 3 days. [employer] Other Evaluation note Note Date & Type [...] non-recurrent pansinusitis- Primary documented in this encounter [facility] Evaluation note Note Date & Type [...] Surgical History colonoscopy Hospitalization History see above [employer] Other Summary Purpose Family History No Family [...] section and content) DATE CREATED AUTHOR 12/19/2017 [facility] DATE CREATED AUTHOR AUTHOR'S ORGANIZ ATION 12/21/2017 [facility] DATE CREATED AUTHOR AUTHOR'S ORGANIZ ATION 01/23/2018 [facility] DATE CREATED AUTHOR AUTHOR'S ORGANIZ ATION 02/01/2018 [facility] DATE CREATED AUTHOR AUTHOR'S ORGANIZ ATION 11/02/2022 [facility] DATE CREATED AUTHOR AUTHOR'S ORGANIZ ATION 05/02/2024 [facility] EPIC DATE CREATED AUTHOR AUTHOR'S ORGANIZ ATION 07/18/2024 [facility] REASON FOR VISIT (unrecogniz ed section and content) Reason Comments Sore Throat Earache Bilateral ear pain Reason Comments Annual Exam wellness Care Teams (unrecognized sec tion and content) Edi Programmer Relationship Specialty Start Date End Date Sridhar Lo MD [address] [place] [phone] PCP - General Family Medicine 09/26/23 Edi Programmer Relationship Specialty Start Date End Date Sridhar Lo MD [address] [place] [phone] PCP - General Family Medicine 09/26/23 Edi Programmer Relationship Specialty Start Date End Date Sridhar Lo MD [address] [place] [phone] PCP - General Family Medicine 09/26/23 Edi Programmer Relationship Specialty Start Date End Date Sridhar Lo MD [address] [place] [phone] PCP - General [facility] 09/26/23 Edi Programmer Relationship Specialty Start Date End Date Sridhar Lo MD [address] [place] [phone] PCP - General Family [facility] 09/26/23 FOR RECORDS PERTAINING TO PATIENTS WHO [...] BE BASED ON THE PRIMARY CLINICAL RECORDS. [facility] [employer] [facility]. provides no warranty or guarantee of the accuracy or completeness of information in this document.
[2024-07-25 18:18] LABS: Influenza Virus A Antigen Negative; Influenza Virus B Antigen Negative; Internal Control Within Normal Limits; SARS-CoV-2 Ag NEGATIVE (NEGATIVE)
--- NOTE | 2024-07-25 18:52 | XR_ITS ---
The [address] [address] Patient Name: MELBA BERRY MRN: [id number] date: 1975 Sex: F Assigned Patient Location: ER Current Patient Location: ER Accession/Order Number: [id number] Exam Date: 07/25/2024 19:10 Report Date: 07/25/2024 20:33 At the request of: RAMONE COUGHLIN Procedure: XR chest 2V EXAMINATION: XR chest 2V HISTORY: cough COMPARISON: XR chest 07/19/2017 FINDINGS: LUNGS: Slight coarsening of the interstitial markings bilaterally suggestive of chronic interstitial changes. No focal opacities or convincing infiltrates. VASCULATURE: No increased pulmonary vasculature. PLEURA: No pneumothorax, effusion, or pleural thickening. CARDIAC: No cardiomegaly or cardiac silhouette abnormality. MEDIASTINUM: No visible mass or adenopathy. BONES: No fracture or visible bone lesion. OTHER: Negative. XR/XR chest 2V IMPRESSION: 1. No acute cardiopulmonary process. Electronically authenticated by: JESSICA PARRA Date: 07/25/2024 20:33
--- NOTE | 2024-07-25 18:53 | ED.URI1 ---
HPI - URI/Sore Throat General Chief Complaint: Upper Respiratory Infection Stated Complaint: BODY ACHES, EXPOSURE FLU A Time Seen by Provider: 07/25/24 18:44 Source: patient Limitations: no limitations History of Present Illness HPI Narrative: 48 year old female presents to the ED for cough, congestion, body aches, fatigue. Onset was 07/21/24. Reports her daughter had influenza A 1.5 weeks ago. Denies fever, emesis. Reports nausea, diarrhea. Denies SOB. States she has a long list of medication allergies, but cannot recall what they are; she does not have a list with her. An allergy list was obtained from pharmacy. Related Data Home Medications ?Medication ?Instructions ?Recorded ?Confirmed cholecalciferol (vitamin D3) 1,250 1,250 mcg PO .weekly 07/25/24 07/25/24 mcg (50,000 unit) capsule clonazepam 0.5 mg tablet 0.5 mg PO Q8H 07/25/24 07/25/24 doxycycline hyclate 100 mg tablet mg 07/25/24 famotidine 20 mg tablet 20 mg PO Q12H 07/25/24 07/25/24 levothyroxine 88 mcg tablet 88 mcg PO DAILY 07/25/24 07/25/24 nortriptyline 25 mg capsule 25 mg PO DAILY 07/25/24 07/25/24 sertraline 25 mg tablet 25 mg PO Q24H 07/25/24 07/25/24 Previous Rx's ?Medication ?Instructions ?Recorded benzonatate 100 mg capsule 100 mg PO TID PRN cough #20 caps 07/25/24 prednisone 20 mg tablet 40 mg (2 x 20 mg) PO DAILY 5 days 07/25/24 #10 tabs tizanidine 4 mg capsule (Zanaflex) 4 mg PO Q8H PRN pain, muscle 07/25/24 spasms #12 caps Allergies Allergy/AdvReac Type Severity Reaction Status Date / Time prednisone Allergy Severe Unknown Verified 07/25/24 19:05 prochlorperazine Allergy Severe Unknown Verified 07/25/24 19:04 promethazine Allergy Severe Unknown Verified 07/25/24 19:04 sulfamethoxazole (From Allergy Severe Unknown Verified 07/25/24 19:04 Sulfamethoxazole-Trimethoprim) trimethoprim (From Allergy Severe Unknown Verified 07/25/24 19:04 Sulfamethoxazole-Trimethoprim) vortioxetine Allergy Severe Unknown Verified 07/25/24 19:04 cefdinir AdvReac Severe Unknown Verified 07/25/24 19:05 cefuroxime AdvReac Severe Unknown Verified 07/25/24 19:04 ciprofloxacin AdvReac Severe Unknown Verified 07/25/24 19:04 risperidone (From Risperdal) AdvReac Severe Unknown Verified 07/25/24 19:04 Review of Systems ROS Constitutional Reports: chills and fatigue; Denies: fever Ears, nose, mouth, and throat Reports: nasal discharge and nasal congestion; Denies: throat pain, neck pain, ear pain or ear discharge Cardiovascular Denies: chest pain Respiratory Reports: cough; Denies: shortness of breath Gastrointestinal Reports: nausea and diarrhea; Denies: abdominal pain or vomiting Musculoskeletal Reports: muscle cramps Integumentary/Breast Denies: rash Neurological Denies: headache, numbness in extremities, weakness in extremities or dizziness PFSH PFSH Social History Little interest or pleasure in doing things: not at all Feeling down, depressed, or hopeless: not at all Exam Constitutional Vital Signs, click to edit/add: Last Vital Signs Temp 99.7 F 07/25/24 17:45 Pulse 100 H 07/25/24 17:45 Resp 20 07/25/24 17:45 BP 113/83 07/25/24 17:45 Pulse Ox 97 07/25/24 17:45 O2 Del Method Room Air 07/25/24 17:45 Common normals: no apparent distress and oriented x3 General appearance: cooperative HENOK Common normals: moist oral mucous membranes Nose: external nose normal External ear: external ears normal Mouth: oral and palatal mucosa normal, lip normal and tongue normal Throat: posterior oropharynx normal and uvula midline Eye Common normals: conjunctivae normal and no scleral icterus Neck & C-Spine Common normals: supple Chest Chest: symmetrical chest wall rise Respiratory Common normals: normal respiratory effort and clear to auscultation bilaterally Effort & inspection: able to speak in complete sentences and symmetric chest movement Cardio Common normals: regular rate and regular rhythm GI Common normals: soft to palpation and non-tender Neuro Common normals: oriented x3, CN's II-XII intact bilaterally and moves all extremities Sensorium/orientation: awake and alert Speech: speech normal Course Vital Signs Vital signs: Vital Signs Temperature 99.7 F 07/25/24 17:45 Pulse Rate 100 H 07/25/24 17:45 Respiratory Rate 20 07/25/24 17:45 Blood Pressure 113/83 07/25/24 17:45 Pulse Oximetry 97 07/25/24 17:45 Oxygen Delivery Method Room Air 07/25/24 17:45 Temperature 99.7 F 07/25/24 17:45 Pulse Rate 100 H 07/25/24 17:45 Respiratory Rate 20 07/25/24 17:45 Blood Pressure 113/83 07/25/24 17:45 Pulse Oximetry 97 07/25/24 17:45 Oxygen Delivery Method Room Air 07/25/24 17:45 MDM - URI/Sore Throat MDM Narrative Medical decision making narrative: Covid-19 and influenza were negative. Chest x-ray was negative for acute findings. Findings were discussed. She reported improvement in her sx here. She was given prednisone, Tessalon perles, Zanaflex, Tylenol, and Toradol. Prescriptions were provided for Tessalon perles, prednisone, and Zanaflex. Follow up with pcp for a recheck, further evaluation and treatment. She reported prednisone can increase her anxiety which is why she has it listed as an allergy. She recently completed a Medrol Dosepak without issue. Differential Diagnosis Differential diagnosis: Likely upper respiratory infection, viral infection, influenza and other (Covid-19, pnuemonia) Medical Records Attestation: I reviewed the patient's medical records. Lab Data Attestation: I reviewed the patient's lab results. Labs: Lab Results 07/25/24 Range/Units 17:55 Influenza Type A Ag Negative Influenza Type B Ag Negative SARS-CoV-2 Ag (CV2AG) Negative (NEGATIVE) Imaging Data Chest x-ray: Attestation: I have reviewed the pertinent imaging results. Radiologist's impression: ITS Impressions Chest X-Ray 07/25/24 18:52 IMPRESSION: 1. No acute cardiopulmonary process. Electronically authenticated by: JESSICA PARRA Date: 07/25/2024 20:33 Discharge Plan Discharge Chief Complaint: Upper Respiratory Infection Clinical Impression: Upper respiratory infection Patient Disposition: Home, Self-Care Time of Disposition Decision: 20:49 Condition: Good Mode of Transportation: Private Vehicle Prescriptions / Home Meds: New tizanidine [Zanaflex] 4 mg capsule 4 mg PO Q8H PRN (Reason: pain, muscle spasms) Qty: 12 0RF benzonatate 100 mg capsule 100 mg PO TID PRN (Reason: cough) Qty: 20 0RF prednisone 20 mg tablet 40 mg PO DAILY 5 Days Qty: 10 0RF No Action clonazepam 0.5 mg tablet 0.5 mg PO Q8H cholecalciferol (vitamin D3) 1,250 mcg (50,000 unit) capsule 1,250 mcg PO .weekly famotidine 20 mg tablet 20 mg PO Q12H doxycycline hyclate 100 mg tablet levothyroxine 88 mcg tablet 88 mcg PO DAILY nortriptyline 25 mg capsule 25 mg PO DAILY Rx Instructions: HS sertraline 25 mg tablet 25 mg PO Q24H Rx Instructions: HS Print Language: Estonian Instructions: Upper Respiratory Infection (ED) Additional Instructions: Return to the ER for worsening symptoms. Referrals: Sridhar Navarro MD [Primary Care Provider] - 1 week
[2024-07-25] MEDS: BENZONATATE 100 MG CAPSULE 200 MG PO (19:17)
[2024-07-25] MEDS: PREDNISONE 20 MG TABLET 40 MG PO (19:17)
[2024-07-25] MEDS: TIZANIDINE HCL 4 MG TABLET PO (20:05)
[2024-07-25] MEDS: KETOROLAC TROMETHAMINE 30 MG/ML VIAL IM (20:05)
[2024-07-25 21:03] VITALS: BP 114/76; PULSE 89; O2SAT 93
== END 2024-07-25 21:05 | disposition home or self-care (01) ==
PROVIDERS: Emergency Provider Emergency Medicine; PCP Family Medicine
DX: J06.9 Acute upper respiratory infection, unspecified (principal)
CPT/HCPCS: 71046; 87804; 87811; 96372; 99285; J1885; J7512

== ENCOUNTER 2025-05-07 10:46 | Outpatient (OUT) | payer BC, SELFPAY ==
--- OUTSIDE RECORDS SUMMARY | 2025-05-07 03:20 | XMS_ITS | Continuity of Care Document ---
Author Organization [facility] Address [address] [place] [address] Phone Care Team Providers Care Branch Employment Coordinator Name Role Phone Sridhar Navarro MD Primary Care Provider All Starks MD Attending Provider Sridhar Navarro MD Attending Provider Care Teams Patient Care Team Team Status: Active Member Role/Relationship Status Dates Sridhar Navarro MD Primary Care Provider Active Visit Care Team Team Status: Active Member Role/Relationship Status Dates Sridhar Navarro MD Primary Care Provider Active S tart: April 25, 2025 Javy Petty ProviderActiveStart: April 25, 2025 Patient Care Team Team Status: Inactive Member Role/Relationship Status Dates Sridhar Navarro MD Primary Care Provider Active S tart: May 07, 2025 End: May 07, 2025[facility] Javy Navarro ProviderActiveStart: May 07, 2025 End: May 07, 2025 Chief Complaint and Reason for Visit Chief Complaint Admit Date April 25, 2025 1 1:51am Med Refills May 07, 2025 7 :39am Reason for Visit Admit Date Annual physical exam May 07, 2025 7:39am Allergies, Adverse Reactions, Alerts Allergen Type Severity Reaction Last Updated Verified Status cefdinir Allergy Unknown mood changes May 7:47am Yes Active ciprofloxacin Allergy Unknown hives May 7:47am Yes Active prochlorperazine Allergy Unknown dizziness May 07, 2025 7:47am Yes Active promethazine Allergy Unknown nausea May 7:47am Yes Active risperidone Allergy Unknown lactate May 07, 2025 7:47am Yes Active sulfamethoxazole Allergy Unknown dizziness May 07, 2025 7:47am Yes Active triamcinolone Allergy Unknown anxiety May 7:47am Yes Active trimethoprim Allergy Unknown dizziness May 7:47am Yes Active vortioxetine Allergy Unknown nausea May 7:47am Yes Active Social History Smoking Status Status Start Date End Date Date of Observa tion Never smoked tobacco (finding) May 07, 2025 7:50am Observation Status Observation Response Date of Response Legal Sex [facility] (finding[facility] 1975 Problems Active Problems Problem Diagnosis/Recorded Date Onset Date Stat MDD (major depressive disorder) May 07, 2025 7:5 6am Unknown Active BRIAN (generalized anxiety disorder) May 07, 2025 7:55am Unknown Active Dyslipidemia May 07, 2025 7:56am Unknown Ac tive Annual physical exam May 07, 2025 7:57am Unknown Active Adult hypothyroidism May 07, 2025 7:54am Unknown Active Prediabetes May 07, 2025 7:56am Unknown Ac tive Chronic neck pain May 07, 2025 7:55am Unknown Active Vitamin D deficiency May 07, 2025 7:56am Unknown Active Medications Medication Status Dose Units Route Directions Qty Days Refills S tart Date Stop Date End Date Reason(s) Instructions Adherence Cholecalciferol (Vitamin D3) 125 mcg (5,000 unit) capsule Active 125 MCG PO every week 2024 12:00amUnknownClonazepam 0.5 mg tabletActive0.5MGPODaily May 07, 2025 12:00amComplies with drug therapyLevothyroxine 88 mcg tablet Qqlvdk65ZJSXQJcjddDmedawrn 5th, 2025 12:00amComplies with drug therapyFamotidine 20 mg tptxnoMkqthn60MHWHSpemb dailyMay 07, 2025 12:00amComplies with drug therapySertraline 25 mg tsjqnkGhwtqj74BPGAZzpmoCbzlmhma 5th, 2025 12:00am Complies with drug therapyNortriptyline 50 mg lciyfdyJndbbr91GCFYErfke at bedtimeMay 07, 2025 12:00amComplies with drug therapySertraline 200 mg wanvixpFwuezc865AOUCXzfdkFkilfxig 5th, 2025 12:00amComplies with drug therapy Immunizations Immunization Event Date Not Given Reason Dose Number Benefits Assistant Lot Number Reason(s) Given Vaccine Information Statement (VIS) Detail Administration Location Tetanus, Diphtheria, Pertussis (Tdap) June 062016 Vital Signs Vital Reading Result Reference Range Collection Date/Time Height 64 [in_i] May 07, 2025 7:34fjBjyxsd08.31 kgMay 07, 2025 7:45amBody Temperature 97.1 [degF]97.6-99.0May 07, 2025 7:45amHeart Rate94 /isy59-383ZjpklhgoMay 07, 2025 7:45amRespiratory rate20 /ryt07-74QvbyzajgMay 07, 2025 7:45amOxygen saturation by Pulse osynvgie24 %95-100May 07, 2025 7:45amBP Vjvjybuq263 mm[Hg]100-140May 07, 2025 7:45amBP Oetowptov27 mm[Hg]60-100May 07, 2025 7:45amBMI (Body Mass Index)24.7 kg/l3RgsglzhgMay 07, 2025 7:45am Advance Directives Advance Directive Response Recorded Date/ Time Advance Directives No October 19 021 4:41pm Insurance Providers Guarantor Dilshad Irby Address [address] [facility] [address]Nubjcvi Info.Home Phone: Coverage Status Update:2025 Payer Group Member ID Coverage Type Subscriber Relationship to Subscriber Effective Date Expiration Date MMO Id: [id number] Flynn , M Id: [id number] [address] [facility] [address] Home Phone: SelfAnthem BC/BS [id number] Flynn , M Id: [id number] [address] [facility] [address] Home Phone: Self Encounters Encounter Location(s) Arrival/Admit Date Discharge/Departure Date Discharge/Departure Disposition Provider(s) Registered Recurring - Credible April 25, 2025 1 1:51am GORGE Pettyeparted Physician/Provider Office Visit-[facility] [place] 2024 7:39amNovember 2024 8:19amDischarged to home care or self care (routine discharge)Sridhar Navarro MD Recent Diagnosis Onset Date Admit Date Annual physical exam Unknown May 7:39am Assessments Diagnosis Onset Date Resolution Status Admit Date Annual physical exam acuteNov2024 7:39am Plan of Treatment Future Tests Future scheduled test information is unavailable Pending Tests Test Name Ordered Date Scheduled Date Comprehensive Metabolic Panel May 07, 2025 8:03am MM screening mammo BI w/CADMay 07, 2025 8:03am Future Visits Future appointment information is unavailable Future Procedures Procedure Name Ordered Date Scheduled Date A1C with Estimated Average Glu May 07 8:03am Complete Blood Count Auto DiffMay 07, 2025 8:03amLipid PanelMay 07, 2025 8:03amFree T4 (Free Thyroxine)May 07, 2025 8:03amThyroid Stimulating HormoneNov2024 8:03am Future Medications Future medication information is unavailable Patient Instructions Patient instructions are unavailable
--- OUTSIDE RECORDS SUMMARY | 2025-05-07 10:55 | XMS_ITS | Continuity of Care Document ---
Author Organization [facility] Address [address] [place] [address] Phone Care Team Providers Care Admittance Attendant Name Role Phone Sridhar Navarro MD Primary Care Provider All Starks MD Attending Provider Sridhar Navarro MD Attending Provider [phone] Care Teams Patient Care Team Team Status: Active Member Role/Relationship Status Dates Sridhar Navarro MD Primary Care Provider Active Visit Care Team Team Status: Active Member Role/Relationship Status Dates Sridhar Navarro MD Primary Care Provider Active S tart: April 25, 2025 Javy Petty ProviderActiveStart: April 25, 2025 Visit Care Team Team Status: Inactive Member Role/Relationship Status Dates Sridhar Navarro MD Primary Care Provider Active S tart: May 07, 2025 End: May 07, 2025[facility] Javy Navarro ProviderActiveStart: May 07, 2025 End: [...] Legal Sex [facility] (finding[facility] 1975 Problems Active Problems Problem Diagnosis/Recorded Date [...] 12:00amComplies with drug therapyLevothyroxine 88 mcg tablet Nwoutx16PQLIUOjcmvVtctxarq 5th, 2025 12:00amComplies with drug therapyFamotidine 20 mg omqmjqMxtdsg64WKCQWhzhu dailyMay 07, 2025 12:00amComplies with drug therapySertraline 25 mg masljuKrksdt98QAPCNfakzEwmtxqbk 5th, 2025 12:00am Complies with drug therapyNortriptyline 50 mg ufhnpbnEkqcfb41KKCYMhirv at bedtimeMay 07, 2025 12:00amComplies with drug therapySertraline 200 mg flcaiwaQlonka667VIKTCfcooSoegbymj 5th, 2025 12:00amComplies with drug therapy Immunizations Immunization Event Date Not Given Reason Dose 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 Reason(s) Given Vaccine Information Statement (VIS) Detail Administration Location Tetanus, Diphtheria, Pertussis (Tdap) June 062016 Vital Signs Vital Reading Result Reference Range Collection Date/Time Height 64 [in_i] May 07, 2025 7:90dlMugbin51.31 kgMay 07, 2025 7:45amBody Temperature 97.1 [degF]97.6-99.0May 07, 2025 7:45amHeart Rate94 /xht71-372QoqwxmqoMay 07, 2025 7:45amRespiratory rate20 /etu67-73YxcvpiezMay 07, 2025 7:45amOxygen saturation by Pulse nswvbili80 %95-100May 07, 2025 7:45amBP Vbzuvtwv133 mm[Hg]100-140May 07, 2025 7:45amBP Ivbqnahgf41 mm[Hg]60-100May 07, 2025 7:45amBMI (Body Mass Index)24.7 kg/q5QnpatqilMay 07, 2025 7:45am Advance Directives Advance Directive Response Recorded Date/ Time Advance Directives No October 19 021 4:41pm Insurance Providers Guarantor Dilshad Irby Address [address] [facility] [address] [facility] [address]Adxflcs Info.Home Phone: Coverage Status Update:2025 Payer Group Member ID Coverage Type Subscriber Relationship to Subscriber Effective Date Expiration Date MMO Id: [id number] Flynn , M Id: [id number] [address] [facility] [address] Home Phone: Self[employer]them BC/BS [id number] Flynn , M Id: [id number] [address] [facility] [address] Home Phone: Self Encounters Encounter Location(s) Arrival/Admit Date Discharge/Departure Date Discharge/Departure Disposition Provider(s) Registered Recurring - Credible April 25, 2025 1 1:51am GORGE Pettyeparted Physician/Provider Office Visit-[facility] Family Medicine [place] 2024 7:39amNovember 2024 8:19amDischarged to home care or self care (routine discharge)Sridhar Navarro MD Recent Diagnosis Onset Date Admit Date Annual physical exam Unknown May 7:39am Assessments Diagnosis Onset Date Resolution Status Admit Date Annual physical exam acuteNov2024 7:39am Plan of Treatment Author Sridhar Navarro [facility] 8:22amDue for labs and mammogram. Discussed proper diet and regular aerobic exercise.?? Need aerobic exercise 5-6 days a week for 30 minutes at a time.?? Smaller portions and limit total calories.?? Colonoscopy every 10 years.?? Tetanus every 10 years.?? Advised not to smoke.?? Future Tests Future scheduled test information is unavailable Pending Tests Test Name Ordered Date Scheduled Date Comprehensive Metabolic Panel May 07, 2025 8:03am MM screening mammo BI w/CADNov2024 8:03am Future Visits Future appointment information is unavailable Future Procedures Procedure Name Ordered Date Scheduled Date A1C with Estimated Average Glu May 07 8:03am Complete Blood Count Auto DiffNov2024 8:03amLipid PanelNov2024 8:03amFree T4 (Free Thyroxine)May 07, 2025 8:03amThyroid Stimulating HormoneNov2024 8:03am Future Medications Future medication information is unavailable Patient Instructions Patient instructions are unavailable
--- OUTSIDE RECORDS SUMMARY | 2025-05-07 10:55 | XMS_ITS | Encounter Summary ---
Author Organization [facility] Address [address] [place] [address] Care Team Providers Care Bail Bond Agent Name Role Phone Sridhar Navarro MD Primary Care Provider [phone] Encounter Details DateTypeDepartmentCare Team (Latest Contact Info)Qoxredusjmo26/08/2024Clinisync Result Encounter [facility] External Department Unsolicited Provider, Generic External Data Social History Tobacco UseTypesPacks/DayYears UsedDateSmoking Tobacco: NeverSmokeless Tobacco: NeverAlcohol UseStandard Drinks/WeekCommentsNever0 (1 standard drink = 0.6 oz pure alcohol)caffeine: [id number] Health LiteracyAnswerDate RecordedHow often do you need to have someone help you when you read instructions, pamphlets, or other written material from your doctor or pharmacy?Never03/20/2024Social Connection and Isolation PanelAnswerDate RecordedIn a typical week, how many times do you talk on the phone with family, friends, or neighbors?More than three times a week03/20/2024How often do you get together with friends or relatives?More than three times a week03/20/2024How often do you attend adventism or presybeterian services?1 to 4 times per year03/20/2024o you belong to any clubs or organizations such as adventism groups, unions, fraternal or athletic groups, or school groups?No03/20/2024How often do you attend meetings of the clubs or organizations you belong to?Patient sqygavlx65/18/2024re you , , , , never , or living with a partner?Worhprv2203/20/2024 AUDIT-CAnswerDate RecordedQ1: How often do you have a drink containing alcohol? Never03/20/2024Q2: How many drinks containing alcohol do you have on a typical day when you are drinking?Patient does not drink03/20/2024Q3: How often do you have six or more drinks on one occasion?Never03/20/2024Overall Financial Resource Strain (CARDIA)AnswerDate RecordedHow hard is it for you to pay for the very basics like food, housing, medical care, and heating?Not hard at all 03/20/2024[facility] - Occupational Stress QuestionnaireAnswerDate RecordedDo you feel stress - tense, restless, nervous, or anxious, or unable to sleep at night because yourmind is troubled all the time - these days?Not at all03/20/2024Exercise Vital SignAnswerDate RecordedOn average, how many days per week do you engage in moderate to strenuous exercise (like a brisk walk)?6 days03/20/2024On average, how many minutes do you engage in exercise at this level?150+ min03/20/2024Hunger Vital SignAnswerDate Recorded Within the past 12 months, you worried that your food would run out before you got the money to buymore.Never true03/20/2024Within the past 12 months, the food you bought just didn't last and you didn't have money to get more.Never true 03/20/2024RAPARE - TransportationAnswerDate RecordedIn the past 12 months, has lack of transportation kept you from medical appointments or from getting medications?No03/20/2024In the past 12 months, has lack of transportation kept you from meetings, work, or from getting things needed for daily living?No 03/20/2024Housing Stability Vital SignAnswerDate RecordedIn the last 12 months, was there a time when you were not able to pay the mortgage or rent on time?No 03/20/2024In the past 12 months, how many times have you moved where you were living?t any time in the past 12 months, were you homeless or living in a intermediate (including now)?No03/20/2024EducationAnswerDate RecordedWhat is the highest level of school you have completed or the highest degree you have received?High school fppryynn51/20/2023CommentsUnknownSex and Gender InformationValueDate RecordedSex Assigned at BirthNot on fileLegal SexFemale 09/14/2022 7:10 PM EDTGender IdentityNot on fileSexual OrientationNot on file OccupationIndustryJob Start 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 [employer] UnionNot on fileNot on fileNot on filedocumented as of this encounter Functional Status * AUDIT-C ScoreAnswerDate of ZpfwrkhkdzIfychz533/18/2024 10:06 AM Leandro Chan * Q1: How often do you have a drink containing alcohol?AnswerDate of Assessment HdgyutPbzvy17/18/2024 10:06 AM Leandro Chan * Q2: How many drinks containing alcohol do you have on a typical day when you are drinking?AnswerDate of AssessmentAuthorPatient does not drink03/20/2024 10:06 AM Leandro Chan * Q3: How often do you have six or more drinks on one occasion?AnswerDate of TzaucbbrbjPvyiieXqdcz92/18/2024 10:06 AM Leandro Chan documented as of this encounter Plan of Treatment Not on file documented as of this encounter Procedures Procedure NamePriorityDate/TimeAssociated DiagnosisCommentsMM TOMOSYNTHESIS SCREENING BI11/08/2023 1:34 PM EDT documented in this encounter Results * MM TOMOSYNTHESIS SCREENING BI (11/08/2023 1:34 PM EDT)Anatomical Region LateralityModalityOtherSpecimen (Source)Anatomical Location / Laterality Collection Method / VolumeCollection TimeReceived Time11/08/2023 1:34 PM EDT Narrative 11/08/2023 1:35 PM EDT [facility] ?[address] ? [place] [address] ? Mammography Report ? Signed ? Patient: CHHAYA BERRY ? MR#: [id number] ?? : 1975 ?Acct:[id number] ?? Age/Sex: 48 / F ?ADM Date: 11/08/23 ?? Loc: MAMMO ? Attending Dr: Didier Pretty D.O. ? Ordering Physician: Didier Pretty D.O. ?Results: ? Date of Service: 11/08/23 ?Follow Up: ? Procedure(s): MM tomosynthesis screening BI ?? Accession Number(s): [id number] ? cc: Didier Pretty D.O.; Sridhar Navarro M.D. ? Patient Name: ? CHHAYA BERRY ? MR#: [id number] ? : 1975 ? Exam Date: 11/08/2023 ?? Ordering Doctor: DR Didier Pretty . ? RADIOLOGY REPORT ? PROCEDURE: ? MM TOMOSYNTHESIS SCREENING BI ? COMPARISON: ? MG MAMM SCREEN 3D JANEY CAD, 08/03/2021. ??MAMMO POST BIOPSY LEFT, ?? 09/02/2019. ? INDICATIONS: ? screening ? Calculator Name ? NCI Breast Cancer Risk Assessment Tool ?? 5 Year Breast Cancer Risk ? 1.00% ?? Lifetime Breast Cancer Risk ? 9.60% ?? Personal Breast Cancer ?No ?? Personal Ovarian Cancer ? No ?? Treatments ? None ?? Family Cancers ? Grandmother-maternal with breast cancer at age ??55; ?? Grandfather-maternal with bladder cancer at age ??70. ? LOCATION: ? [facility] ? BREAST COMPOSITION: ? The breasts are heterogeneously dense,which may ?? obscure small masses. ? FINDINGS: ? DIAGNOSTIC CATEGORY 0--INCOMPLETE: NEED ADDITIONAL IMAGING EVALUATION. ? Scattered benign-appearing calcifications are present. ??Scattered ?? benign-appearing lymph nodes are present. ? RIGHT BREAST: ??No significant suspicious finding. ??New 1.9 cm partially ?? circumscribed nodule identified in the upper-outer quadrant, mid breast. ??Spot ?? imaging and ultrasound follow-up is required ? LEFT BREAST: ??No significant suspicious finding. ? RECOMMENDATIONS: ? ADDITIONAL MAMMOGRAPHIC VIEWS REQUIRED: RIGHT BREAST - spot compression ? ULTRASOUND: RIGHT BREAST ? PLEASE NOTE: ??A NORMAL MAMMOGRAM DOES NOT EXCLUDE THE POSSIBILITY OF BREAST ?? CANCER. ??A CLINICALLY SUSPICIOUS PALPABLE LUMP SHOULD BE BIOPSIED. ? Dictated by: Dom Vazquez MD on 11/08/2023 at 13:32 ? Approved by: Dom Vazquez MD on 11/08/2023 at 13:34 ? Dictated By: ?Dom Vazquez M.D. ? Signed By: ?11/08/23 1335 ? DD/ 1334 ? TD/TT: ? Magazine Hand: Procedure Note Radiology, Radiologist, MD - 11/08/2023 [place] [address] Mammography Report Signed Patient: CHHAYA BERRY MMR#: [id number] : 1975Acct:[id number] Age/Sex: 48 / FADM Date: 11/08/23 Loc: MAMMO Attending Dr: Didier Pretty D.O. Ordering Physician: Didier Pretty D.O.Results: Date of Service: 11/08/23Follow Up: Procedure(s): MM tomosynthesis screening BI Accession Number(s): [id number] cc: Didier Pretty D.O.; Sridhar Navarro M.D. Patient Name: CHHAYA BERRY MR#: [id number] : 1975 Exam Date: 11/08/2023 Ordering Doctor: DR Didier Pretty . RADIOLOGY REPORT PROCEDURE: MM TOMOSYNTHESIS SCREENING BI COMPARISON: MG MAMM SCREEN 3D JANEY CAD, 08/03/2021. MAMMO POST BIOPSYLEFT, 09/02/2019. INDICATIONS: screening Calculator Name NCI Breast Cancer Risk Assessment Tool 5 Year Breast Cancer Risk 1.00% Lifetime Breast Cancer Risk 9.60% Personal Breast Cancer No Personal Ovarian Cancer No Treatments None Family Cancers Grandmother-maternal with breast cancer at age 55; Grandfather-maternal with bladder cancer at age 70. LOCATION: [facility] BREAST COMPOSITION: The breasts are heterogeneously dense,which may obscure small masses. FINDINGS: DIAGNOSTIC CATEGORY 0--INCOMPLETE: NEED ADDITIONAL IMAGING EVALUATION. Scattered benign-appearing calcifications are present. Scattered benign-appearing lymph nodes are present. RIGHT BREAST: No significant suspicious finding. New 1.9 cm partially circumscribed nodule identified in the upper-outer quadrant, mid breast.Spot imaging and ultrasound follow-up is required LEFT BREAST: No significant suspicious finding. RECOMMENDATIONS: ADDITIONAL MAMMOGRAPHIC VIEWS REQUIRED: RIGHT BREAST - spot compression ULTRASOUND: RIGHT BREAST PLEASE NOTE: A NORMAL MAMMOGRAM DOES NOT EXCLUDE THE POSSIBILITY OFBREAST CANCER. A CLINICALLY SUSPICIOUS PALPABLE LUMP SHOULD BE BIOPSIED. Dictated by: Dom Vazquez MD on 11/08/2023 at 13:32 Approved by: Dom Vazquez MD on 11/08/2023 at 13:34 Dictated By: Dom Vazquez M.D. Signed By:11/08/23 1335 DD/ 1334 TD/TT: Magazine Hand: Authorizing ProviderResult TypeResult StatusGeneric External Data Provider CLINISYNC IMAGINGFinal Result documented in this encounter Visit Diagnoses Not on filedocumented in this encounter Care Teams Team MemberRelationshipSpecialtyStart DateEnd Date Sridhar Navarro MD PCP - GeneralFamily Medicine09/26/23documented as of this encounter
--- OUTSIDE RECORDS SUMMARY | 2025-05-07 10:55 | XMS_ITS | Clinical Summary ---
Author Organization [employer] [facility] Address [id number] [address] [place] [address] Care Team Providers Care Media Center Director School Name Role Phone Sridhar Navarro MD Primary Care Provider [phone] Allergies Active AllergyReactionsCriticalityNoted DateCommentsCefuroxime Scxyna7107/25/2017 OwrywvtfofklnKzjep93/23/2020ProchlorperazineGI Unhdgsytfph55/05/2003 compazine PromethazineGI Igutcrozsmx99/23/2018 Other reaction(s): GI Upset Risperidone AnaloguesOther (See Comments)07/25/2017 Other reaction(s): Intolerance Secreted breast milk Produces breast milk Sulfamethoxazole-RcpnmcrbctquNwsvfnk45/23/1769Bfzsjrgrirfg17/09/2018 Other reaction(s): GI Upset sedation Medications MedicationSigDispense QuantityRefillsLast FilledStart DateEnd DateStatus multivitamin/iron/folic acid (CENTRUM WOMEN ORAL) Take 1.25 Units by mouth Once a week.Active cholecalciferol, vitamin D3, 25 mcg (1,000 unit) capsule Take 1,000 Units by mouth daily.Active clonazePAM (KlonoPIN) 0.5 mg tablet Take 0.5 mg by mouth 3 (three) times a day.Active famotidine (PEPCID) 40 mg tablet Take 40 mg by mouth 2 (two) times a day.Active levothyroxine (SYNTHROID, LEVOTHROID) 88 MCG tablet Take 88 mcg by mouth daily.Active nortriptyline (PAMELOR) 25 mg capsule Take 25 mg by mouth nightly.Active sertraline (ZOLOFT) 100 mg tablet Take 100 mg by mouth once daily at bedtime.Active sertraline (ZOLOFT) 25 mg tablet Take 25 mg by mouth nightly as needed, may repeat once.Active cholecalciferol, vitamin D3, 50,000 units tablet Take 1,250 mcg by mouth every 28 days.Active ascorbic acid, vitamin C, (VITAMIN C) 1000 mg tablet Take 1,000 mg by mouth in the morning.Active Active Problems No known active problems Family History Medical HistoryRelationNameCommentsCancerMaternal GrandfatherBreast cancer Maternal GrandmotherColon cancerMaternal UncleColon cancerMotherRelationName StatusCommentsFatherAliveMaternal GrandfatherDeceasedMaternal Grandmother DeceasedMaternal UncleAliveMotherAlive Social History Tobacco UseTypesPacks/DayYears UsedDateSmoking Tobacco: NeverSmokeless Tobacco: NeverAlcohol UseStandard Drinks/WeekCommentsNot Currently0 (1 standard drink = 0.6 oz pure alcohol)ChildcareAnswerDate XskcrektBeiftbnnaMavfbip37/12/2019 EmploymentAnswerDate GtadqyfkCkmyjoqtngXwtxvzy87/12/2019Purpose - LifeAnswerDate RecordedPurpose and direction in kloyTpdztzj13/11/2021CommentsUnknownSex and Gender InformationValueDate RecordedSex Assigned at BirthNot on fileLegal HsdLoukrz58/06/2015 11:50 AM EDTGender IdentityNot on fileSexual OrientationNot on file Last Filed Vital Signs Vital SignReadingTime TakenCommentsBlood Ktolaltb117/8004 8:31 AM EDT Glhlj8292 8:31 AM IAWQkgmjilndok31.1 ??C (97 ??F)10/04/2021 8:16 AM EDT Respiratory Oelt0527 8:06 AM EDTOxygen Nawemqeyhi95%10/04/2021 8:16 AM EDTInhaled Oxygen Concentration--Mntrkl35.8 kg (187 lb)10/04/2021 6:22 AM EDT Nyrbng854.6 cm (5' 4 )10/04/2021 6:22 AM EDTBody Mass Index32.1042 6:22 AM EDT Plan of Treatment Health MaintenanceDue DateLast DoneCommentsDepression Unpmzozeq50/24/1986Tobacco Kxkjsrclj60/24/1986Adult BMI Kzfegcmbu42/24/1992Pap Smear1994Zoster (Shingles) Vaccine (1 of 2)09/24/2023Influenza Xccoxer30/01/2025Colonoscopy 7010/04/2021, 10/04/2021TaP,Tdap and Td Vaccines (2 - Td or Tdap) Medical Devices Not on file Procedures Procedure NamePriorityDate/TimeAssociated DiagnosisCommentsPROVATION COLONOSCOPY Tgrmcec6010/04/2021 6:14 AM EDT from Last 3 Months or Most Recently Relevant to Health Maintenance Results * Colonoscopy Report (10/04/2021 6:14 AM EDT)Specimen (Source)Anatomical Location / LateralityCollection Method / VolumeCollection TimeReceived Time Narrative SYSTEMGENERATED, DOCUMENTATION - 10/04/2021 6:14 AM EDT This order has been auto-finalized for image and report archival in PACs. *For full report details, please reach out to your physician. ??Effective 11/17/20 this image will be visible to you in MyChart.* Authorizing ProviderResult TypeResult StatusMichael E Grillis DOIMG OR IMG ORDERABLESFinal Result from Last 3 Months or Most Recently Relevant to Health Maintenance Insurance Care Teams Team MemberRelationshipSpecialtyStart DateEnd Date Sridhar Navarro MD PCP - GeneralFamily Medicine08/25/21
--- OUTSIDE RECORDS SUMMARY | 2025-05-07 10:55 | XMS_ITS | Clinical Summary ---
Author Organization [facility] Address [address] [place] [address] Care Team Providers Care Deputy Jailer Name Role Phone Sridhar Navarro MD Primary Care Provider [phone] Allergies Active AllergyReactionsCriticalityNoted DateComments Sulfamethoxazole-GecrozopocbwXwhkcsw74/08/0909GrlfxzgwowawzVlmsd85/23/2020 Dsaoeaundqueiydl51/05/2003 compazine PromethazineGI Upset07/25/2019Risperidone KkrcfqxuiXywvtthkvyk14/07/2018 Produces breast milk VortioxetineGI Upset02/08/2018 Medications MedicationSigDispense QuantityRefillsLast FilledStart DateEnd DateStatus nortriptyline (PAMELOR) 50 mg capsule Take 50 mg by mouth daily at bedtime. Active clonazePAM (KLONOPIN) 0.5 mg tablet Take 0.5 mg by mouth three times daily.Active brexpiprazole (REXULTI) 0.5 mg tab Take by mouth daily at bedtime.Active ranitidine (ZANTAC) 150 mg tablet Take 150 mg by mouth twice daily. Before breakfast and before supperActive OTC PRODUCT womens 1x thomas petite vits 2 tablets 1x adayActive Cholecalciferol, Vitamin D3, (VITAMIN D) 1,000 unit cap Take 1,000 Units by mouth once daily.Active Cetirizine (ZYRTEC) 10 mg cap Take by mouth as needed. At bedtimeActive fluticasone propionate (FLONASE NASAL) Use in the nose. 1-2 sprays as neededActive OTC PRODUCT Tylenol 500mg as neededActive vortioxetine (TRINTELLIX) 5 mg tab Take 5 mg by mouth daily at bedtime.Active multivit,calc,mins/iron/folic (ONE-A-DAY WOMENS FORMULA ORAL) Take 1 tablet by mouth once daily.Active multivitamin (VITAMIN DAILY ORAL) Take 1.25 Units by mouth once each week.Active acetaminophen (TYLENOL) 500 mg tablet Take 500 mg by mouth every 8 hours as needed.Active citalopram (CELEXA) 20 mg/10 mL soln Take 20 mg by mouth once daily.Active levothyroxine (LEVOXYL) 88 mcg tablet Take 88 mcg by mouth once daily.Active famotidine (PEPCID) 40 mg tablet Take 40 mg by mouth twice daily.Active nortriptyline (PAMELOR) 25 mg capsule Take 25 mg by mouth daily at bedtime.Active sertraline (ZOLOFT) 100 mg tablet Take 100 mg by mouth daily at bedtime.Active multivitamin/iron/folic acid (CENTRUM WOMEN ORAL) Take by mouth every other day.Active cholecalciferol, Vitamin D3, (VITAMIN D3) 1,250 mcg (50,000 unit) cap capsule Take 50,000 Units by mouth one time a week.Active Pediatric Multivit Comb#19-FA (CHILDREN'S MULTI-VIT GUMMIES) 200 mcg chew Take by mouth.Active Active Problems ProblemNoted DateDiagnosed DateDizziness and aauotjbqh74/26/2019Anxiety 12/21/2017Postural dizziness with gntvprezqh97/21/0356Pxxekagjki65/21/2018Family history of coronary artery eeyccpc8312/21/20178865Stijnbkmubhi91/21/2018 Social History Tobacco UseTypesPacks/DayYears UsedDateSmoking Tobacco: NeverSmokeless Tobacco: NeverAlcohol UseStandard Drinks/WeekCommentsNo0 (1 standard drink = 0.6 oz pure alcohol)PHQ-2AnswerDate RecordedPHQ-2 heags160Area Deprivation Index AnswerDate RecordedNational Score (1-100), lower number is lower riskNot on file 06/10/2020State Score (1-10), lower number is lower riskNot on file06/10/2020 Data from: https://www.neighborhoodatlas.medicine.[facility]/. Last address used for calculationNot on file06/10/2020CommentsNoSex and Gender Information ValueDate RecordedSex Assigned at BirthNot on fileLegal YovFsuzqv36/02/2012 10:00 AM ESTGender IdentityNot on fileSexual OrientationNot on file Last Filed Vital Signs Vital SignReadingTime TakenCommentsBlood Rhxksmge840/7801 12:37 PM EST Brqkh601607/25/2019 12:37 PM VUFDqcgpiovhal75 ??C (96.8 ??F)07/05/2004 2:58 PM EST Respiratory Zgsr587302/27/2018 10:58 AM EDTOxygen Zwtrwynkgb16%09/21/2018 11:53 AM EDTInhaled Oxygen Concentration--Bytdcv40.5 kg (151 lb)07/25/2019 12:37 PM EST Bzongf427.6 cm (5' 4 )07/25/2019 12:37 PM ESTBody Mass Index25.9207/25/2019 12:37 PM EST Plan of Treatment Health MaintenanceDue DateLast DoneCommentsAnxiety Jbecpzqgb80/24/1992Depression Zqhosisze04/24/1992HIV Olwdvjlvg83/24/1992Hepatitis C Xudixuehr02/24/1992 Hepatitis B Vaccine (1 of 3 - 19+ 3-dose series)1992Cervical Cancer Pwkskuglf34/24/1995Mammogram Dvmmzlmsq70/24/2014CT Vdtohmlqtfqz67/24/2019 Cologuard (FIT-DNA)09/23/20181411Hbdjyrbutxi99/24/2019Colorectal Cancer Screening 2018Fecal Occult Blood2018Lipid Gscretebv96/24/2019Sigmoidoscopy 2018Diabetes Rdwojfitl04Pneumococcal Vaccine: 50+ (1 of 1 - PCV)09/24/2023Shingrix Vaccine (1 of 2)09/24/2023ovid-19 Vaccine (1 - 2024- season)2025Influenza Vaccine (#1)2025DTaP,Tdap,Td Vaccine (2 - Td or Tdap) Insurance Care Teams Team MemberRelationshipSpecialtyStart DateEnd Date Sridhar Navarro MD [address] [place] [address] PCP - GeneralFamily Medicine12/07/17
--- OUTSIDE RECORDS SUMMARY | 2025-05-07 10:55 | XMS_ITS | Patient Health Record ---
Author Organization [facility] [place] Address [address] [place] [address] Care Team Providers Care General Accounting Clerk Name Role Phone Nino Escalante DO Primary Care Provider Unavailabl e Reason For Referral No Information Plan Of Treatment No Information Insurance Providers Payer Name Payer Address Payer Phone Subscriber Number Group Number Insured Name Patient Relationship to Insured Coverage Start Date Coverage End Date SELF PAY ON PATIENT DEMOGRAPHICS Aby Cernaf - patient is the etmubji2503/22/2011
--- OUTSIDE RECORDS SUMMARY | 2025-05-07 10:55 | XMS_ITS | Clinical Summary ---
Author Organization [facility] Address [address] [place] [address] Care Team Providers Care Skidder Runner Name Role Phone Sridhar Navarro MD Primary Care Provider [phone] Allergies Active AllergyReactionsCriticalityNoted WcgyFpceezjeDhrtcytqxt01/23/2018 VehegwtuclmctLjgrj66/23/2020 Other Reaction(s): Unknown Jmgqkobqmuzzraoi54/05/2003 Other Reaction(s): GI Disturbance, Unknown compazine Hzsgcbvsxqin51/23/2018 Other Reaction(s): GI Disturbance, GI Upset, Unknown Other reaction(s): GI Upset Qqkfbyhimrc87/23/2018 Other Reaction(s): Intolerance, Other (See Comments) Other reaction(s): Intolerance Secreted breast milk Produces breast milk Produces breast milk Sulfamethoxazole-CrnkttjoppqkZbpqkmm82/23/2018 Other Reaction(s): Unknown Pxyruimlmnsw59/09/2018 Other Reaction(s): GI Upset Other reaction(s): GI Upset sedation Medications MedicationSigDispense QuantityRefillsLast FilledStart DateEnd DateStatus clonazePAM (KlonoPIN) 0.5 MG tablet Take 0.5 mg by mouth in the morning and 0.5 mg in the evening and 0.5 mg before bedtime.Active Multiple Vitamins-Minerals (Womens One Daily) tablet Active nortriptyline (Pamelor) 50 MG capsule Take 50 mg by mouth at bedtimeActive sertraline (Zoloft) 100 MG tablet Take 100 mg by mouth at bedtimeActive sertraline (Zoloft) 25 MG tablet Take 25 mg by mouth DailyActive cholecalciferol (Vitamin D-3) 1.25 MG (07438 UT) capsule Indications:Vitamin D deficiency, unspecified,Vitamin D deficiencyTAKE 1 CAPSULE BY MOUTH ONE TIME PER WEEK ON SUNDAYS 12 capsule 4Active levothyroxine (Synthroid, Levoxyl) 88 MCG tablet Indications:Hypothyroidism, unspecified,HypothyroidismTAKE 1 TABLET BY MOUTH EVERY DAY 90 tablet 4Active famotidine (Pepcid) 20 MG tablet Indications:Chronic superficial gastritis without bleeding,Atrophic gastritis TAKE 2 TABLETS BY MOUTH TWICE A DAY 360 tablet 5Active Active Problems ProblemNoted DateDiagnosed DateAcute non-recurrent osvwtmxnrpir50/29/2024 Assessment & Plan (04/30/2024 2:46 PM EDT): Take antibiotics for 7 days. Use prednisone for inflammation. Use sudafed or other decongestants asneeded. Use Robitussin or Robitussin-DM for cough. Can use afrin for congestion but no longer than 3 days. Can use Mucinex to bring up phlegm. Use Motrin or Tylenol as needed for fever, aches, or pains. Increase fluid intake and rest. Should improve over next 5-7 days and if no better or worse callfor re-evaluation. Annual physical exam03/20/2024 Assessment & Plan (03/20/2024 10:40 AM EDT): Due for labs. Discussed proper diet and regular aerobic exercise. Need aerobic exercise 5-6 days a week for 30 minutes at a time. Smaller portions and limit total calories. Colonoscopy every 10 years. Tetanus every 10 years. Advised not to smoke. Discussed daily Aspirin therapy. Adult jdvnbedlirzvjk50/26/2024 Assessment & Plan (09/26/2023 3:14 PM EDT): No signs of low thyroid and continue medication. BRIAN (generalized anxiety disorder)09/26/2023 Assessment & Plan (09/26/2023 3:15 PM EDT): Occasional symptoms but tolerable and continue medication. Follow up with psychiatry. Chiari malformation type I09/26/2023hronic neck pain09/26/2023hronic superficial gastritis without /26/2024 Assessment & Plan (09/26/2023 3:15 PM EDT): Symptoms controlled with pepcid and continue. Zdxatdycnmvs48/26/2896Jwcqgjjlxioi38/26/2024elvic pain in nbjqoe8209/26/2023 Csvxbsbtzdh46/26/2024Seasonal allergic rhinitis due to nvlpfk1209/26/2023 Assessment & Plan (09/26/2023 3:15 PM EDT): Symptoms controlled with medication and continue. Vitamin D chedwglqbi43/26/2024MDD (major depressive disorder), recurrent episode, mild09/26/2023 Assessment & Plan (09/26/2023 3:15 PM EDT): Occasional symptoms but tolerable and continue medication. Follow up with psychiatry. Resolved Problems ProblemNoted DateDiagnosed DateResolved QoesSxbtjktdxug08 Family History Medical HistoryRelationNameCommentsAnxiety disorderDaughter 1not on medication ; oldest daughterAnxiety disorderFatherDepressionFatherMood swingsFatherCVA (cerebral infarction)Maternal GrandfatherCancerMaternal GrandfatherDiabetes Maternal GrandfatherArthritisMaternal GrandmotherCVA (cerebral infarction) Maternal GrandmotherMental illnessMaternal GrandmotherAnxiety disorderMotherCVA (cerebral infarction)MotherDepressionMotherDiabetesMotherHeart diseaseMother HypertensionMotherCVA (cerebral infarction)Paternal GrandfatherArthritisPaternal GrandmotherCVA (cerebral infarction)Paternal GrandmotherHeart diseasePaternal GrandmotherRelationNameStatusCommentsDaughter 1AliveDaughter 2AliveDaughter 3 AliveFatherAlivetakes Buspartried to treat himself with alcoholMaternal GrandfatherDeceasedHeavy drinkerMaternal GrandmotherDeceasedMotherAlivePaternal GrandfatherDeceasedPaternal GrandmotherDeceasedSister 1AliveSister 2Alive Social History Tobacco UseTypesPacks/DayYears UsedDateSmoking Tobacco: NeverSmokeless Tobacco: Never Tobacco Cessation:Counseling Given: Not Answered Alcohol UseStandard Drinks/WeekCommentsNever0 (1 standard drink = 0.6 oz pure alcohol)caffeine: [id number] Health LiteracyAnswerDate RecordedHow often do you need [...] times a week03/20/2024How often do you attend sabianist or restorationist services?1 to 4 times per year03/20/2024o you belong to any clubs or organizations such as sabianist groups, unions, fraternal or athletic groups, or school groups?No03/20/2024How often do you attend meetings of the clubs or organizations you belong to?Patient ubjiatiz81/18/2024re you , , , , never , or living with a partner?Bjqllru6503/20/2024 AUDIT-CAnswerDate RecordedQ1: How often do you have [...] medical care, and heating?Not hard at all 03/20/2024[facility] [place] of Occupational Health - Occupational Stress QuestionnaireAnswerDate [...] were you homeless or living in a penitentiary (including now)?No03/20/2024EducationAnswerDate RecordedWhat is the highest level of school you have completed or the highest degree you have received?High school o[employer]11/20/2023CommentsUnknownSex and Gender InformationValueDate RecordedSex Assigned at BirthNot on fileLegal SexFemale 09/14/2022 7:10 PM EDTGender IdentityNot on fileSexual OrientationNot on file OccupationIndustryJob Start DateJob End 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 2:04 PM EDT Plan of Treatment Not on file Insurance Care Teams Team MemberRelationshipSpecialtyStart DateEnd Date Sridhar Navarro MD PCP - GeneralFamily Medicine09/26/23
--- OUTSIDE RECORDS SUMMARY | 2025-05-07 10:55 | XMS_ITS | Encounter Summary ---
Author Organization [facility] Address [address] [place] [address] Care Team Providers Care Brim Raiser Name Role Phone Sridhar Navarro MD Primary Care Provider [phone] Encounter Details DateTypeDepartmentCare Team (Latest Contact Info)Yjgnhfoyfag52/26/2024linisync Result Encounter [facility] External Department Unsolicited Provider, Generic External Data Social History Tobacco UseTypesPacks/DayYears UsedDateSmoking Tobacco: NeverSmokeless Tobacco: NeverAlcohol UseStandard Drinks/WeekCommentsNever0 (1 standard drink = 0.6 oz pure alcohol)caffeine: [id number] Health LiteracyAnswerDate RecordedHow often do you need [...] times a week03/20/2024How often do you attend confucianism or denominational services?1 to 4 times per year03/20/2024o you belong to any clubs or organizations such as confucianism groups, unions, fraternal or athletic groups, or school groups?No03/20/2024How often do you attend meetings of the clubs or organizations you belong to?Patient rndvloze16/18/2024re you , , , , never , or living with a partner?Mzlqeuu9503/20/2024 AUDIT-CAnswerDate RecordedQ1: How often do you have [...] medical care, and heating?Not hard at all 03/20/2024[facility] [place] of Occupational Health - Occupational Stress QuestionnaireAnswerDate [...] were you homeless or living in a long-term (including now)?No03/20/2024EducationAnswerDate RecordedWhat is the highest level of school you have completed or the highest degree you have received?High school kdbqbyqo80/20/2023CommentsUnknownSex and Gender InformationValueDate RecordedSex Assigned at BirthNot on fileLegal SexFemale 09/14/2022 7:10 PM EDTGender IdentityNot on fileSexual OrientationNot on file OccupationIndustryJob Start DateJob End 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 [employer] UnionNot on fileNot on fileNot on filedocumented as of this encounter Functional Status * AUDIT-C ScoreAnswerDate of ByqphofevwWorgvk835/18/2024 10:06 AM Leandro Chan * Q1: How often do you have a drink containing alcohol?AnswerDate of Assessment KrnhumKrarq66/18/2024 10:06 AM Leandro Chan * Q2: How many drinks containing alcohol do you have on a typical day when you are drinking?AnswerDate of AssessmentAuthorPatient does not drink03/20/2024 10:06 AM Leandro Chan * Q3: How often do you have six or more drinks on one occasion?AnswerDate of MeolphdlwlXldjeaGgfpp25/18/2024 10:06 AM Leandro Chan documented as of this encounter Plan of Treatment Not on file documented as of this encounter Procedures Procedure NamePriorityDate/TimeAssociated DiagnosisCommentsBI US BREAST LIMITED RIGHT12/27/2023 1:22 PM EDT documented in this encounter Results * Right breast US limited (12/27/2023 1:22 PM EDT)Anatomical RegionLaterality ModalityBreastRightUltrasoundSpecimen (Source)Anatomical Location / Laterality Collection Method / VolumeCollection TimeReceived Time12/27/2023 1:22 PM EDT Narrative 12/27/2023 1:23 PM EDT [facility] ?[address] ? [place] [address] ? Ultrasound Report ? Signed ? Patient: CHHAYA BERRY ? MR#: [id number] ?? : 1975 ?Acct:[id number] ?? Age/Sex: 48 / F ?ADM Date: //24 ?? Loc: MAMMO ? Attending : Didier Pretty D.O. ? Ordering Physician: Didier Pretty D.O. ?? Date of Service: 12/27/23 ?? Procedure(s): US breast RT limited ?? Accession Number(s): [id number] ? cc: Didier Pretty D.O.; Srihdar Navarro M.D. ? Patient Name: ? CHHAYA RITCHIENN ? MR#: [id number] ? : 1975 ? Exam Date: 12/27/2023 ?? Ordering Doctor: DR Didier Pretty . ? RADIOLOGY REPORT ? PROCEDURE: ? MM TOMOSYNTHESIS DIAGNOSTIC RT, 12/27/2023, 12:52 ?? US BREAST RT LIMITED, 12/27/2023, 13:04 ? COMPARISON: ? MM TOMOSYNTHESIS SCREENING BI, 11/08/2023. ? INDICATIONS: ? ABNORMAL MAMMOGRAM R92.8 ? Calculator Name ? NCI Breast Cancer Risk Assessment Tool ?? 5 Year Breast Cancer Risk ? 1.00% ?? Lifetime Breast Cancer Risk ? 9.60% ?? Personal Breast Cancer ?No ?? Personal Ovarian Cancer ? No ?? Treatments ? None ?? Family Cancers ? Grandmother-maternal with breast cancer at age ??55; ?? Grandfather-maternal with bladder cancer at age ??70. ? LOCATION: ? [facility] ? BREAST COMPOSITION: ? The breasts are heterogeneously dense,which may ?? obscure small masses. ? FINDINGS: ? DIAGNOSTIC CATEGORY 3--PROBABLY BENIGN FINDING. ??THE FOLLOWING FINDING(S) HAS ?? A HIGH PROBABILITY OF A BENIGN ETIOLOGY: ? Spot imaging demonstrates a persistent 2.0 x 1.4 x 1.5 cm nodule in the ?? anterior right breast. ??Ultrasound demonstrates 2 lesions. ??Retroareolar is a ?? 1.7 x 0.8 x 1.6 cm area of anechoic echogenicity with increased acoustic ?? through transmission, simple cyst. ? Adjacent to the anechoic lesion is a dumbbell-shaped cystic lesion with ?? low-level internal echoes measuring 1.2 x 0.7 x 0.6 cm. ??This lesion is ?? indeterminate. ??A complex cyst is favored. ??Short interval follow-up with ?? repeat ultrasound in 6 months to ensure stability is recommended ? RECOMMENDATIONS: ? SHORT TERM FOLLOW-UP ULTRASOUND RIGHT BREAST IN 6 MONTHS. ? PLEASE NOTE: ??A NORMAL MAMMOGRAM DOES NOT EXCLUDE THE POSSIBILITY OF BREAST ?? CANCER. ??A CLINICALLY SUSPICIOUS PALPABLE LUMP SHOULD BE BIOPSIED. ? Dictated by: Dom Vazquez MD on 12/27/2023 at 13:17 ? Approved by: Dom Vazquez MD on 12/27/2023 at 13:22 ? Dictated By: ?Dom Vazquez M.D. ? Signed By: ?12/27/23 1323 ? DD/ 1322 ? TD/TT: ? Mobile Sales Consultant: Procedure Note Radiology, Radiologist, - 12/27/2023 [place] [address] Ultrasound Report Signed Patient: CHHAYA BERRY MMR#: [id number] : 1975Acct:[id number] Age/Sex: 48 / FADM Date: 12/27/23 Loc: MAMMO Attending Dr: Didier Pretty D.O. Ordering Physician: Didier Pretty D.O. Date of Service: 12/27/23 Procedure(s): US breast RT limited Accession Number(s): [id number] cc: Didier Pretty D.O.; Sridhar Navarro M.D. Patient Name: CHHAYA BERRY MR#: [id number] : 1975 Exam Date: 12/27/2023 Ordering Doctor: DR Didier Pretty . RADIOLOGY REPORT PROCEDURE: MM TOMOSYNTHESIS DIAGNOSTIC RT, 12/27/2023, 12:52 US BREAST RT LIMITED, 12/27/2023, 13:04 COMPARISON: MM TOMOSYNTHESIS SCREENING BI, 11/08/2023. INDICATIONS: ABNORMAL MAMMOGRAM R92.8 Calculator Name NCI Breast Cancer Risk Assessment Tool 5 Year Breast Cancer Risk 1.00% Lifetime Breast Cancer Risk 9.60% Personal Breast Cancer No Personal Ovarian Cancer No Treatments None Family Cancers Grandmother-maternal with breast cancer at age 55; Grandfather-maternal with bladder cancer at age 70. LOCATION: [facility] BREAST COMPOSITION: The breasts are heterogeneously dense,which may obscure small masses. FINDINGS: DIAGNOSTIC CATEGORY 3--PROBABLY BENIGN FINDING. THE FOLLOWING FINDING(S)HAS A HIGH PROBABILITY OF A BENIGN ETIOLOGY: Spot imaging demonstrates a persistent 2.0 x 1.4 x 1.5 cm nodule in the anterior right breast. Ultrasound demonstrates 2 lesions. Retroareolaris a 1.7 x 0.8 x 1.6 cm area of anechoic echogenicity with increased acoustic through transmission, simple cyst. Adjacent to the anechoic lesion is a dumbbell-shaped cystic lesion with low-level internal echoes measuring 1.2 x 0.7 x 0.6 cm. This lesion is indeterminate. A complex cyst is favored. Short interval follow-up with repeat ultrasound in 6 months to ensure stability is recommended RECOMMENDATIONS: SHORT TERM FOLLOW-UP ULTRASOUND RIGHT BREAST IN 6 MONTHS. PLEASE NOTE: A NORMAL MAMMOGRAM DOES NOT EXCLUDE THE POSSIBILITY OFBREAST CANCER. A CLINICALLY SUSPICIOUS PALPABLE LUMP SHOULD BE BIOPSIED. Dictated by: Dom Vazquez MD on 12/27/2023 at 13:17 Approved by: Dom Vazquez MD on 12/27/2023 at 13:22 Dictated By: Dom Vazquez M.D. Signed By:12/27/23 1323 DD/ 1322 TD/TT: Mobile Sales Consultant: Authorizing ProviderResult TypeResult StatusGeneric External Data ProviderIMG US PROCEDURESFinal Result documented in this encounter Visit Diagnoses Not on filedocumented in this encounter Care Teams Team MemberRelationshipSpecialtyStart DateEnd Date Sridhar Navarro MD PCP - GeneralFamily Medicine09/26/23documented as of this encounter
--- OUTSIDE RECORDS SUMMARY | 2025-05-07 10:55 | XMS_ITS | Encounter Summary ---
Author Organization [facility] Address [address] [place] [address] Care Team Providers Care Supervisor Customer Records Division Name Role Phone Sridhar Navarro MD Primary Care Provider [phone] Encounter Details DateTypeDepartmentCare Team (Latest Contact Info)Pnlqmqxwzwg15/13/2024linisync Result Encounter [facility] External Department Unsolicited Provider, Generic External Data Social History Tobacco UseTypesPacks/DayYears UsedDateSmoking Tobacco: NeverSmokeless Tobacco: NeverAlcohol UseStandard Drinks/WeekCommentsNever0 (1 standard drink = 0.6 oz pure alcohol)caffeine: [id number] Health LiteracyAnswerDate RecordedHow often do you need [...] week03/20/2024How often do you attend sabianist or scientologist services?1 to 4 times per year03/20/2024o you belong to any clubs or organizations such as sabianist groups, unions, fraternal or athletic groups, or school groups?No03/20/2024How often do you attend meetings of the clubs or organizations you belong to?Patient ppxedhgw11/18/2024re you , , , , never , or living with a partner?Agbedkw4903/20/2024 AUDIT-CAnswerDate RecordedQ1: How often do you have [...] medical care, and heating?Not hard at all 03/20/2024[facility] [place] of Occupational Health - Occupational Stress QuestionnaireAnswerDate [...] were you homeless or living in a detention (including now)?No03/20/2024EducationAnswerDate RecordedWhat is the highest level of school you have completed or the highest degree you have received?High school /20/2023CommentsUnknownSex and Gender InformationValueDate RecordedSex Assigned at BirthNot on fileLegal SexFemale 09/14/2022 7:10 PM EDTGender IdentityNot on fileSexual OrientationNot on file OccupationIndustryJob Start 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 End 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[employer] UnionNot on fileNot on fileNot on filedocumented as of this encounter Plan of Treatment Not on file documented as of this encounter Procedures Procedure NamePriorityDate/TimeAssociated DiagnosisCommentsBI US BREAST LIMITED RIGHT06/14/2024 9:03 AM EST documented in this encounter Results * Right breast US limited (06/14/2024 9:03 AM EST)Anatomical RegionLaterality ModalityBreastRightUltrasoundSpecimen (Source)Anatomical Location / Laterality Collection Method / VolumeCollection TimeReceived Time06/14/2024 9:03 AM EST Narrative 06/14/2024 9:04 AM EST [facility] ?[address] ? [place] [address] ? Ultrasound Report ? Signed ? Patient: CHHAYA BERRY ? MR#: [id number] ?? : 1975 ?Acct:[id number] ?? Age/Sex: 48 / F ?ADM Date: 06/14/24 ?? Loc: US ? Attending Dr: Didier Pretty D.O. ? Ordering Physician: Didier Pretty D.O. ?? Date of Service: 06/14/24 ?? Procedure(s): US breast RT limited ?? Accession Number(s): [id number] ? cc: Didier Pretty D.O.; Sridhar Navarro M.D. ? Patient Name: ? CHHAYA BERRY ? MR#: [id number] ? : 1975 ? Exam Date: 06/14/2024 ?? Ordering Doctor: DR Didier Pretty . ? RADIOLOGY REPORT ? PROCEDURE: ? US BREAST RT LIMITED ? COMPARISON: ? US BREAST RT LIMITED, 12/27/2023. ? INDICATIONS: ? Complex cyst of right breast ? TECHNIQUE: ? Breast ultrasound was performed, with evaluation focusing only ?? on specific areas of concern. ? FINDINGS: ? DIAGNOSTIC CATEGORY 2--BENIGN FINDING. NO CHANGE FROM COMPARISON. ? Ultrasound of the right breast demonstrates 2 stable cystic lesions and ?? anechoic area measuring 1.8 x 1.9 x 1.0 cm and a 2nd cystic lesion with ?? low-level echoes measuring 0.8 x 1.0 x 0 6 cm. ? In light of the stability, benign cysts are favored, no further evaluation is ?? required ? RECOMMENDATIONS: ? ROUTINE MAMMOGRAM AND CLINICAL EVALUATION IN 12 MONTHS. ? PLEASE NOTE: ??A NORMAL ULTRASOUND EXAMINATION DOES NOT EXCLUDE THE POSSIBILITY ?? OF BREAST CANCER. ??A CLINICALLY SUSPICIOUS PALPABLE LUMP SHOULD BE BIOPSIED. ? Dictated by: Dom Vazquez MD on 06/14/2024 at 09:01 ? Approved by: Dom Vazquez MD on 06/14/2024 at 09:02 ? Dictated By: ?Dom Vazquez M.D. ? Signed By: ?06/14/24903 ? DD/ 0903 ? TD/TT: ? Cementer Machine Applicator: Procedure Note Radiology, Radiologist, MD - 06/14/2024 [place] [address] Ultrasound Report Signed Patient: CHHAYA BERRY MMR#: [id number] : 1975Acct:[id number] Age/Sex: 48 / FADM Date: 06/14/24 Loc: US Attending Dr: Didier Pretty D.O. Ordering Physician: Didier Pretty D.O. Date of Service: 06/14/24 Procedure(s): US breast RT limited Accession Number(s): [id number] cc: Didier Pretty D.O.; Sridhar Navarro M.D. Patient Name: CHHAYA BERRY MR#: [id number] : 1975 Exam Date: 06/14/2024 Ordering Doctor: DR Didier Pretty . RADIOLOGY REPORT PROCEDURE: US BREAST RT LIMITED COMPARISON: US BREAST RT LIMITED, 12/27/2023. INDICATIONS: Complex cyst of right breast TECHNIQUE: Breast ultrasound was performed, with evaluation focusingonly on specific areas of concern. FINDINGS: DIAGNOSTIC CATEGORY 2--BENIGN FINDING. NO CHANGE FROM COMPARISON. Ultrasound of the right breast demonstrates 2 stable cystic lesions and anechoic area measuring 1.8 x 1.9 x 1.0 cm and a 2nd cystic lesion with low-level echoes measuring 0.8 x 1.0 x 0 6 cm. In light of the stability, benign cysts are favored, no further evaluationis required RECOMMENDATIONS: ROUTINE MAMMOGRAM AND CLINICAL EVALUATION IN 12 MONTHS. PLEASE NOTE: A NORMAL ULTRASOUND EXAMINATION DOES NOT EXCLUDE THEPOSSIBILITY OF BREAST CANCER. A CLINICALLY SUSPICIOUS PALPABLE LUMP SHOULD BEBIOPSIED. Dictated by: Dom Vazquez MD on 06/14/2024 at 09:01 Approved by: Dom Vazquez MD on 06/14/2024 at 09:02 Dictated By: Dom Vazquez M.D. Signed By:06/14/24903 DD/ 2 TD/TT: Cementer Machine Applicator: Authorizing ProviderResult TypeResult StatusGeneric External Data ProviderIMG US PROCEDURESFinal Result documented in this encounter Visit Diagnoses Not on filedocumented in this encounter Care Teams Team MemberRelationshipSpecialtyStart DateEnd Date Sridhar Navarro MD PCP - GeneralFamily Medicine09/26/23documented as of this encounter
--- OUTSIDE RECORDS SUMMARY | 2025-05-07 10:55 | XMS_ITS | Clinical Summary ---
Author Organization [facility] Address [address] [place] [address] Phone Care Team Providers Care Machine Setter And Repairer Name Role Phone Unavailable Primary Care Provider Unavailabl e Social History Tobacco UseTypesPacks/DayYears UsedDateSmoking Tobacco: Never Assessed CommentsUnknownSex and Gender InformationValueDate RecordedSex Assigned at Not on fileLegal BknUhupgw76/26/2022 2:27 PM ESTGender IdentityNot on fileSexual OrientationNot on file Plan of Treatment Not on file
--- OUTSIDE RECORDS SUMMARY | 2025-05-07 10:55 | XMS_ITS | Encounter Summary ---
Author Organization [facility] Address [address] [place] [address] Care Team Providers Care Outside Cutter Hand Name Role Phone Sridhar Navarro MD Primary Care Provider [phone] Encounter Details DateTypeDepartmentCare Team (Latest Contact Info)Zmmbsiysans49/26/2024linisync Result Encounter [facility] Unsolicited Provider, Generic External Data Social History Tobacco UseTypesPacks/DayYears UsedDateSmoking Tobacco: NeverSmokeless Tobacco: NeverAlcohol UseStandard Drinks/WeekCommentsNever0 (1 standard drink = 0.6 oz pure alcohol)caffeine: [id number] Health LiteracyAnswerDate RecordedHow often do you need [...] times a week03/20/2024How often do you attend rastafarian or judaism services?1 to 4 times per year03/20/2024o you belong to any clubs or organizations such as rastafarian groups, unions, fraternal or athletic groups, or school groups?No03/20/2024How often do you attend meetings of the clubs or organizations you belong to?Patient avnmlorr46/18/2024re you , , , , never , or living with a partner?Baukmik0503/20/2024 AUDIT-CAnswerDate RecordedQ1: How often do you have [...] medical care, and heating?Not hard at all 03/20/2024[facility] - Occupational Stress QuestionnaireAnswerDate [...] on file 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 [employer] UnionNot on fileNot on fileNot on filedocumented as of this encounter Functional Status * AUDIT-C ScoreAnswerDate of EyoajbtcbvWkusqu289/18/2024 10:06 AM Leandro Chan * Q1: How often do you have a drink containing alcohol?AnswerDate of Assessment WgmdloFteay96/18/2024 10:06 AM Leandro Chan * Q2: How many drinks containing alcohol do you have on a typical day when you are drinking?AnswerDate of AssessmentAuthorPatient does not drink03/20/2024 10:06 AM Leandro Chan * Q3: How often do you have six or more drinks on one occasion?AnswerDate of GguliexuinSeatrwXphdw38/18/2024 10:06 AM Leandro Chan documented as of this encounter Plan of Treatment Not on file documented as of this encounter Procedures Procedure NamePriorityDate/TimeAssociated DiagnosisCommentsMM TOMOSYNTHESIS DIAGNOSTIC RT12/27/2023 1:22 PM EDT documented in this encounter Results * MM TOMOSYNTHESIS DIAGNOSTIC RT (12/27/2023 1:22 PM EDT)Anatomical Region LateralityModalityOtherSpecimen (Source)Anatomical Location / Laterality Collection Method / VolumeCollection TimeReceived Time12/27/2023 1:22 PM EDT Narrative 12/27/2023 1:23 PM EDT [facility] ?[address] ? [place] [address] ? Mammography Report ? Signed ? Patient: CHHAYA BERRY ? MR#: [id number] ?? : 1975 ?Acct:[id number] ?? Age/Sex: 48 / F ?ADM Date: //24 ?? Loc: MAMMO ? Attending Dr: Didier Pretty D.O. ? Ordering Physician: Didier Pretty D.O. ?Results: ? Date of Service: 12/27/23 ?Follow Up: ? Procedure(s): MM tomosynthesis diagnostic RT ?? Accession Number(s): [id number] ? cc: Didier Pretty D.O.; Sridhar Navarro M.D. ? Patient Name: ? CHHAYA BERRY ? MR#: [id number] ? : 1975 ? Exam Date: 12/27/2023 [...] at age ??68. ? LOCATION: ? [facility] ? BREAST COMPOSITION: ? The breasts [...] 1323 ? DD/ 1322 ? TD/TT: ? Reinforced Concrete Inspector: Procedure Note Radiology, Radiologist, MD - 12/27/2023 [place] [address] Mammography Report Signed Patient: CHHAYA BERRY [facility]#: [id number] : 1975Acct:[id number] Age/Sex: 48 / FADM Date: 12/27/23 Loc: MAMMO Attending Dr: Didier Pretty D.O. Ordering Physician: Didier Pretty D.O.Results: Date of Service: 12/27/23Follow Up: Procedure(s): MM tomosynthesis diagnostic RT Accession Number(s): [id number] cc: Didier Pretty D.O.; Sridhar Navraro M.D. Patient Name: CHHAYA BERRY MR#: [id number] : 1975 Exam Date: 12/27/2023 Ordering Doctor: [...] bladder cancer at age 68. LOCATION: [facility] BREAST COMPOSITION: The breasts are heterogeneously [...] M.D. Signed By:12/27/23 1323 DD/ 1322 TD/TT: Reinforced Concrete Inspector: Authorizing ProviderResult TypeResult StatusGeneric External Data Provider [facility] IMAGINGFinal Result documented in this encounter Visit Diagnoses Not on filedocumented in this encounter Care Teams Team MemberRelationshipSpecialtyStart DateEnd Date Sridhar Navarro MD PCP - GeneralFamily Medicine09/26/23documented as of this encounter
--- OUTSIDE RECORDS SUMMARY | 2025-05-07 10:57 | XMS_ITS | CCD ---
Author Organization [facility] Care Team Providers Care Assistant Director Of Admissions Name Role Phone Unavailable, Family Physician Unavailable Un available Unavailable, Family Physician Unavailable Un available Diab, Kelsea Unavailable Unavailable [place], KEN Unavailable Unavailable [place], KEN Unavailable Unavailable NADERER, SRIDHAR ANTONIA Unavailable Unavailabl e ABEBAJERMAINENICHOLE Unavailable Unavailable RANDALL HARRISON Unavailable Unavailable NADERER, RSIDHAR ANTONIA Unavailable Unavailabl e NADERER, SRIDHAR ANTONIA [...] NADERER, SRIDHAR ANTONIA Unavailable Unavailabl e NADERER, SRIDAHR ANTONIA Unavailable Unavailabl e NADERER, SRIDHAR ANTONIA Unavailable Unavailabl e NADERER, SRIDHAR ANTOINA Unavailable Unavailabl e NADERER, SRIDHAR ANTONIA Unavailable [...] Green, Domenic Marko A Unavailable Unavailab meagan Molina, Kenisha Unavailable NADERER, DR SRIDHAR Choudhary Primary Care Unavailable FREDERICK, JENIFER Consulting Unavailable NADERER, DR SRIDHAR Choudhary [...] Unavailable NADERER, DR SRIDHAR Choudhary Consulting Unavailable TERESITA, DR SRIDHAR Choudhary Attending Unavailable ALEXX ., DR PINEDO Admitting Unavailable ALEXX ., DR PINEDO Consulting Unavailable NADFLORENTINO, DR SRIDHAR Choudhary Primary Care Unavailable ALEXX ., DR PINEDO Attending Unavailable Sridhar Lo MD Primary Care Provider [phone] SHAHIDA PRETTY Attending Unavailable TERESITA, SRIDHAR Attending Unavailable SRIDHAR LO Attending Unavailable SRIDHAR LO Attending Unavailable Sridhar Lo MD Primary Care Provider [phone] All Starks Attending Unavailab le All Starks Admitting Unavailab le Sridhar Lo Primary Care Unavailable Sridhar Lo MD Primary Care Provider All Starks MD Attending Provider [phone] Sridhar Lo MD Attending Provider Allergies Allergy ClassificationReported Allergen(s)Allergy TypeDate of OnsetReaction(s) Facility (5 sources)cefdinir; Translations: [cefdinir]Drug Oqzsqdy90-17-2190cpfz changes [facility] Repository (3 sources)Promethazine; Translations: [Phenergan]Drug AllergyMer[facility] (2 sources)risperiDONEDrug AllergylactMountain [facility] Work Phone: (2 sources)Sulfamethoxazole / Trimethoprim; Translations: [Bactrim]Drug Allergy [facility] Repository (13 sources)CiprofloxacinDrug Qkagomk71-46-7342tbkzbCauru [employer] Other (2 sources)Prochlorperazine; Translations: [Compazine]Drug Zeswjng84-91-[address] [facility] (13 sources)PromethazineDrug Qaqycsn09-29-6828bpvrbcCgcaeHingi Other (12 sources)Sulfamethoxazole / TrimethoprimDrug Gcwdken94-62-4982KujnnxiFacrrHingi Other (2 sources)TriamcinoloneDrug Uwdlvkf31-27-6063jhuhfqoOehgnxlloAultman Hospital (2 sources)vortioxetineDrug Vjdowml67-06-0450ckazpiOpsntwbvgHarrison [facility] Hospital (1 source)CiprofloxacinDrug AllergyThe [facility] Rep[facility] (1 source)CorticosteroidsDrug allergy (disorder)15-10-7262NbcMercy Health [facility] (1 source)risperiDONEDrug AllergyThe [facility] Repository (1 source)vortioxetineDrug Cbvqizi86-94-6117FfsMercy Health St. [facility] Rep[facility] (11 sources)CefuroximeDrug Qshninm15-80-9504TVSR [facility] Work Phone: (12 sources)ProchlorperazineDrug Sphgryk94-60-0770midexwwtlOCBE Healthcare (12 sources)risperiDONEDrug Fctmzvr63-70-6459wkvckkpUWKJ Healthcare (11 sources)vortioxetineDrug Ngedawd64-89-9337LMHU [facility] (1 source)CiprofloxacinDrug Zskzlih06-46-3068CkcofzqiaKind[facility] Rep[facility] (1 source)ProchlorperazineDrug Ovecxno14-10-4792OknscuoslKindred Hospital [place] Repository (1 source)PromethazineDrug Nlbmrxp44-16-4657ObloiygxjKindred [facility] Repository (1 source)risperiDONEDrug Zobprop36-02-4970KmpqfetepKindred [facility] Repository (2 sources)SulfamethoxazoleDrug Tejjhaw47-21-4156gtlqiezkaDskjgfhctCincinnati [facility] Repository (1 source)TriamcinoloneDrug Owjtbwt65-78-5900JbrjgylpjKindred Hospital [place] Repository (2 sources)TrimethoprimDrug Gytvoun97-51-4581wukbfdstxWtejunizwCincinnati Shriners Hospital Repository (1 source)vortioxetineDrug Qxormos66-38-5364LnrkaryddKindred Hospital [place] Repository Medications Current Medications MedicationDrug Class(es)DatesSig (Normalized)Sig (Original)Ascorbic Acid (2 sources)Vitamin CVitamin C ActiveVitamin C Not-Takingcholecalciferol 0.125 mg oral capsule (9 sources)Vitamin DStart: 65-55-6214viaz 1 capsule by mouth every weekStart: 73-79-8178jcmp 1 capsule by mouth every weekcholecalciferol (Vitamin D-3) 1.25 MG (82508 UT) capsule Indications: Vitamin D deficiency, unspecified , Vitamin D deficiency TAKE 1 CAPSULE BY MOUTH ONE TIME PER WEEK ON SUNDAYS 12 capsule 3 03/14/2024 ActiveclonazePAM 0.5 mg oral tablet (14 sources)BenzodiazepineStart: 86-13-5686vugt 1 tablet by mouth once daily Clonazepam 0.5 mg tablet Active 0.5 MG PO Daily May 07, 2025 12:00am Complies with drug therapytake 1 tablet by mouth in the morning, then take 1 tablet by mouth in the evening, then take 1 tablet by mouth at bedtimeclonazePAM (KlonoPIN) 0.5 MG tablet Take 0.5 mg by mouth in the morning and 0.5 mg in the evening and 0.5 mg before bedtime. Activetake 0.5 tablet by mouth three times dailyKlonoPIN 1 MG Oral Tablet TAKE 0.5 TABLET 3 TIMES DAILY Refills: 0 Active doxycycline hyclate 100 mg oral tablet (1 source)Tetracycline-class DrugStart: 05-01-2024 End: 31-62-0057qzqtwdkafdw (Vibra-Tabs) 100 MG tablet Indications: Acute non- recurrent pansinusitis Take 1 tablet (100 mg) by mouth in the morning and 1 tablet (100 mg) before bedtime. Do all this for 10 days. Takewith a full glass of water and do not lie down for at least 30 minutes after.. 20 tablet Activefamotidine 20 mg oral tablet (9 sources)Histamine-2 Receptor AntagonistStart: 21-53-5695zrnn 1 tablet by mouth twice dailyFamotidine 20 mg tablet Active 20 MG PO Twice daily May 07, 2025 12:00am Complies with drug therapyStart: 59-51-9942mzng 2 tablets by mouth twice dailyfamotidine (Pepcid) 20 MG tablet Indications: Chronic superficial gastritis without bleeding , Atrophic gastritis TAKE 2 TABLETS BY MOUTH TWICE A DAY 360 tablet 3 02/02/2024 ActiveFamotidine 20 MG Oral for 90 Activelevothyroxine sodium 0.088 mg oral tablet (9 sources)l-ThyroxineStart: 21-87-0485ebvp 1 tablet by mouth once daily Levothyroxine 88 mcg tablet Active 88 MCG PO Daily May 07, 2025 12:00am Complies with drug therapyStart: 27-47-4342hddy 1 tablet by mouth once daily levothyroxine (Synthroid, Levoxyl) 88 MCG tablet Indications: Hypothyroidism, unspecified (CMS/HCC), Hypothyroidism (CMS/HCC) TAKE 1 TABLET BY MOUTH EVERY DAY 90 tablet 3 07/04/2023 ActiveLevothyroxine Sodium 88 MCG Oral for 90 Active methylPREDNISolone (3 sources)CorticosteroidStart: 04-30-2024 End: 01-60-4968klyjpgNYJBZHAlhizp (Medrol Dospak) 4 MG tablets Indications: Acute non-recurrent pansinusitis Follow schedule on package instructions 21 tablet 04/30/2024 05/07/2024 ActiveMultiple Vitamins-Minerals (Womens One Daily) tablet (11 sources)Multiple Vitamins-Minerals (Womens One Daily) tablet Active nortriptyline 50 mg oral capsule (15 sources)Tricyclic AntidepressantStart: 41-34-0461qkbt 1 capsule by mouth once daily at bedtimeNortriptyline 50 mg capsule Active 50 MG PO Daily at bedtime May 07, 2025 12:00am Complies with drug therapytake 1 capsule by mouth at bedtimenortriptyline (Pamelor) 50 MG capsule Take 50 mg by mouth at bedtime ActiveNortriptyline HCl 25 MG Oral for 90 ActivePamelor 75 MG Oral Capsule Refills: 0 Activesertraline 25 mg oral tablet (20 sources)Serotonin Reuptake InhibitorStart: 20-09-9583axgd 1 capsule by mouth once dailySertraline 200 mg capsule Active 200 MG PO Daily May 07, 2025 12:00am Complies with drug therapyStart: 27-46-9944hmdt 1 tablet by mouth once dailySertraline 25 mg tablet Active 25 MG PO Daily May 07, 2025 12:00am Complies with drug therapytake 1 tablet by mouth at bedtimesertraline (Zoloft) 100 MG tablet Take 100 mg by mouth at bedtime Activetake 1 tablet by mouth once dailysertraline (Zoloft) 25 MG tablet Take 25 mg by mouth Daily ActiveWomens One Daily (1 source)Womens One Daily Active Completed/Discontinued Medications MedicationDrug Class(es)DatesSig (Normalized)Sig (Original)Cetirizine (1 source)Histamine-1 Receptor AntagonistZyrTEC Allergy Not-Takingergocalciferol 08019 unt oral capsule (2 sources)Provitamin D2 CompoundStart: 76-67-0607ptlx 1 capsule by mouth every week at lunchVitamin D (Ergocalciferol) 70146 UNIT Oral Capsule take 1 capsule by mouth every week ON MONDAY WITH LUNCH AND FULL GLASS OF WATER Quantity: 13 Refills: 0 Domenic Green Start : 22-Sep-2017 ActiveVitamin D (Ergocalciferol) 1.25 MG (36029 UT) Oral for 84 ActivehydrOXYzine pamoate 25 mg oral capsule (1 source)AntihistaminehydrOXYzine Pamoate 25 MG Oral Capsule Refills: 0 Active levoFLOXacin 750 mg oral tablet (3 sources)Quinolone AntimicrobialStart: 04-30-2024 End: 59-61-2867veqx 1 tablet by mouth once dailylevoFLOXacin (Levaquin) 750 MG tablet Indications: Acute non-recurrent pansinusitis Take 1 tablet (750 mg) by mouth Daily for 7 days 7 tablet 04/30/2024 05/01/2024 Discontinuedpantoprazole 40 mg delayed release oral tablet (1 source)Proton Pump Inhibitortake 1 tablet by mouth once dailyProtonix 40 MG Oral Tablet Delayed Release TAKE 1 TABLET DAILY. Quantity: 90 Refills: 1 Active raNITIdine 150 mg oral tablet (1 source)Histamine-2 Receptor AntagonistStart: 71-06-0098ztbw 1 tablet by mouth twice dailyraNITIdine HCl - 150 MG Oral Tablet take 1 tablet by mouth twice a day Quantity: 60 Refills: 0 Domenic Green Start : 10-Aug-2017 ActiveTriamcinolone (1 source)CorticosteroidStart: 77-19-8149ZQCTFGS - 10 mg October, 60 mg venlafaxine (1 source)Serotonin and Norepinephrine Reuptake InhibitorEffexor Not-Taking Vitamin D (1 source)Vitamin D Not-Taking Problems Active Problems Problem ClassificationProblemDateDocumented DateEpisodic/ChronicAnxiety disorders (17 sources)Panic disorder; Translations: [Panic disorder [episodic paroxysmal anxiety]]Onset: 209706-79-1594XzjgkysNgcvcotw mellitus without complication (12 sources)Prediabetes; Translations: [Prediabetes]Onset: 414005-48-7242 EpisodicDisorders of lipid metabolism (13 sources)Hyperlipidemia, unspecified; Translations: [Dyslipidemia]Onset: 007667-38-8340DnkljstPtxdnoepep disorders (1 source)Gastroesophageal reflux disease; Translations: [GERD (gastroesophageal reflux disease)]ChronicGastritis and duodenitis (11 sources)Chronic superficial gastritis; Translations: [Chronic superficial gastritis without bleeding]Onset: 939864-61-9204HbbuuqmLdjyxseoo disorders (11 sources)Dysmenorrhea; Translations: [Dysmenorrhea, unspecified]Onset: 577593-02-7263ShedkrqBkve disorders (16 sources)Major depressive disorder, single episode, severe without psychotic features; Translations: [Major depressive disorder]Onset: ChronicMood disorders (1 source)Mood disordersOnset: 74-47-6984Vybcewq system congenital anomalies (1 source)Chiari malformation; Translations: [History of Arnold-Chiari syndrome] ChronicNutritional deficiencies (14 sources)Vitamin D deficiency; Translations: [Vitamin D deficiency, unspecified]Onset: 513068-24-2950AskjounVzxnb endocrine disorders (4 sources)Polycystic ovarian syndrome; Translations: [POLYCYSTIC OVARIAN SYNDROME]Onset: 25-44-5747SvhmlitHlhxj nervous system disorders (11 sources)Chiari malformation type I; Translations: [Compression of brain] Onset: 196089-82-6933DkjrgfqWqaas upper respiratory disease (1 source)Allergic rhinitis; Translations: [Allergic rhinitis, unspecified] ChronicOther upper respiratory disease (11 sources)Allergic rhinitis due to pollen; Translations: [Allergic rhinitis due to pollen]Onset: 633243-07-1176OlrfrlaIfxohfprlyz; intervertebral disc disorders; other back problems (13 sources)Low back pain; Translations: [Chronic neck pain]Onset: 09-26-2023 71-36-1561AeetrdwhGfekxny disorders (20 sources)Iodine-deficiency related diffuse (endemic) goiter; Translations: [Hypothyroidism, unspecified]Onset: 01-09-2022 Resolved: 58-65-4772PkrypllMbubkwmzsbiz (1 source)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()Onset: 01-22-2018 Unclassified (1 source)mdd recurrent severe / mdd recurrent severe()Onset: 11-21-2017 Unclassified (1 source)mdd recurrent severe,BRIAN, panic disorder / mdd recurrent severe,BRIAN, panic disorder()Onset: 44-15-9027Wotqpegnlanc (1 source)panic disorder / panic disorder()Onset: 01-22-2018 Past or Other Problems Problem ClassificationProblemDateDocumented DateEpisodic/ChronicAbdominal pain (11 sources)Pain in female pelvis; Translations: [Pelvic and perineal pain] Onset: 624376-94-5670UjdyvuwqOnlpvcwlfv associated with dizziness or vertigo (1 source)Vertigo; Translations: [Vertigo]EpisodicImmunizations and screening for infectious disease (2 sources)Contact with and (suspected) exposure to other viral communicable diseases; Translations: [Encounter for screening for human papillomavirus (HPV)] Onset: 36-40-9404PpckooxrCmncupu and fatigue (2 sources)Asthenia; Translations: [Fatigue]EpisodicOther aftercare (4 sources)Other terminal block assembler (current) drug therapy; Translations: [OTH ALF CURRENT DRUG THERAPY]Onset: 88-52-0064WfkpjcuvRabsb ear and sense organ disorders (1 source)Otalgia; Translations: [Right ear pain]EpisodicOther gastrointestinal disorders (1 source)Swallowing painful; Translations: [Odynophagia]EpisodicOther gastrointestinal disorders (1 source)Personal history of other diseases of the digestive system; Translations: [History of irritable bowel syndrome]EpisodicOther lower respiratory disease (1 source)H/O: respiratory disease; Translations: [History of sinusitis]Episodic Other lower respiratory disease (1 source)Shortness of breath; Translations: [SHORTNESS OF BREATH]Onset: 18-69-6061DvdcpogpClotm screening for suspected conditions (not mental disorders or infectious disease) (4 sources)Encounter for screening for malignant neoplasm of cervix; Translations: [ENC SCREENING MALIG NEOPLASM CERV]Onset: 22-24-9710ZjtuwjwcPxdsf upper respiratory infections (10 sources)Acute pansinusitis; Translations: [Acute pansinusitis, unspecified] Onset: 346634-71-4907SjrwiayjNaazlylcr and history of mental health and substance abuse codes (1 source)H/O: depression; Translations: [History of depression]Episodic Unclassified (1 source)MDD severe recurrent; Translations: [MDD severe recurrent]Onset: 02-28-1992Envkumdgstgs (1 source)mdd recurrent severe,BRIAN, panic disorder; Translations: [mdd recurrent severe,BRIAN, panic disorder]Onset: 11-15-5572Mkilbrulnyer (1 source)mdd recurrent severe; Translations: [mdd recurrent severe]Onset: 38-70-2458Vlbrchrsawvr (2 sources)Patient encounter status; Translations: [Screening for diabetes mellitus]Viral infection (1 source)COVID-19NEGATED: Highlighted row has not occurred!Residual codes; unclassified (2 sources)DiseaseEpisodic Results Test NameValueInterpretationReference RangeFacilityUS Breast - right limitedon 56-31-2511[place], [place] [address] Ultrasound Report Signed Patient: CHHAYA BERRY MR#: [id number] : 1975 Acct:[id number] Age/Sex: 48 / F ADM Date: 06/14/24 Loc: US Attending Dr: Shahida Pretty D.O. Ordering Physician: Shahida Pretty D.O. Date of Service: 06/14/24 Procedure(s): US breast RT limited Accession Number(s): [id number] cc: Shahida Pretty D.O.; Sridhar Lo M.D. Patient Name: CHHAYA BERRY MR#: [id number] : 1975 Exam Date: 06/14/2024 Ordering Doctor: DR Shahida Pretty . RADIOLOGY REPORT PROCEDURE: US BREAST RT LIMITED COMPARISON: US BREAST RT LIMITED, 12/27/2023. INDICATIONS: Complex cyst of right breast TECHNIQUE: Breast ultrasound was performed, with evaluation focusing only on specific areas of concern. FINDINGS: DIAGNOSTIC CATEGORY 2--BENIGN FINDING. NO CHANGE FROM COMPARISON. Ultrasound of the right breast demonstrates 2 stable cystic lesions and anechoic area measuring 1.8 x 1.9 x 1.0 cm and a 2nd cystic lesion with low-level echoes measuring 0.8 x 1.0 x 0 6 cm. In light of the stability, benign cysts are favored, no further evaluation is required RECOMMENDATIONS: ROUTINE MAMMOGRAM AND CLINICAL EVALUATION IN 12 MONTHS. PLEASE NOTE: A NORMAL ULTRASOUND EXAMINATION DOES NOT EXCLUDE THE POSSIBILITY OF BREAST CANCER. A CLINICALLY SUSPICIOUS PALPABLE LUMP SHOULD BE BIOPSIED. Dictated by: Jenifer Vazquez MD on 06/14/2024 at 09:01 Approved by: Jenifer Vazquez MD on 06/14/2024 at 09:02 Dictated By: Jenifer Vazquez M.D. Signed By: 06/14/24903 DD/ 2 TD/TT: Therapeutic Activities Services Worker:TBHRadiology, Radiologist, - 06/14/2024 [place] [address] Ultrasound Report Signed Patient: CHHAYA BERRY MR#: [id number] : 1975 Acct:[id number] Age/Sex: 48 / F ADM Date: 06/14/24 Loc: US Attending Dr: Shahida Pretty D.O. Ordering Physician: Shahida Pretty D.O. Date of Service: 06/14/24 Procedure(s): US breast RT limited Accession Number(s): [id number] cc: Shahida Pretty D.O.; Sridhar Lo M.D. Patient Name: CHHAYA BERRY MR#: [id number] : 1975 Exam Date: 06/14/2024 Ordering Doctor: DR Shahida Pretty . RADIOLOGY REPORT PROCEDURE: US BREAST RT LIMITED COMPARISON: US BREAST RT LIMITED, 12/27/2023. INDICATIONS: Complex cyst of right breast TECHNIQUE: Breast ultrasound was performed, with evaluation focusing only on specific areas of concern. FINDINGS: DIAGNOSTIC CATEGORY 2--BENIGN FINDING. NO CHANGE FROM COMPARISON. Ultrasound of the right breast demonstrates 2 stable cystic lesions and anechoic area measuring 1.8 x 1.9 x 1.0 cm and a 2nd cystic lesion with low-level echoes measuring 0.8 x 1.0 x 0 6 cm. In light of the stability, benign cysts are favored, no further evaluation is required RECOMMENDATIONS: ROUTINE MAMMOGRAM AND CLINICAL EVALUATION IN 12 MONTHS. PLEASE NOTE: A NORMAL ULTRASOUND EXAMINATION DOES NOT EXCLUDE THE POSSIBILITY OF BREAST CANCER. A CLINICALLY SUSPICIOUS PALPABLE LUMP SHOULD BE BIOPSIED. Dictated by: Jenifer Vazquez MD on 06/14/2024 at 09:01 Approved by: Jenifer Vazquez MD on 06/14/2024 at 09:02 Dictated By: Jenifer Vazquez M.D. Signed By: 06/14/24903 DD/ 2 TD/TT: Therapeutic Activities Services Worker: RONNY MedinaRadiology Study observation (narrative)RONNY MedinaUS Breast - right limitedOrdered By: Radiologist Radiology on 04-25-0529YWOB [facility] Work Phone: mm TOMOSYNTHESIS DIAGNOSTIC RTon 80-59-9631F[place]vFab[place], [place] [address] Mammography Report Signed Patient: CHHAYA BERRY MR#: [id number] : 1975 Acct:[id number] Age/Sex: 48 / F ADM Date: 12/27/23 Loc: MAMMO Attending Dr: Shahida Pretty D.O. Ordering Physician: Shahida Pretty D.O. Results: Date of Service: 12/27/23 Follow Up: Procedure(s): MM tomosynthesis diagnostic RT Accession Number(s): [id number] cc: Shahida Pretty D.O.; Sridhar Lo M.D. Patient Name: CHHAYA BERRY MR#: [id number] : 1975 Exam Date: 12/27/2023 Ordering Doctor: DR Shahida Pretty . RADIOLOGY REPORT PROCEDURE: MM TOMOSYNTHESIS [...] bladder cancer at age 68. LOCATION: [facility] BREAST COMPOSITION: The breasts are heterogeneously dense,which may obscure small masses. FINDINGS: DIAGNOSTIC CATEGORY 3--PROBABLY BENIGN FINDING. THE FOLLOWING FINDING(S) HAS A HIGH PROBABILITY OF A BENIGN ETIOLOGY: Spot imaging demonstrates a persistent 2.0 x 1.4 x 1.5 cm nodule in the anterior right breast. Ultrasound demonstrates 2 lesions. Retroareolar is a 1.7 x 0.8 x 1.6 cm [...] DOES NOT EXCLUDE THE POSSIBILITY OF BREAST CANCER. A CLINICALLY SUSPICIOUS PALPABLE LUMP SHOULD BE BIOPSIED. Dictated by: Jenifer Vazquez MD on 12/27/2023 at 13:17 Approved by: Jenifer Vazquez MD on 12/27/2023 at 13:22 Dictated By: Jenifer Vazquez M.D. Signed By: 12/27/23 1323 DD/ 1322 TD/TT: Therapeutic Activities Services Worker:TBHRadiology, Radiologist, - 12/27/2023 [place] [address] Mammography Report Signed Patient: CHHAYA BERRY MR#: [id number] : 1975 Acct:[id number] Age/Sex: 48 / F ADM Date: 12/27/23 Loc: MAMMO Attending Dr: Shahida Pretty D.O. Ordering Physician: Shahida Pretty D.O. Results: Date of Service: 12/27/23 Follow Up: Procedure(s): MM tomosynthesis diagnostic RT Accession Number(s): [id number] cc: Shahida Pretty D.O.; Sridhar Lo M.D. Patient Name: CHHAYA BERRY MR#: [id number] : 1975 Exam Date: 12/27/2023 Ordering Doctor: DR Shahida Pretty . RADIOLOGY REPORT PROCEDURE: MM TOMOSYNTHESIS [...] bladder cancer at age 68. LOCATION: [facility] BREAST COMPOSITION: The breasts are heterogeneously dense,which may obscure small masses. FINDINGS: DIAGNOSTIC CATEGORY 3--PROBABLY BENIGN FINDING. THE FOLLOWING FINDING(S) HAS A HIGH PROBABILITY OF A BENIGN ETIOLOGY: Spot imaging demonstrates a persistent 2.0 x 1.4 x 1.5 cm nodule in the anterior right breast. Ultrasound demonstrates 2 lesions. Retroareolar is a 1.7 x 0.8 x 1.6 cm [...] DOES NOT EXCLUDE THE POSSIBILITY OF BREAST CANCER. A CLINICALLY SUSPICIOUS PALPABLE LUMP SHOULD BE BIOPSIED. Dictated by: Jenifer Vazquez MD on 12/27/2023 at 13:17 Approved by: Jenifer Vazquez MD on 12/27/2023 at 13:22 Dictated By: Jenifer Vazquez M.D. Signed By: 12/27/23 1323 DD/ 1322 TD/TT: Therapeutic Activities Services Worker: RONNY Olmos Panel InformationOrdered By: Radiologist Radiology on 24-72-0865N[facility] Work Phone: No Panel Informationon 91-55-5223Yrfafrjws Study observation (narrative)RONNY Fan Breast - right limitedon 71-78-5002Czf [address] [address] Ultrasound Report Signed Patient: CHHAYA BERRY MR#: [id number] : 1975 Acct:[id number] Age/Sex: 48 / F ADM Date: 12/27/23 Loc: MAMMO Attending Dr: Shahida Pretty D.O. Ordering Physician: Shahida Pretty D.O. Date of Service: 12/27/23 Procedure(s): US breast RT limited Accession Number(s): [id number] cc: Shahida Pretty D.O.; Sridhar Lo M.D. Patient Name: CHHAYA BERRY MR#: [id number] : 1975 Exam Date: 12/27/2023 Ordering Doctor: DR Shahida Pretty . RADIOLOGY REPORT PROCEDURE: MM TOMOSYNTHESIS [...] bladder cancer at age 68. LOCATION: [facility] BREAST COMPOSITION: The breasts are heterogeneously dense,which may obscure small masses. FINDINGS: DIAGNOSTIC CATEGORY 3--PROBABLY BENIGN FINDING. THE FOLLOWING FINDING(S) HAS A HIGH PROBABILITY OF A BENIGN ETIOLOGY: Spot imaging demonstrates a persistent 2.0 x 1.4 x 1.5 cm nodule in the anterior right breast. Ultrasound demonstrates 2 lesions. Retroareolar is a 1.7 x 0.8 x 1.6 cm [...] DOES NOT EXCLUDE THE POSSIBILITY OF BREAST CANCER. A CLINICALLY SUSPICIOUS PALPABLE LUMP SHOULD BE BIOPSIED. Dictated by: Jenifer Vazquez MD on 12/27/2023 at 13:17 Approved by: Jenifer Vazquez MD on 12/27/2023 at 13:22 Dictated By: Jenifer Vazquez M.D. Signed By: 12/27/23 1323 DD/ 1322 TD/TT: Therapeutic Activities Services Worker:TBHRadiology, Radiologist, - 12/27/2023 [place] [address] Ultrasound Report Signed Patient: CHHAYA BERRY MR#: [id number] : 1975 Acct:[id number] Age/Sex: 48 / F ADM Date: 12/27/23 Loc: MAMMO Attending Dr: Shahida Pretty D.O. Ordering Physician: Shahida Pretty D.O. Date of Service: 12/27/23 Procedure(s): US breast RT limited Accession Number(s): [id number] cc: Shahida Pretty D.O.; Sridhar Lo M.D. Patient Name: CHHAYA BERRY MR#: [id number] : 1975 Exam Date: 12/27/2023 Ordering Doctor: DR Shahida Pretty . RADIOLOGY REPORT PROCEDURE: MM TOMOSYNTHESIS [...] bladder cancer at age 68. LOCATION: [facility] BREAST COMPOSITION: The breasts are heterogeneously dense,which may obscure small masses. FINDINGS: DIAGNOSTIC CATEGORY 3--PROBABLY BENIGN FINDING. THE FOLLOWING FINDING(S) HAS A HIGH PROBABILITY OF A BENIGN ETIOLOGY: Spot imaging demonstrates a persistent 2.0 x 1.4 x 1.5 cm nodule in the anterior right breast. Ultrasound demonstrates 2 lesions. Retroareolar is a 1.7 x 0.8 x 1.6 cm [...] DOES NOT EXCLUDE THE POSSIBILITY OF BREAST CANCER. A CLINICALLY SUSPICIOUS PALPABLE LUMP SHOULD BE BIOPSIED. Dictated by: Jenifer Vazquez MD on 12/27/2023 at 13:17 Approved by: Jenifer Vazquez MD on 12/27/2023 at 13:22 Dictated By: Jenifer Vazquez M.D. Signed By: 12/27/23 1323 DD/ 132 TD/TT: Therapeutic Activities Services Worker: RONNY Fuentes TOMOSYNTHESIS SCREENING BIon [id number], [place] [address] Mammography Report Signed Patient: CHHAYA BERRY MR#: [id number] : 1975 Acct:[id number] Age/Sex: 48 / F ADM Date: 11/08/23 Loc: MAMMO Attending Dr: Shahida Pretty D.O. Ordering Physician: Shahida Pretty D.O. Results: Date of Service: 11/08/23 Follow Up: Procedure(s): MM tomosynthesis screening BI Accession Number(s): [id number] cc: Shahida Pretty D.O.; Sridhar Lo M.D. Patient Name: CHHAYA BERRY MR#: [id number] : 1975 Exam Date: 11/08/2023 Ordering Doctor: DR Shahida Pretty . RADIOLOGY REPORT PROCEDURE: MM TOMOSYNTHESIS SCREENING BI COMPARISON: MG MAMM SCREEN 3D JANEY CAD, 08/03/2021. MAMMO POST BIOPSY LEFT, 09/02/2019. INDICATIONS: screening Calculator Name NCI Breast Cancer Risk Assessment Tool 5 Year Breast Cancer Risk 1.00% Lifetime Breast Cancer Risk 9.60% Personal Breast Cancer No Personal Ovarian Cancer No Treatments None Family Cancers Grandmother-maternal with breast cancer at age 55; Grandfather-maternal with bladder cancer at age 70. LOCATION: [facility] BREAST COMPOSITION: The breasts are heterogeneously dense,which may obscure small masses. FINDINGS: DIAGNOSTIC CATEGORY 0--INCOMPLETE: NEED ADDITIONAL IMAGING EVALUATION. Scattered benign-appearing calcifications are present. Scattered benign-appearing lymph nodes are present. RIGHT BREAST: No significant suspicious finding. New 1.9 cm partially circumscribed nodule identified in the upper-outer quadrant, mid breast. Spot imaging and ultrasound follow-up is required LEFT BREAST: No significant suspicious finding. RECOMMENDATIONS: ADDITIONAL MAMMOGRAPHIC VIEWS REQUIRED: RIGHT BREAST - spot compression ULTRASOUND: RIGHT BREAST PLEASE NOTE: A NORMAL MAMMOGRAM DOES NOT EXCLUDE THE POSSIBILITY OF BREAST CANCER. A CLINICALLY SUSPICIOUS PALPABLE LUMP SHOULD BE BIOPSIED. Dictated by: Jenifer Vazquez MD on 11/08/2023 at 13:32 Approved by: Jenifer Vazquez MD on 11/08/2023 at 13:34 Dictated By: Jenifer Vazquez M.D. Signed By: 11/08/23 1335 DD/ 1334 TD/TT: Therapeutic Activities Services Worker:TBHRadiology, Radiologist, - 11/08/2023 [place] [address] Mammography Report Signed Patient: CHHAYA BERRY MR#: [id number] : 1975 Acct:[id number] Age/Sex: 48 / F ADM Date: 11/08/23 Loc: MAMMO Attending Dr: Shahida Pretty D.O. Ordering Physician: Shahida Pretty D.O. Results: Date of Service: 11/08/23 Follow Up: Procedure(s): MM tomosynthesis screening BI Accession Number(s): [id number] cc: Shahida Pretty D.O.; Sirdhar Lo M.D. Patient Name: CHHAYA BERRY MR#: [id number] : 1975 Exam Date: 11/08/2023 Ordering Doctor: DR Shahida Pretty . RADIOLOGY REPORT PROCEDURE: MM TOMOSYNTHESIS SCREENING BI COMPARISON: MG MAMM SCREEN 3D JANEY CAD, 08/03/2021. MAMMO POST BIOPSY LEFT, 09/02/2019. INDICATIONS: screening Calculator Name NCI Breast Cancer Risk Assessment Tool 5 Year Breast Cancer Risk 1.00% Lifetime Breast Cancer Risk 9.60% Personal Breast Cancer No Personal Ovarian Cancer No Treatments None Family Cancers Grandmother-maternal with breast cancer at age 55; Grandfather-maternal with bladder cancer at age 70. LOCATION: [facility] BREAST COMPOSITION: The breasts are heterogeneously dense,which may obscure small masses. FINDINGS: DIAGNOSTIC CATEGORY 0--INCOMPLETE: NEED ADDITIONAL IMAGING EVALUATION. Scattered benign-appearing calcifications are present. Scattered benign-appearing lymph nodes are present. RIGHT BREAST: No significant suspicious finding. New 1.9 cm partially circumscribed nodule identified in the upper-outer quadrant, mid breast. Spot imaging and ultrasound follow-up is required LEFT BREAST: No significant suspicious finding. RECOMMENDATIONS: ADDITIONAL MAMMOGRAPHIC VIEWS REQUIRED: RIGHT BREAST - spot compression ULTRASOUND: RIGHT BREAST PLEASE NOTE: A NORMAL MAMMOGRAM DOES NOT EXCLUDE THE POSSIBILITY OF BREAST CANCER. A CLINICALLY SUSPICIOUS PALPABLE LUMP SHOULD BE BIOPSIED. Dictated by: Jenifer Vazquez MD on 11/08/2023 at 13:32 Approved by: Jenifer Vazquez MD on 11/08/2023 at 13:34 Dictated By: Jenifer Vazquez M.D. Signed By: 11/08/23 1335 DD/ 33 TD/TT: Therapeutic Activities Services Worker: [facility] HospitalRadiology Study observation (narrative)[facility] TOMOSYNTHESIS SCREENING BIOrdered By: Radiologist Radiology on [id number] McCune-Brooks Hospital Work Phone: DHEA SERUMon [id number]cfdhdp (DHEA) 145 ng/kAHupfuv20-067Meq [facility] HospitalComment on above:Result Comment: Age 1 - 5 years 0 - 67 6 - 7 years 0 - 110 8 - 10 years 0 - 185 11 - 12 years 0 - 201 13 - 14 years 0 - 318 15 - 16 years 39 - 481 17 - 19 years 40 - 491 >19 years 31 - 701Performed By: #### CBC #### [facility] [address] [address] [address] June Hernadez-SULFATEon 48-50-1620GMPO-Kozxjkq69.1 ug/rIClodri40.2-243.7 [facility] HospitalComment on above:Performed By: #### CBC #### [facility] [address] [place] [address] Dr. June Crabtree 31-60-1566QOM8.4 mIU/mLNClermont County HospitalComment on above:Result Comment: Adult Female: Follicular phase 3.5 - 12.5 Ovulation phase 4.7 - 21.5 Luteal phase 1.7 - 7.7 Postmenopausal 25.8 - 134.8Performed By: #### CBC #### [facility] [address] [place] [address] Dr. June MayorgaLUTEINIZING HORMONE (LH)on 46-61-8106BW2.4 mIU/mLNormalMercy Health St. Elizabeth Boardman HospitalComment on above:Result Comment: Adult Female: Follicular phase 2.4 - 12.6 Ovulation phase 14.0 - 95.6 Luteal phase 1.0 - 11.4 Postmenopausal 7.7 - 58.5Performed By: #### LBCL #### [facility] [address] [place] [address] Dr. June Aguirre ACOG PANEL 2: 30 to 65on 07-07-2022..NormalMercy Health St. Elizabeth Boardman HospitalComment on above:Result Comment: Performed at: BAPerformed By: #### CBC #### [facility] [address] [place] [address] Dr. June Ho Gdln ACOG Mcpcvnt15-18HkbdlkLprSelect Medical Specialty Hospital - Southeast OhioComment on above:Performed By: #### CBC #### [facility] [address] [place] [address] Dr. June MayorgaDIAGNOSIS:CommentACMC Healthcare SystemComhenry ford cottage hospital on above: Result Comment: NEGATIVE FOR INTRAEPITHELIAL LESION OR MALIGNANCY. Performed at: BAPerformed By: #### CBC #### [facility] [address] [place] [address] Dr. June Burleson AptimaNegativeNormalNegativeMercy Health St. Elizabeth Boardman HospitalComhenry ford cottage hospital on above:Result Comment: This nucleic acid amplification test detects fourteen high-risk HPV types (16,18,31,33,35,39,45,51,52,56,58,59,66,68) without differentiation. Performed at: =GPerformed By: #### CBC #### [facility] [address] [place] [address] Dr. June MayorgaHPV Genotype ReflexCommentOur Lady of [facility] - [facility] on above:Result Comment: Criteria not met, HPV Genotype not performed. Performed at: BAPerformed By: #### CBC #### [facility] [address] [place] [address] Dr. June MayorgaMethodology:CommentOur Lady of Mercy Hospital - [facility] on above: Result Comment: This liquid based ThinPrep(R) pap test was screened with the use of an image guided system. Performed at: WBPerformed By: #### CBC #### [place] [address] Dr. June MayorgaNote:CommentOur Lady of Mercy Hospital - [facility] on above:Result Comment: The Pap smear is a screening test designed to aid in the detection of premalignant and malignant conditions of the uterine cervix. It is not a diagnostic procedure and should not be used as the sole means of detecting cervical cancer. Both false-positive and false-negative reports do occur. . Performed at: WBPerformed By: #### CBC #### [place] [address] Dr. June MayorgaPerformed by:CommentOur Lady of Mercy Hospital - [facility] on above: Result Comment: Julianne Rubio Cooler Deliverer (ASCP) Performed at: BAPerformed By: #### CBC #### [facility] [address] [place] [address] Dr. June MayorgaSpecimen adequacy:[facility] on above:Result Comment: Satisfactory for evaluation. Endocervical and/or squamous metaplastic cells (endocervical component) are present. Performed at: BAPerformed By: #### CBC #### [facility] [address] [place] [address] Dr. June Mejia AUTO DIFFon 04-74-8843VNET #0.0 103/ulNormal0.0-0.1The [facility] HospitalComment on above:Performed By: #### CBC #### [facility] [address] [place] [address] Dr. June MayorgaBasophils/100 WBC (Bld)0.4 %Normal0.2-2.0[facility] Comment on above:Performed By: #### CBC #### [facility] [address] [place] [address] Dr. June Mcneal #0.1 103/ulNormal0.0-0.7The [facility] HospitalComment on above: Performed By: #### CBC #### [facility] [address] [place] [address] Dr. June Westosinophils/100 WBC (Bld)1.5 %Normal0.9-7.0[facility] Comment on above:Performed By: #### CBC #### [facility] [address] [place] [address] Dr. June Westrythrocyte distribution width (RBC) [Ratio]13.3 %Qgeyeb41.0-15.0 The [facility] HospitalComment on above:Performed By: #### CBC #### [facility] [address] [place] [address] Dr. June MayorgaHematocrit (Bld) [Volume fraction]38.6 %Nlhhrv92.0-48.0The [facility] HospitalComment on above:Performed By: #### CBC #### [facility] [address] [place] [address] Dr. June MayorgaHemoglobin (Bld) [Mass/Vol]12.9 g/jRPtsqvh10.0-16.0The [facility] HospitalComment on above:Performed By: #### CBC #### [facility] [address] [place] [address] Dr. June Tripp #0.02 10e3/ulNormal0.00-0.03The [facility] HospitalComment on above:Performed By: #### CBC #### [facility] [address] [place] [address] Dr. June Tripp %0.2 %Normal0.0-0.5The [facility] HospitalComment on above: Performed By: #### CBC #### [facility] [address] [place] [address] Dr. June Vickers #3.0 103/ulNormal1.2-3.8The [facility] HospitalComment on above:Performed By: #### CBC #### [facility] [address] [place] [address] Dr. June Zhanghocytes/100 WBC (Bld)37.3 %Pulzny25.5-60.0The [facility] HospitalComment on above:Performed By: #### CBC #### [facility] [address] [place] [address] Dr. June Joy DIFF REQNONormalThe [facility] Memorial HospitalComment on above: Performed By: #### CBC #### [facility] [address] [place] [address] Dr. June Stephens (RBC) [Entitic mass]29.8 duPpszpy25.7-34.0The [facility] HospitalComment on above:Performed By: #### CBC #### [facility] [address] [place] [address] Dr. June Beyer (RBC) [Mass/Vol]33.4 g/hZBmunkd97.9-35.2The [facility] HospitalComment on above:Performed By: #### CBC #### [facility] [address] [place] [address] Dr. June Banuelos (RBC) [Entitic vol]89.1 xHJufsht25.0-99.0The [facility] HospitalComment on above:Performed By: #### CBC #### [facility] [address] [place] [address] Dr. June Coreas #0.7 103/ulNormal0.3-0.8The [facility] HospitalComment on above:Performed By: #### CBC #### [facility] [address] [place] [address] Dr. June Nagyocytes/100 WBC (Bld)8.5 %Normal1.7-12.0[facility] Comment on above:Performed By: #### CBC #### [facility] [address] [place] [address] Dr. June MijaresUT #4.2 103/ulNormal1.4-6.5The [facility] HospitalComment on above:Performed By: #### CBC #### [facility] [address] [place] [address] Dr. June Mijaresutrophils/100 WBC (Bld)52.1 %Tficzm58.0-75.0The [facility] HospitalComment on above:Performed By: #### CBC #### [facility] [address] [place] [address] Dr. June Hernándezlet mean volume (Bld) [Entitic vol]9.2 fLCritically low 9.5-13.5The [facility] HospitalComment on above:Performed By: #### CBC #### [facility] [address] [place] [address] Dr. June MayorgaPLT257 103/xmLflzjc481-236Ndp [facility] HospitalComment on above: Performed By: #### CBC #### [facility] [address] [place] [address] Dr. June MayorgaRBC4.33 106/ulNormal4.20-5.40The [facility] HospitalComment on above:Performed By: #### CBC #### [facility] [address] [place] [address] Dr. June MayorgaWBC8.1 103/ulNormal4.0-11.0The [facility] HospitalComment on above: Performed By: #### CBC #### [facility] [address] [place] [address] Dr. June MayorgaFRVA T4on 12-83-0485Fblf T4 [Mass/Vol]0.84 ng/dLNormal0.76-1.46 The [facility] HospitalComment on above:Performed By: #### FT4 #### [facility] [address] [place] [address] Dr. June MayorgaGLYCOHEMOGLOBIN A1Con 68-28-7796YCW RECOMMENDATIONSEE BELOWNormal The [facility] HospitalComment on above:Result Comment: ADA RECOMMENDED LIMIT 4.0 - 6.0 ADA THERAPEUTIC TARGET < 7.0 ACTION SUGGESTED > 7.0Performed By: #### A1C #### [facility] [address] [place] [address] Dr. June MayorgaGlucose [Mass/Vol]105 mg/dLNormalThe [facility] HospitalComment on above:Performed By: #### A1C #### [facility] [address] [place] [address] Dr. June MayorgaHbA1c (Bld) [Mass fraction]5.3 %Normal4.5-6.2The [facility] HospitalComment on above:Performed By: #### A1C #### [place] [address] Dr. June IrwinHoarmaan 28-02-5764OUY0.631 uIU/mLNormal0.358-3.740The [facility] HospitalComment on above:Performed By: #### TSH #### [facility] [address] [place] [address] Dr. June Eden THYROIDon 53-11-1935HC THYROIDEXAMINATION: US THYROID HISTORY: Diffuse endemic goiter COMPARISON: No relevant [...] IMPRESSION: Normal exam Electronically authenticated by: JENIFER VAZQUEZ Date: 2022-04-28 19:27NormPremier Health Miami Valley HospitalMAGNESIUMon 05-95-4806Tshpbmxoy [Mass/Vol]2.1 mg/dLNormal 1.8-2.4The [facility] HospitalComment on above:Performed By: #### MG #### [facility] [address] [place] [address] Dr. June Echavarria Quick Testingon 38-55-8182YzonyuFyfgalshCpppq [employer]. [employer] Other cbc AUTO DIFFon 67-81-2369DFJN #0.0 103/ulNormal 0.0-0.1The [facility] HospitalComment on above:Performed By: #### CBC #### [facility] [address] [place] [address] Dr. June MayorgaBasophils/100 WBC (Bld)0.5 %Normal0.2-2.0The [facility] Comment on above:Performed By: #### CBC #### [facility] [address] [place] [address] Dr. June Mcneal #0.1 103/ulNormal0.0-0.7The [facility] HospitalComment on above: Performed By: #### CBC #### [facility] [address] [place] [address] Dr. June Westosinophils/100 WBC (Bld)1.6 %Normal0.9-7.0The [facility] Comment on above:Performed By: #### CBC #### [facility] [address] [place] [address] Dr. June Westrythrocyte distribution width (RBC) [Ratio]12.9 %Gchwbu19.0-15.0 The [facility] HospitalComment on above:Performed By: #### CBC #### [facility] [address] [place] [address] Dr. June MayorgaHematocrit (Bld) [Volume fraction]38.8 %Adoiod67.0-48.0The [facility] HospitalComment on above:Performed By: #### CBC #### [facility] [address] [place] [address] Dr. June MayorgaHemoglobin (Bld) [Mass/Vol]12.7 g/wSKwedmu08.0-16.0The [facility] HospitalComment on above:Performed By: #### CBC #### [facility] [address] [place] [address] Dr. June Tripp #0.01 10e3/ulNormal0.00-0.03The [facility] HospitalComment on above:Performed By: #### CBC #### [facility] [address] [place] [address] Dr. June Tripp %0.2 %Normal0.0-0.5The [facility] HospitalComment on above: Performed By: #### CBC #### [facility] [address] [place] [address] Dr. June Vickers #2.3 103/ulNormal1.2-3.8The [facility] HospitalComment on above:Performed By: #### CBC #### [facility] [address] [place] [address] Dr. June Zhanghocytes/100 WBC (Bld)36.6 %Tzcvnu91.5-60.0The [facility] on above:Performed By: #### CBC #### [facility] [address] [place] [address] Dr. June PaganUAL DIFF REQNONormalThe [facility] HospitalComment on above: Performed By: #### CBC #### [facility] [address] [place] [address] Dr. June Stephens (RBC) [Entitic mass]30.1 frHsuiff98.7-34.0The [facility] HospitalComment on above:Performed By: #### CBC #### [facility] [address] [place] [address] Dr. June Beyer (RBC) [Mass/Vol]32.7 g/eHEhudcb53.9-35.2The [facility] HospitalComhenry ford cottage hospital on above:Performed By: #### CBC #### [facility] [address] [place] [address] Dr. June Beyer (RBC) [Entitic vol]91.9 rPDyjixa01.0-99.0The [facility] HospitalComment on above:Performed By: #### CBC #### [facility] [address] [place] [address] Dr. June Coreas #0.6 103/ulNormal0.3-0.8The [facility] HospitalComment on above:Performed By: #### CBC #### [facility] [address] [place] [address] Dr. June Nagyocytes/100 WBC (Bld)9.2 %Normal1.7-12.0The [facility] Comment on above:Performed By: #### CBC #### [facility] [address] [place] [address] Dr. June Montano #3.2 103/ulNormal1.4-6.5The [facility] HospitalComment on above:Performed By: #### CBC #### [facility] [address] [place] [address] Dr. June Mijaresutrophils/100 WBC (Bld)51.9 %Ivlbkg14.0-75.0The [facility] HospitalComment on above:Performed By: #### CBC #### [facility] [address] [place] [address] Dr. June Yusuf mean volume (Bld) [Entitic vol]10.2 fLNormal9.5-13.5The [facility] HospitalComment on above:Performed By: #### CBC #### [facility] [address] [place] [address] Dr. June MayorgaPLT293 103/zwQlznbb993-225Naw [facility] HospitalComment on above: Performed By: #### CBC #### [facility] [address] [place] [address] Dr. June MayorgaRBC4.22 106/ulNormal4.20-5.40The [facility] HospitalComment on above:Performed By: #### CBC #### [facility] [address] [place] [address] Dr. June MayorgaWBC6.2 103/ulNormal4.0-11.0The [facility] HospitalComment on above: Performed By: #### CBC #### [facility] [address] [address] [address] June Nieto T3on 55-11-4929HLOX T32.79 pg/mlLNormal2.18-3.98[facility] on above:Performed By: #### CBC #### [facility] [address] [address] [address] June Nieto T4on 83-83-7161Edno T4 [Mass/Vol]0.94 ng/dLNormal0.76-1.46 [facility] on above:Performed By: #### CBC #### [facility] [address] [address] [address] June MayorgaGLYCOHEMOGLOBIN A1Con 96-09-2741CSZ RECOMMENDATIONSEE BELOWSelect Medical Specialty Hospital - [place] on above:Result Comment: ADA RECOMMENDED LIMIT 4.0 - 6.0 ADA THERAPEUTIC TARGET < 7.0 ACTION SUGGESTED > 7.0Performed By: #### A1C #### [facility] [address] [place] [address] Dr. June MayorgaGlucose [Mass/Vol]123 mg/dLOur Lady of [facility] on above:Performed By: #### A1C #### [facility] [address] [place] [address] Dr. June MayorgaHbA1c (Bld) [Mass fraction]5.9 %Normal4.5-6.2[facility] on above:Performed By: #### A1C #### [facility] [address] [address] [address] June MayorgaLIPID PROFILEon [id number]-HDL RATIO NORMSEE [facility] on above:Result Comment: 3.3 - 4.4 LOW RISK 4.4 - 7.1 AVERAGE RISK 7.1 - 11.0 MODERATE RISK >11.0 HIGH RISKPerformed By: #### LIPID, TSH, BMP, FT3, LIVER #### [facility] [address] [place] [address] Dr. June MayorgaCholesterol [Mass/Vol]169 mg/dLNoal<=200The [facility] Comment on above:Performed By: #### LIPID, TSH, BMP, FT3, LIVER #### [facility] [address] [place] [address] Dr. June Rodriguezesterol in HDL [Mass/Vol]44 mg/sYItzypx46-18Hwh [facility] HospitalComment on above:Performed By: #### LIPID, TSH, BMP, FT3, LIVER #### [facility] [address] [address] [address] June MayorgaCholesterol in LDL [Mass/Vol]89.6 mg/dLNoSelect Medical Specialty Hospital - Southeast OhioComment on above:Performed By: #### LIPID, TSH, BMP, FT3, LIVER #### [facility] [address] [place] [address] Dr. June Josue.total/Cholesterol in HDL [Mass ratio]3.8 {ratio} NormalThe [facility] HospitalComment on above:Performed By: #### LIPID, TSH, BMP, FT3, LIVER #### [facility] [address] [place] [address] Dr. June MayorgaHDTrevor NORMAL> or = 60 mg/dl - LOW CARDIOVASCULAR RISK <40 mg/dl - HIGH CARDIOVASCULAR RISKACMC Healthcare SystemComment on above:Performed By: #### LIPID, TSH, BMP, FT3, LIVER #### [facility] [address] [place] [address] Dr. June MayorgaLDL CALC NORMALSEE BELOWNoSelect Medical Specialty Hospital - Southeast OhioComment on above:Result Comment: <100 mg/dl OPTIMAL 100 - 129 mg/dl NEAR OR ABOVE OPTIMAL 130 - 159 mg/dl BORDERLINE HIGH 160 - 189 mg/dl HIGH >190 mg/dl VERY HIGH Performed By: #### LIPID, TSH, BMP, FT3, LIVER #### [facility] [address] [place] [address] Dr. June MayorgaTriglyceride [Mass/Vol]177 mg/dLCritically high<=150The [facility] HospitalComment on above:Performed By: #### LIPID, TSH, BMP, FT3, LIVER #### [facility] [address] [address] [address] June MayorgaVLDL CALC35.4 mg/dLNormalThe [facility] HospitalComhenry ford [facility] hospital on above: Performed By: #### LIPID, TSH, BMP, FT3, LIVER #### [facility] [address] [address] [address] June Stafford PROFILEon 85-25-7641Sjkottn [Mass/Vol]3.5 g/dLNormal3.4-5.0 The [facility] HospitalComment on above:Performed By: #### CBC #### [facility] [address] [place] [address] Dr. June MayorgaAlbumin/Globulin [Mass ratio]1.1 {ratio}NormalThe [facility] HospitalComment on above:Performed By: #### CBC #### [facility] [address] [place] [address] Dr. June Oliveira [Catalytic activity/Vol]71 U/HZodgph22-444Spk [facility] HospitalComment on above:Performed By: #### CBC #### [facility] [address] [place] [address] Dr. June Mayberry [Catalytic activity/Vol]43 U/HNffkrz96-76Ykl [facility] HospitalComment on above:Performed By: #### CBC #### [facility] [address] [place] [address] Dr. June Murphy [Catalytic activity/Vol]27 U/IZlpspg92-63Jnv [facility] HospitalComment on above:Performed By: #### CBC #### [facility] [address] [place] [address] Dr. June Reda, CONJUGATED0.1 mg/dLNormal0.0-0.2The [facility] Comment on above:Performed By: #### CBC #### [facility] [address] [place] [address] Dr. June Medinairubin [Mass/Vol]0.3 mg/dLNormal0.2-1.0The [facility] Comment on above:Performed By: #### CBC #### [facility] [address] [place] [address] Dr. June MayorgaGlobulin (S) [Mass/Vol]3.3 g/dLNormalThe [facility]ria Memorial HospitalComment on above:Performed By: #### CBC #### [facility] [address] [place] [address] Dr. June MayorgaProtein [Mass/Vol]6.8 g/dLNormal6.4-8.2[facility] Comment on above:Performed By: #### CBC #### [facility] [address] [place] [address] Dr. June MayorgaPROF CHEM 8 (BAS METB)on 65-54-9802Appod gap [Moles/Vol]11.0 mmol/LNormalThe [facility] HospitalComment on above:Performed By: #### LIPID, TSH, BMP, FT3, LIVER #### [facility] [address] [place] [address] Dr. June MayorgaCalcium [Mass/Vol]8.6 mg/dLNormal8.5-10.1[facility] Comment on above:Performed By: #### LIPID, TSH, BMP, FT3, LIVER #### [facility] [address] [place] [address] Dr. June MayorgaChloride [Moles/Vol]108 mmol/LCritically znms68-859CzfMercy Health St. Elizabeth Boardman HospitalComment on above:Performed By: #### LIPID, TSH, BMP, FT3, LIVER #### [facility] [address] [place] [address] Dr. June MayorgaCO2 [Moles/Vol]26.3 mmol/QKmmprz10.0-32.0[facility] Comment on above:Performed By: #### LIPID, TSH, BMP, FT3, LIVER #### [facility] [address] [place] [address] Dr. June MayorgaCreatinine [Mass/Vol]0.90 mg/dLNormal0.55-1.02The [facility] HospitalComment on above:Performed By: #### LIPID, TSH, BMP, FT3, LIVER #### [facility] [address] [address] [address] June WestGFR-AF AUSTRIAN>60Normal>=60The [facility] HospitalComment on above:Performed By: #### LIPID, TSH, BMP, FT3, LIVER #### [facility] [address] [address] [address] June WestGFR-NON AF AUSTRIAN>60Normal>=60The [facility] HospitalComment on above:Performed By: #### LIPID, TSH, BMP, FT3, LIVER #### [facility] [address] [place] [address] Dr. June MayorgaGlucose [Mass/Vol]97 mg/vWZbjxhz71-771LedMercy Health St. [facility] Comment on above:Performed By: #### LIPID, TSH, BMP, FT3, LIVER #### [facility] [address] [place] [address] Dr. June MayorgaPotassium [Moles/Vol]4.3 mmol/LNormal3.5-5.1[facility] Comment on above:Performed By: #### LIPID, TSH, BMP, FT3, LIVER #### [facility] [address] [place] [address] Dr. June MayorgaSodium [Moles/Vol]141 mmol/UVwlebl958-320XviMercy Health St. [facility] Comment on above:Performed By: #### LIPID, TSH, BMP, FT3, LIVER #### [facility] [address] [place] [address] Dr. June MayorgaUrea nitrogen [Mass/Vol]15.0 mg/dLNormal7.0-18.0The [facility] HospitalComment on above:Performed By: #### LIPID, TSH, BMP, FT3, LIVER #### [facility] [address] [place] [address] Dr. June Ayala nitrogen/Creatinine [Mass ratio]16.7 mg/mgNormalThe [facility] Memorial HospitalComment on above:Performed By: #### LIPID, TSH, BMP, FT3, LIVER #### [facility] [address] [place] [address] Dr. June Toledo 44-71-8642NZP7.118 uIU/mLCritically low0.358-3.740[facility] HospitalComment on above:Performed By: #### LIPID, TSH, BMP, FT3, LIVER #### [facility] [address] [address] [address] June MayorgaVITAMIN D 25 OHon 77-01-5747RTG D 25-OH39.7 ng/mLNormalThe [facility] Memorial HospitalComment on above:Performed By: #### CBC #### [facility] [address] [address] [address] June Rosado RANGESSEE Guernsey Memorial HospitalComment on above: Result Comment: <20 ng/mL Vit D deficient 20 - <30 ng/mL Vit D insufficient 30 - 100 ng/mL Vit D sufficient >100 ng/mL Potential ToxicityPerformed By: #### CBC #### [facility] [address] [place] [address] Dr. June MayorgaCT CERVICAL SP WO CONon [id number] CERVICAL SP WO CONSTUDY:CT CERVICAL SP WO CON; 12/07/2017 7:34 pmINDICATION:PAIN.COMPARISON:None. CLINICIAN:Truman Magana:Contiguous axial images of the cervical spine were obtained withoutintravenous contrast. Coronal and sagittal reformatted images wereobtained from the axial images.FINDINGS:The examination is limited secondary to patient motion. No evidenceof acutefracture or subluxation of the cervical spine. The vertebralbody heights are preserved. There is straightening of the normalcervical lordosis which may be secondary to patient positioning ormuscle spasm. There is limited evaluation of the soft tissues of thespinal canal. No evidence of spinal canalstenosis. No prevertebralsoft tissue edema.IMPRESSION:No evidence of acute fracture or subluxation of the cervical spine.Straightening of the normal cervical lordosis which may be secondaryto patientpositioning or muscle spasm.NormalSt. Kaiser South San Francisco Medical CenterCT HEAD/BRAIN WO CONon [id number] HEAD/BRAIN WO CON STUDY:CT HEAD/BRAIN WO CON; 12/07/2017 7:34 pmINDICATION:PAIN.COMPARISON:NoneACCESSION NUMBER(S):[id number] CLINICIAN:Truman Magana:Contiguous axial images of the head were obtained without intravenouscontrast.FINDINGS:BRAIN PARENCHYMA: The pineda white matter differentiation is preserved.No mass effect or midline shift.HEMORRHAGE: No evidence of acute intracranial hemorrhage.VENTRICLES AND EXTRA-AXIAL SPACES:The ventricles are within normallimits in size for brain volume. No evidence of abnormal extraaxialfluid collection.EXTRACRANIAL SOFT TISSUES:Within normal limits.PARANASAL SINUSES/MASTOIDS:The visualized paranasal sinuses andmastoid air cells are clear and well pneumatized.CALVARIUM:No evidence of depressed calvarial fracture.OTHER FINDINGS:NoneIMPRESSION:No evidence of acute intracranial hemorrhage or mass effectNormalSt. [facility] SHOULDER RT COMPLETE MIN 2 VWSon [id number] RT COMPLETE MIN 2 VWS STUDY:SHOULDER RT COMPLETE MIN 2 VWS; 12/07/2017 7:33 pmINDICATION:PAIN.COMPARISON:None. CLINICIAN:Truman Jeong:There is no acute fracture or dislocation of the rightacromioclavicular joint or glenohumeral joint. The subacromial andglenohumeral joint spaces are maintained. There are mild degenerativechanges of the right acromioclavicular joint.IMPRESSION:No acute osseous abnormality of the right shoulder.NormalSt. Kaiser South San Francisco Medical CenterLithium Levelon 88-40-7314Tkjytpr6.4 mmol/LLow0.6-1.2Mparkwood hospitaly [facility] CenterCBC AND DIFFERENTIALon 09-22-2017% AUTOMATED IMMATURE GRAN0.2 %Normal0.0 - 0.9[facility] for RehabilitationComment on above:Result Comment: Percent differential counts (%) should be interpreted in the context of the absolute cell counts (cells/L).Performed By: #### THYDS ####[facility] [place] [address]% GDDEFGPUYN82.5 %Iyxdgp17.0 - 80.0[facility] for RehabilitationComment on above:Performed By: #### THYDS ####[facility], [place] [address]Qifivgvih/100 WBC Auto (Bld)0.02 x10E9/LNormal0.00 - 0.10[facility] for RehabilitationComment on above:Performed By: #### THYDS ####[facility], [place] [address]Gqarwjxel/100 WBC Auto (Bld)0.2 %Normal0.0 - 2.0[facility] Comment on above:Performed By: #### THYDS ####[facility], [place] [address]Fflsryglmft9.08 10*3/uLNormal0.00 - 0.70[facility] RehabilitationComment on above:Performed By: #### THYDS ####[facility], [place] [address]Omdwklbbbfl/100 leukocytes1.0 %Normal0.0 - 6.0[facility] for RehabilitationComment on above: Performed By: #### THYDS ####[facility], [place] [address]Phehsswkdme distribution width Auto Ratio (RBC)12.7 % Odqgcb35.5 - 14.5[facility] RehabilitationComment on above:Performed By: #### THYDS ####[facility] [place] [address] Erythrocytes (RBC)4.15 x10E12/LNormal4.00 - 5.20[facility] Comment on above:Performed By: #### THYDS ####[facility], [place] [address]Uhgcmqptae (HCT)39.1 %Epkidn90.0 - 46.0[facility] RehabilitationComment on above:Performed By: #### THYDS ####[facility], [place] [address]Uwkqiuatia mass conc (Bld)12.7 g/uOBqapsa11.0 - 16.0[facility] RehabilitationComment on above: Performed By: #### THYDS ####[facility], [place] [address]Gluborpyaaw5.33 10*3/uLNormal1.20 - 4.80[facility] RehabilitationComment on above:Performed By: #### THYDS ####[facility], [place] [address]Wtqezgxdtod/100 ithywcvzfr74.6 %Normal 13.0 - 44.0[facility] RehabilitationComment on above:Performed By: #### THYDS ####[facility], [place] [address]XRVJ mass conc (RBC)32.5 g/jTVjbiko93.0 - 36.0[facility] RehabilitationComment on above: Performed By: #### THYDS ####[facility], [place] [address]KYP93 pVTfbomv85 - 100[facility] RehabilitationComment on above:Performed By: #### THYDS ####[facility], [place] [address]Zzmzawhxk6.61 10*3/uLNormal0.10 - 1.00[facility] RehabilitationComment on above:Performed By: #### THYDS ####[facility], [place] [address]Ofnnpbywr/100 leukocytes7.5 %Normal2.0 - 10.0[facility] RehabilitationComment on above:Performed By: #### THYDS ####[facility], [place] [address]Ulercpqcdfz 5.09 10*3/uLNormal1.20 - 7.70[facility] RehabilitationComment on above: Performed By: #### THYDS ####[facility], [place] [address]Ukqtnjijc erythrocytes0.0 /100 WBCNormal0.0-0.0[facility] RehabilitationComment on above:Performed By: #### THYDS ####[facility], [place] [address]Asklwjbkm717 10*3/uL Paflvl303 - 450[facility] RehabilitationComment on above:Performed By: #### THYDS ####[facility], [place] [address]OVV (Leukocytes)8.2 10*3/uLNormal4.4 - 11.3[facility] RehabilitationComment on above:Performed By: #### THYDS ####[facility], [place] [address]NWGRAJYJPCXVE PANELon 68-61-3415Mctzriw aminotransferase (ALT)12 U/LNormal7 - 45[facility] RehabilitationComment on above:Result Comment: Patients treated with Sulfasalazine may generate falsely decreased results for ALT.Performed By: #### CMP ####[facility], [place] [address]Ysxakpx4.5 g/dLNormal3.4 - 5.0[facility] RehabilitationComment on above:Performed By: #### CMP ####[facility], [place] [address]Wpsxlahb phosphatase (ALP)75 U/LNormal 33 - 110[facility] RehabilitationComment on above:Performed By: #### CMP ####[facility], [place] [address]Vxkfe gap12 mmol/AXestqh33 - 20[facility] RehabilitationComment on above:Performed By: #### CMP ####[facility] [place] [address] Aspartate aminotransferase (AST)15 U/LNormal9 - 39[facility] Comment on above:Performed By: #### CMP ####[facility], [place] [address]Oiqixrxwtyd (HCO3)29 mmol/KClpbfz16 - 32[facility] RehabilitationComment on above:Performed By: #### CMP ####[facility], [place] [address]Tnbagyxmi (total)0.3 mg/dL Normal0.0 - 1.2[facility] RehabilitationComment on above:Performed By: #### CMP ####[facility], [place] [address]Hwdykng 9.5 mg/dLNormal8.6 - 10.6[facility] RehabilitationComment on above:Performed By: #### CMP ####[facility] [place] [address] Bkmkawjx924 mmol/VUejpce11 - 107[facility] RehabilitationComment on above: Performed By: #### CMP ####[facility], [place] [address]Tybvwzbkmg8.67 mg/dLNormal0.50 - 1.05[facility] RehabilitationComment on above:Performed By: #### CMP ####[place] [id number], [place] [address]fBIZ (non-black)mL/min/{1.73_m2}Normal >60[facility] RehabilitationComment on above:Performed By: #### CMP ####[facility], [place] [address]Sblazn Comment: CALCULATIONS OF ESTIMATED GFR ARE PERFORMED USING THE MDRD STUDY EQUATION FOR THE IDMS-TRACEABLE CREATININE METHODS. CLIN CHEM 2007;53:766-72Glucose mass conc 109 mg/cXCjmd73 - 99[facility] RehabilitationComment on above:Performed By: #### CMP ####[facility] [place] [address] Potassium molar conc4.2 mmol/LNormal3.5 - 5.3[facility] RehabilitationComment on above:Performed By: #### CMP ####[facility], [place] [address]Padjosi6.8 g/dLNormal6.4 - 8.2[facility] Comment on above:Performed By: #### CMP ####[facility], [place] [address]Rpcesa457 mmol/DVzbptd684 - 145[facility] RehabilitationComment on above:Performed By: #### CMP ####[facility], [place] [address]Xbav nitrogen9 mg/dLNormal6 - 23[facility] RehabilitationComment on above:Performed By: #### CMP ####[facility], [place] [address]YYPNMEOB KINASEon 09-22-2017 Creatine kinase (CK)50 U/LNormal0 - 215[facility] RehabilitationComment on above:Performed By: #### CK ####[facility], [place] [address]KIGIHJ, SERUMon 12-56-1148NYKLWY, SERUM> 24.0Normal>5.0[facility] RehabilitationComment on above:Result Comment: Patients receiving more than 5 mg/day of biotin may have interference in test results. A sample should be taken no sooner than eight hours after previous dose. Contact [phone] for additional information.Performed By: #### THYDS ####[facility], [place] [address]JJCKFWLWPN A1Con 06-45-6012Sqlwnay mass xqws264 mg/dLNormalUClara Maass Medical CenterComment on above:Performed By: #### THYDS ####[facility], [place] [address]Vwmmdjlhdp A1c/Hemoglobin.total mass fraction (Bld)5.1 %NormalKessler Institute for RehabilitationComment on above:Result Comment: Diagnosis of Diabetes-Adults Non- Diabetic: < or = 5.6% Increased risk for developing diabetes: 5.7-6.4% Diagnostic of diabetes: > or = 6.5%. Monitoring of Diabetes Age (y) Therapeutic Goal (%) Adults: >18 <7.0 Pediatrics: 13-18 <7.5 7-12 <8.0 0- 6 7.5-8.5 [employer]. Diabetes Care 33(S1), Jul 2009.Performed By: #### THYDS ####[facility], [place] [address]UFA, DIRECTon 64-70-6203VNP Ldvgrurdoxo26 mg/dLNormal0 - 129[facility] RehabilitationComment on above:Result Comment: Elevated levels of LDL cholesterol are recognized as a keyfactor in the developmentof atherosclerosis and CHD. Thedirect LDL cholesterol test can be used to assesscardiovascular riskand monitor therapy as a follow up toa lipid profile when triglycerides are significantly elevated. Performed By: #### LDLDI ####[facility], [place] [address]YRWWM PANEL (CORONARY RISK 2)on 72-45-3554Upahfpzhzyq694 mg/dLNormal0 - 199[facility] RehabilitationComment on above:Result Comment: . AGE DESIRABLE BORDERLINE HIGH HIGH 0-19 Y 0 - 169 170 - 199 >/= 200 20-24 Y 0 - 189 190 - 224 >/= 225 >24 Y 0 - 199 200 - 239 >/= 240 All ranges are based on fasting samples. Specific therapeutic targets will vary based on patient- specific cardiac risk.. Pediatric guidelines reference:Pediatrics 2011, 128(S5). Adult guidelines reference: NCEP ATPIII Guidelines, SUHAIL 2001, 258:2486-97. Venipuncture immediately after or during the administration of Metamizole may le ad to falsely low results. Testing should be performed immediately prior to Metamizole dosing.Performed By: #### LIPID ####[facility], [place] [address]Ztmatearwxg in VLDL mass conc22 mg/dLNormal0 - 40 [facility] RehabilitationComment on above:Performed By: #### LIPID ####[facility], [place] [address]Hyycmakvyul to HDL Ratio2.7 {ratio}NormalKessler Institute for RehabilitationComment on above:Result Comment: REF VALUESDESIRABLE < 3.4HIGH RISK > 5.0Performed By: #### LIPID ####[facility], [place] [address]MEP Jfzaslsqjrf54.6 mg/dLNormalUH [facility] Toms RiverComment on above:Result Comment: . AGE VERY LOW LOW NORMAL HIGH 0-19 Y < 35 < 40 40-45 ---- 20-24 Y ---- < 40 >45 ---- >24 Y ---- < 40 40-60 >60.Performed By: #### LIPID ####[facility], [place] [address]VWF Zgegkjiylue95 mg/dLNormal0 - 99[facility] RehabilitationComment on above:Result Comment: . NEAR BORD AGE DESIRABLE OPTIMAL HIGH HIGH VERY HIGH 0-19 Y 0 - 109 --- 110-129 >/= 130 ---- 20-24 Y 0 - 119 --- 120-159 >/= 160 ---- >24 Y 0 - 99 100-129 130-159 160-189 >/=190.Performed By: #### LIPID ####[facility], [place] [address]Eeznfnabxmap633 mg/dLNormal0 - 149[facility] RehabilitationComment on above:Result Comment: . AGE DESIRABLE BORDERLINE HIGH HIGH VERY HIGH 0 [...] 200- 499 >/= 500. Venipuncture immediately after orduring the administration of Metamizole may lead to falsely low results. Testing should be performed immediately prior to Metamizole dosing.Performed By: #### LIPID ####[facility], [place] [address]ZYMQTYCBTjm 81-02-0934Nhnngnieu0.07 mg/dLNormal1.60 - 2.40[facility] RehabilitationComment on above:Performed By: #### MG ####[facility], [place] [address]GSTPSGKISEGEZIFT,FREEon 19-44-7520NRUFLLXQXZXCDCBY,FREE 3.2 pg/mLNormal1.8 - 4.2[facility] RehabilitationComment on above:Performed By: #### T3FRE ####[facility], [place] [address]YHZTEGQFORTDSTBL,FREECanceledNormUCHealth Grandview HospitalComment on above:Order Comment: TEST TRIIODOTHYRONINE,FREE WAS CANCELLED, 09/21/2017 22:43 DUPLICATE ORDER.Performed By: #### T3FRE ####[facility], [place] [address]CCD WITH REFLEX TO FREE T4 IF ABNORMALon 71-20-1578Rlsmddy stimulating hormone (TSH)1.07 m[IU]/LNormal0.44 - 3.98[facility] RehabilitationComment on above:Result Comment: TSH testing is performed using different testing methodology at [facility] than at other [facility]. Direct result comparisons should only be made within the same method.. Patients receiving more than 5 mg/day of biotin may have interference in test results. A sample should be taken no sooner than eight hours after previous dose. Contact [phone] for additional information. Performed By: #### THYDS ####[facility], [place] [address]Ejptinn stimulating hormone (TSH)CanceledNoProwers Medical CenterComment on above:Order Comment: TEST TSH WITH REFLEX TO FREE T4 IF ABNORMAL WAS CANCELLED, 09/21/2017 22:44DUPLICATEORDER.Result Comment: TSH testing is performed using different testing methodology at [facility] than at other [facility]. Direct result comparisons should only be made within the same method.. Patients receiving more than 5 mg/day of biotin may have interference in test results. A sample should be taken no sooner than eight hours after previous dose. Contact [phone] for additional information.Performed By: #### THYDS ####[facility], [place] [address]MG MICROSCOPICon 09-22-2017 Erythrocytes (RBC)38 /HPFAbnormal0-5[facility] RehabilitationComment on above: Performed By: #### THYDS ####[facility], [place] [address]IASNZAPN EPITH. CELLS<1NormalKessler Institute for Rehabilitation Comment on above:Performed By: #### THYDS ####[facility], [place] [address]Aulfm, mucus presence in sediment1+ /LPFNormalUH [facility] Toms RiverComment on above:Performed By: #### THYDS ####[facility], [place] [address]AHJ (Leukocytes)3 /HPFNormal0-5[facility] RehabilitationComment on above:Performed By: #### THYDS ####[facility] [place] [address] URINALYSISon 41-33-9051Damuxtigg (total)NegativeNormalNEGATIVEKessler Institute for RehabilitationComment on above:Performed By: #### THYDS ####[place] [id number], [place] [address]SGQQVQWTAI (3+)AbnormalNEGATIVEKessler Institute for RehabilitationComment on above:Performed By: #### THYDS ####[facility], [place] [address]Kakrokp mass conc NegativeNormalNEGATIVEKessler Institute for RehabilitationComment on above:Performed By: #### THYDS ####[facility], [place] [address]nQ of blood6.0 [pH]Normal5.0 - 8.0[facility] for RehabilitationComment on above: Performed By: #### THYDS ####[facility], [place] [address]GwxmujpOozuvwmwIpufspBGRQIPKTIS [facility] Comment on above:Performed By: #### THYDS ####[facility], [place] [address]Ylezm, appearanceCLEARNormalCLEARKessler Institute for RehabilitationComment on above:Performed By: #### THYDS ####[facility], [place] [address]Uexjo, colorSTRAWNormalSTRAW,YELLOWKessler Institute for RehabilitationComment on above:Performed By: #### THYDS ####[facility], [place] [address]Yecvc, ketones presenceNegativeNormalNEGATIVEKessler Institute for RehabilitationComment on above: Performed By: #### THYDS ####[facility], [place] [address]Gelmz, leukocyte esterase presenceTRACEAbnormalNEGATIVEKessler Institute for RehabilitationComment on above:Performed By: #### THYDS ####[facility], [place] [address]Qcwoa, nitrite presenceNegativeNormalNEGATIVEKessler Institute for RehabilitationComment on above: Performed By: #### THYDS ####[facility], [place] [address]Ciupn, specific gravity1.184Gztddg7.005 - 1.035[facility] for RehabilitationComment on above:Performed By: #### THYDS ####[facility], [place] [address]Pgumx, urobilinogen <2.3Odrsen3.0 - 1.9[facility] RehabilitationComment on above:Performed By: #### THYDS ####[facility] [place] [address] VITAMIN B12on 56-74-0226Xqusajhjhu (Vitamin B12)996 pg/qYFnye771 - 911[facility] for RehabilitationComment on above:Performed By: #### VTB12 ####[facility], [place] [address]GALZMSD D, 25-HYDROXYon 39-76-5310LWGQEAA D, 25-MVFTAQS62 ng/mLAbnormalUClara Maass Medical CenterComment on above:Result Comment: .DEFICIENCY: < 20 NG/MLINSUFFICIENCY: 20-29 NG/MLOPTIMUM LEVEL: 30-80 NG/MLPOSSIBLE TOXICITY: > 80 NG/MLTHIS ASSAY ACCURATELY QUANTIFIES THE SUM OFVITAMIN D3, 25-HYDROXY AND VITD2,25-HYDROXY. Performed By: #### THYDS ####[facility], [place] [address]Wiicjyyjciho, Fecalon 06-33-2519Sxreuhq mass concg/dL Normal<=50[facility], Colorado SpringsComment on above:Result Comment: INTERPRETIVE INFORMATION: Calprotectin, Fecal 50 ug/g or less: Normal 51-120 ug/g: Borderline elevated, test should be re-evaluated in 4-6 weeks. 121 ug/g or greater: AbnormalPerformed by [facility],[address] [place] [id number] wpu.Rithmio, Edwin Owen MD - Lab. DirectorClostridium difficile Amplificationon 86-52-1918Rdshfjldwpr difficile AmplificationORDER#: [id number] ORDERED BY: MAKAYLA SOLANO: Stool COLLECTED: 07/26/17 17:03ANTIBIOTICS AT NATE.: RECEIVED : 07/26/17 17:03Clostridium difficile Amplification FINAL 07/27/17 12:31 Negative forClostridia Difficile A/B Normal Range: NegativeNormPoudre Valley HospitalLipaseon 54-80-6526Ndtpbn enzyme act/vol20 U/UFhbuyq44-83ZcxanChildren'S Hospital Colorado, Colorado SpringsOP Screen (Giardia/Cryptosporidium)on 50-78-3556ZY Screen (Giardia/Cryptosporidium) ORDERED BY: MAKAYLA SOLANO: Stool COLLECTED: 07/26/17 10:15ANTIBIOTICS AT NATE.: RECEIVED : 07/27/17 06:39Cryptosporidium Antigen EIA FINAL 07/27/17 13:23 Negative Normal Range: NegativeGiardia lamblia Antigen EIA FINAL 07/27/17 13:23 Negative Normal Range: NegativeNormPoudre Valley HospitalXR ABDOMEN LIMITED (KUB)on 37-78-9751HM ABDOMEN LIMITED (KUB)EXAMINATION: XR ABDOMEN LIMITED (KUB)CLINICAL HISTORY: abd pain/diarrhea [...] There are no comparison studies available for confirmation.CONCLUSION: NO BOWEL GAS PATTERN ABNORMALITY. PROBABLE PHLEBOLITH LEFT SIDE OF THE PELVIS. Interpreted by:LC Sandhuigned by:Leighann Rose MD07/26/17inal resultNormalChildren'S Hospital [place], Colorado SpringsCBC With Platelet and Differentialon 45-66-4491Mazppsouq Auto #/vol (Bld) 0.0 10*3/uLNormal0.0-0.2MDelta County Memorial HospitalBasophils/100 WBC Auto (Bld)0.4 %[facility] HospitalEosinophils Auto #/vol (Bld)0.0 10*3/uLNormal0.0-0.7[facility] [place], [place] SpringsEosinophils/100 WBC Auto (Bld) 0.4 %[facility] District HospitalErythrocyte distribution width Auto Ratio (RBC)12.2 %Oocnke69.5-14.5[facility], Colorado SpringsHematocrit Auto Volume Fraction (Bld)39.2 %Hwryhh16.0-47.0[facility] [place] Hemoglobin mass conc (Bld)13.3 g/iHQsiuzr42.0-16.0[facility] [place] Lymphocytes Auto #/vol (Bld)1.8 10*3/uLNormal1.0-4.8[facility], Colorado SpringsLymphocytes/100 WBC Auto (Bld)29.7 %NormalSpalding Rehabilitation HospitalH Auto Entitic mass (RBC)31.5 pgCritically high27.0-31.3Mparkwood hospitaly Toledo HospitalHC Auto mass conc (RBC)34.0 %Ctossr39.0-37.0[facility] [place], [place] SpringsMCV Auto Entitic volume (RBC)92.6 yXQarjxh16.0-100.0[facility] [place], [place] SpringsMonocytes Auto #/vol (Bld)0.5 10*3/uLNormal0.2-0.8[facility] [place], [place] SpringsMonocytes/100 WBC Auto (Bld)7.8 %NormalChildren'S Hospital [place], [place] Neutrophils Auto #/vol (Bld)3.8 10*3/uLNormal1.4-6.5[facility], [place] SpringsNeutrophils/100 WBC Auto (Bld)61.7 %NormalChildren'S Hospital [place], [place] Platelets Auto #/vol (Bld)243 10*3/rSTyriob270-010UcerdChildren'S Hospital [place], [place] RBC Auto #/vol (Bld)4.23 10*6/uLNormal4.20-5.40[facility] [place], [place] SpringsWBC Auto #/vol (Bld)6.1 10*3/uLNormal4.8-10.8[facility] [place] Comprehensive Metabolic Panelon 87-28-4866Qujecbn mass conc4.6 g/dLNormal3.9-4.9 [facility] [place], [place] SpringsALP enzyme act/vol67 U/CUzlmxz29-402UpvkrChildren'S Hospital [place], Colorado SpringsALT enzyme act/vol14 U/LNormal0-33[facility] [place] [place] Anion gap 3 molar conc16 mmol/LCritically high7-13[facility] [place] [place] AST enzyme act/vol18 U/LNormal0-35[facility], [place] SpringsBilirubin mass conc0.3 mg/dLNormal0.0-1.2MDelta County Memorial HospitalCalcium mass conc9.2 mg/dLNormal8.6-10.2MDelta County Memorial HospitalChloride molar ewvd531 mmol/L Icdvjw36-922HkbmzChildren'S Hospital [place], Colorado SpringsCO2 molar conc21 mmol/XIyf95-46SotxvChildren'S Hospital Colorado, Colorado SpringsCreatinine mass conc0.58 mg/dLNormal0.50-0.90[facility], Colorado SpringsGFR/1.73 sq M predicted among blacks MDRD vol rate/area (S/P/Bld)mL/min/{1.73_m2}Normal>60[facility], Colorado SpringsComment on above: Result Comment: >60 mL/min/1.73m2 EGFR, calc. for ages 18 and older using theMDRD formula (not corrected for weight), is valid for stablerenal function. GFR/1.73 sq M.predicted MDRD vol rate/areamL/min/{1.73_m2}Normal>60[facility] [place], [place] SpringsComment on above:Result Comment: >60 mL/min/1.73m2 EGFR, calc. for ages 18 and older using theMDRD formula (not corrected for weight), is valid for stablerenal function.Globulin Calculated mass conc (S)2.2 g/dLLow 2.3-3.5[facility], Colorado SpringsGlucose mass conc80 mg/fHLpxlse94-235YzrgjChildren'S Hospital Colorado, Colorado SpringsPotassium molar conc4.3 mmol/LNormal3.5-5.1MDelta County Memorial HospitalProtein mass conc6.8 g/dLNormal6.4-8.1MEstes Park Medical Centerodium molar glsq027 mmol/AGbyjnp383-700OsynrChildren'S Hospital Colorado, Colorado SpringsUrea nitrogen mass conc9 mg/dLNormal6-20[facility], [place] SpringsTSH w/out Reflex on 16-15-0469Unadyqhqfpd Qn0.830 uIU/mLNormal0.270-4.20[facility], [place] SpringsVITAMIN Don 05-76-5960OVGNTZR D32.4 ng/oKFfkvvb58.0-100.0[facility], Colorado SpringsComment on above:Result Comment: (30-100 ng/mL) Optimum LevelThis assay accurately quantifies the sum of vitamin D3,25-Hydroxy andvitamin D2, 25-Hyroxy. Vital Signs Date TimeVital SignValuePerforming XykgeshwnRkxavxkg35-46-6075 07:45-0500Body .56 cmSridhar Lo MD Work Phone: [facility]11-05-2025 07:45-0500 Body mass index (BMI) [Ratio]24.7 kg/m2Sridhar Lo MD Work Phone: [facility]11-05-2025 07:45-0500 Body srlmypkdqfp57.1 [degF]Sridhar Lo MD Work Phone: [facility]11-05-2025 07:45-0500 Body pqnshi23.31 kgSridhar Lo MD Work Phone: [facility]11-05-2025 07:45-0500 Diastolic blood zzitwfdw22 mm[Hg]Sridhar Lo MD Work Phone: [facility]11-05-2025 07:45-0500 Heart rate94 /minSridhar Lo MD Work Phone: [facility]11-05-2025 07:45-0500 Respiratory rate20 /minSridhar Lo MD Work Phone: [phone])432-[address] [place], [place] 5416111-05-2025 07:45-0500 SaO2% (BldA) [Mass fraction]97 %Sridhar Lo MD Work Phone: 1(894)201-[address] [place], [place] 5416111-05-2025 07:45-0500 Systolic blood yfxxieou514 mm[Hg]Sridhar Lo MD Work Phone: [phone])[address] [place], [place] 1178210-29-2024 14:04-0400 Body ynppfw401.6 cmSridhar Lo MD Work Phone: 1(224)675-[address] [place], [place] [address]Sqpvlbfofv05-43-7469 14:04-0400Body mass index (BMI) [Ratio]24.2 kg/m2Sridhar Lo MD Work Phone: [facility] HospitalOaegnculbr97-13-8928 14:04-0400Body temperature 97.5 [degF]Sridhar Lo MD Work Phone: [facility] HospitalKlcuuziixj57-11-8275 14:04-0400Body ogiqpw44.96 kgSridhar Lo MD Work Phone: [facility] HospitalZybtdklfqo11-91-8910 14:04-0400Diastolic blood mm[Hg]Sridhar Lo MD Work Phone: [facility] HospitalMuakxhwels21-91-3721 14:04-0400Heart rate93 /min Sridhar Lo MD Work Phone: [place] [address]Libpdoumbg98-83-2810 14:04-0400Respiratory rate22 /minSridhar Lo MD Work Phone: [facility] HospitalKyqpnbbpon94-42-7271 14:04-3185NyZ5% (BldA) [Mass fraction]97 %Sridhar Lo MD Work Phone: [facility] HospitalGxgnykjetp93-22-7602 14:04-0400Systolic blood ublqhshs137 mm[Hg]Sridhar Lo MD Work Phone: [facility] HospitalZgcnlpjdjq58-51-3890 10:11-0400Body fafmfo163.6 cmSridhar Lo MD Work Phone: [facility] HospitalEazrsnzdtz83-30-2992 10:11-0400Body mass index (BMI) [Ratio]23.69 kg/m2Sridhar Lo MD Work Phone: [facility] HospitalVapzvpqgzv07-61-5956 10:11-0400Body temperature 97.5 [degF]Sridhar Lo MD Work Phone: [facility] HospitalNekhbroves44-91-0138 10:11-0400Body .6 kg Sridhar Lo MD Work Phone: [facility] HospitalJqwwhcfrdg30-63-6340 10:11-0400Diastolic blood pvzigbbb35 mm[Hg]Sridhar Lo MD Work Phone: [facility] HospitalUbciuyjcqb02-51-6408 10:11-0400Heart xzcv956 /min Sridhar Lo MD Work Phone: [facility] HospitalIozyibruyi67-41-0515 10:11-0400Respiratory rate20 /minSridhar Lo MD Work Phone: [facility] HospitalOkdlkqnzjk25-98-8768 10:11-6065DmI1% (BldA) [Mass fraction]98 %Sridhar Lo MD Work Phone: [facility] HospitalSavsqaztzq17-60-7497 10:11-0400Systolic blood mm[Hg]Sridhar Lo MD Work Phone: [facility] HospitalWmtgtczmdt21-97-0439 11:30-0400Body udkair496.56 Brian Molina Other [employer] Other 10-04-2022 11:30-0400Body mass index (BMI) [Ratio] 27.46 kg/r7HogdbyKenisha Molina Other [employer] Other 10-04-2022 11:30-0400Body kmkvskjcnaw74.2 [degF]Kenisha Molina Other [employer] Other 10-04-2022 11:30-0400Body .58 kgKenisha Molina Other [employer] Other 10-04-2022 11:30-0400Respiratory rate18 /minKenisha Molina Other [employer] Other 10-04-2022 11:30-1533LiU1% (BldA) [Mass fraction]97 % Kenisha Molina Other [employer] Other Encounters Encounter DateEncounter TypeCare ProviderFacilityStart: 05-07-2025 End: 41-28-4122ekdljgihowPotg Naderer MD Work Phone: -[facility] ClydeStart: 05-07-2025 End: 38-29-7699Qieqsiv encounter procedureSridhar Lo MD-[facility] Work Phone: Start: 45-71-4319bxjwsaprvlYfjhhrndevn Abdelaziz [facility] Centertart: 55-74-9293Ctjqepixen Recurring All Starks MD- CredibleStart: 06-14-2024 End: 24-75-4147Lmedzvvee Result EncounterGeneric External Data ProviderNOMS External Department UnsolicitedStart: 06-14-2024 End: 86-52-9033Rmedbqshw Result EncounterGeneric External Data ProviderNOMS External Department UnsolicitedStart: 05-01-2024 End: 90-87-8129Qqvmoc OnlySridhar Lo MD Work Phone: [facility] FMComment on above:Acute non-recurrent pansinusitis (Primary Dx)Start: 04-30-2024 End: 66-92-4245Ffrxaq Kye Lo MD Work Phone: NOTP CWM FMStart: 04-30-2024 End: 03-16-6262Elwmsnbryanna Lo MD Work Phone: noms CWM FMStart: 04-30-2024 End: 64-16-8072Yimxtg outpatient visit 15 minutesSridhar Lo MD Work Phone: NOFM CWM FMComment on above:Acute non-recurrent pansinusitis (Primary Dx)Start: 04-30-2024 End: 87-74-5315irhhjrxpjzAOIF NADERERNot AvailableStart: 03-20-2024 End: 75-60-3508Epyipbbryanna Lo MD Work Phone: noms CWM FMStart: 03-20-2024 End: 43-39-1641Acwmfp Kye Lo MD Work Phone: NOWV CWM FMStart: 03-20-2024 End: 31-73-4988nxwsmoupfvUQVN NADERERNot AvailableStart: 03-20-2024 End: 78-44-5540Hgquumb encounter procedureSridhar Lo MD Work Phone: noms HealthcareStart: 03-20-2024 End: 28-55-3236Dtyffexr preventive med est patient 40-64yrsMarc Teresita BUCKLEY Work Phone: [facility] C[facility] FMComment on above:Annual physical exam (Primary Dx); Adult hypothyroidism (CMS/HCC)Start: 12-27-2023 End: 30-00-1095Pigjhavwd Result EncounterGeneric External Data ProviderNOMS External Department UnsolicitedStart: 12-27-2023 End: 98-77-7887Lgailwizz Result EncounterGeneric External Data ProviderNOMS External Department UnsolicitedStart: 11-08-2023 End: 62-08-4249Igbxuaidn Result EncounterGeneric External Data ProviderNOMS External Department UnsolicitedStart: 11-08-2023 End: 78-66-8493Zklpqaczj Result EncounterGeneric External Data ProviderNOMS External Department UnsolicitedStart: 09-26-2023 End: 97-37-4582grmuqrjwbcKZNB NADERERNot AvailableStart: 07-12-2023 End: 96-13-4047hprntkeuseEMZNI FAZIONot AvailableStart: 07-06-2022 End: 33-06-4608vvwideqpcrKN SHAHIDA ALEXX .Facility:E9Okrwp: 06-29-2022 End: 33-80-7006lcoxgyenfjIA SHAHIDA ALEXX .Facility:S5Dunew: 04-28-2022 End: 97-19-9691sqhiaibgsiBX SRIDHAR Choudhary NADERERFacility:M8Batam: 04-13-2022 End: 28-17-0470tdbcwtdetrJP MARC A NADERERFacility:Y7Zuiir: 48-66-8995pijclytkbz DR SRIDHAR Choudhary NADERERFacility:D9Vxwky: 04-05-2022 End: 34-47-8259kmxbllmdokCadikb Dymond Other [facility] [employer] Other Start: 03-23-8684Sfubsp outpatient visit 15 minutes Kenisha [facility] ClydeStart: 01-05-2022 End: 90-54-8732ruztdsnxkkBB SRIDHAR Choudhary NADERERFacility:Z6Gafsk: 01-30-2018 End: 87-97-6973Rnevxxs encounterDAWN [address] [facility] Hospitaltart: 01-22-2018 End: 27-46-4003Etucjza encounterDAWN St[facility] Hospitaltart: 01-15-2018 End: 82-51-3577Nnigqie encounterDAWN [facility] Hospitaltart: 12-27-2017 End: 60-69-6185Htcfdnj encounterDAWN St[facility] Hospitaltart: 12-19-2017 End: 12-80-8902Hnxmqmv encounterDAWN St[facility] Hospitaltart: 12-07-2017 End: 86-21-0447Ynxmapcqf department patient visitFamily Physician Unavailable Facility:[facility]tart: 88-73-3107Ufuyerlzux Facility:[id number]: 12-06-2017 End: 52-14-8121Rfqenvt encounterDAWArmaan Tapia [facility] Hospitaltart: 11-21-2017 End: 87-46-1073Failldh encounterMARC ANTONIASTEPHANY LYaleshiakiersten [facility] Hospitaltart: 11-14-2017 End: 44-71-3002Lhgojpq encounterMARC ANTONIA [facility] HOSPITALPRASHANTAALIYAHkaylene [facility] Hospitaltart: 10-31-2017 End: 54-42-6603Unbepnn encounterMARC ANTONIA DEMARIOAALIYAHkaylene [facility] Hospitaltart: 10-24-2017 End: 28-02-3171Xxlepby encounterMARC ANTONIA [facility] HOSPITALPRASHANTAALIYAHkaylene [facility] Hospitaltart: 10-17-2017 End: 10-95-8645Sdejdtt encounterMARC ANTONIA [facility] HOSPITALPRASHANTAALIYAHkaylene [facility] Hospitaltart: 10-12-2017 End: 58-69-5243Gmdlfgn encounterMARC ANTONIASTEPHANY HANKSAALIYAHkaylene [facility] Hospitaltart: 10-11-2017 End: 73-61-0895Nrvfpzw encounterMARC ANTONIA NADPRASHANTAALIYAHkaylene [facility] Hospitaltart: 10-10-2017 End: 44-44-0828Sxjnzlm encounterMARC ANTONIA NADPRASHANTAALIYAHkaylene [facility] Hospitaltart: 10-05-2017 End: 90-65-2439Eusbxyx encounterMARC ANTONIA NADPRASHANTAALIYAHkaylene [facility] Hospitaltart: 10-04-2017 End: 86-67-2903Fmqxezj encounterMARC ANTONIA DEMARIOAALIYAHkaylene [facility] Hospitaltart: 10-03-2017 End: 89-32-8809Cvuafgt encounterMARC ANTONIA HANKSAALIYAHkaylene [facility] Hospitaltart: 10-02-2017 End: 96-32-1772Relipch encounterMARC ANTONIA HANKSAALIYAHkaylene [facility] Hospitaltart: 09-28-2017 End: 92-04-9899Djobddn encounterMARC ANTONIA [facility] HOSPITALPRASHANTAALIYAHkaylene [facility] Hospitaltart: 09-27-2017 End: 94-86-4764Ncqajvx encounterMARC ST. [facility] - BENDPRASHANTAALIYAHkaylene [facility] Hospitaltart: 09-26-2017 End: 95-14-1734Oyqrzas encounterMARC ANTONIA Khanh [facility] Hospitaltart: 09-25-2017 End: 50-49-5071Siuyncz encounterMARC ANTONIA Cassidy [facility] Hospitaltart: 09-21-2017 End: 46-14-4504Rikurtc encounterMARC ANTONIA [facility] HOSPITALJeanmarie [facility] Hospitaltart: 09-20-2017 End: 25-37-1207Jwhbhyn encounterMARC [address] [facility] - BENDJeanmarie [facility] Hospitaltart: 09-19-2017 End: 07-23-3558Nfrkwzg encounterMARC ST[facility] - BENDJeanmarie [facility] Hospitaltart: 09-18-2017 End: 62-79-3993Fpblfmt encounterMARC ANTONIA [facility] HOSPITALJeanmarie [facility] Hospitaltart: 09-14-2017 End: 99-65-5013Xybgxkl encounterMARC [address] [facility] - BENDPRASHANTkaylene [facility] Hospitaltart: 09-13-2017 End: 20-34-6634Jhkaewz encounterMARC ST. [facility] - BENDPRASHANTKindred Healthcarekiersten [facility] Hospitaltart: 09-12-2017 End: 58-61-5208Ngcdhtn encounterMARC [facility]FFEY[facility] CENTERkaylene [facility] Hospitaltart: 09-07-2017 End: 08-18-4546Ftiszlj encounterMARC [address] [facility] - BENDJeanmarie [facility] Hospitaltart: 09-06-2017 End: 52-22-7705Mvqsyhm encounterMARC ANTONIASTEPHANY Cassidy [facility] Hospitaltart: 09-05-2017 End: 29-84-1202Eiqmgsr encounterM[address] [facility] - BENDJeanmarie [facility] Hospitaltart: 09-04-2017 End: 94-79-0327Rvavlcd encounterMARC [address] - BENDJeanmarie [facility] Hospitaltart: 08-31-2017 End: 12-65-7950Hqrwthn encounterMARC ANTONIA [facility] HOSPITALJeanmarie [facility] Hospitaltart: 08-30-2017 End: 01-22-8777Yemxcbp encounterMARC ANTONIASTEPHANY Cassidy [facility] Hospitaltart: 08-29-2017 End: 83-33-4100Emkzkes encounterMARC [address] - BENDJeanmarie [facility] Hospitaltart: 08-28-2017 End: 20-14-0767Teofkwz encounterMARC [facility] Hospitalkiersten [facility] Hospitaltart: 08-24-2017 End: 54-93-3255Cezmqto encounterMARC [facility]FFEY[facility] CENTERkaylene [facility] Hospitaltart: 08-23-2017 End: 71-13-5252Otzosbq encounterMARC ANTONIA NADERETelluride Regional Medical Centertart: 08-22-2017 End: 18-13-2846Vllswde encounterMARGrand River Healthtart: 08-21-2017 End: 82-22-7657Hdwipcs encounterProwers Medical Centertart: 08-17-2017 End: 98-25-4264Zfckegp encounterProwers Medical Centertart: 08-16-2017 End: 53-35-6531Opgzazo encounterMARC [facility]ertart: 08-15-2017 End: 69-37-3714Pwshxkq encounterMARGrand River Healthtart: 08-14-2017 End: 27-50-9083Qfzlfyh encounterProwers Medical Centertart: 55-89-3274Ltszvxn encounter [facility] Work Phone: Start: 08-10-2017 End: 85-44-3087Nqpgzcv encounterMARGrand River Healthtart: 08-09-2017 End: 09-97-2243Qqeiwnz encounterProwers Medical Centertart: 08-08-2017 End: 76-09-4729Lakvqsl encounterProwers Medical Centertart: 08-07-2017 End: 29-48-9950Wgxmnuc encounterProwers Medical Centertart: 08-03-2017 End: 98-64-9667Jwtfedj encounterProwers Medical Centertart: 08-02-2017 End: 82-66-4392Pilzzot encounterMARGrand River Healthtart: 07-31-2017 End: 78-67-5447Mdefxsx encounterMARGrand River Healthtart: 07-25-2017 End: 06-18-0361Shkeqdqlzk and management of inpatientSt. [facility] Procedures DateProcedureProcedure DetailPerforming ClinicianStart: 30-98-3823Li breast uni real time with image limitedGeneric External Data ProviderStart: 62-03-3527PT TOMOSYNTHESIS DIAGNOSTIC RTGeneric External Data ProviderStart: 38-95-7022Nu breast uni real time with image limitedGeneric External Data ProviderStart: 42-11-8989CamstytromuCsym Naderer MD Work Phone: Start: 64-97-0140UJ TOMOSYNTHESIS SCREENING BIGeneric External Data ProviderStart: 52-01-5316NjbmwaxxpajLqbx Naderer MD Work Phone: Start: 54-77-8272HvqkdpbfeviDcss Naderer MD Work Phone: Start: 53-12-2194OVADGLCMV PATIENTKEN MAURO Start: 36-34-8356NOELFWWMP OUTPATIENT - [facility] COUNTYROCÍO MAUROStart: 07-28-2017 DISCHARGE PATIENTSOUTHERN VIRGINIA REGIONAL MEDICAL CENTERROCÍO NJStart: 36-48-7712NFVJYSMGVVBE STOOLSOUTHERN VIRGINIA REGIONAL MEDICAL CENTERROCÍO MAUROart: 07-26-2017C DIFF TOXIN B BY RT PCRSOUTHERN VIRGINIA REGIONAL MEDICAL CENTERROCÍO MAUROStart: 61-89-7943Vmafxqpqri exam abdomen 1 viewSOUTHERN VIRGINIA REGIONAL MEDICAL CENTERROCÍO AGUSTINWICKENBURG REGIONAL HOSPITALStart: 12-39-3915VLQLKF KENROCÍO MAUROStart: 66-74-0093NFBHUCNCUFGGT NURSING CARE ORDER (SPECIFY) KEN MAUROart: 07-26-2017O AND P SCREEN(GIARDIA/CRYPTOSPORIDIUM) #1 KENROCÍO MAUROart: 23-09-4862DJEZHCKN CULTURE, STOOLSOUTHERN VIRGINIA REGIONAL MEDICAL CENTERROCÍO MAUROart: 66-39-8945LT CONSULT TO HOSPITALRUTHERFORD REGIONAL HEALTH SYSTEMOLIVIA MAUROart: 09-51-5621RPO 12-LEAD KEN MAUROart: 13-23-2651GCP WITH AUTO DIFFERENTIALKEN MAURO Start: 96-22-1644RBFUBOVQUUPSM METABOLIC PANELSOUTHERN VIRGINIA REGIONAL MEDICAL CENTERROCÍO MAUROStart: 07-25-2017 TSH WITHOUT REFLEXKEN MAUROart: 86-37-6989LLDNNGJ D 25 HYDROXYKEN MAUROStart: 07-23-5978SYIH GENERALSOUTHERN VIRGINIA REGIONAL MEDICAL CENTERROCÍO MAUROart: 27-39-5019EEMR CODE KEN MAUROart: 51-27-3102MP CONSULT TO [facility]K HOSPITALOLIVIA MAUROart: 19-24-1704AJ CONSULT TO SOCIAL WORKKEN MAUROHartsburg: 58-58-4021EIRYKVR KEN MAUROHartsburg: 00-24-8003ALJNQOP COMMUNICATIONKEN MAUROHartsburg: 86-21-9422JIJUPJCERETS VISITATION STATUSKEN MAUROart: 64-79-8290GBBOK SIGNSKEN MAUROHartsburg: 09-78-1878XQSVPNS STATUS (DIRECT)KEN MAURO AppendectomyJuan SolisHistory of Gallbladder SurgeryJuan SolisHistory of Laparoscopy Of UterusJuan SolisScreening colonoscopyJuan Green Plan of Treatment DateCare ActivityDetailAuthorStart: 39-71-7505Hhvgcgiob for malignant neoplasm of colonNOMS HealthcareStart: 90-51-7296Aybiaktts for malignant neoplasm of breastMammogramNOMS HealthcareStart: 88-14-2599Ufvkuewev for malignant neoplasm of breastMammogramNOMS HealthcareStart: 09-18-2024 End: 89-26-3993Qzhbyqy encounter zetvuprrz54/19/2025 8:15 AM EDT Office Visit [facility] [address] [place] [phone] Sridhar Lo MD [address] [place] [address] [facility] CWM FMStart: 07-22-2024 End: 33-70-8178Hfxmrtn encounter /20/2025 8:30 AM EST Office Visit [facility] [address] [place] [phone] Shahida Pretty, DO [address] [place], [place] [address] [facility] BCP OBStart: 04-30-2024 End: 49-05-8494Xpjitas encounter sdhzwojcb96/29/2024 2:00 PM EDT Office Visit [facility] [address] [place] [phone] Sridhar Lo MD [address] [place] [address] [facility] FMComment on above:ArrivedStart: 03-20-2024 End: 30-45-7298Fummv metabolic 1998 panel - Serum or PlasmaBasic metabolic panel Lab Routine Annual physical exam Expected: 03/20/2024 (Approximate), Expires: 03/20/2025[facility] HealthcareComment on above:Expected: 03/20/2024 (Approximate), Expires: 03/20/2025Start: 03-20-2024 End: 57-36-9200GHS W Auto Differential panel - BloodCBC and differential Lab Routine Annual physical exam Expected: 03/20/2024 (Approximate), Expires: 0 03/20/2025[facility] HealthcareComment on above:Expected: 03/20/2024 (Approximate), Expires: 03/20/2025Start: 03-20-2024 End: 60-14-4521Mvhhljnulp A1c/Hemoglobin.total in BloodHemoglobin A1c Lab Routine Annual physical exam Expected: 03/20/2024 (Approximate), Expires: 03/20/2025[facility] Healthcare Work Phone: Comment on above:Expected: 03/20/2024 (Approximate), Expires: 03/20/2025Start: 03-20-2024 End: 45-92-0920Pmsulnb function 2000 panel - Serum or PlasmaHepatic function panel Lab Routine Annual physical exam Expected: 03/20/2024 (Approximate), Expires: 03/20/2025[facility] HealthcareComment on above:Expected: 03/20/2024 (Approximate), Expires: 03/20/2025Start: 03-20-2024 End: 84-49-6696Mbhju 1996 panel - Serum or PlasmaLipid panel Lab Routine Annual physical exam Expected: 03/20/2024 (Approximate), Expires: 03/20/2025[facility] HealthcareComment on above:Expected: 03/20/2024 (Approximate), Expires: 03/20/2025Start: 03-20-2024 End: 55-79-5288Dpffzrlxkba [Units/volume] in Serum or PlasmaTSH Lab Routine Annual physical exam Expected: 03/20/2024 (Approximate), Expires: 03/20/2025[facility] HealthcareComment on above:Expected: 03/20/2024 (Approximate), Expires: 03/20/2025Start: 03-20-2024 End: 92-85-0076Phyrhxabb (T4) free [Mass/volume] in Serum or PlasmaT4, free Lab Routine Adult hypothyroidism (CMS/HCC) Expected: 03/20/2024 (Approximate), Expires: 03/20/2025[facility] HealthcareComment on above:Expected: 03/20/2024 (Approximate), Expires: 03/20/2025Start: 03-20-2024 End: 21-43-5788Ezuotwtrrllzubej (T3) Free [Mass/volume] in Serum or PlasmaT3, free Lab Routine Adult hypothyroidism (CMS/HCC) Expected: 03/20/2024 (Approximate), Expires: 03/20/2025[facility] HealthcareComment on above:Expected: 03/20/2024 (Approximate), Expires: 03/20/2025Start: 23-71-6882Gwvnueppn vaccinationInfluenza Vaccine (#1)[facility] HealthcareStart: 55-82-9769Vsnnppkab for malignant neoplasm of cervixNOMS HealthcareStart: 89-59-0203Qrpdiitbq for malignant neoplasm of cervixPap SmearNOMS HealthcareStart: 83-37-2536Bydilscco for malignant neoplasm of colonNOMS HealthcareComprehensive metabolic 2000 panel - Serum or PlasmaKindred Hospital DaytonMG Breast - bilateral ScreeningAd[facility] Immunizations Immunization DateImmunizationNotesCare ErcbgcymMejptvkh02-05-9710ifwphwt toxoid, reduced diphtheria toxoid, and acellular pertussis vaccine, adsorbedPamela Tracy Other [facility] Payers DatePayer CategoryPayerPolicy [id number]-klx68-91-6549[facility] [id number].9.668116.470897.46366-08-6806QaeyeetSZDP BCBS [id number] 2022-Present [phone] [address] [place] [address].2.840.001645.1.13.693.2.7.3.033[id number] 2..1.586374.3.57[id number] 2..1.252224.3.579.2.87625-20-2588Xjnrxui0615158 2..1.509227.3.579.2.73149-61-4118Onxnjzc5732717 2..1.733288.3.579.2.94023-10-3487Ntydvnh6186634 2..1.172507.3.579.2.06392-14-8315Orqbtgh4177445 2..1.381926.3.579.2.11742-78-3545Lcnqjng9852975 2..1.146356.3.579.2.961742-69-3750Dezagya1093493 2..1.910705.3.579.2.046133-66-3680Wwpreuw5699482 2..1.418795.3.579.2.455611-31-6868Repdrtu1944503 2..1.332991.3.579.2.283212-45-6300DzqlSocorro General [id number] 2..4.358234.3362110[id number] 2..1.1627[id number] Social History DateTypeDetailFacilityStart: 03-20-2024 End: 73-25-1399Csa Assigned At BirthNOMS HealthcareStart: 06-21-2023 End: 07-91-5307Okhvare smoking status NHISNever smoked tobaccoNOMS Healthcare Start: 59-93-3350Jkyhwzh use and exposureSmokeless tobacco non-userNOMS HealthcareStart: 03-20-2024 End: 50-54-0189Mtbapevwt beverage intakeLifetime non-drinker (finding)NOMS HealthcareStart: 03-20-2024 End: 43-01-3863Wzxnrzf of Social functionNOMS HealthcareStart: 71-49-8791Hyy often do you need to have someone help you when you read instructions, pamphlets, or other written material from your doctor or pharmacy [SILS]Never NOMS HealthcareDo you belong to any clubs or organizations such as roman catholic groups, unions, fraternal or athletic groups, or school groups?NoNOMS Healthcare Are you now , , , , never or living with a partner?MarriedNOMS HealthcareHow often to you have a drink containing alcohol?NeverNOMS HealthcareDo you feel stress - tense, restless, nervous, or anxious, or unable to sleep at night because yourmind is troubled all the time - these days [OSQ]Not at allNOMS Healthcare(I/We) worried whether (my/our) food would run out before (I/we) got money to buy more.Never trueNOMS Healthcare Start: 77-92-8264Wdzbirlfu07FBAM HealthcareStart: 10-16-4589Zyyqvbw Comment caffeine: noneNOMS HealthcareStart: 07-67-8436Qui [facility]Not on file N[facility] HealthcareSexFemale (finding)[facility] Centertart: 25-21-6309Rdu Assigned At [facility] HealthFeAdena Pike Medical CenterNEGATED: Highlighted row--[facility] Work Phone: Functional Status GknjNxbcbfmbwqCkasyvGodntrhm60-38-2802Ljjni score [AUDIT-C]0 03/20/2024 10:06 AM EDT Mychart, GenericNONevada Regional Medical CenterNwgiwigqke44-91-6425Dto often do you have a drink containing alcohol?Never 03/20/2024 10:06 AM EDT Mychart, Generic NeverNOMS Nxoaecindw24-29-0926Uvgwjkegok statusPatient does not drink 03/20/2024 10:06 AM EDT Mychart, Generic Patient does not drinkNONevada Regional Medical CenterNprixzalew55-86-8733Cxg often do you have 6 or more drinks on 1 occasion?Never 03/20/2024 10:06 AM EDT Mychart, Generic NeverNOMS HealthcareNEGATED: Highlighted rowFunctional performance Functional status health issues are not documented [facility] Work Phone: Mental Status DateAssessmentResultFacilityNEGATED: Highlighted rowCognitive function [Interpretation]Cognitive status health issues are not documented [facility] Work Phone: History of Present illness Narrative 04-30-2024 Note Date & MyohUtkaPyrqzkwv05-59-9030 History of Present illness Narrative* Sridhar Lo MD - 04/30/2024 2:46 PM EDTAssociated Problem(s): Acute non- recurrent pansinusitis Take antibiotics for 7 days. Use [...] if no better or worse callfor re-evaluation. * Sridhar Lo MD - 04/30/2024 2:00 PM EDT Images from the original note were not included. Subjective Patient ID: Chhaya Berry is a 48 y.o. female who presents [...] if no better or worse callfor re-evaluation. Relevant Medications levoFLOXacin (Levaquin) 750 MG tablet methylPREDNISolone (Medrol Dospak) 4 MG tablets documented in this encounterNOMS Healthcare History of Present illness Narrative 03-20-2024 Note Date & UzynIhezCpyjutje60-49-8443 History of Present illness Narrative* Sridhar Lo MD - 03/20/2024 10:40 AM EDTAssociated Problem(s): Annual physical exam Due for labs. Discussed proper diet and regular aerobic exercise. Need aerobic exercise 5-6 days a week for 30 minutes at a time. Smaller portions and limit total calories. Colonoscopy every 10 years. Tetanus every 10 years. Advised not to smoke. Discussed daily Aspirin therapy. * Sridhar Lo MD - 03/20/2024 10:00 AM EDT Images from the original note were not included. Subjective Patient ID: Chhaya Berry is a 48 y.o. female who presents for Annual Exam (wellness). Presents for annual PE. Patient feels well this am. Weight down 16 pounds in past year. Active and exercises several days a week. Tries to watch diet and eat healthy. Increased fruits and vegetables.Smaller portions and limits snacking. Tries to limit total daily calories. Due for labs. Colonoscopy normal in 2021. Follows with [facility] for mammogram. Review of Systems Respiratory: Negative [...] panel Lipid panel TSH documented [facility]Mer[facility] 04-05-2022 Note Date & AqdwWacbLerqbmwb87-76-5512 Evaluation note* Encounter Date Diagnosis Assessment Notes Treatment Notes Treatment Clinical Notes Apr, Contact with and (brown spected) exposure to other viral communicable diseases (ICD-10 - Z20.828) Apr,2COVID-19 (ICD-10 - U07.1)Discharge Instructions for COVID-19 (Suspected or Confirmed ) material was printed Offer plenty of fluids and rest. Take Tylenol or Motrin as needed for aches pains or fevers. You must quarantine for 5 days after the onset of your symptoms of COVID. Follow-up with your family physician if no improvement in 2 to 3 days. [employer] Other Evaluation note Note Date & TypeNoteFacilityEvaluation note* Diagnosis Chronic superficial gastritis without bleeding- Primary Adult hypothyroidism (CMS/HCC) Unspecified hypothyroidism Seasonal allergic rhinitis due to pollen MDD (major depressive disorder), recurrent episode, mild (HCC) (CMS/HCC) BRIAN (generalized anxiety disorder) ([facility]/HCC) Generalized anxiety disorder Annual physical exam- Primary Routine general medical examination at a health care facility Adult hypothyroidism (CMS/HCC) Unspecified hypothyroidism Acute non-recurrent pansinusitis- Primary documented in this encounter [facility] Evaluation note Note Date & TypeNoteFacilityEvaluation note* Diagnosis Chronic superficial gastritis without bleeding- Primary Adult hypothyroidism (CMS/HCC) Unspecified hypothyroidism Seasonal allergic rhinitis due to pollen MDD (major depressive disorder), recurrent episode, mild (HCC) ([facility]/HCC) BRIAN (generalized anxiety disorder) ([facility]/HCC) Generalized anxiety disorder Annual physical exam- Primary Routine general medical examination at a health care facility Adult hypothyroidism (CMS/HCC) Unspecified hypothyroidism Acute non-recurrent pansinusitis- Primary Acute non-recurrent pansinusitis- Primary documented in this encounter [facility] Healthcare Evaluation note Note Date & TypeNoteFacilityEvaluation note* Diagnosis Annual physical exam- Primary Routine general medical examination at a health care facility Adult hypothyroidism (CMS/HCC) Unspecified hypothyroidism documented in this encounter [facility] Healthcare Evaluation note Note Date & TypeNoteFacilityEvaluation note* Diagnosis Onset Date Resolution Status Admit Date Annual physical exam acuteNovember 2024 7:39am [facility] Work Phone: History general Narrative - Reported Note Date & TypeNoteFacilityHistory general Narrative - Reported* Type Description Date Medical History Anxiety and depression Medical HistoryIBS (irritable bowel syndrome)Surgical HistorylaparoscopySurgical HistoryeyesSurgical HistorycholecystectomySurgical Historywisdom teethSurgical HistoryappendectomySurgical HistorycolonoscopyHospitalization Historysee above [employer] Other Reason for referral (narrative) Note Date & TypeNoteFacilityReason for referral (narrative)No reason for referral information availableTuscarawas Hospital Work Phone: Summary Purpose Family History Mother Name Dates Details Family history of depression (V17.0, Z81.8) Status:ActiveFHx: diabetes mellitus(V18.0, Z83.3) Status:ActiveFamily history of Hypertension, benign(401.1, I10) Status:Active Father Name Dates Details Family history of depression (V17.0, Z81.8) Status:ActiveFamily history of Anxiety(300.00, F41.9) Status:Active Advance Directives Advance Directive Response Recorded Date/ Time Advance Directives No October 19, 021 4:41pm Chief Complaint and Reason for Visit Chief Complaint Admit Date April 25, 2025 1 1:51am Med Refills May 07, 2025 7 :39am Reason for Visit Admit Date Annual physical exam May 07, 2025 7:39am Additional Source Comments INFORMATION SOURCE (unrecogn ized section and content) DATE CREATED AUTHOR 12/19/2017 [facility] DATE CREATED AUTHOR AUTHOR'S ORGANIZ ATION 12/21/2017 [facility] [place] DATE CREATED AUTHOR AUTHOR'S ORGANIZ ATION 01/23/2018 [facility] DATE CREATED AUTHOR AUTHOR'S ORGANIZ ATION 02/01/2018 [facility] [place] DATE CREATED AUTHOR AUTHOR'S ORGANIZ ATION 11/02/2022 [facility] DATE CREATED AUTHOR AUTHOR'S ORGANIZ ATION 05/02/2024 [facility] DATE CREATED AUTHOR AUTHOR'S ORGANIZ ATION 05/06/2025 [facility] REASON FOR VISIT (unrecogniz ed section and content) ReasonCommentsSore ThroatEaracheBilateral ear painReasonCommentsAnnual Exam wellness Care Teams (unrecognized sec tion and content) Team MemberRelationshipSpecialtyStart DateEnd Date Sridhar Lo MD [address] [place] [address] PCP - GeneralFamily Medicine09/26/23Team MemberRelationshipSpecialtyStart DateEnd Date Sridhar Lo MD [address] [place] [address] PCP - GeneralFamily Medicine09/26/23Team MemberRelationshipSpecialtyStart DateEnd Date Sridhar Lo MD [address] [place] [address] PCP - Generalmily Medicine09/26/23Team MemberRelationshipSpecialtyStart DateEnd Date Sridhar Lo MD [address] [place] [address] PCP - Generalmily Medicine09/26/23Team MemberRelationshipSpecialtyStart DateEnd Date Sridhar Lo MD [address] [place] [address] PCP - Generalmily Medicine09/26/23Team MemberRelationshipSpecialtyStart DateEnd Date Sridhar Lo MD PCP - GeneralFamily Medicine09/26/23Team MemberRelationshipSpecialtyStart DateEnd Date Sridhar Lo MD PCP - GeneralFamily Medicine09/26/23 Team Status: Active Member Role/Relationship Status Dates Sridhar Lo MD Primary Care Provider Active Team Status: Active Member Role/Relationship Status Dates Sridhar Lo MD Primary Care Provider Active S tart: April 25, 2025 [facility] ProviderActiveStart: April 25, 2025 Team Status: Inactive Member Role/Relationship Status Dates Sridhar Lo MD Primary Care Provider Active S tart: May 07, 2025 End: May 07, 2025[facility] SOCORRO Lottending ProviderActiveStart: May 07, 2025 End: May 07, 2025 Goals (unrecognized section and content) Goals may be documented in a n alternate section FOR RECORDS PERTAINING TO PATIENTS WHO ARE [...] BE BASED ON THE PRIMARY CLINICAL RECORDS. [employer] provides no warranty or guarantee of the accuracy or completeness of information in this document.
[2025-05-07 11:36] LABS: Hematocrit 41.8 % (36.0-48.0); Hemoglobin 14.0 g/dL (12.0-16.0); Immature Granulocytes Abs Auto 0.01 10^3/uL (0.00-0.03); Immature Granulocytes Pct Auto 0.1 % (0.0-0.5); Lymphocytes Absolute Auto 2.4 10^3/uL (1.2-3.8); Mean Corpuscular HGB Conc 33.5 g/dL (29.9-35.2); Mean Corpuscular Hemoglobin 30.1 pg (26.7-34.0); Mean Corpuscular Volume 89.9 fL (81.0-99.0); Platelet Count 229 10^3/uL (150-450); Red Blood Count 4.65 10^6/uL (4.20-5.40); White Blood Count 6.9 10^3/uL (4.0-11.0)
[2025-05-07 12:29] LABS: Alanine Aminotransferase 27 U/L (14-59); Albumin Globulin Ratio 1.2; Albumin Level 4.0 g/dL (3.4-5.0); Alkaline Phosphatase 83 U/L (46-116); Anion Gap 14.3; Aspartate Amino Transferase 18 U/L (15-37); Blood Urea Nitrogen 12.0 mg/dL (7.0-18.0); Calcium 8.9 mg/dL (8.5-10.1); Carbon Dioxide 29.9 mmol/L (21.0-32.0); Chloride 105 mmol/L (98-107); Cholesterol 184 mg/dL (<=200); Estimated GFR (African America >60 (>=60 mL/min/1.73m^2); Estimated GFR (Non-African Ame >60 (>=60 mL/min/1.73m^2); Globulin 3.3 g/dL; Glucose 87 mg/dL (74-106); HDL Cholesterol 66 mg/dL (40-60); Potassium 4.2 mmol/L (3.5-5.1); Sodium 145 mmol/L (136-145); Thyroid Stimulating Hormone 0.333 uIU/mL (0.358-3.740); Total Protein 7.3 g/dL (6.4-8.2); Triglycerides 130 mg/dL (<=150); VLDL CHOLESTEROL 26.0 mg/dL
== END 2025-05-07 10:47 | disposition home or self-care (01) ==
LOC: LAB 10:52
PROVIDERS: PCP Family Medicine; Visit Provider Family Medicine
DX: Z00.00 Encounter for general adult medical examination without abnormal findings (principal); E03.9 Hypothyroidism, unspecified
CPT/HCPCS: 36415; 80053; 80061; 83036; 84439; 84443; 85025

== ENCOUNTER 2025-06-11 07:30 | Outpatient (OUT) | payer BC, SELFPAY ==
--- NOTE | 2025-06-11 07:32 | MM_ITS ---
Patient Name: MELBA BERRY MR#: [id number] : 1975 Exam Date: 06/11/2025 Ordering Doctor: DR WENDY LO . RADIOLOGY REPORT PROCEDURE: MM TOMOSYNTHESIS SCREENING BI COMPARISON: MM TOMOSYNTHESIS DIAGNOSTIC RT, 12/27/2023. MM TOMOSYNTHESIS SCREENING BI, 11/08/2023. MG MAMM SCREEN JANEY W CAD, 08/16/2018. INDICATIONS: Screening Calculator Name NCI Breast Cancer Risk Assessment Tool 5 Year Breast Cancer Risk 1.10% Lifetime Breast Cancer Risk 9.50% Personal Breast Cancer No Personal Ovarian Cancer No Treatments None Family Cancers Grandmother-maternal with breast cancer at age ~55; Grandfather-maternal with bladder cancer at age ~70. LOCATION: [facility] BREAST COMPOSITION: The breasts are heterogeneously dense, which may obscure small masses. FINDINGS: RIGHT BREAST: No significant suspicious finding. There is a similar focal asymmetry. LEFT BREAST: No significant suspicious finding. There is a similar biopsy clip. Similar focal asymmetries are present. DIAGNOSTIC CATEGORY 2--BENIGN FINDING. NO CHANGE FROM COMPARISON. RECOMMENDATIONS: ROUTINE MAMMOGRAM AND CLINICAL EVALUATION IN 12 MONTHS. Dictated by: Andrey Negron MD on 06/11/2025 at 14:05 Approved by: Andrey Negron MD on 06/11/2025 at 14:26
--- OUTSIDE RECORDS SUMMARY | 2025-06-11 07:32 | XMS_ITS | CCD ---
Author Organization [facility] Inform ion [facility] Care Team Providers Care Mushroom Laborer Name Role Phone Unavailable, Family Physician Unavailable [...] NADERER, DR SRIDHAR Choudhary Primary Care Unavailable ATLANTA, JENIEFR Consulting Unavailable NADERER, DR SRIDHAR Choudhary Attending [...] Unavailable NADEREGilberto, DR SRIDHAR Choudhary Consulting Unavailable NADFLORENTINO, DR SRIDHAR Choudhary Attending Unavailable ALEXX ., DR PINEDO Admitting Unavailable ALEXX ., DR PINEDO Consulting Unavailable NADERER, DR SRIDHAR Choudhary Primary Care Unavailable ALEXX ., DR PINEDO Attending Unavailable Sridhar Lo MD Primary Care Provider SHAHIDA PRETTY Attending Unavailable TERESITA, SRIDHAR Attending Unavailable TERESITA, SRIDHAR Attending Unavailable TERESITA, SRIDHAR Attending Unavailable Sridhar Lo MD Primary Care Provider Sridhar Lo MD Primary Care Provider All Starks MD Attending Provider Sridhar Lo MD Attending Provider All Starks Attending Unavailab le All Starks Admitting Unavailab le Sridhar Lo Primary Care Unavailable Allergies Allergy ClassificationReported Allergen(s)Allergy TypeDate of OnsetReaction(s) Facility (5 sources)cefdinir; Translations: [cefdinir]Drug Vuityvp22-28-3711nogv changes [facility] Repository (3 sources)Promethazine; Translations: [Phenergan]Drug AllergyK[facility] (2 sources)risperiDONEDrug AllergylaSonoma Developmental Center [facility] Work Phone: (2 sources)Sulfamethoxazole / Trimethoprim; Translations: [Bactrim]Drug Allergy [facility] Repository (13 sources)CiprofloxacinDrug Jinjoij86-89-5493styffYvhcj Glisten Other (2 sources)Prochlorperazine; Translations: [Compazine]Drug Kwvntfc85-32-0875 dizzinessK[facility] Hospital Repository (13 sources)PromethazineDrug Yvgiagi48-33-4453hlkvunVgrar Glisten Other (12 sources)Sulfamethoxazole / TrimethoprimDrug Nppadhh75-22-3091QdwuhijIalkdRunscope Other (2 sources)TriamcinoloneDrug Epbjmha06-02-9646gydjjdeXjbgqxnjxCleveland Clinic (2 sources)vortioxetineDrug Iaudbrh35-31-0663urwjjaYelwpebfcRiverview Health Institute (1 source)CiprofloxacinDrug AllergyThe [facility] Repository (1 source)CorticosteroidsDrug allergy (disorder)45-93-1624UubK[facility] Hospital Repository (1 source)risperiDONEDrug AllergyThe [facility] Repository (1 source)vortioxetineDrug Jojnpqq63-43-0992JufKet[facility] Hospital Repository (11 sources)CefuroximeDrug Dotuqqb06-67-4652IVPK [facility] Work Phone: (12 sources)ProchlorperazineDrug Mscjgfv40-29-4187zblcmmnihNCGS Healthcare (12 sources)risperiDONEDrug Dxkapko24-83-8294cxkqanpEXYK Healthcare (11 sources)vortioxetineDrug Rkfrcfe18-20-8923LSPT Healthcare (2 sources)Sulfamethoxazole; Translations: [sulfamethoxazole]Drug Allergy 12-66-7394vmbdooauxGrkacdnhiTrinity Health System (2 sources)Trimethoprim; Translations: [trimethoprim]Drug Mmhtrqy77-78-7542 [facility] (1 source)CiprofloxacinDrug Ppuiprq13-08-0140ZchxxnomiSheltering Arms Hospital Repository (1 source)ProchlorperazineDrug Jlltajh90-07-3514CvzsvmzvrSheltering Arms Hospital Repository (1 source)PromethazineDrug Vvjvudu94-40-2979SfccfkmohSheltering Arms Hospital Repository (1 source)risperiDONEDrug Memfnrb79-46-6864IbqvcmduaSheltering Arms Hospital Repository (1 source)TriamcinoloneDrug Vdluqwp67-41-5029DhqswbznsSheltering Arms Hospital Repository (1 source)vortioxetineDrug Pbiescb10-74-8910RqyfvbquxSheltering Arms Hospital Repository Medications Current Medications MedicationDrug Class(es)DatesSig (Normalized)Sig (Original)Ascorbic Acid (2 sources)Vitamin CVitamin C ActiveVitamin C Not-Takingcholecalciferol 0.125 mg oral capsule (9 sources)Vitamin DStart: 14-97-2393khwc 1 capsule by mouth every weekStart: 68-86-6400jtab 1 capsule by mouth every weekcholecalciferol (Vitamin D-3) 1.25 MG (23848 UT) capsule Indications: Vitamin D deficiency, unspecified , Vitamin D deficiency TAKE 1 CAPSULE BY MOUTH ONE TIME PER WEEK ON SUNDAYS 12 capsule 3 03/14/2024 ActiveclonazePAM 0.5 mg oral tablet (14 sources)BenzodiazepineStart: 17-38-8017wgoc 1 tablet by mouth once daily Clonazepam [...] oral tablet (1 source)Tetracycline-class DrugStart: 05-01-2024 End: 29-29-0740jjrorgkgeux (Vibra-Tabs) 100 MG tablet Indications: Acute non- recurrent pansinusitis Take 1 tablet (100 mg) by mouth in the morning and 1 tablet (100 mg) before bedtime. Do all this for 10 days. Takewith a full glass of water and do not lie down for at least 30 minutes after.. 20 tablet Activefamotidine 20 mg oral tablet (9 sources)Histamine-2 Receptor AntagonistStart: 66-49-6326kjvg 1 tablet by mouth twice dailyFamotidine 20 mg tablet Active 20 MG PO Twice daily May 07, 2025 12:00am Complies with drug therapyStart: 07-73-1550rpdq 2 tablets by mouth twice dailyfamotidine (Pepcid) 20 MG tablet Indications: Chronic superficial gastritis without bleeding , Atrophic gastritis TAKE 2 TABLETS BY MOUTH TWICE A DAY 360 tablet 3 02/02/2024 ActiveFamotidine 20 MG Oral for 90 Activelevothyroxine sodium 0.088 mg oral tablet (9 sources)l-ThyroxineStart: 16-50-8834njkb 1 tablet by mouth once daily Levothyroxine 88 mcg tablet Active 88 MCG PO Daily May 07, 2025 12:00am Complies with drug therapyStart: 07-84-1777puem 1 tablet by mouth once daily levothyroxine (Synthroid, Levoxyl) 88 MCG tablet Indications: Hypothyroidism, unspecified (CMS/HCC), Hypothyroidism (CMS/HCC) TAKE 1 TABLET BY MOUTH EVERY DAY 90 tablet 3 07/04/2023 ActiveLevothyroxine Sodium 88 MCG Oral for 90 Active methylPREDNISolone (3 sources)CorticosteroidStart: 04-30-2024 End: 25-16-7688gqppceCTKUDKAyhimx (Medrol Dospak) 4 MG tablets Indications: Acute non-recurrent pansinusitis Follow schedule on package instructions 21 tablet 04/30/2024 05/07/2024 ActiveMultiple Vitamins-Minerals (Womens One Daily) tablet (11 sources)Multiple Vitamins-Minerals (Womens One Daily) tablet Active nortriptyline 50 mg oral capsule (15 sources)Tricyclic AntidepressantStart: 69-06-8469xmgy 1 capsule by mouth once daily at [...] mg oral tablet (20 sources)Serotonin Reuptake InhibitorStart: 31-01-3190cqvq 1 capsule by mouth once dailySertraline 200 mg capsule Active 200 MG PO Daily May 07, 2025 12:00am Complies with drug therapyStart: 46-25-1274jmhx 1 tablet by mouth once dailySertraline 25 [...] (Original)Cetirizine (1 source)Histamine-1 Receptor AntagonistZyrTEC Allergy Not-Takingergocalciferol 08594 unt oral capsule (2 sources)Provitamin D2 CompoundStart: 68-72-4212stcq 1 capsule by mouth every week at lunchVitamin D (Ergocalciferol) 94222 UNIT Oral Capsule take 1 capsule by mouth every week ON MONDAY WITH LUNCH AND FULL GLASS OF WATER Quantity: 13 Refills: 0 Domenic Green Start : 22-Sep-2017 ActiveVitamin D (Ergocalciferol) 1.25 MG (59483 UT) Oral for 84 ActivehydrOXYzine pamoate 25 mg oral capsule (1 source)AntihistaminehydrOXYzine Pamoate 25 MG Oral Capsule Refills: 0 Active levoFLOXacin 750 mg oral tablet (3 sources)Quinolone AntimicrobialStart: 04-30-2024 End: 59-10-2507lzmg 1 tablet by mouth once dailylevoFLOXacin (Levaquin) [...] mg oral tablet (1 source)Histamine-2 Receptor AntagonistStart: 46-07-3509upcm 1 tablet by mouth twice dailyraNITIdine HCl - 150 MG Oral Tablet take 1 tablet by mouth twice a day Quantity: 60 Refills: 0 Domenic Green Start : 10-Aug-2017 ActiveTriamcinolone (1 source)CorticosteroidStart: 10-54-6543NMZTXBT - 10 mg October, 60 mg venlafaxine (1 source)Serotonin and Norepinephrine Reuptake InhibitorEffexor Not-Taking Vitamin D (1 source)Vitamin D Not-Taking Problems Active Problems Problem ClassificationProblemDateDocumented DateEpisodic/ChronicAnxiety disorders (17 sources)Panic disorder; Translations: [Panic disorder [episodic paroxysmal anxiety]]Onset: 814522-63-4117DtnwrqfByfzvdxp mellitus without complication (12 sources)Prediabetes; Translations: [Prediabetes]Onset: 180252-04-8314 EpisodicDisorders of lipid metabolism (13 sources)Hyperlipidemia, unspecified; Translations: [Dyslipidemia]Onset: 190799-82-1580JyinkfuUiprpshxpg disorders (1 source)Gastroesophageal reflux disease; Translations: [GERD (gastroesophageal reflux disease)]ChronicGastritis and duodenitis (11 sources)Chronic superficial gastritis; Translations: [Chronic superficial gastritis without bleeding]Onset: 250317-47-8468OoaxkcdXwdrvhieo disorders (11 sources)Dysmenorrhea; Translations: [Dysmenorrhea, unspecified]Onset: 416885-96-2376KosdxngOdyx disorders (16 sources)Major depressive disorder, single episode, severe without psychotic features; Translations: [Major depressive disorder]Onset: ChronicMood disorders (1 source)Mood disordersOnset: 27-10-5880Jdmdnro system congenital anomalies (1 source)Chiari malformation; Translations: [History of Arnold-Chiari syndrome] ChronicNutritional deficiencies (14 sources)Vitamin D deficiency; Translations: [Vitamin D deficiency, unspecified]Onset: 077652-03-2045PsunsfoOwfbu endocrine disorders (4 sources)Polycystic ovarian syndrome; Translations: [POLYCYSTIC OVARIAN SYNDROME]Onset: 25-96-3872OrusvktAllnc nervous system disorders (11 sources)Chiari malformation type I; Translations: [Compression of brain] Onset: 913448-63-9475OlugfzlXpvyi upper respiratory disease (1 source)Allergic rhinitis; Translations: [Allergic rhinitis, unspecified] ChronicOther upper respiratory disease (11 sources)Allergic rhinitis due to pollen; Translations: [Allergic rhinitis due to pollen]Onset: 928056-55-8322WuhvfyzMjpnchxuebd; intervertebral disc disorders; other back problems (13 sources)Low back pain; Translations: [Chronic neck pain]Onset: 09-26-2023 80-76-3525SjeawmogGnwhlon disorders (20 sources)Iodine-deficiency related diffuse (endemic) goiter; Translations: [Hypothyroidism, unspecified]Onset: 01-09-2022 Resolved: 59-20-5498SedqlauTupucjtlfuuj (1 source)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()Onset: 01-22-2018 Unclassified (1 source)mdd recurrent severe / mdd recurrent severe()Onset: 11-21-2017 Unclassified (1 source)mdd recurrent severe,BRIAN, panic disorder / mdd recurrent severe,BRIAN, panic disorder()Onset: 89-41-6326Zljijtxgiijb (1 source)panic disorder / panic disorder()Onset: 01-22-2018 Past or Other Problems Problem ClassificationProblemDateDocumented DateEpisodic/ChronicAbdominal pain (11 sources)Pain in female pelvis; Translations: [Pelvic and perineal pain] Onset: 397999-47-9136VirrexjiCsvrmzcdzo associated with dizziness or vertigo (1 source)Vertigo; Translations: [Vertigo]EpisodicImmunizations and screening for infectious disease (2 sources)Contact with and (suspected) exposure to other viral communicable diseases; Translations: [Encounter for screening for human papillomavirus (HPV)] Onset: 48-09-0108CmdjvttxPkgoblg and fatigue (2 sources)Asthenia; Translations: [Fatigue]EpisodicOther aftercare (4 sources)Other exterminator helper (current) drug therapy; Translations: [OTH FAMILY PRACTICE NURSE PRACTITIONER CURRENT DRUG THERAPY]Onset: 84-56-2354TrjlarziPycld ear and sense organ disorders (1 source)Otalgia; Translations: [Right ear pain]EpisodicOther gastrointestinal disorders (1 source)Swallowing painful; Translations: [Odynophagia]EpisodicOther gastrointestinal disorders (1 source)Personal history of other diseases of the digestive system; Translations: [History of irritable bowel syndrome]EpisodicOther lower respiratory disease (1 source)H/O: respiratory disease; Translations: [History of sinusitis]Episodic Other lower respiratory disease (1 source)Shortness of breath; Translations: [SHORTNESS OF BREATH]Onset: 21-40-3909HvavgagdDzwlx screening for suspected conditions (not mental disorders or infectious disease) (4 sources)Encounter for screening for malignant neoplasm of cervix; Translations: [ENC SCREENING MALIG NEOPLASM CERV]Onset: 74-39-2142AgavfrieCugsz upper respiratory infections (10 sources)Acute pansinusitis; Translations: [Acute pansinusitis, unspecified] Onset: 358870-18-8861VgnruaioSstvsmszb and history of mental health and substance abuse codes (1 source)H/O: depression; Translations: [History of depression]Episodic Unclassified (1 source)MDD severe recurrent; Translations: [MDD severe recurrent]Onset: 30-05-5343Avwragdwaogg (1 source)mdd recurrent severe,BRIAN, panic disorder; Translations: [mdd recurrent severe,BRIAN, panic disorder]Onset: 97-87-1282Libfccvuroek (1 source)mdd recurrent severe; Translations: [mdd recurrent severe]Onset: 89-66-8309Kekxyueqamkn (2 sources)Patient encounter status; Translations: [Screening for diabetes mellitus]Viral infection (1 source)COVID-19NEGATED: Highlighted row has not occurred!Residual codes; unclassified (2 sources)DiseaseEpisodic Results Test NameValueInterpretationReference RangeFacilityUS Breast - right limitedon 04-72-7429[place] [address] Ultrasound Report Signed Patient: CHHAYA BERRY MR#: [id number] : 1975 Acct:[id number] Age/Sex: 48 / F ADM Date: 06/14/24 Loc: US Attending Dr: Shahida Pretty D.O. Ordering Physician: Shahida Pretty D.O. Date of Service: 06/14/24 Procedure(s): US breast RT limited Accession Number(s): [id number] cc: Shahida Pretty D.O.; Sridhar Lo M.D. Patient Name: CHHAYA BERRY MR#: [id number] : 1975 Exam Date: 06/14/2024 Ordering Doctor: [...] M.D. Signed By: 06/14/24903 DD/ 2 TD/TT: Pole Frame Construction Worker:TBHRadiology, Radiologist, MD - 06/14/2024 [place] [address] Ultrasound Report Signed Patient: CHHAYA BERRY MR#: [id number] : 1975 Acct:[id number] Age/Sex: 48 / F ADM Date: 06/14/24 Loc: US Attending Dr: Shahida Pretty D.O. Ordering Physician: Shahida Pretty D.O. Date of Service: 06/14/24 Procedure(s): US breast RT limited Accession Number(s): [id number] cc: Shahida Pretty D.O.; Sridhar Lo M.D. Patient Name: CHHAYA BERRY MR#: [id number] : 1975 Exam Date: 06/14/2024 Ordering Doctor: [...] M.D. Signed By: 06/14/24903 DD/ 2 TD/TT: Pole Frame Construction Worker: RONNY HealthcareRadiology Study observation (narrative)RONNY [facility] CenterUS Breast - right limitedOrdered By: Radiologist Radiology on 49-60-4909BVFT deeplocal Work Phone: mm TOMOSYNTHESIS DIAGNOSTIC RTon 70-23-0315[place]yrMc[place], [place] [address] Mammography Report Signed Patient: CHHAYA BERRY MR#: [id number] : 1975 Acct:[id number] Age/Sex: 48 / F ADM Date: 12/27/23 Loc: MAMMO Attending Dr: Shahida Pretty D.O. Ordering Physician: Shahida Pretty D.O. Results: Date of Service: 12/27/23 Follow Up: Procedure(s): MM tomosynthesis diagnostic RT Accession Number(s): [id number] cc: Shahida Pretty D.O.; Sridhar Lo M.D. Patient Name: CHHAYA BERRY MR#: [id number] : 1975 Exam Date: 12/27/2023 Ordering Doctor: [...] bladder cancer at age 68. LOCATION: [facility] BREAST COMPOSITION: The breasts are heterogeneously [...] Signed By: 12/27/23 1323 DD/ 1322 TD/TT: Pole Frame Construction Worker:TBHRadiology, Radiologist, - 12/27/2023 [place] [address] Mammography Report Signed Patient: CHHAYA BERRY MR#: [id number] : 1975 Acct:[id number] Age/Sex: 48 / F ADM Date: 12/27/23 Loc: MAMMO Attending Dr: Shahida Pretty D.O. Ordering Physician: Shahida Pretty D.O. Results: Date of Service: 12/27/23 Follow Up: Procedure(s): MM tomosynthesis diagnostic RT Accession Number(s): [id number] cc: Shahida Pretty D.O.; Sridhar Lo M.D. Patient Name: CHHAYA BERRY MR#: [id number] : 1975 Exam Date: 12/27/2023 Ordering Doctor: [...] bladder cancer at age 68. LOCATION: [facility] BREAST COMPOSITION: The breasts are heterogeneously [...] Signed By: 12/27/23 1323 DD/ 1322 TD/TT: Pole Frame Construction Worker: RONNY Camara InformationOrdered By: Radiologist Radiology on 63-27-7122MFVZ deeplocal Work Phone: No Panel Informationon 09-10-1952Sxcraryak Study observation (narrative)RONNY MedinaUS Breast - right limitedon 94-88-5263[place] [address] Ultrasound Report Signed Patient: CHHAYA BERRY MR#: [id number] : 1975 Acct:[id number] Age/Sex: 48 / F ADM Date: 12/27/23 Loc: MAMMO Attending Dr: Shahida Pretty D.O. Ordering Physician: Shahida Pretty D.O. Date of Service: 12/27/23 Procedure(s): US breast RT limited Accession Number(s): [id number] cc: Shahida Pretty D.O.; Sridhar Lo M.D. Patient Name: CHHAYA BERRY MR#: [id number] : 1975 Exam Date: 12/27/2023 Ordering Doctor: [...] bladder cancer at age 68. LOCATION: [facility] BREAST COMPOSITION: The breasts are heterogeneously [...] Signed By: 12/27/23 1323 DD/ 132 TD/TT: Pole [employer] Construction Worker:TBHRadiologkiersten, Radiologist, - 12/27/2023 [place] [address] Ultrasound Report Signed Patient: CHHAYA BERRY MR#: [id number] : 1975 Acct:[id number] Age/Sex: 48 / F ADM Date: 12/27/23 Loc: MAMMO Attending Dr: Shahida Pretty D.O. Ordering Physician: Shahida Pretty D.O. Date of Service: 12/27/23 Procedure(s): US breast RT limited Accession Number(s): [id number] cc: Shahida Pretty D.O.; Sridhar Lo M.D. Patient Name: CHHAYA BERRY MR#: [id number] : 1975 Exam Date: 12/27/2023 Ordering Doctor: [...] bladder cancer at age 68. LOCATION: [facility] BREAST COMPOSITION: The breasts are heterogeneously [...] LUMP SHOULD BE BIOPSIED. Dictated by: Jenifer Vazuqez MD on 12/27/2023 at 13:17 Approved by: Jenifer Vazquez MD on 12/27/2023 at 13:22 Dictated By: Jenifer Vazquez M.D. Signed By: 12/27/23 1323 DD/ 132 TD/TT: Pole Frame Construction Worker: RONNY [facility] TOMOSYNTHESIS SCREENING BIo 78-51-5879[place]egMc[place], [place] [address] Mammography Report Signed Patient: CHHAYA BERRY MR#: [id number] : 1975 Acct:[id number] Age/Sex: 48 / F ADM Date: 11/08/23 Loc: MAMMO Attending Dr: Shahida Pretty D.O. Ordering Physician: Shahida Pretty D.O. Results: Date of Service: 11/08/23 Follow Up: Procedure(s): MM tomosynthesis screening BI Accession Number(s): [id number] cc: Shahida Pretty D.O.; Sridhar Lo M.D. Patient Name: CHHAYA BERRY MR#: [id number] : 1975 Exam Date: 11/08/2023 Ordering Doctor: [...] bladder cancer at age 68. LOCATION: [facility] BREAST COMPOSITION: The breasts are heterogeneously [...] Vazquez M.D. Signed By: 11/08/23 1335 DD/ TD/TT: Pole [employer] Construction Worker:TBHRadiology, Radiologist, - 11/08/2023 [place] [address] Mammography Report Signed Patient: CHHAYA BERRY MR#: [id number] : 1975 Acct:[id number] Age/Sex: 48 / F ADM Date: 11/08/23 Loc: MAMMO Attending Dr: Shahida Pretty D.O. Ordering Physician: Shahida Pretty D.O. Results: Date of Service: 11/08/23 Follow Up: Procedure(s): MM tomosynthesis screening BI Accession Number(s): [id number] cc: Shahida Pretty D.O.; Sridhar Lo M.D. Patient Name: CHHAYA BERRY MR#: [id number] : 1975 Exam Date: 11/08/2023 Ordering Doctor: [...] bladder cancer at age 68. LOCATION: [facility] BREAST COMPOSITION: The breasts are heterogeneously [...] Dictated By: Jenifer Vazquez M.D. Signed By: 11/08/231334 DD/ 33 TD/TT: Pole Frame Construction Worker: CoxHealthRadiology Study observation (narrative)[facility] TOMOSYNTHESIS SCREENING BIOrdered By: Radiologist Radiology on 74-60-4292FHTJ deeplocal Work Phone: DHEA SERUMon 30-77-8661Skhgkqwsqkejyumvinlrch (DHEA) 145 ng/vLRpacxe92-712Gpn [facility] CenterComment on above:Result Comment: Age 1 - 5 years 0 - 67 6 - 7 years 0 - 110 8 - 10 years 0 - 185 11 - 12 years 0 - 201 13 - 14 years 0 - 318 15 - 16 years 39 - 481 17 - 19 years 40 - 491 >19 years 31 - 701Performed By: #### CBC #### [facility] [address] [address] [address] June Hernadez-SULFATEon 39-09-6630MERD-Bzknbge90.1 ug/qHKqnysa14.2-243.7 [facility] HospitalComment on above:Performed By: #### CBC #### [facility] [address] [place] [address] Dr. June Crabtree 26-51-7988PIP2.4 mIU/mLNCrystal Clinic Orthopedic CenterComment on above:Result Comment: Adult Female: Follicular phase 3.5 - 12.5 Ovulation phase 4.7 - 21.5 Luteal phase 1.7 - 7.7 Postmenopausal 25.8 - 134.8Performed By: #### CBC #### [facility] [address] [place] [address] Dr. June MayorgaLUTEINIZING HORMONE (LH)on 08-50-9683CG6.4 mIU/mLNormalKettering Memorial HospitalComment on above:Result Comment: Adult Female: Follicular phase 2.4 - 12.6 Ovulation phase 14.0 - 95.6 Luteal phase 1.0 - 11.4 Postmenopausal 7.7 - 58.5Performed By: #### LBCLH #### [facility] [address] [place] [address] Dr. June Aguirre ACOG PANEL 2: 30 to 65on 07-07-2022..NormalKettering Memorial HospitalComment on above:Result Comment: Performed at: BAPerformed By: #### CBC #### [facility] [address] [place] [address] Dr. June Ho Gdln ACOG Twhqeko24-68XshhnxUunMain Campus Medical CenterComment on above:Performed By: #### CBC #### [facility] [address] [place] [address] Dr. June MayorgaDIAGNOSIS:CommentProMedica Defiance Regional HospitalCombronson lakeview hospital on above: Result Comment: NEGATIVE FOR INTRAEPITHELIAL LESION OR MALIGNANCY. Performed at: BAPerformed By: #### CBC #### [facility] [address] [place] [address] Dr. June Burleson AptimaNegativeNormalNegativeKettering Memorial HospitalCombronson lakeview hospital on above:Result Comment: This nucleic acid amplification test detects fourteen high-risk HPV types (16,18,31,33,35,39,45,51,52,56,58,59,66,68) without differentiation. Performed at: =GPerformed By: #### CBC #### [facility] [address] [place] [address] Dr. June MayorgaHPV Genotype ReflexCommentGalion Hospital on above:Result Comment: Criteria not met, HPV Genotype not performed. Performed at: BAPerformed By: #### CBC #### [facility] [address] [place] [address] Dr. June MayorgaMethodology:CommentGalion Hospital on above: Result Comment: This liquid based ThinPrep(R) pap test was screened with the use of an image guided system. Performed at: WBPerformed By: #### CBC #### [place] [address] Dr. June MayorgaNote:CommentGalion Hospital on above:Result Comment: The Pap smear is a screening test designed to aid in the detection of premalignant and malignant conditions of the uterine cervix. It is not a diagnostic procedure and should not be used as the sole means of detecting cervical cancer. Both false-positive and false-negative reports do occur. . Performed at: WBPerformed By: #### CBC #### [place] [address] Dr. June MayorgaPerformed by:CommentGalion Hospital on above: Result Comment: Julianne Rubio, Sprinkler Fitter Helper (ASCP) Performed at: BAPerformed By: #### CBC #### [facility] [address] [place] [address] Dr. Juen Argueta adequacy:CommentGalion Hospital on above:Result Comment: Satisfactory for evaluation. Endocervical and/or squamous metaplastic cells (endocervical component) are present. Performed at: BAPerformed By: #### CBC #### [facility] [address] [place] [address] Dr. June Mejia AUTO DIFFon 83-56-9836CYWU #0.0 103/ulNormal0.0-0.1The [facility], Cancer CenterComment on above:Performed By: #### CBC #### [facility] [address] [place] [address] Dr. June MayorgaBasophils/100 WBC (Bld)0.4 %Normal0.2-2.0The [facility] Comment on above:Performed By: #### CBC #### [facility] [address] [place] [address] Dr. June Mcneal #0.1 103/ulNormal0.0-0.7The [facility] Cancer CenterComment on above: Performed By: #### CBC #### [facility] Laboratory [address] [place] [address] Dr. June Westosinophils/100 WBC (Bld)1.5 %Normal0.9-7.0The [facility] Comment on above:Performed By: #### CBC #### [facility] Laboratory [address] [place] [address] Dr. June Westrythrocyte distribution width (RBC) [Ratio]13.3 %Gvgqxq93.0-15.0 The [facility] CenterComment on above:Performed By: #### CBC #### [facility] Laboratory [address] [place] [address] Dr. June MayorgaHematocrit (Bld) [Volume fraction]38.6 %Okkssh29.0-48.0The [facility] CenterComment on above:Performed By: #### CBC #### [facility] Laboratory [address] [place] [address] Dr. June MayorgaHemoglobin (Bld) [Mass/Vol]12.9 g/uCJxjuzg96.0-16.0The [facility] CenterComment on above:Performed By: #### CBC #### [facility] Laboratory [address] [place] [address] Dr. uJne Tripp #0.02 10e3/ulNormal0.00-0.03The [facility] CenterComment on above:Performed By: #### CBC #### [facility] Laboratory [address] [place] [address] Dr. June Tripp %0.2 %Normal0.0-0.5The [facility] on above: Performed By: #### CBC #### [facility] Laboratory [address] [place] [address] Dr. June Tariq #3.0 103/ulNormal1.2-3.8The [facility] CenterCombronson [facility] on above:Performed By: #### CBC #### [facility] Laboratory [address] [place] [address] Dr. June Tariqhocytes/100 WBC (Bld)37.3 %Hoxaey36.5-60.0[facility] on above:Performed By: #### CBC #### [facility] Laboratory [address] [place] [address] Dr. June PaganUAL DIFF REQNONormalThe [facility] CenterCombronson lake[facility] on above: Performed By: #### CBC #### [facility] Laboratory [address] [place] [address] Dr. June Beyer (RBC) [Entitic mass]29.8 waQirole32.7-34.0The [facility] on above:Performed By: #### CBC #### [facility] Laboratory [address] [place] [address] Dr. June Beyer (RBC) [Mass/Vol]33.4 g/yGXwxzhv52.9-35.2The [facility] on above:Performed By: #### CBC #### [facility] Laboratory [address] [place] [address] Dr. June Beyer (RBC) [Entitic vol]89.1 rTVfydff71.0-99.0The [facility] on above:Performed By: #### CBC #### [facility] Laboratory [address] [place] [address] Dr. June Coreas #0.7 103/ulNormal0.3-0.8The [facility] on above:Performed By: #### CBC #### [facility] Laboratory [address] [place] [address] Dr. June Nagyocytes/100 WBC (Bld)8.5 %Normal1.7-12.0The [facility] Comment on above:Performed By: #### CBC #### [facility] Laboratory [address] [place] [address] Dr. June MijaresUT #4.2 103/ulNormal1.4-6.5The [facility] CenterComment on above:Performed By: #### CBC #### [facility] Laboratory [address] [place] [address] Dr. June Mijaresutrophils/100 WBC (Bld)52.1 %Ymorsr69.0-75.0The [facility] CenterComment on above:Performed By: #### CBC #### [facility] Laboratory [address] [place] [address] Dr. June MayorgaPlatelet mean volume (Bld) [Entitic vol]9.2 fLCritically low 9.5-13.5The [facility] CenterComment on above:Performed By: #### CBC #### [facility] Laboratory [address] [place] [address] Dr. June MayorgaPLT257 103/qaBdplze269-027Bdt [facility] CenterComment on above: Performed By: #### CBC #### [facility] Laboratory [address] [place] [address] Dr. June MayorgaRBC4.33 106/ulNormal4.20-5.40The [facility] CenterComment on above:Performed By: #### CBC #### [facility] Laboratory [address] [place] [address] Dr. June MayorgaWBC8.1 103/ulNormal4.0-11.0The [facility] CenterComment on above: Performed By: #### CBC #### [facility] Laboratory [address] [place] [address] Dr. June MayorgaFRVA T4on 88-99-1430Fcnq T4 [Mass/Vol]0.84 ng/dLNormal0.76-1.46 The [facility] CenterCombr[facility] on above:Performed By: #### FT4 #### [facility] Laboratory [address] [place] [address] Dr. June MayorgaGLYCOHEMOGLOBIN A1Con 18-72-1444CLF RECOMMENDATIONSEE BELOWNormal [facility]Com[facility] on above:Result Comment: ADA RECOMMENDED LIMIT 4.0 - 6.0 ADA THERAPEUTIC TARGET < 7.0 ACTION SUGGESTED > 7.0Performed By: #### A1C #### [facility] Laboratory [address] [place] [address] Dr. June MayorgaGlucose [Mass/Vol]105 mg/dLNoMain Campus Medical CenterComment on above:Performed By: #### A1C #### [facility] Laboratory [address] [place] [address] Dr. June MayorgaHbA1c (Bld) [Mass fraction]5.3 %Normal4.5-6.2The [facility] CenterComment on above:Performed By: #### A1C #### [facility] Laboratory [address] [place] [address] Dr. June MayorgaTSHoarmaan 03-25-2891EGW8.631 uIU/mLNormal0.358-3.740The [facility] CenterComment on above:Performed By: #### TSH #### [facility] Laboratory [address] [place] [address] Dr. June Eden THYROIDon 18-19-1264EX THYROIDEXAMINATION: US THYROID HISTORY: Diffuse endemic goiter [...] Electronically authenticated by: JENIFER VAZQUEZ Date: 2022-04-28 19:27NormKeenan Private HospitalMAGNESIUMon 58-97-3530Wgpcwpwyz [Mass/Vol]2.1 mg/dLNormal 1.8-2.4The [facility] CenterComment on above:Performed By: #### MG #### [facility] Laboratory [address] [place] [address] Dr. June Echavarria Quick Testingon 00-61-8056FohsbkOshvwmccYmoqz Glisten Other cbc AUTO DIFFon 21-02-7965VDJB #0.0 103/ulNormal 0.0-0.1The [facility], [facility] CenterComment on above:Performed By: #### CBC #### [facility] Laboratory [address] [place] [address] Dr. June MayorgaBasophils/100 WBC (Bld)0.5 %Normal0.2-2.0[facility] Comment on above:Performed By: #### CBC #### [facility] Laboratory [address] [place] [address] Dr. June Mcneal #0.1 103/ulNormal0.0-0.7The [facility] CenterComment on above: Performed By: #### CBC #### [facility] Laboratory [address] [place] [address] Dr. June Westosinophils/100 WBC (Bld)1.6 %Normal0.9-7.0[facility] Comment on above:Performed By: #### CBC #### [facility] Laboratory [address] [place] [address] Dr. June Westrythrocyte distribution width (RBC) [Ratio]12.9 %Cnbysn11.0-15.0 The [facility] CenterComment on above:Performed By: #### CBC #### [facility] Laboratory [address] [place] [address] Dr. June MayorgaHematocrit (Bld) [Volume fraction]38.8 %Mwuphy16.0-48.0The [facility] CenterComment on above:Performed By: #### CBC #### [facility] Laboratory [address] [place] [address] Dr. June MayorgaHemoglobin (Bld) [Mass/Vol]12.7 g/cBLdgufp76.0-16.0The [facility] CenterComment on above:Performed By: #### CBC #### [facility] Laboratory [address] [place] [address] Dr. June Tripp #0.01 10e3/ulNormal0.00-0.03The [facility] CenterComment on above:Performed By: #### CBC #### [facility] Laboratory [address] [place] [address] Dr. June Tripp %0.2 %Normal0.0-0.5The [facility] CenterComment on above: Performed By: #### CBC #### [facility] Laboratory [address] [place] [address] Dr. June Vickers #2.3 103/ulNormal1.2-3.8The [facility] CenterComment on above:Performed By: #### CBC #### [facility] Laboratory [address] [place] [address] Dr. June Tariqhocytes/100 WBC (Bld)36.6 %Cmfinq79.5-60.0The [facility] CenterComment on above:Performed By: #### CBC #### [facility] Laboratory [address] [place] [address] Dr. June PaganUAL DIFF REQNONormalThe [facility] CenterComment on above: Performed By: #### CBC #### [facility] Laboratory [address] [place] [address] Dr. June Beyer (RBC) [Entitic mass]30.1 puQktlbj36.7-34.0The [facility] CenterComment on above:Performed By: #### CBC #### [facility] Laboratory [address] [place] [address] Dr. June Beyer (RBC) [Mass/Vol]32.7 g/dVPlmpyw42.9-35.2The [facility] CenterComment on above:Performed By: #### CBC #### [facility] Laboratory [address] [place] [address] Dr. June Beyer (RBC) [Entitic vol]91.9 xLFlmnsg25.0-99.0The [facility] CenterComment on above:Performed By: #### CBC #### [facility] Laboratory [address] [place] [address] Dr. June Coreas #0.6 103/ulNormal0.3-0.8The [facility] CenterComment on above:Performed By: #### CBC #### [facility] Laboratory [address] [place] [address] Dr. June Nagyocytes/100 WBC (Bld)9.2 %Normal1.7-12.0The [facility] Comment on above:Performed By: #### CBC #### [facility] Laboratory [address] [place] [address] Dr. June Montano #3.2 103/ulNormal1.4-6.5The [facility] CenterComment on above:Performed By: #### CBC #### [facility] Laboratory [address] [place] [address] Dr. June Mijaresutrophils/100 WBC (Bld)51.9 %Utzsrv09.0-75.0The [facility] CenterComment on above:Performed By: #### CBC #### [facility] Laboratory [address] [place] [address] Dr. June Yusuf mean volume (Bld) [Entitic vol]10.2 fLNormal9.5-13.5The [facility] CenterComment on above:Performed By: #### CBC #### [facility] Laboratory [address] [place] [address] Dr. June MedinaT293 103/beDdxzvh021-733Yzf [facility] CenterComment on above: Performed By: #### CBC #### [facility] Laboratory [address] [place] [address] Dr. June AnguianoC4.22 106/ulNormal4.20-5.40The [facility] CenterComment on above:Performed By: #### CBC #### [facility] Laboratory [address] [place] [address] Dr. June MayorgaWBC6.2 103/ulNormal4.0-11.0The [facility] on above: Performed By: #### CBC #### [facility] Laboratory [address] [address] [address] June Nieto T3on 47-90-2694WYAY T32.79 pg/mlLNormal2.18-3.98The [facility] on above:Performed By: #### CBC #### [facility] Laboratory [address] [address] [address] June Nieto T4on 40-35-3850Srzx T4 [Mass/Vol]0.94 ng/dLNormal0.76-1.46 The [facility] CenterCombronson lakeview hospital on above:Performed By: #### CBC #### [facility] Laboratory [address] [place] [address] Dr. June MayorgaGLYCOHEMOGLOBIN A1Con 81-33-2215HUD RECOMMENDATIONSEE BELOWNoUniversity Hospitals Conneaut Medical CenterCombronson lakeview hospital on above:Result Comment: ADA RECOMMENDED LIMIT 4.0 - 6.0 ADA THERAPEUTIC TARGET < 7.0 ACTION SUGGESTED > 7.0Performed By: #### A1C #### [facility] Laboratory [address] [place] [address] Dr. June MayorgaGlucose [Mass/Vol]123 mg/dLNoNationwide Children's Hospital on above:Performed By: #### A1C #### [facility] Laboratory [address] [place] [address] Dr. June MayorgaHbA1c (Bld) [Mass fraction]5.9 %Normal4.5-6.2The [facility] on above:Performed By: #### A1C #### [facility] Laboratory [address] [place] [address] Dr. June MayorgaLIPID PROFILEon 05-13-4439IERI-HDL RATIO NORMSEE BELOWNormKeenan Private HospitalCombronson lakeview hospital on above:Result Comment: 3.3 - 4.4 LOW RISK 4.4 - 7.1 AVERAGE RISK 7.1 - 11.0 MODERATE RISK >11.0 HIGH RISKPerformed By: #### LIPID, TSH, BMP, FT3, LIVER #### [facility] Laboratory [address] [address] [address] June MayorgaCholesterol [Mass/Vol]169 mg/dLNormal<=200The [facility] Comment on above:Performed By: #### LIPID, TSH, BMP, FT3, LIVER #### [facility] Laboratory [address] [address] [address] June MayorgaCholesterol in HDL [Mass/Vol]44 mg/xUFhpgia72-75Pbk [facility] CenterComment on above:Performed By: #### LIPID, TSH, BMP, FT3, LIVER #### [facility] Laboratory [address] [address] [address] June Rodriguezesterol in LDL [Mass/Vol]89.6 mg/dLNoMain Campus Medical CenterComment on above:Performed By: #### LIPID, TSH, BMP, FT3, LIVER #### [facility] Laboratory [address] [address] [address] June Rodriguezesterino.total/Cholesterol in HDL [Mass ratio]3.8 {ratio} NormalThe [facility] CenterComment on above:Performed By: #### LIPID, TSH, BMP, FT3, LIVER #### [facility] Laboratory [address] [place] [address] Dr. June Franco NORMAL> or = 60 mg/dl - LOW CARDIOVASCULAR RISK <40 mg/dl - HIGH CARDIOVASCULAR RISKProMedica Defiance Regional HospitalComment on above:Performed By: #### LIPID, TSH, BMP, FT3, LIVER #### [facility] Laboratory [address] [place] [address] Dr. June MayorgaLDL CALC NORMALSEE BELOWNoMain Campus Medical CenterComment on above:Result Comment: <100 mg/dl OPTIMAL 100 - 129 mg/dl NEAR OR ABOVE OPTIMAL 130 - 159 mg/dl BORDERLINE HIGH 160 - 189 mg/dl HIGH >190 mg/dl VERY HIGH Performed By: #### LIPID, TSH, BMP, FT3, LIVER #### [facility] Laboratory [address] [place] [address] Dr. June MayorgaTriglyceride [Mass/Vol]177 mg/dLCritically high<=150The [facility] on above:Performed By: #### LIPID, TSH, BMP, FT3, LIVER #### [facility] Laboratory [address] [place] [address] Dr. June HardingLDL CALC35.4 mg/dLNormalThe [facility] on above: Performed By: #### LIPID, TSH, BMP, FT3, LIVER #### [facility] Laboratory [address] [place] [address] Dr. June Stafford PROFILEon 79-40-2233Hejbbyo [Mass/Vol]3.5 g/dLNormal3.4-5.0 The [facility] CenterComment on above:Performed By: #### CBC #### [facility] Laboratory [address] [place] [address] Dr. Jnue MayorgaAlbumin/Globulin [Mass ratio]1.1 {ratio}NormalThe [facility] Rehabilitationment on above:Performed By: #### CBC #### [facility] Laboratory [address] [place] [address] Dr. June Oliveira [Catalytic activity/Vol]71 U/IBkizuh12-741Evx [facility] Rehabilitationment on above:Performed By: #### CBC #### [facility] Laboratory [address] [place] [address] Dr. June Mayberry [Catalytic activity/Vol]43 U/GTlnwga94-93Azz [facility] Rehabilitationment on above:Performed By: #### CBC #### [facility] Laboratory [address] [place] [address] Dr. June Murphy [Catalytic activity/Vol]27 U/BCshsaj91-43Dkg [facility] Rehabilitationment on above:Performed By: #### CBC #### [facility] Laboratory [address] [place] [address] Dr. June Read, CONJUGATED0.1 mg/dLNormal0.0-0.2The [facility] on above:Performed By: #### CBC #### [facility] Laboratory [address] [place] [address] Dr. June Medinairubin [Mass/Vol]0.3 mg/dLNormal0.2-1.0The [facility] Comment on above:Performed By: #### CBC #### [facility] Laboratory [address] [place] [address] Dr. June MayorgaGlobulin (S) [Mass/Vol]3.3 g/dLNormalThe [facility] CenterComment on above:Performed By: #### CBC #### [facility] Laboratory [address] [place] [address] Dr. June MayorgaProtein [Mass/Vol]6.8 g/dLNormal6.4-8.2The [facility] Comment on above:Performed By: #### CBC #### [facility] Laboratory [address] [place] [address] Dr. June MayorgaPROF CHEM 8 (BAS METB)on 57-39-7924Yoytn gap [Moles/Vol]11.0 mmol/LNormalThe [facility] CenterComment on above:Performed By: #### LIPID, TSH, BMP, FT3, LIVER #### [facility] Laboratory [address] [place] [address] Dr. June MayorgaCalcium [Mass/Vol]8.6 mg/dLNormal8.5-10.1The [facility] Comment on above:Performed By: #### LIPID, TSH, BMP, FT3, LIVER #### [facility] Laboratory [address] [place] [address] Dr. June MayorgaChloride [Moles/Vol]108 mmol/LCritically pxfj22-044Xhm [facility] CenterComment on above:Performed By: #### LIPID, TSH, BMP, FT3, LIVER #### [facility] Laboratory [address] [place] [address] Dr. June MayorgaCO2 [Moles/Vol]26.3 mmol/DWkqcev40.0-32.0The [facility] Comment on above:Performed By: #### LIPID, TSH, BMP, FT3, LIVER #### [facility] Laboratory [address] [place] [address] Dr. June MayorgaCreatinine [Mass/Vol]0.90 mg/dLNormal0.55-1.02The [facility] CenterComment on above:Performed By: #### LIPID, TSH, BMP, FT3, LIVER #### [facility] Laboratory [address] [place] [address] Dr. June WestGFR-AF PRYDEINIG>60Normal>=60The [facility] CenterComment on above:Performed By: #### LIPID, TSH, BMP, FT3, LIVER #### [facility] Laboratory [address] [place] [address] Dr. June WestGFR-NON AF PRYDEINIG>60Normal>=60The [facility] CenterComment on above:Performed By: #### LIPID, TSH, BMP, FT3, LIVER #### [facility] Laboratory [address] [place] [address] Dr. June MayorgaGlucose [Mass/Vol]97 mg/vBOdviqt19-357QwtKettering Memorial Hospital Comment on above:Performed By: #### LIPID, TSH, BMP, FT3, LIVER #### [facility] Laboratory [address] [place] [address] Dr. June MayorgaPotassium [Moles/Vol]4.3 mmol/LNormal3.5-5.1[facility] Comment on above:Performed By: #### LIPID, TSH, BMP, FT3, LIVER #### [facility] Laboratory [address] [place] [address] Dr. June MayorgaSodium [Moles/Vol]141 mmol/WKkdsbs033-108Wvs [facility] Comment on above:Performed By: #### LIPID, TSH, BMP, FT3, LIVER #### [facility] Laboratory [address] [place] [address] Dr. June MayorgaUrea nitrogen [Mass/Vol]15.0 mg/dLNormal7.0-18.0The [facility] CenterComment on above:Performed By: #### LIPID, TSH, BMP, FT3, LIVER #### [facility] Laboratory [address] [place] [address] Dr. June MayorgaUrea nitrogen/Creatinine [Mass ratio]16.7 mg/mgNormalThe [facility] CenterComment on above:Performed By: #### LIPID, TSH, BMP, FT3, LIVER #### [facility] Laboratory [address] [place] [address] Dr. June [place] 98-42-6973HPD7.118 uIU/mLCritically low0.358-3.740[facility] HospitalComment on above:Performed By: #### LIPID, TSH, BMP, FT3, LIVER #### [facility] Laboratory [address] [place] [address] Dr. June MayorgaVITAMIN D 25 OHon 47-38-5285XLO D 25-OH39.7 ng/mLNormalThe [facility] CenterComment on above:Performed By: #### CBC #### [facility] Laboratory [address] [place] [address] Dr. June Carbajal D RANGESSEE BELOWNoMain Campus Medical CenterComment on above: Result Comment: <20 ng/mL Vit D deficient 20 - <30 ng/mL Vit D insufficient 30 - 100 ng/mL Vit D sufficient >100 ng/mL Potential ToxicityPerformed By: #### CBC #### [facility] Laboratory [address] [place] [address] Dr. June MayorgaCT CERVICAL SP WO CONon [id number] CERVICAL SP WO CONSTUDY:CT CERVICAL SP WO [...] may be secondaryto patientpositioning or muscle spasm.NormalSt. Vincent Nat Medical CenterCT HEAD/BRAIN WO CONon [id number] HEAD/BRAIN WO CON STUDY:CT HEAD/BRAIN WO CON; 12/07/2017 7:34 pmINDICATION:PAIN.COMPARISON:NoneACCESSION NUMBER(S):[id number] CLINICIAN:Truman Magana:Contiguous axial images of the head [...] of acute intracranial hemorrhage or mass effectNormalSt. St. [facility] SHOULDER RT COMPLETE MIN 2 VWSon [id number] RT COMPLETE MIN 2 VWS STUDY:SHOULDER RT COMPLETE MIN 2 VWS; 12/07/2017 7:33 pmINDICATION:PAIN.COMPARISON:None. CLINICIAN:Truman Jeong:There is no acute fracture or dislocation of the rightacromioclavicular joint or glenohumeral joint. The subacromial andglenohumeral joint spaces are maintained. There are mild degenerativechanges of the right acromioclavicular joint.IMPRESSION:No acute osseous abnormality of the right shoulder.NormalSt. St. [facility] Hospital CamarilloLithium Levelon [id number] mmol/LLow0.6-1.2Mmetrohealth parma medical centery Kettering Health MiamisburgCBC AND DIFFERENTIALon 09-22-2017% AUTOMATED IMMATURE GRAN0.2 %Normal0.0 - 0.9[facility] Mainland CampusComment on above:Result Comment: Percent differential counts (%) should be interpreted in the context of the absolute cell counts (cells/L).Performed By: #### THYDS ####[facility] [place] [address]% AWKXGXXONA80.5 %Ulfstc44.0 - 80.0[facility], Mainland CampusComment on above:Performed By: #### THYDS ####[facility], [place] [address]Ggczkpwae/100 WBC Auto (Bld)0.02 x10E9/LNormal0.00 - 0.10[facility] Main[facility] CampusComment on above:Performed By: #### THYDS ####[facility], [place] [address]Nsexkmuda/100 WBC Auto (Bld)0.2 %Normal0.0 - 2.0[facility] Comment on above:Performed By: #### THYDS ####[facility], [place] [address]Nmxqghitmpe9.08 10*3/uLNormal0.00 - 0.70[facility] Main[facility] CampusComment on above:Performed By: #### THYDS ####[facility], [place] [address]Ajbvnpkweon/100 leukocytes1.0 %Normal0.0 - 6.0[facility] Main[facility] CampusComment on above: Performed By: #### THYDS ####[facility] [place], [place] [address]Auqofqebjuu distribution width Auto Ratio (RBC)12.7 % Qeulve68.5 - 14.5[facility] Main[facility] CampusComment on above:Performed By: #### THYDS ####[facility] [place] [address] Erythrocytes (RBC)4.15 x10E12/LNormal4.00 - 5.20[facility] Comment on above:Performed By: #### THYDS ####[facility], [place] [address]Dhrvozdniv (HCT)39.1 %Pknqkj69.0 - 46.0[facility] Main[facility] CampusComment on above:Performed By: #### THYDS ####[facility], [place] [address]Rzzldfzdue mass conc (Bld)12.7 g/uVMymito40.0 - 16.0[facility] Main[facility] CampusComment on above: Performed By: #### THYDS ####[facility], [place] [address]Nlngwfdrvhv8.33 10*3/uLNormal1.20 - 4.80[facility] CampusComment on above:Performed By: #### THYDS ####[facility], [place] [address]Xbmevkzpnor/100 .6 %Normal 13.0 - 44.0[facility] Main[facility] CampusComment on above:Performed By: #### THYDS ####[facility], [place] [address]IYWP mass conc (RBC)32.5 g/kWLlxgqj12.0 - 36.0[facility] CampusComment on above: Performed By: #### THYDS ####[facility], [place] [address]SCK25 dXJbjgai14 - 100[facility] CampusComment on above:Performed By: #### THYDS ####[facility], [place] [address]Huarcuter2.61 10*3/uLNormal0.10 - 1.00[facility] CampusComment on above:Performed By: #### THYDS ####[facility], [place] [address]Hezrrbgej/100 leukocytes7.5 %Normal2.0 - 10.0[facility] CampusComment on above:Performed By: #### THYDS ####[facility], [place] [address]Iertfbmfmag 5.09 10*3/uLNormal1.20 - 7.70[facility] CampusComment on above: Performed By: #### THYDS ####[facility], [place] [address]Aitnqrtmo erythrocytes0.0 /100 WBCNormal0.0-0.0[facility] CampusComment on above:Performed By: #### THYDS ####[facility], [place] [address]Ybzcooohs320 10*3/uL Fpywex893 - 450[facility] CampusComment on above:Performed By: #### THYDS ####[place] [id number], [place] [address]UDJ (Leukocytes)8.2 10*3/uLNormal4.4 - 11.3[facility], [facility] CampusComment on above:Performed By: #### THYDS ####[place] [id number], [place] [address]OQTIEXOFPVIAJ PANELon 83-44-7175Iydsypl aminotransferase (ALT)12 U/LNormal7 - 45[facility] CampusComment on above:Result Comment: Patients treated with Sulfasalazine may generate falsely decreased results for ALT.Performed By: #### CMP ####[facility], [place] [address]Cpelfek9.5 g/dLNormal3.4 - 5.0[facility], [facility] CampusComment on above:Performed By: #### CMP ####[facility], [place] [address]Txmvjzzh phosphatase (ALP)75 U/LNormal 33 - 110[facility] CampusComment on above:Performed By: #### CMP ####[place] [id number], [place] [address]Xujuh gap12 mmol/WLwfpjk37 - 20[facility], [facility] CampusComment on above:Performed By: #### CMP ####[facility] [place] [address] Aspartate aminotransferase (AST)15 U/LNormal9 - 39[facility] Comment on above:Performed By: #### CMP ####[facility], [place] [address]Fjlxiolrgly (HCO3)29 mmol/LOkbnyd01 - 32[facility] CampusComment on above:Performed By: #### CMP ####[facility], [place] [address]Zmwbpujus (total)0.3 mg/dL Normal0.0 - 1.2[facility] CampusComment on above:Performed By: #### CMP ####[facility], [place] [address]Xdlunwj 9.5 mg/dLNormal8.6 - 10.6[facility] CampusComment on above:Performed By: #### CMP ####[facility] [place] [address] Qierqusy911 mmol/YMsnooa08 - 107[facility] CampusComment on above: Performed By: #### CMP ####[facility], [place] [address]Wjiggsxcnu5.67 mg/dLNormal0.50 - 1.05[facility] CampusComment on above:Performed By: #### CMP ####[facility], [place] [address]cOIK (non-black)mL/min/{1.73_m2}Normal >60[facility] CampusComment on above:Performed By: #### CMP ####[facility], [place] [address]Kijfzq Comment: CALCULATIONS OF ESTIMATED GFR ARE PERFORMED USING THE MDRD STUDY EQUATION FOR THE IDMS-TRACEABLE CREATININE METHODS. CLIN CHEM 2007;53:766-72Glucose mass conc 109 mg/dFIhqi36 - 99[facility] CampusComment on above:Performed By: #### CMP ####[facility] [place] [address] Potassium molar conc4.2 mmol/LNormal3.5 - 5.3[facility] CampusComment on above:Performed By: #### CMP ####[facility], [place] [address]Wdpswre8.8 g/dLNormal6.4 - 8.2[facility] Comment on above:Performed By: #### CMP ####[facility], [place] [address]Avgioc124 mmol/QBcllcd769 - 145[facility] CampusComment on above:Performed By: #### CMP ####[facility], [place] [address]Ecxi nitrogen9 mg/dLNormal6 - 23[facility] CampusComment on above:Performed By: #### CMP ####[facility], [place] [address]ZCFBEKEY KINASEon 09-22-2017 Creatine kinase (CK)50 U/LNormal0 - 215[facility] CampusComment on above:Performed By: #### CK ####[facility], [place] [address]YVGDTZ, SERUMon 53-26-3779YOGXDU, SERUM> 24.0Normal>5.0[facility] CampusComment on above:Result Comment: Patients receiving more than 5 mg/day of biotin may have interference in test results. A sample should be taken no sooner than eight hours after previous dose. Contact [phone] for additional information.Performed By: #### THYDS ####[facility], [place] [address]BZMEZOFUWN A1Con 60-50-8227Xvfyncy mass sxuk286 mg/dLNormalUH [facility]fk Medical CenterComment on above:Performed By: #### THYDS ####[place] [id number], [place] [address]Ckvvwucybr A1c/Hemoglobin.total mass fraction (Bld)5.1 %NormalAtlantiCare Regional Medical Center, Mainland CampusComment on above:Result Comment: Diagnosis of Diabetes-Adults Non- Diabetic: < or = 5.6% Increased risk for developing diabetes: 5.7-6.4% Diagnostic of diabetes: > or = 6.5%. Monitoring of Diabetes Age (y) Therapeutic Goal (%) Adults: >18 <7.0 Pediatrics: 13-18 <7.5 7-12 <8.0 0- 6 7.5-8.5 [place] [employer]. Diabetes Care 33(S1), Jul 2009.Performed By: #### THYDS ####[facility], [place] [address]EAK, DIRECTon 02-38-8098YRP Qombonlcgza95 mg/dLNormal0 - 129[facility] CampusComment on above:Result Comment: Elevated levels of LDL cholesterol are recognized as a keyfactor in the developmentof atherosclerosis and CHD. Thedirect LDL cholesterol test can be used to assesscardiovascular riskand monitor therapy as a follow up toa lipid profile when triglycerides are significantly elevated. Performed By: #### LDLDI ####[facility], [place] [address]RNNRA PANEL (CORONARY RISK 2)on 34-05-7335Zvircoubapw873 mg/dLNormal0 - 199[facility] CampusComment on above:Result Comment: . AGE DESIRABLE BORDERLINE [...] prior to Metamizole dosing.Performed By: #### LIPID ####[facility], [place] [address]Kjcdiqckqpf in VLDL mass conc22 mg/dLNormal0 - 40 [facility] CampusComment on above:Performed By: #### LIPID ####[facility], [place] [address]Vrrybvqlmuh to HDL Ratio2.7 {ratio}NormalAtlantiCare [facility] Medical Center, Main[facility] CampusComment on above:Result Comment: REF VALUESDESIRABLE < 3.4HIGH RISK > 5.0Performed By: #### LIPID ####[facility], [place] [address]LSJ Xhnesxinafd56.6 mg/dLNormalUSt. Joseph'S Wayne HospitalComment on above:Result Comment: . AGE VERY LOW LOW NORMAL HIGH 0-19 Y < 35 < 40 40-45 ---- 20-24 Y ---- < 40 >45 ---- >24 Y ---- < 40 40-60 >60.Performed By: #### LIPID ####[facility], [place] [address]PCW Cwirfkfdkny53 mg/dLNormal0 - 99[facility] CampusComment on above:Result Comment: . NEAR BORD AGE DESIRABLE OPTIMAL HIGH HIGH VERY HIGH 0-19 Y 0 - 109 --- 110-129 >/= 130 ---- 20-24 Y 0 - 119 --- 120-159 >/= 160 ---- >24 Y 0 - 99 100-129 130-159 160-189 >/=190.Performed By: #### LIPID ####[facility], [place] [address]Kqnnxdfyvsrt964 mg/dLNormal0 - 149[facility] CampusComment on above:Result Comment: . AGE DESIRABLE BORDERLINE [...] prior to Metamizole dosing.Performed By: #### LIPID ####[facility], [place] [address]AYIVHINAPwp 02-56-4200Xiuhcnaio4.07 mg/dLNormal1.60 - 2.40[facility] CampusComment on above:Performed By: #### MG ####[facility], [place] [address]XBLDWPISONMXPRDY,FREEon 94-55-5716ZDVURKXXAZTPJKKW,FREE 3.2 pg/mLNormal1.8 - 4.2[facility] CampusComment on above:Performed By: #### T3FRE ####[facility], [place] [address]ZGAJZOMHCAIUAMKS,FREECanceledNormThe Medical Center of AuroraComment on above:Order Comment: TEST TRIIODOTHYRONINE,FREE WAS CANCELLED, 09/21/2017 22:43 DUPLICATE ORDER.Performed By: #### T3FRE ####[facility], [place] [address]SRY WITH REFLEX TO FREE T4 IF ABNORMALon 67-18-8706Frdtuvn stimulating hormone (TSH)1.07 m[IU]/LNormal0.44 - 3.98[facility] CampusComment on above:Result Comment: TSH testing is performed using different testing methodology at [facility] than at other [facility]. Direct result comparisons should only be made within the same method.. Patients receiving more than 5 mg/day of biotin may have interference in test results. A sample should be taken no sooner than eight hours after previous dose. Contact [phone] for additional information. Performed By: #### THYDS ####[facility], [place] [address]Lrxakcu stimulating hormone (TSH)CanceledNoCommunity HospitalComment on above:Order Comment: TEST TSH WITH REFLEX TO FREE T4 IF ABNORMAL WAS CANCELLED, 09/21/2017 22:44DUPLICATEORDER.Result Comment: TSH testing is performed using different testing methodology at [facility] than at other [facility]. Direct result comparisons should only be made within the same method.. Patients receiving more than 5 mg/day of biotin may have interference in test results. A sample should be taken no sooner than eight hours after previous dose. Contact [phone] for additional information.Performed By: #### THYDS ####[facility], [place] [address]YX MICROSCOPICon 09-22-2017 Erythrocytes (RBC)38 /HPFAbnormal0-5[facility] CampusComment on above: Performed By: #### THYDS ####[facility], [place] [address]THPNBYDO EPITH. CELLS<1NormalAtl[facility]Care [facility] Comment on above:Performed By: #### THYDS ####[facility], [place] [address]Ctdyu, mucus presence in sediment1+ /LPFNormalUH Jfk Medical CenterComment on above:Performed By: #### THYDS ####[facility], [place] [address]ZYO (Leukocytes)3 /HPFNormal0-5[facility] CampusComment on above:Performed By: #### THYDS ####[facility] [place] [address] URINALYSISon 46-88-3519Ddhjhyeko (total)NegativeNormalNEGATIVEAtlantiCare Regional Medical Center, Mainland CampusComment on above:Performed By: #### THYDS ####[facility], [place] [address]BMRPDTKZMQ (3+)AbnormalNEGATIVEAtlantiCare Regional Medical Center, Mainland CampusComment on above:Performed By: #### THYDS ####[facility], [place] [address]Axnydem mass conc NegativeNormalNEGATIVEAtlantiCare [facility], Main[facility] CampusComment on above:Performed By: #### THYDS ####[facility], [place] [address]yG of blood6.0 [pH]Normal5.0 - 8.0[facility], [facility] CampusComment on above: Performed By: #### THYDS ####[facility], [place] [address]JtsxucoFrovwnctAphfbeWDIMBAHEKD [facility] Comment on above:Performed By: #### THYDS ####[facility], [place] [address]Jbhpb, appearanceCLEARNormalCLEARAtlantiCare Regional [facility] Center, Main[facility] CampusComment on above:Performed By: #### THYDS ####[facility], [place] [address]Qxhta, colorSTRAWNormalSTRAW,YELLOWAtlantiCare Regional Medical Center, Mainland CampusComment on above:Performed By: #### THYDS ####[facility], [place] [address]Lxyvj, ketones presenceNegativeNormalNEGATIVEAtlantiCare Regional Medical Center, Main[facility] CampusComment on above: Performed By: #### THYDS ####[place] [id number], [place] [address]Ueemf, leukocyte esterase presenceTRACEAbnormalNEGATIVEAtlantiCare Regional Medical Center, Mainland CampusComment on above:Performed By: #### THYDS ####[place] [id number], [place] [address]Kukzs, nitrite presenceNegativeNormalNEGATIVEAtlantiCare Regional Medical Center, Main[facility] CampusComment on above: Performed By: #### THYDS ####[place] [address], [place] [address]Shnpr, specific gravity1.944Dtmtlv2.005 - 1.035[facility], Main[facility] CampusComment on above:Performed By: #### THYDS ####[place] [address], [place] [address]Acrow, urobilinogen <2.7Ommrhd8.0 - 1.9[facility], Main[facility] CampusComment on above:Performed By: #### THYDS ####[place] [address] [place] [address] VITAMIN B12on 45-66-2100Wkrvrvxgrp (Vitamin B12)996 pg/wCWhex769 - 911[facility], Main[facility] CampusComment on above:Performed By: #### VTB12 ####[place] [address], [place] [address]WVLQFFK D, 25-HYDROXYon 85-99-7582EHKHRDU D, 25-DKRVESQ25 ng/mLAbnormalUSt. Joseph'S Wayne HospitalComment on above:Result Comment: .DEFICIENCY: < 20 NG/MLINSUFFICIENCY: 20-29 NG/MLOPTIMUM LEVEL: 30-80 NG/MLPOSSIBLE TOXICITY: > 80 NG/MLTHIS ASSAY ACCURATELY QUANTIFIES THE SUM OFVITAMIN D3, 25-HYDROXY AND VITD2,25-HYDROXY. Performed By: #### THYDS ####[facility], [place] [address]Qkakohdsysik, Fecalon 58-29-6674Yenywbp mass concg/dL Normal<=50[facility] HospitalComment on above:Result Comment: INTERPRETIVE INFORMATION: Calprotectin, Fecal 50 ug/g or less: Normal 51-120 ug/g: Borderline elevated, test should be re-evaluated in 4-6 weeks. 121 ug/g or greater: AbnormalPerformed by [facility],[address] [place] [address] jit.[employer], Edwin Owen MD - Lab. DirectorClostridium difficile Amplificationon 19-56-8087Mjxqzdsubte difficile AmplificationORDER#: [id number] ORDERED BY: MAKAYLA SOLANO: Stool COLLECTED: 07/26/17 17:03ANTIBIOTICS AT NATE.: RECEIVED : 07/26/17 17:03Clostridium difficile Amplification FINAL 07/27/17 12:31 Negative forClostridia Difficile A/B Normal Range: NegativeNormEstes Park Medical CenterLipaseon 92-69-3483Jgdzqp enzyme act/vol20 U/HJskjai27-82PzstvNorthern Colorado Long Term Acute HospitalOP Screen (Giardia/Cryptosporidium)on 66-96-0878VF Screen (Giardia/Cryptosporidium) ORDERED BY: MAKAYAL SOLANO: Stool COLLECTED: 07/26/17 10:15ANTIBIOTICS AT NATE.: RECEIVED : 07/27/17 06:39Cryptosporidium Antigen EIA FINAL 07/27/17 13:23 Negative Normal Range: NegativeGiardia lamblia Antigen EIA FINAL 07/27/17 13:23 Negative Normal Range: NegativeNormEstes Park Medical CenterXR ABDOMEN LIMITED (KUB)on 10-99-3912IV ABDOMEN LIMITED (KUB)EXAMINATION: XR ABDOMEN LIMITED (KUB)CLINICAL [...] PELVIS. Interpreted by:LC Sandhuigned by:Leighann Rose MD07/26/17inal resultNormalNorthern Colorado Long Term Acute HospitalCBC With Platelet and Differentialon 21-21-2500Jzfedulpe Auto #/vol (Bld) 0.0 10*3/uLNormal0.0-0.2MercBibb Medical CenterBasophils/100 WBC Auto (Bld)0.4 %[place]ver SpringsEosinophils Auto #/vol (Bld)0.0 10*3/uLNormal0.0-0.7[facility] HospitalEosinophils/100 WBC Auto (Bld) 0.4 %[place]ver SpringsErythrocyte distribution width Auto Ratio (RBC)12.2 %Zlontk79.5-14.5[facility] HospitalHematocrit Auto Volume Fraction (Bld)39.2 %Bbimsh52.0-47.0[facility] Hemoglobin mass conc (Bld)13.3 g/uPWbfkal75.0-16.0[facility] Lymphocytes Auto #/vol (Bld)1.8 10*3/uLNormal1.0-4.8[facility] HospitalLymphocytes/100 WBC Auto (Bld)29.7 %NormalNorthern Colorado Long Term Acute HospitalMCH Auto Entitic mass (RBC)31.5 pgCritically high27.0-31.3[facility] MiamisburgMCHC Auto mass conc (RBC)34.0 %Dhodyj51.0-37.0[facility] HospitalMCV Auto Entitic volume (RBC)92.6 dIKtnens36.0-100.0[facility] HospitalMonocytes Auto #/vol (Bld)0.5 10*3/uLNormal0.2-0.8[facility] HospitalMonocytes/100 WBC Auto (Bld)7.8 %[place] Neutrophils Auto #/vol (Bld)3.8 10*3/uLNormal1.4-6.5[facility] HospitalNeutrophils/100 WBC Auto (Bld)61.7 %[place] Platelets Auto #/vol (Bld)243 10*3/jBTwlttr727-292QohprNorthern Colorado Long Term Acute Hospital RBC Auto #/vol (Bld)4.23 10*6/uLNormal4.20-5.40[facility] HospitalWBC Auto #/vol (Bld)6.1 10*3/uLNormal4.8-10.8[facility] Comprehensive Metabolic Panelon 64-92-3706Ktczadr mass conc4.6 g/dLNormal3.9-4.9 [facility] HospitalALP enzyme act/vol67 U/HCftwon86-238SetstNorthern Colorado Long Term Acute HospitalALT enzyme act/vol14 U/LNormal0-33[facility] Anion gap 3 molar conc16 mmol/LCritically high7-13[facility] AST enzyme act/vol18 U/LNormal0-35[facility] HospitalBilirubin mass conc0.3 mg/dLNormal0.0-1.2MVail Health HospitalCalcium mass conc9.2 mg/dLNormal8.6-10.2MVail Health HospitalChloride molar eeaa446 mmol/L Ehcdjy60-095GeoklNorthern Colorado Long Term Acute HospitalCO2 molar conc21 mmol/ZSgx23-74ImojdNorthern Colorado Long Term Acute HospitalCreatinine mass conc0.58 mg/dLNormal0.50-0.90[facility] HospitalGFR/1.73 sq M predicted among blacks MDRD vol rate/area (S/P/Bld)mL/min/{1.73_m2}Normal>60[facility] HospitalComment on above: Result Comment: >60 mL/min/1.73m2 EGFR, calc. for ages 18 and older using theMDRD formula (not corrected for weight), is valid for stablerenal function. GFR/1.73 sq M.predicted MDRD vol rate/areamL/min/{1.73_m2}Normal>60[facility] HospitalComment on above:Result Comment: >60 mL/min/1.73m2 EGFR, calc. for ages 18 and older using theMDRD formula (not corrected for weight), is valid for stablerenal function.Globulin Calculated mass conc (S)2.2 g/dLLow 2.3-3.5[facility] HospitalGlucose mass conc80 mg/cVXdnmlg19-518JwkjxNorthern Colorado Long Term Acute HospitalPotassium molar conc4.3 mmol/LNormal3.5-5.1MVail Health HospitalProtein mass conc6.8 g/dLNormal6.4-8.1MMemorial Hospital Centralodium molar ungc616 mmol/DRbsrhb959-799RldnmNorthern Colorado Long Term Acute HospitalUrea nitrogen mass conc9 mg/dLNormal6-20[facility] Acute HospitalTSH w/out Reflex on 98-12-6754Iizucuhpfrw Qn0.830 uIU/mLNormal0.270-4.20[facility] Acute HospitalVITAMIN Don 43-68-6363JDTNKXS D32.4 ng/cUJgamgv92.0-100.0[facility] HospitalComment on above:Result Comment: (30-100 ng/mL) Optimum LevelThis assay accurately quantifies the sum of vitamin D3,25-Hydroxy andvitamin D2, 25-Hyroxy. Vital Signs Date TimeVital SignValuePerforming NrwcniulsHpljyruu69-08-6219 07:45-0500Body ezmfaj866.56 cmSridhar Lo MD Work Phone: [facility]11-05-2025 07:45-0500 Body mass index (BMI) [Ratio]24.7 kg/m2Sridhar Lo MD Work Phone: [facility]11-05-2025 07:45-0500 Body jvrusjaswqt92.1 [degF]Sridhar Lo MD Work Phone: [facility]11-05-2025 07:45-0500 Body .31 kgSridhar Lo MD Work Phone: [facility]11-05-2025 07:45-0500 Diastolic blood ynceakxy01 mm[Hg]Sridhar Lo MD Work Phone: [facility]11-05-2025 07:45-0500 Heart rate94 /minSridhar Lo MD Work Phone: [phone] [place], [place] [address]11-05-2025 07:45-0500 Respiratory rate20 /minSridhar Lo MD Work Phone: [phone]11-05-2025 07:45-0500 SaO2% (BldA) [Mass fraction]97 %Sridhar Lo MD Work Phone: [phone]11-05-2025 07:45-0500 Systolic blood mm[Hg]Sridhar Lo MD Work Phone: [phone]10-29-2024 14:04-0400 Body vecruf189.6 cmSridhar Lo MD Work Phone: [phone] [place], [place] [address]Myoclkfvgq42-92-8002 14:04-0400Body mass index (BMI) [Ratio]24.2 kg/m2Sridhar Lo MD Work Phone: [facility]Oclfqmshfz23-51-2345 14:04-0400Body temperature 97.5 [degF]Sridhar Lo MD Work Phone: [facility]HealthHioyqtvkvb55-77-7516 14:04-0400Body cdsrsa48.96 kgSridhar Lo MD Work Phone: [facility]HealthUrhdzlsyjx69-21-4181 14:04-0400Diastolic blood jklnzuhh47 mm[Hg]Sridhar Lo MD Work Phone: [facility]HealthBtqixybsas30-14-5621 14:04-0400Heart rate93 /min Sridhar Lo MD Work Phone: [facility]HealthJxgjonkbvo18-07-0316 14:04-0400Respiratory rate22 /minSridhar Lo MD Work Phone: [place] [address]Dgzihnbbct42-81-0154 14:04-2515JjK4% (BldA) [Mass fraction]97 %Sridhar Lo MD Work Phone: [facility]HealthRtonjnxefr66-93-1963 14:04-0400Systolic blood yoptyppm027 mm[Hg]Sridhar Lo MD Work Phone: [facility]HealthZobkquukzb35-08-7367 10:11-0400Body seodtx558.6 cmSridhar Lo MD Work Phone: [facility]HealthTxroqkvkfb83-51-8522 10:11-0400Body mass index (BMI) [Ratio]23.69 kg/m2Sridhar Lo MD Work Phone: [facility]HealthGgpvdvpspw79-39-7000 10:11-0400Body temperature 97.5 [degF]Sridhar Lo MD Work Phone: [facility]HealthEizsqcsxzx87-65-9829 10:11-0400Body rtpylw62.6 kg Sridhar Lo MD Work Phone: [facility]HealthDtrhmvhmsz88-30-5360 10:11-0400Diastolic blood uqubrbke71 mm[Hg]Sridhar Lo MD Work Phone: [facility]HealthUuhaamypli70-27-1614 10:11-0400Heart uzug428 /min Sridhar Lo MD Work Phone: [facility]HealthElquuqngfb14-08-7905 10:11-0400Respiratory rate20 /minSridhar Lo MD Work Phone: [facility]HealthVhnrbccnwg30-08-6767 10:119089FyU6% (BldA) [Mass fraction]98 %Sridhar Lo MD Work Phone: [facility]HealthZhbfbhkefn25-70-0865 10:11-0400Systolic blood bmdcskie957 mm[Hg]Sridhar Lo MD Work Phone: [facility]HealthMyifzcfesu39-85-9921 11:30-0400Body uclbcy960.56 Mary Katefelipa Tracy Other [place] [employer] Other 10-04-2022 11:30-0400Body mass index (BMI) [Ratio] 27.46 kg/n8NdqxjxKenisha Molina Other nortAMS[facility]Qi Other 10-04-2022 11:30-0400Body ynerijfokjr10.2 [degF]Kenisha Molina Other [employer] Other 10-04-2022 11:30-0400Body .58 kgKenisha Molina Other [employer] Other 10-04-2022 11:30-0400Respiratory rate18 /minKenisha Molina Other [employer] Other 10-04-2022 11:30-7062CjG4% (BldA) [Mass fraction]97 % Kenisha Molina Other [employer] Other Encounters Encounter DateEncounter TypeCare ProviderFacilityStart: 23-49-7618lrtwoktscq All StarksFacility:[facility] Hospitaltart: 05-07-2025 End: 05-77-2524gafxdaimokImlv Naderer MD Work Phone: -[facility] ClydeStart: 05-07-2025 End: 65-59-2761Btssbsm encounter procedureSridhar Lo MD-[facility] [place] Work Phone: Start: 41-08-1163Hdarkkhoyk RecurringAll Starks [facility] CredibleStart: 06-14-2024 End: 88-36-4057Igodhmamz Result EncounterGeneric External Data ProviderNOMS External Department UnsolicitedStart: 06-14-2024 End: 71-10-9488Mwcfkwskh Result EncounterGeneric External Data ProviderNOMS External Department UnsolicitedStart: 05-01-2024 End: 33-35-5839Puyonq Arturo Lo MD Work Phone: NOMS CWM FMComment on above:Acute non-recurrent pansinusitis (Primary Dx)Start: 04-30-2024 End: 30-41-4194Oybvvu Kye Lo MD Work Phone: NOHK CWM FMStart: 04-30-2024 End: 98-35-6779Rzidoz Kye Lo MD Work Phone: NOUW CWM FMStart: 04-30-2024 End: 44-53-4782Ofhahb outpatient visit 15 minutesSridhar Lo MD Work Phone: NOPP CWM FMComment on above:Acute non-recurrent pansinusitis (Primary Dx)Start: 04-30-2024 End: 49-16-9205tehkzrfupmDXON NADERERNot AvailableStart: 03-20-2024 End: 58-18-7798Rtubdv Kye Lo MD Work Phone: NOPZ CWM FMStart: 03-20-2024 End: 02-15-2013Dgreqm Kye Lo MD Work Phone: NOTY CWM FMStart: 03-20-2024 End: 82-60-1842ikmipebecbCWEX NADERERNot AvailableStart: 03-20-2024 End: 96-88-1560Guctmew encounter procedureSridhar Lo MD Work Phone: NOLC HealthcareStart: 03-20-2024 End: 71-00-9511Buumfjgw preventive med est patient 40-64yrsMarc Teresita BUCKLEY Work Phone: NOCD CWM FMComment on above:Annual physical exam (Primary Dx); Adult hypothyroidism (CMS/HCC)Start: 12-27-2023 End: 44-85-6380Yzgjejoca Result EncounterGeneric External Data ProviderNOMS External Department UnsolicitedStart: 12-27-2023 End: 54-50-6390Ontvqkcxz Result EncounterGeneric External Data ProviderNOMS External Department UnsolicitedStart: 11-08-2023 End: 98-04-4781Fkefibzbu Result EncounterGeneric External Data ProviderNOMS External Department UnsolicitedStart: 11-08-2023 End: 38-67-8190Aztzsicmy Result EncounterGeneric External Data ProviderNOMS External Department UnsolicitedStart: 09-26-2023 End: 26-01-2391dwloktggaiDIBL NADERERNot AvailableStart: 07-12-2023 End: 79-38-8057dcgycteuvzBUQCG FAZIONot AvailableStart: 07-06-2022 End: 70-01-2789ojebqfpacuLJ SHAHIDA ALEXX .Facility:S0Mxbav: 06-29-2022 End: 65-14-1736isdaljtkmuHK SHAHIDA ALEXX .Facility:Q0Dtgqb: 04-28-2022 End: 64-66-8715ejvixdeefkLH SRIDHAR Choudhary NADERERFacility:T7Ypmhl: 04-13-2022 End: 83-58-7936bviuixjakcIC MARC A NADERERFacility:D3Cydnl: 85-64-9074xcovifescp DR SRIDHAR Choudhary NADERERFacility:A6Olhvb: 04-05-2022 End: 26-80-5882clnlylvknsZrjdcu Dymond Other [facility] [employer] Other Start: 06-37-4712Ffzwmo outpatient visit 15 minutes Kenisha Yusuf [facility] ClydeStart: 01-05-2022 End: 20-47-6657xtyqzjurthKE SRIDHAR Choudhary NADERERFacility:W9Kxnqp: 01-30-2018 End: 33-30-0441Awwcerx encounterDAWN [facility]tart: 01-22-2018 End: 94-89-5592Lbtaqke encounterDAWN [facility] Hospitaltart: 01-15-2018 End: 47-83-0409Corvzlt encounterDAWN [facility] Hospitaltart: 12-27-2017 End: 46-73-7984Hpumzwg encounterDAWN [facility] Hospitaltart: 12-19-2017 End: 25-66-9585Oibddfo encounterDAWN [facility] Hospitaltart: 12-07-2017 End: 79-06-5716Kraokjxjn department patient visitFamily Physician Unavailable Facility:[facility]: 45-06-5640Vvzmucetkd Facility:[id number]: 12-06-2017 End: 99-13-8189Frrvocb encounterDAWN EDIESCL Health Community Hospital [facility] Northglenntart: 11-21-2017 End: 97-58-0359Xvlkfca encounterMARC ANTONIA NADPRASHANTSelena [facility]xner Medical Centertart: 11-14-2017 End: 62-84-2097Wibmghm encounterMARC ANTONIASTEPHANY Cassidy [facility] Centertart: 10-31-2017 End: 87-55-5088Rrbzkwm encounterMARC ANTONIA [facility] CENTERJeanmarie [facility] Centertart: 10-24-2017 End: 92-45-2116Juljrqs encounterMARC [facility] HOSPITALCHELITAmetrohealth parma medical centerkiersten [facility] Centertart: 10-17-2017 End: 51-01-9426Ujtxkis encounterMARC ANTONIA [facility] MEDICAL CENTERPRASHANTSelena [facility]ner Medical Centertart: 10-12-2017 End: 06-76-4583Pugfnri encounterMARC ANTONIA [facility] CENTERJeanmarie [facility] Centertart: 10-11-2017 End: 73-03-5872Mmvggcm encounterMARC ANTONIASTEPHANY [facility]idy [facility] Centertart: 10-10-2017 End: 35-59-5518Nmxcgwy encounterMARC ANTONIASTEPHANY Cassidy [facility] Centertart: 10-05-2017 End: 82-11-8176Spthcai encounterMARC ANTONIA NADPRASHANTSelena [facility]ner Medical Centertart: 10-04-2017 End: 31-96-6533Xdjsavl encounterMARC ANTONIASTEPHANY [facility] Centertart: 10-03-2017 End: 36-46-2746Bavybdm encounterMARC ANTONIA NADPRASHANTSelena [facility]ner Medical Centertart: 10-02-2017 End: 53-88-1111Isvnovw encounterMARC [facility] HOSPITALJeanmarie [facility] Centertart: 09-28-2017 End: 50-23-3609Rraosvw encounterMARC ANTONIA CARLAPRASHANTSelena [facility]ner Medical Centertart: 09-27-2017 End: 75-07-7028Yskhtlu encounterMARC [facility] HOSPITALPRASHANTSelena [facility] Centertart: 09-26-2017 End: 47-91-6540Gxwypfv encounterMARC ANTONIASTEPHANY Cassidy [facility] Centertart: 09-25-2017 End: 89-58-8978Ykidzyp encounterMARC ANTONIA [facility] CENTERJeanmarie [facility] Centertart: 09-21-2017 End: 52-68-4707Nzerwgg encounterMARC [facility] HOSPITALPRASHANTkaylene [facility] Centertart: 09-20-2017 End: 85-39-4165Vwcesrd encounterMARC [facility] HOSPITALJeanmarie [facility] Centertart: 09-19-2017 End: 17-30-4659Aspaouw encounterMARC ANTONIA [facility] CENTERJeanmarie [facility] Centertart: 09-18-2017 End: 44-10-6140Qgbluos encounterMARC [facility]ENTERkaylene [facility] Centertart: 09-14-2017 End: 71-17-3981Omrvogt encounterMARC [facility] Kansaskiersten [facility] Centertart: 09-13-2017 End: 62-92-8560Zzsivfp encounterMARC [facility] Kansaskiersten [facility] Centertart: 09-12-2017 End: 90-58-6757Gaeumer encounterMARC [facility]OS[facility]ITALJeanmarie [facility] Centertart: 09-07-2017 End: 73-40-3510Qzohsha encounterMARC ANTONIA [facility] CENTERJeanmarie [facility] Centertart: 09-06-2017 End: 74-08-2019Imttbms encounterMARC [facility]OSPITALJeanmarie [facility] Centertart: 09-05-2017 End: 32-40-8213Yeqobpd encounterMARC [facility] Kansaskiersten [facility] Centertart: 09-04-2017 End: 39-72-2888Llehkve encounterMARC [facility]OSPITALJeanmarie [facility] Centertart: 08-31-2017 End: 80-13-7034Sosgpzm encounterMARC ANTONIASTEPHANY Cassidy [facility] Centertart: 08-30-2017 End: 66-75-4657Ieypesk encounterMARC [facility]ALSelena [facility] Centertart: 08-29-2017 End: 55-91-3307Ctvcvaf encounterMARC [facility] Kansaskiersten [facility] Centertart: 08-28-2017 End: 73-05-0366Squxrea encounterMARC [facility] Kansaskiersten [facility] Centertart: 08-24-2017 End: 09-42-5050Wzzpyma encounterMARC [facility] Districtrt: 08-23-2017 End: 44-33-1151Xjgpuht encounterMARC [facility]tart: 08-22-2017 End: 75-75-0836Sxeweuk encounterMARC [facility] Hospitaltart: 08-21-2017 End: 66-02-1204Plhbslk encounterSIERRA TUCSONC [facility] Hospitaltart: 08-17-2017 End: 95-94-1297Dzdiaew encounterMARC [facility] Hospitaltart: 08-16-2017 End: 91-61-1374Deftcex encounterMARC [facility]tart: 08-15-2017 End: 60-19-3627Uxsltna encounterMARC [facility] Hospitaltart: 08-14-2017 End: 49-41-5456Fxfjqhl encounterMARBanner [facility] Collins Medical Centertart: 36-33-1840Jqdacws encounter [facility] Work Phone: Start: 08-10-2017 End: 43-99-9567Soafled encounterMARC [facility] Hospitaltart: 08-09-2017 End: 40-17-3331Ywizcnj encounterMARBanner [facility] Collins Medical Centertart: 08-08-2017 End: 71-65-7721Hxifayw encounterMARBanner [facility] Collins Medical Centertart: 08-07-2017 End: 81-13-6187Xyytgit encounterMARC [facility] Hospitaltart: 08-03-2017 End: 50-82-3569Ykunmez encounterMARC [facility] Hospitaltart: 08-02-2017 End: 57-99-0814Lpzkcfk encounterMARBanner [facility] Collins Medical Centertart: 07-31-2017 End: 07-69-4708Xhjoirb encounterEating Recovery Center a [facility] Adolescentstart: 07-25-2017 End: 43-72-1853Ewxrexfaat and management of inpatientRio Grande Hospital Procedures DateProcedureProcedure DetailPerforming ClinicianStart: 69-26-5499Zs breast uni real time with image limitedGeneric External Data ProviderStart: 20-65-7510ZA TOMOSYNTHESIS DIAGNOSTIC RTGeneric External Data ProviderStart: 93-17-4452Cj breast uni real time with image limitedGeneric External Data ProviderStart: 60-12-1583VaxsthzcrssWxee Naderer MD Work Phone: Start: 97-73-6993SW TOMOSYNTHESIS SCREENING BIGeneric External Data ProviderStart: 82-49-0961YkrzxbxuopjHukp Naderer MD Work Phone: Start: 27-43-0355NbowhogggezIcal Naderer MD Work Phone: Start: 74-78-2697EURFLGVKH PATIENTHONORHEALTH REHABILITATION HOSPITALOLIVIA MAURO Start: 81-40-8294TAZGNEBFA OUTPATIENT - [facility] SAEEDHAVASU REGION[facility] CENTERStart: 07-28-2017 DISCHARGE PATIENTRIVERSIDE BEHAVIORAL HEALTH CENTERROCÍO AGUSTINCOBRE VALLEY REGIONAL MEDICAL CENTERStart: 29-29-0529UXKIRRMONPAR STOOLRIVERSIDE BEHAVIORAL HEALTH CENTERROCÍO AGUSTINCOBRE VALLEY REGIONAL MEDICAL CENTERStart: 07-26-2017C DIFF TOXIN B BY RT PCRRIVERSIDE BEHAVIORAL HEALTH CENTERROCÍO MAUROStart: 20-22-4120Ewsfsvrdzb exam abdomen 1 viewRIVERSIDE BEHAVIORAL HEALTH CENTERROCÍO TIPTONHAVASU REGIONAL MEDICAL CENTERStart: 80-94-7192LTWNQT KENROCÍO AGUSTINCOBRE VALLEY REGIONAL MEDICAL CENTERStart: 74-50-2508IIUAVRORAGGOD NURSING CARE ORDER (SPECIFY) KEN MARUOart: 07-26-2017O AND P SCREEN(GIARDIA/CRYPTOSPORIDIUM) #1 KNEROCÍO MAUROStart: 88-76-9518QVQCGEIL CULTURE, STOOLRIVERSIDE BEHAVIORAL HEALTH CENTERROCÍO MAUROart: 87-13-0289XO CONSULT TO HOSPITALISTRIVERSIDE BEHAVIORAL HEALTH CENTERROCÍO MAUROart: 98-65-9279UJW 12-LEAD KENROCÍO AGUSTINCOBRE VALLEY REGIONAL MEDICAL CENTERStart: 36-52-0143QVQ WITH AUTO DIFFERENTIALHONORHEALTH REHABILITATION HOSPITALOLIVIA MAURO Start: 45-92-2805SUKCXRVQWQLMI METABOLIC PANELRIVERSIDE BEHAVIORAL HEALTH CENTERROCÍO AGUSTINCOBRE VALLEY REGIONAL MEDICAL CENTERStart: 07-25-2017 TSH WITHOUT REFLEXHONORHEALTH REHABILITATION HOSPITALOLIVIA MAUROStart: 34-39-0595RQFIIIU D 25 HYDROXYRIVERSIDE BEHAVIORAL HEALTH CENTERROCÍO TIPTONHAVASU REGIONAL MEDICAL CENTERStart: 96-44-9809PNXM [facility]ALEDGE[facility]OS[facility]ITALStart: 54-43-7622HCZL CODE KEN Welchweston: 85-85-5532RP CONSULT TO HOSPITALISTKEN MAUROBuena Vista: 09-97-9709BM CONSULT TO SOCIAL WORKKEN MAUROBu[place]: 37-61-0731KSQGEQV KEN MAUROBu[place]: 12-99-3098IKSMRVL COMMUNICATIONKEN MAUROBu[place]: 39-96-2318QRIUMHEJXYBV VISITATION STATUSKEN MAUROBu[place] Vista: 55-66-2561MTZCU SIGNSKEN MAUROBu[place] Vista: 82-49-1009VJVCURW STATUS (DIRECT)KEN MAURO AppendectomyJuan SolisHistory of Gallbladder SurgeryJuan SolisHistory of Laparoscopy Of UterusJuan SolisScreening colonoscopyJuan Green Plan of Treatment DateCare ActivityDetailAuthorStart: 49-18-1294Wwkizvvye for malignant neoplasm of colonNOMS HealthcareStart: 48-17-8812Ocycaogkd for malignant neoplasm of breastMammogramNOMS HealthcareStart: 53-37-2658Jffsfgwkr for malignant neoplasm of breastMammogramNOMS HealthcareStart: 09-18-2024 End: 26-63-9606Krrntkx encounter qcyoatomt04/19/2025 8:15 AM EDT Office Visit [facility] [address] [place] [address] Sridhar Lo MD [address] [place] [address] [facility] CWM FMStart: 07-22-2024 End: 52-52-9897Riuzupp encounter dpvnelbum34/20/2025 8:30 AM EST Office Visit [facility] [address] [address] Shahida Pretty DO [address] [place] [address] [facility] BCP OBStart: 04-30-2024 End: 52-73-9005Fbgzhxu encounter qgqcydpod75/29/2024 2:00 PM EDT Office Visit [facility] [address] [place] [address] Sridhar Lo MD [address] [place] [address] ArrivedNOOU MEDICAL [facility] FMComment on above:ArrivedStart: 03-20-2024 End: 30-67-2893Wudhz metabolic 1998 panel - Serum or PlasmaBasic metabolic panel Lab Routine Annual physical exam Expected: 03/20/2024 (Approximate), Expires: 03/20/2025N[facility] HealthcareComment on above:Expected: 03/20/2024 (Approximate), Expires: 03/20/2025Start: 03-20-2024 End: 21-26-4364AMB W Auto Differential panel - BloodCBC and differential Lab Routine Annual physical exam Expected: 03/20/2024 (Approximate), Expires: 0 03/20/2025N[facility] HealthcareComment on above:Expected: 03/20/2024 (Approximate), Expires: 03/20/2025Start: 03-20-2024 End: 56-62-7399Shulhmrkew A1c/Hemoglobin.total in BloodHemoglobin A1c Lab Routine Annual physical exam Expected: 03/20/2024 (Approximate), Expires: 03/20/2025[facility] Work Phone: Comment on above:Expected: 03/20/2024 (Approximate), Expires: 03/20/2025Start: 03-20-2024 End: 06-15-3579Fdkkbhg function 2000 panel - Serum or PlasmaHepatic function panel Lab Routine Annual physical exam Expected: 03/20/2024 (Approximate), Expires: 03/20/2025N[facility] HealthcareComment on above:Expected: 03/20/2024 (Approximate), Expires: 03/20/2025Start: 03-20-2024 End: 16-32-8039Tesyi 1996 panel - Serum or PlasmaLipid panel Lab Routine Annual physical exam Expected: 03/20/2024 (Approximate), Expires: 03/20/2025[facility] HealthcareComment on above:Expected: 03/20/2024 (Approximate), Expires: 03/20/2025Start: 03-20-2024 End: 48-30-0754Oruvlkspxyk [Units/volume] in Serum or PlasmaTSH Lab Routine Annual physical exam Expected: 03/20/2024 (Approximate), Expires: 03/20/2025[facility] HealthcareComment on above:Expected: 03/20/2024 (Approximate), Expires: 03/20/2025Start: 03-20-2024 End: 35-44-9969Efepvrjwt (T4) free [Mass/volume] in Serum or PlasmaT4, free Lab Routine Adult hypothyroidism ([facility]) Expected: 03/20/2024 (Approximate), Expires: 03/20/2025[facility] HealthcareComment on above:Expected: 03/20/2024 (Approximate), Expires: 03/20/2025Start: 03-20-2024 End: 90-19-3461Ullvecntyzmdxkng (T3) Free [Mass/volume] in Serum or PlasmaT3, free Lab Routine Adult hypothyroidism (CMS/HCC) Expected: 03/20/2024 (Approximate), Expires: 03/20/2025[facility] HealthcareComment on above:Expected: 03/20/2024 (Approximate), Expires: 03/20/2025Start: 24-20-2862Olkaoimyi vaccinationInfluenza Vaccine (#1)[facility] HealthcareStart: 06-39-1734Edjubhtlo for malignant neoplasm of cervixNOMS HealthcareStart: 71-35-6041Ydjiknutw for malignant neoplasm of cervixPap SmearNOMS HealthcareStart: 70-05-7338Eedtnhieq for malignant neoplasm of colonNOMS HealthcareComprehensive metabolic 2000 panel - Serum or PlasmaSheltering Arms HospitalMG Breast - bilateral ScreeningHCA [facility] Immunizations Immunization DateImmunizationNotesCare UdeuhvraGspugiyx14-67-4955mjbonvh toxoid, reduced diphtheria toxoid, and acellular pertussis vaccine, adsorbedPamela Tracy Other [facility] Payers DatePayer CategoryPayerPolicy [id number]-[id number] Cross Blue ShieldBCBS [id number] BCBS [id number] 2022-Present [phone] [address] [place] [id number] 2..1.660641.3.579.2.68520-35-6894Csamckb5673209 2..1.850679.3.579.2.21904-65-8820Dskxmzt6286844 2..1.527015.3.579.2.32432-87-0474Ceynfla5197579 2..1.638204.3.579.2.43139-51-1058Ykfioix7421610 2..1.055504.3.579.2.50767-34-4682Venzehs4259891 2..1.423969.3.579.2.72192-19-0544Lshdtfb9450151 2..1.886750.3.579.2.918077-53-6190Wfxnbdu0436074 2.0.1.911390.3.579.2.885787-34-5584Yylnzob2378889 2..1.007898.3.579.2.804612-13-7650Wdxrani8843172 2..1.021169.3.579.2.900942-09-0912WcgrCarlsbad Medical CenterYYM133362978001 2..3.760986.07326659-78-0644Ywyzrwu057288114468Uzxjkdr818315909379Qyhvkvn MHV028G63092Upggfgt35786787 2..1.790856.3.579.2.531 Social History DateTypeDetailFacilityStart: 03-20-2024 End: 22-92-5384Kew Assigned At BirthNOMA HealthcareStart: 06-21-2023 End: 08-10-1189Duzpchj smoking status NHISNever smoked tobaccoNOMS Healthcare Start: 69-83-2008Ivlfrwz use and exposureSmokeless tobacco non-userNOMS HealthcareStart: 03-20-2024 End: 15-15-9939Vttbiqkct beverage intakeLifetime non-drinker (finding)[facility] HealthcareStart: 03-20-2024 End: 13-66-0453Qkxcenh of Social functionNOMS HealthcareStart: 59-33-1592Xvp often do you need to have someone help you when you read instructions, pamphlets, or other written material from your doctor or pharmacy [SILS]Never NOMS HealthcareDo you belong to any clubs or organizations such as shinto groups, unions, fraternal or athletic groups, or [...] money to buy more.Never trueNOMS Healthcare Start: 37-87-9778Dwtxxydtv22MBFK HealthcareStart: 31-48-2065Uyfhzqi Comment caffeine: noneNOMS HealthcareStart: 18-49-1085Elc [facility] centerNot on file [facility] HealthcareSexFemale (finding)[facility] Hospitaltart: 33-08-4942Tyr Assigned At [facility] HospitalFeAshtabula General HospitalNEGATED: Highlighted row--[facility] Work Phone: Functional Status KzhpHpwzzxyfmiYqikcbUjqtbqlm56-97-4132Jvjfd score [AUDIT-C]0 03/20/2024 10:06 AM EDT Mychart, GenericNOBates County Memorial HospitalUzzlzzmynf24-43-5501Vhf often do you have a drink containing alcohol?Never 03/20/2024 10:06 AM EDT Mychart, Generic NeverNOBates County Memorial HospitalOnloninlai06-79-6834Ztmxpwxdhr statusPatient does not drink 03/20/2024 10:06 AM EDT Mychart, Generic Patient does not drinkCoxHealthOjyovnxalu78-81-4861Ufc often do you have 6 or more drinks on 1 occasion?Never 03/20/2024 10:06 AM EDT Mychart, Generic NeverNOMA HealthcareNEGATED: Highlighted rowFunctional performance Functional status health issues are not documented [facility] Work Phone: Mental Status DateAssessmentResultFacilityNEGATED: Highlighted rowCognitive function [Interpretation]Cognitive status health issues are not documented [facility] Work Phone: History of Present illness Narrative 04-30-2024 Note Date & DqxiUtvwRbzjgska63-34-8772 History of Present illness Narrative* Sridhar Lo [...] Dospak) 4 MG tablets documented in this encounterNOMA Healthcare History of Present illness Narrative 03-20-2024 Note Date & WwpsVsbuJhrpzsid76-49-8264 History of Present illness Narrative* Sridhar Lo [...] labs. Colonoscopy normal in 2021. 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 Review of Systems Respiratory: Negative [...] panel Lipid panel TSH documented in this encounterCoxHealth Evaluation note 04-05-2022 Note Date & HnhvUkhjBimpqsba28-66-2892 Evaluation note* Encounter Date Diagnosis Assessment Notes Treatment Notes Treatment Clinical Notes Apr, Contact with and (brown spected) exposure to other viral communicable diseases (ICD-10 - Z20.828) Apr,OVID-19 (ICD-10 - U07.1)Discharge Instructions for COVID-19 (Suspected or Confirmed ) material was printed Offer plenty of fluids and rest. Take Tylenol or Motrin as needed for aches pains or fevers. You must quarantine for 5 days after the onset of your symptoms of COVID. Follow-up with your family physician if no improvement in 2 to 3 days. [employer] Other Evaluation note Note Date & TypeNoteFacilityEvaluation note* Diagnosis Chronic superficial gastritis without bleeding- Primary Adult hypothyroidism (CMS/HCC) Unspecified hypothyroidism Seasonal allergic rhinitis due to pollen MDD (major depressive disorder), recurrent episode, mild (HCC) (CMS/HCC) BRIAN (generalized anxiety disorder) ([facility]/HCC) Generalized anxiety disorder Annual physical exam- Primary Routine general medical examination at a health care facility Adult hypothyroidism (CMS/HCC) Unspecified hypothyroidism Acute non-recurrent pansinusitis- Primary documented in this encounter [facility] Evaluation note Note Date & TypeNoteFacilityEvaluation note* Diagnosis Chronic superficial gastritis without bleeding- Primary Adult hypothyroidism (CMS/HCC) Unspecified hypothyroidism Seasonal allergic rhinitis due to pollen MDD (major depressive disorder), recurrent episode, mild (HCC) (CMS/HCC) BRIAN (generalized anxiety disorder) ([facility]/HCC) Generalized anxiety disorder Annual physical exam- Primary Routine general medical examination at a health care facility Adult hypothyroidism (CMS/HCC) Unspecified hypothyroidism Acute non-recurrent pansinusitis- Primary Acute non-recurrent pansinusitis- Primary documented in this encounter [facility] Healthcare Evaluation note Note Date & TypeNoteFacilityEvaluation note* Diagnosis Annual physical exam- Primary Routine general medical examination at a health care facility Adult hypothyroidism (CMS/HCC) Unspecified hypothyroidism documented in this encounter [facility] Healthcare Evaluation note Note Date & TypeNoteFacilityEvaluation note* Diagnosis Onset Date Resolution Status Admit Date Annual physical exam acuteNovember 2024 7:39am [facility] Work Phone: History general Narrative - Reported Note Date & TypeNoteFacilityHistory general Narrative - Reported* Type Description Date Medical History Anxiety and depression Medical HistoryIBS (irritable bowel syndrome)Surgical HistorylaparoscopySurgical HistoryeyesSurgical HistorycholecystectomySurgical Historywisdom teethSurgical HistoryappendectomySurgical HistorycolonoscopyHospitalization Historysee above [employer] Other Reason for referral (narrative) Note Date & TypeNoteFacilityReason for referral (narrative)No reason for referral information availableGenesis Hospital Work Phone: Summary Purpose Family History No Family History Records Found Mother Name Dates Details Family history of depression (V17.0, Z81.8) Status:ActiveFHx: diabetes mellitus(V18.0, Z83.3) Status:ActiveFamily history of Hypertension, benign(401.1, I10) Status:Active Father Name Dates Details Family history of depression (V17.0, Z81.8) Status:ActiveFamily history of Anxiety(300.00, F41.9) Status:Active Advance Directives No Advanced Directives Records Found Advance Directive Response Recorded Date/ Time Advance Directives No October 19, 021 4:41pm Chief Complaint and Reason for Visit Chief Complaint Admit Date April 25, 2025 1 1:51am Med Refills May 07, 2025 7 :39am Reason for Visit Admit Date Annual physical exam May 07, 2025 7:39am Additional Source Comments INFORMATION SOURCE (unrecogn ized section and content) DATE CREATED AUTHOR 12/19/2017 [facility] DATE CREATED AUTHOR AUTHOR'S ORGANIZ ATION 12/21/2017 [facility] DATE CREATED AUTHOR AUTHOR'S ORGANIZ ATION 01/23/2018 [facility] DATE CREATED AUTHOR AUTHOR'S ORGANIZ ATION 02/01/2018 [facility] DATE CREATED AUTHOR AUTHOR'S ORGANIZ ATION 11/02/2022 [facility] DATE CREATED AUTHOR AUTHOR'S ORGANIZ ATION 05/02/2024 [facility] DATE CREATED AUTHOR AUTHOR'S ORGANIZ ATION 05/12/2025 [facility] REASON FOR VISIT (unrecogniz ed section and content) ReasonCommentsSore ThroatEaracheBilateral ear painReasonCommentsAnnual Exam wellness Care Teams (unrecognized sec tion and content) Team MemberRelationshipSpecialtyStart DateEnd Date Sridhar Lo MD [address] [place] [id number] PCP - GeneralFamily Medicine09/26/23Team MemberRelationshipSpecialtyStart DateEnd Date Sridhar Lo MD [address] [place] [address] PCP - GeneralFamily Medicine09/26/23Team MemberRelationshipSpecialtyStart DateEnd Date Sridhar Lo MD [address] [place] [address] PCP - GeneralFamily Medicine09/26/23Team MemberRelationshipSpecialtyStart DateEnd Date Sridhar Lo MD [address] [place] [address] PCP - Generalmily Medicine09/26/23Team MemberRelationshipSpecialtyStart DateEnd Date Sridhar Lo MD [address] [place] [address] PCP - Generalmily Medicine09/26/23Team MemberRelationshipSpecialtyStart DateEnd Date Sridhar Lo MD PCP - GeneralFamily Medicine09/26/23Team MemberRelationshipSpecialtyStart DateEnd Date Sridhar oL MD PCP - GeneralFamily Medicine09/26/23 Team Status: Active Member Role/Relationship Status Dates Sridhar Lo MD Primary Care Provider Active Team Status: Active Member Role/Relationship Status Dates Sridhar Lo MD Primary Care Provider Active S tart: April 25, 2025 Javy Petty ProviderActiveStart: April 25, 2025 Team Status: Inactive Member Role/Relationship Status Dates Sridhar Lo MD Primary Care Provider Active S tart: May 07, 2025 End: May 07, 2025[facility] CenterJavy Sullivan ProviderActiveStart: May 07, 2025 End: May 07, [...] BE BASED ON THE PRIMARY CLINICAL RECORDS. [facility] [employer] provides no warranty or guarantee of the accuracy or completeness of information in this document.
== END 2025-06-11 07:31 | disposition home or self-care (01) ==
LOC: MAMMO 07:30
PROVIDERS: PCP Family Medicine; Visit Provider Family Medicine
DX: Z12.31 Encounter for screening mammogram for malignant neoplasm of breast (principal); Z80.3 Family history of malignant neoplasm of breast; Z80.52 Family history of malignant neoplasm of bladder
CPT/HCPCS: 77063; 77067